=== PATIENT | female | born 1950 | race Caucasian/White ===

== ENCOUNTER 2020-09-10 10:27 | Outpatient (REF) | payer MEDICARE, MEDICAID, SELFPAY ==
[2020-09-10 12:17] LABS: Estimated Average Glucose 197 mg/dL; Hemoglobin A1c % 8.5 %
[2020-09-10 12:39] LABS: Alanine Aminotransferase 17 U/L (0-31); Albumin Level 3.9 g/dL (3.5-5.0); Alkaline Phosphatase 108 U/L (39-117); Anion Gap 15 (12-20); Aspartate Amino Transferase 14 U/L (5-31); Bilirubin Total 0.7 mg/dL (0.0-1.0); Blood Urea Nitrogen 19 mg/dL (9-16); Calcium 9.4 mg/dL (8.4-10.2); Carbon Dioxide 26 mmol/L (22-29); Chloride 98 mmol/L (96-108); Cholesterol 111 mg/dL; Estimated Glomerular Filt Rate 52; Glucose Random 232 mg/dL (60-115); HDL Cholesterol 30 mg/dL; LDL Cholesterol Calculated 50 mg/dl; Potassium 4.7 mmol/l (3.3-5.1); Sodium 134 mmol/L (135-145); Total Protein 7.7 g/dL (6.5-8.0); Triglycerides 156 mg/dL
[2020-09-10 13:03] LABS: Vitamin B12 453 pg/mL (200-900)
[2020-09-10 13:40] LABS: Creatinine Urine 54.84 mg/dL; Microalbum/Creatinine Ratio Ur 100.2 ug/mg cr
== END 2020-09-10 10:28 | disposition home or self-care (01) ==
LOC: HO.LAB 10:27
PROVIDERS: PCP Internal Medicine; Visit Provider Internal Medicine
DX: D64.9 Anemia, unspecified (principal); E11.65 Type 2 diabetes mellitus with hyperglycemia; E78.2 Mixed hyperlipidemia; E87.1 Hypo-osmolality and hyponatremia; Z91.14 Patient's other noncompliance with medication regimen
CPT/HCPCS: 80053; 80061; 82043; 82607; 83036

== ENCOUNTER 2020-12-09 10:52 | Outpatient (REF) | payer MEDICARE, MEDICAID, SELFPAY ==
[2020-12-09 12:11] LABS: MANUAL DIFF FLAG NO
[2020-12-09 12:26] LABS: Basophils Absolute Auto 0.1 X10*3/uL (0.0-0.2); Basophils Percent Auto 0.8 % (0-2); Eosinophils Absolute Auto 0.3 X10*3/uL (0.0-0.4); Eosinophils Percent Auto 4.3 % (0-4); Hematocrit 36.8 % (37-47); Hemoglobin 11.4 g/dl (12.0-16.0); Imm Gran Abs Auto 0.02 X10*3/uL (0.00-0.03); Imm Gran Pct Auto 0.3 % (0.0-0.4); Lymphocytes Absolute Auto 2.8 X10*3/uL (1.2-4.9); Lymphocytes Percent Auto 39.4 % (20-40); Mean Corpuscular Hemoglobin 26.4 pg (27.0-33.0); Mean Corpuscular Volume 85.2 fL (80-98); Mean Platelet Volume 10.4 fL (9.4-12.3); Monocytes Absolute Auto 0.6 X10*3/uL (0.1-1.2); Monocytes Percent Auto 7.9 % (2-11); Neutrophils Absolute Auto 3.4 X10*3/uL (2.0-8.3); Neutrophils Percent Auto 47.3 % (45-73); Platelet Count 330 X10*3/uL (160-400); Red Blood Count 4.32 X10*6/uL (4.20-5.50); Red Cell Distribution Width 18.2 % (11.0-16.0); White Blood Count 7.2 X10*3/uL (4.8-10.8)
[2020-12-09 12:43] LABS: Estimated Average Glucose 126 mg/dL; Hemoglobin A1C 124.5375 umol/L
[2020-12-09 13:32] LABS: Ferritin 154 ng/mL (10-250)
[2020-12-09 13:35] LABS: Alanine Aminotransferase 18 U/L (0-31); Albumin Level 3.9 g/dL (3.5-5.0); Alkaline Phosphatase 65 U/L (39-117); Anion Gap 16 (12-20); Aspartate Amino Transferase 28 U/L (5-31); Bilirubin Total 0.3 mg/dL (0.0-1.0); Blood Urea Nitrogen 20 mg/dL (9-16); Calcium 9.4 mg/dL (8.4-10.2); Carbon Dioxide 22 mmol/L (22-29); Chloride 107 mmol/L (96-108); Estimated Glomerular Filt Rate 52; Glucose Random 144 mg/dL (60-115); Potassium 4.9 mmol/l (3.3-5.1); Sodium 140 mmol/L (135-145); Total Protein 7.9 g/dL (6.5-8.0)
== END 2020-12-09 10:53 | disposition home or self-care (01) ==
LOC: HO.LAB 10:52
PROVIDERS: PCP Internal Medicine; Visit Provider Internal Medicine
DX: E11.65 Type 2 diabetes mellitus with hyperglycemia (principal); D64.9 Anemia, unspecified; E78.2 Mixed hyperlipidemia; R80.9 Proteinuria, unspecified
CPT/HCPCS: 36415; 80053; 82728; 83036; 85025

== ENCOUNTER 2021-03-15 09:29 | Outpatient (REF) | payer MEDICARE, MEDICAID, SELFPAY ==
[2021-03-15 10:41] LABS: Estimated Average Glucose 148 mg/dL; Hemoglobin A1c % 6.8 %
[2021-03-15 10:46] LABS: Alanine Aminotransferase 31 U/L (0-31); Albumin Level 4.2 g/dL (3.5-5.0); Alkaline Phosphatase 63 U/L (39-117); Anion Gap 14 (12-20); Aspartate Amino Transferase 22 U/L (5-31); Bilirubin Total 0.7 mg/dL (0.0-1.0); Blood Urea Nitrogen 27 mg/dL (9-16); Calcium 9.8 mg/dL (8.4-10.2); Carbon Dioxide 27 mmol/L (22-29); Chloride 104 mmol/L (96-108); Estimated Glomerular Filt Rate 57; Glucose Random 177 mg/dL (60-115); Potassium 4.6 mmol/L (3.3-5.1); Sodium 140 mmol/L (135-145); Total Protein 7.2 g/dL (6.5-8.0)
== END 2021-03-15 09:30 | disposition home or self-care (01) ==
LOC: HO.LAB 09:29
PROVIDERS: PCP Internal Medicine; Visit Provider Internal Medicine
DX: D64.9 Anemia, unspecified (principal); E11.9 Type 2 diabetes mellitus without complications; R80.0 Isolated proteinuria
CPT/HCPCS: 36415; 80053; 83036

== ENCOUNTER 2021-06-25 10:03 | Outpatient (REF) | payer MEDICARE, MEDICAID, SELFPAY ==
[2021-06-25 10:41] LABS: MANUAL DIFF FLAG NO
[2021-06-25 10:49] LABS: Basophils Absolute Auto 0.1 X10*3/uL (0.0-0.2); Basophils Percent Auto 0.7 % (0-2); Eosinophils Absolute Auto 0.5 X10*3/uL (0.0-0.4); Eosinophils Percent Auto 5.1 % (0-4); Hematocrit 34.5 % (37-47); Hemoglobin 10.7 g/dl (12.0-16.0); Imm Gran Abs Auto 0.04 X10*3/uL (0.00-0.03); Imm Gran Pct Auto 0.4 % (0.0-0.4); Lymphocytes Absolute Auto 2.9 X10*3/uL (1.2-4.9); Lymphocytes Percent Auto 30.7 % (20-40); Mean Corpuscular Hemoglobin 28.6 pg (27.0-33.0); Mean Corpuscular Volume 92.2 fL (80-98); Mean Platelet Volume 9.5 fL (9.4-12.3); Monocytes Absolute Auto 0.8 X10*3/uL (0.1-1.2); Neutrophils Absolute Auto 5.2 X10*3/uL (2.0-8.3); Neutrophils Percent Auto 55.1 % (45-73); Platelet Count 340 X10*3/uL (160-400); Red Blood Count 3.74 X10*6/uL (4.20-5.50); Red Cell Distribution Width 13.2 % (11.0-16.0); White Blood Count 9.5 X10*3/uL (4.8-10.8)
[2021-06-25 10:53] LABS: Estimated Average Glucose 134 mg/dL; Hemoglobin A1c % 6.3 %
[2021-06-25 11:15] LABS: Alanine Aminotransferase 25 U/L (0-31); Albumin Level 3.9 g/dL (3.5-5.0); Alkaline Phosphatase 60 U/L (39-117); Anion Gap 13 (12-20); Aspartate Amino Transferase 23 U/L (5-31); Bilirubin Total 0.4 mg/dL (0.0-1.0); Blood Urea Nitrogen 24 mg/dL (9-16); Calcium 9.7 mg/dL (8.4-10.2); Carbon Dioxide 23 mmol/L (22-29); Chloride 109 mmol/L (96-108); Estimated Glomerular Filt Rate 56; Glucose Random 127 mg/dL (60-115); Potassium 5.4 mmol/L (3.3-5.1); Sodium 140 mmol/L (135-145); Total Protein 6.7 g/dL (6.5-8.0)
[2021-06-25 11:38] LABS: Ferritin 107 ng/mL (10-250)
[2021-06-25 11:53] LABS: Vitamin B12 275 pg/mL (200-900)
== END 2021-06-25 10:04 | disposition home or self-care (01) ==
LOC: HO.LAB 10:03
PROVIDERS: PCP Internal Medicine; Visit Provider Internal Medicine
DX: D64.9 Anemia, unspecified (principal); E11.9 Type 2 diabetes mellitus without complications; F33.42 Major depressive disorder, recurrent, in full remission; J30.89 Other allergic rhinitis; R80.0 Isolated proteinuria
CPT/HCPCS: 36415; 80053; 82607; 82728; 83036; 85025

== ENCOUNTER 2021-09-22 13:12 | Outpatient (REF) | payer MEDICARE, SELFPAY ==
[2021-09-22 14:26] LABS: Estimated Average Glucose 154 mg/dL
[2021-09-22 14:56] LABS: Alanine Aminotransferase 32 U/L (0-31); Albumin Level 4.2 g/dL (3.5-5.0); Alkaline Phosphatase 66 U/L (39-117); Anion Gap 13 (12-20); Aspartate Amino Transferase 33 U/L (5-31); Bilirubin Total 0.4 mg/dL (0.0-1.0); Blood Urea Nitrogen 21 mg/dL (9-16); Calcium 9.8 mg/dL (8.4-10.2); Carbon Dioxide 25 mmol/L (22-29); Chloride 104 mmol/L (96-108); Estimated Glomerular Filt Rate 59; Glucose Random 141 mg/dL (60-115); Potassium 4.3 mmol/L (3.3-5.1); Sodium 138 mmol/L (135-145); Total Protein 7.4 g/dL (6.5-8.0)
[2021-09-22 15:18] LABS: Ferritin 57 ng/mL (10-250); Vitamin B12 249 pg/mL (200-900)
== END 2021-09-22 13:13 | disposition home or self-care (01) ==
LOC: HO.LAB 13:12
PROVIDERS: PCP Internal Medicine; Visit Provider Internal Medicine
DX: D64.9 Anemia, unspecified (principal); E11.9 Type 2 diabetes mellitus without complications; F17.201 Nicotine dependence, unspecified, in remission; F33.42 Major depressive disorder, recurrent, in full remission; R80.0 Isolated proteinuria
CPT/HCPCS: 36415; 80053; 82607; 82728; 83036

== ENCOUNTER 2022-01-03 10:45 | Outpatient (REF) | payer MEDICARE, SELFPAY ==
[2022-01-03 12:07] LABS: Estimated Average Glucose 154 mg/dL
[2022-01-03 12:26] LABS: Creatinine Urine 47.98 mg/dL; Microalbum/Creatinine Ratio Ur 127.1 ug/mg cr
[2022-01-03 12:26] LABS: Alanine Aminotransferase 27 U/L (0-31); Albumin Level 3.6 g/dL (3.5-5.0); Alkaline Phosphatase 96 U/L (39-117); Anion Gap 14 (12-20); Aspartate Amino Transferase 27 U/L (5-31); Bilirubin Total 0.4 mg/dL (0.0-1.0); Blood Urea Nitrogen 31 mg/dL (9-16); Calcium 9.6 mg/dL (8.4-10.2); Carbon Dioxide 20 mmol/L (22-29); Chloride 109 mmol/L (96-108); Cholesterol 107 mg/dL; Estimated Glomerular Filt Rate 32; Glucose Random 125 mg/dL (60-115); HDL Cholesterol 27 mg/dL; LDL Cholesterol Calculated 47 mg/dl; Potassium 5.1 mmol/L (3.3-5.1); Sodium 138 mmol/L (135-145); Total Protein 7.5 g/dL (6.5-8.0); Triglycerides 169 mg/dL
== END 2022-01-03 10:46 | disposition home or self-care (01) ==
LOC: HO.LAB 10:45
PROVIDERS: PCP Internal Medicine; Visit Provider Internal Medicine
DX: Z00.00 Encounter for general adult medical examination without abnormal findings (principal); D51.9 Vitamin B12 deficiency anemia, unspecified; E11.9 Type 2 diabetes mellitus without complications; F33.42 Major depressive disorder, recurrent, in full remission; R80.0 Isolated proteinuria
CPT/HCPCS: 36415; 80053; 80061; 82043; 83036

== ENCOUNTER 2022-04-04 10:56 | Outpatient (REF) | payer OTHER, SELFPAY ==
[2022-04-04 12:12] LABS: Estimated Average Glucose 143 mg/dL; Hemoglobin A1c % 6.6 %
[2022-04-04 12:14] LABS: Alanine Aminotransferase 16 U/L (0-31); Alkaline Phosphatase 85 U/L (39-117); Anion Gap 15 (12-20); Aspartate Amino Transferase 20 U/L (5-31); Bilirubin Total 0.4 mg/dL (0.0-1.0); Blood Urea Nitrogen 32 mg/dL (9-16); Calcium 9.6 mg/dL (8.4-10.2); Carbon Dioxide 19 mmol/L (22-29); Chloride 111 mmol/L (96-108); Estimated Glomerular Filt Rate 38; Glucose Random 137 mg/dL (60-115); Potassium 4.5 mmol/L (3.3-5.1); Sodium 140 mmol/L (135-145); Total Protein 7.6 g/dL (6.5-8.0)
== END 2022-04-04 10:57 | disposition home or self-care (01) ==
LOC: HO.LAB 10:56
PROVIDERS: PCP Internal Medicine; Visit Provider Internal Medicine
DX: E11.9 Type 2 diabetes mellitus without complications (principal); E78.00 Pure hypercholesterolemia, unspecified; N18.9 Chronic kidney disease, unspecified; R80.0 Isolated proteinuria
CPT/HCPCS: 36415; 80053; 83036

== ENCOUNTER 2022-07-04 09:40 | Outpatient (REF) | payer OTHER, SELFPAY ==
[2022-07-04 11:36] LABS: Estimated Average Glucose 134 mg/dL; Hemoglobin A1c % 6.3 %
[2022-07-04 11:53] LABS: Alanine Aminotransferase 36 U/L (0-31); Albumin Level 3.8 g/dL (3.5-5.0); Alkaline Phosphatase 97 U/L (39-117); Anion Gap 17 (12-20); Aspartate Amino Transferase 37 U/L (5-31); Bilirubin Total 0.4 mg/dL (0.0-1.0); Blood Urea Nitrogen 44 mg/dL (9-16); Calcium 9.3 mg/dL (8.4-10.2); Carbon Dioxide 15 mmol/L (22-29); Chloride 111 mmol/L (96-108); Estimated Glomerular Filt Rate 26; Glucose Random 106 mg/dL (60-115); Potassium 5.6 mmol/L (3.3-5.1); Sodium 137 mmol/L (135-145); Total Protein 7.7 g/dL (6.5-8.0)
[2022-07-04 12:17] LABS: TSH reflex Free T4 4.56 uIU/mL (0.32-4.0)
[2022-07-04 12:53] LABS: Free T4 (Free Thyroxine) 0.84 ng/dL (0.71-1.85)
== END 2022-07-04 09:41 | disposition home or self-care (01) ==
LOC: HO.LAB 09:40
PROVIDERS: PCP Internal Medicine; Visit Provider Internal Medicine
DX: E11.9 Type 2 diabetes mellitus without complications (principal); N18.9 Chronic kidney disease, unspecified; R63.4 Abnormal weight loss; F32.5 Major depressive disorder, single episode, in full remission; F17.201 Nicotine dependence, unspecified, in remission; Z93.6 Other artificial openings of urinary tract status
CPT/HCPCS: 36415; 80053; 83036; 84439; 84443

== ENCOUNTER 2022-09-29 08:44 | Outpatient (REF) | payer OTHER, SELFPAY ==
[2022-09-29 09:51] LABS: Estimated Average Glucose 160 mg/dL; Hemoglobin A1c % 7.2 %
[2022-09-29 10:20] LABS: Alanine Aminotransferase 20 U/L (0-31); Albumin Level 4.1 g/dL (3.5-5.0); Alkaline Phosphatase 89 U/L (39-117); Anion Gap 17 (12-20); Aspartate Amino Transferase 18 U/L (5-31); Bilirubin Direct < 0.2 mg/dL (0.0-0.5); Bilirubin Total 0.4 mg/dL (0.0-1.0); Blood Urea Nitrogen 27 mg/dL (9-16); Calcium 9.6 mg/dL (8.4-10.2); Carbon Dioxide 22 mmol/L (22-29); Chloride 105 mmol/L (96-108); Cholesterol 164 mg/dL; Estimated Glomerular Filt Rate 36; Glucose Random 176 mg/dL (60-115); HDL Cholesterol 39 mg/dL; LDL Cholesterol Calculated 82 mg/dl; Potassium 4.4 mmol/L (3.3-5.1); Sodium 140 mmol/L (135-145); Total Protein 7.4 g/dL (6.5-8.0); Triglycerides 215 mg/dL
== END 2022-09-29 08:45 | disposition home or self-care (01) ==
LOC: HO.LAB 08:44
PROVIDERS: Absent Provider Nurse Practitioner Gerontology; PCP Internal Medicine; Visit Provider Internal Medicine
DX: E03.8 Other specified hypothyroidism (principal); E11.9 Type 2 diabetes mellitus without complications; N18.9 Chronic kidney disease, unspecified; R63.4 Abnormal weight loss
CPT/HCPCS: 36415; 80053; 80061; 82248; 83036

== ENCOUNTER 2023-01-20 11:54 | Outpatient (REF) | payer OTHER, SELFPAY ==
[2023-01-20 12:40] LABS: Estimated Average Glucose 183 mg/dL
[2023-01-20 13:17] LABS: Alanine Aminotransferase 22 U/L (0-31); Albumin Level 3.9 g/dL (3.5-5.0); Alkaline Phosphatase 80 U/L (39-117); Anion Gap 12 (12-20); Aspartate Amino Transferase 23 U/L (5-31); Bilirubin Total 0.5 mg/dL (0.0-1.0); Blood Urea Nitrogen 29 mg/dL (9-16); Calcium 9.2 mg/dL (8.4-10.2); Carbon Dioxide 21 mmol/L (22-29); Chloride 107 mmol/L (96-108); Estimated Glomerular Filt Rate 35; Glucose Random 297 mg/dL (60-115); Potassium 4.3 mmol/L (3.3-5.1); Sodium 136 mmol/L (135-145)
[2023-01-20 13:20] LABS: Creatinine Urine 51.43 mg/dL; Microalbum/Creatinine Ratio Ur 124.4 ug/mg cr
[2023-01-20 13:42] LABS: Vitamin B12 272 pg/mL (200-900)
== END 2023-01-20 11:55 | disposition home or self-care (01) ==
LOC: HO.LAB 11:54
PROVIDERS: PCP Internal Medicine; Visit Provider Internal Medicine
DX: Z00.00 Encounter for general adult medical examination without abnormal findings (principal); E11.9 Type 2 diabetes mellitus without complications; E78.2 Mixed hyperlipidemia; N18.9 Chronic kidney disease, unspecified
CPT/HCPCS: 36415; 80053; 82043; 82607; 83036

== ENCOUNTER 2023-04-28 09:55 | Outpatient (REF) | payer OTHER, SELFPAY ==
[2023-04-28 11:18] LABS: Estimated Average Glucose 186 mg/dL; Hemoglobin A1c % 8.1 %
[2023-04-28 12:01] LABS: Alanine Aminotransferase 33 U/L (0-31); Albumin Level 4.2 g/dL (3.5-5.0); Alkaline Phosphatase 78 U/L (39-117); Anion Gap 14 (12-20); Aspartate Amino Transferase 40 U/L (5-31); Bilirubin Total 0.6 mg/dL (0.0-1.0); Blood Urea Nitrogen 31 mg/dL (9-16); Calcium 9.5 mg/dL (8.4-10.2); Carbon Dioxide 21 mmol/L (22-29); Chloride 105 mmol/L (96-108); Estimated Glomerular Filt Rate 29; Glucose Random 217 mg/dL (60-115); Potassium 4.7 mmol/L (3.3-5.1); Sodium 135 mmol/L (135-145); Total Protein 7.7 g/dL (6.5-8.0)
== END 2023-04-28 09:56 | disposition home or self-care (01) ==
LOC: HO.LAB 09:55
PROVIDERS: PCP Internal Medicine; Visit Provider Internal Medicine
DX: E11.65 Type 2 diabetes mellitus with hyperglycemia (principal); N18.30 Chronic kidney disease, stage 3 unspecified
CPT/HCPCS: 36415; 80053; 83036

== ENCOUNTER 2023-08-04 10:21 | Outpatient (REF) | payer OTHER, SELFPAY ==
[2023-08-04 10:59] LABS: Estimated Average Glucose 203 mg/dL; Hemoglobin A1c % 8.7 % (<6.0)
[2023-08-04 11:24] LABS: Alanine Aminotransferase 26 U/L (0-31); Albumin Level 4.1 g/dL (3.5-5.0); Alkaline Phosphatase 75 U/L (39-117); Anion Gap 12 (12-20); Aspartate Amino Transferase 30 U/L (5-31); Bilirubin Total 0.4 mg/dL (0.0-1.0); Blood Urea Nitrogen 24 mg/dL (9-16); Carbon Dioxide 22 mmol/L (22-29); Chloride 110 mmol/L (96-108); Estimated Glomerular Filt Rate 30; Glucose Random 221 mg/dL (60-115); Potassium 5.6 mmol/L (3.3-5.1); Sodium 138 mmol/L (135-145); Total Protein 7.7 g/dL (6.5-8.0)
== END 2023-08-04 10:22 | disposition home or self-care (01) ==
LOC: HO.LAB 10:21
PROVIDERS: PCP Internal Medicine; Visit Provider Internal Medicine
DX: E11.65 Type 2 diabetes mellitus with hyperglycemia (principal); N18.9 Chronic kidney disease, unspecified; Z85.51 Personal history of malignant neoplasm of bladder
CPT/HCPCS: 36415; 80053; 83036

== ENCOUNTER 2023-11-10 09:42 | Outpatient (REF) | payer OTHER, SELFPAY ==
[2023-11-10 10:32] LABS: Estimated Average Glucose 209 mg/dL; Hemoglobin A1c % 8.9 % (<6.0)
[2023-11-10 10:41] LABS: Alanine Aminotransferase 32 U/L (0-31); Albumin Level 4.1 g/dL (3.5-5.0); Alkaline Phosphatase 72 U/L (39-117); Anion Gap 14 (12-20); Aspartate Amino Transferase 35 U/L (5-31); Bilirubin Total 0.4 mg/dL (0.0-1.0); Blood Urea Nitrogen 23 mg/dL (9-16); Calcium 9.7 mg/dL (8.4-10.2); Carbon Dioxide 23 mmol/L (22-29); Chloride 105 mmol/L (96-108); Cholesterol 158 mg/dL (<200); Estimated Glomerular Filt Rate 34; Glucose Random 282 mg/dL (60-115); HDL Cholesterol 37 mg/dL (>40); LDL Cholesterol Calculated 83 mg/dL (<100); Potassium 5.4 mmol/L (3.3-5.1); Sodium 137 mmol/L (135-145); Total Protein 7.9 g/dL (6.5-8.0); Triglycerides 193 mg/dL (<150)
[2023-11-10 10:57] LABS: Thyroid Stimulating Hormone 5.54 uIU/mL (0.32-4.0)
[2023-11-10 11:10] LABS: Creatinine Urine 62.42 mg/dL; Microalbum/Creatinine Ratio Ur 201.8 ug/mg cr (<30)
== END 2023-11-10 09:43 | disposition home or self-care (01) ==
LOC: HO.LAB 09:42
PROVIDERS: PCP Internal Medicine; Visit Provider Internal Medicine
DX: E11.65 Type 2 diabetes mellitus with hyperglycemia (principal); E11.22 Type 2 diabetes mellitus with diabetic chronic kidney disease; F17.201 Nicotine dependence, unspecified, in remission; N18.9 Chronic kidney disease, unspecified
CPT/HCPCS: 36415; 80053; 80061; 82043; 82570; 83036; 84443

== ENCOUNTER 2024-02-09 09:43 | Outpatient (REF) | payer OTHER, SELFPAY ==
[2024-02-09 10:58] LABS: Estimated Average Glucose 171 mg/dL; Hemoglobin A1c % 7.6 % (<6.0)
[2024-02-09 11:34] LABS: Alanine Aminotransferase 24 U/L (0-31); Alkaline Phosphatase 60 U/L (39-117); Anion Gap 13 (12-20); Aspartate Amino Transferase 27 U/L (5-31); Bilirubin Total 0.4 mg/dL (0.0-1.0); Blood Urea Nitrogen 27 mg/dL (9-16); Calcium 9.7 mg/dL (8.4-10.2); Carbon Dioxide 25 mmol/L (22-29); Chloride 104 mmol/L (96-108); Cholesterol 156 mg/dL (<200); Estimated Glomerular Filt Rate 38; Glucose Random 219 mg/dL (60-115); HDL Cholesterol 34 mg/dL (>40); LDL Cholesterol Calculated 72 mg/dL (<100); Potassium 4.8 mmol/L (3.3-5.1); Sodium 137 mmol/L (135-145); Total Protein 7.4 g/dL (6.5-8.0); Triglycerides 253 mg/dL (<150)
== END 2024-02-09 09:44 | disposition home or self-care (01) ==
LOC: HO.LAB 09:43
PROVIDERS: PCP Internal Medicine; Visit Provider Internal Medicine
DX: E11.65 Type 2 diabetes mellitus with hyperglycemia (principal); E11.22 Type 2 diabetes mellitus with diabetic chronic kidney disease; E78.00 Pure hypercholesterolemia, unspecified; F17.201 Nicotine dependence, unspecified, in remission; R19.5 Other fecal abnormalities; R80.8 Other proteinuria; N18.9 Chronic kidney disease, unspecified
CPT/HCPCS: 36415; 80053; 80061; 83036

== ENCOUNTER 2024-05-10 10:06 | Outpatient (REF) | payer OTHER, SELFPAY ==
[2024-05-10 10:59] LABS: Estimated Average Glucose 209 mg/dL; Hemoglobin A1c % 8.9 % (<6.0)
[2024-05-10 11:24] LABS: Alanine Aminotransferase 16 U/L (0-31); Albumin Level 3.8 g/dL (3.5-5.0); Alkaline Phosphatase 60 U/L (39-117); Anion Gap 11 (12-20); Aspartate Amino Transferase 19 U/L (5-31); Bilirubin Total 0.7 mg/dL (0.0-1.0); Blood Urea Nitrogen 19 mg/dL (9-16); Calcium 9.8 mg/dL (8.4-10.2); Carbon Dioxide 24 mmol/L (22-29); Chloride 104 mmol/L (96-108); Estimated Glomerular Filt Rate 40; Glucose Random 234 mg/dL (60-115); Potassium 4.2 mmol/L (3.3-5.1); Sodium 135 mmol/L (135-145); Total Protein 7.4 g/dL (6.5-8.0)
== END 2024-05-10 10:07 | disposition home or self-care (01) ==
LOC: HO.LAB 10:06
PROVIDERS: PCP Internal Medicine; Visit Provider Internal Medicine
DX: E11.65 Type 2 diabetes mellitus with hyperglycemia (principal); E11.22 Type 2 diabetes mellitus with diabetic chronic kidney disease; I12.9 Hypertensive chronic kidney disease with stage 1 through stage 4 chronic kidney disease, or unspecified chronic kidney disease; E78.2 Mixed hyperlipidemia; N18.9 Chronic kidney disease, unspecified; R80.8 Other proteinuria
CPT/HCPCS: 36415; 80053; 83036

== ENCOUNTER 2024-05-22 07:19 | Day surgery (SDC) | payer OTHER, SELFPAY ==
[2024-05-20 14:19] VITALS: BMI 25.9
--- NOTE | 2024-05-21 10:09 | P.CONAN_ITS ---
Documented by User: Elissa Chang NP 05/21/24 10:19 HPI - Anesthesia Eval Consult details Narrative: 74yo F for Colonoscopy CAD with [place] and stent 2017. Follows with [facility] Cardiology. Last office visit 2021. [facility] Past Medical History Medical History Bladder cancer GERD (gastroesophageal reflux disease) Myocardial infarction Diabetes Surgical History Surgical History Hx of heart artery stent History of surgery Hx of total cystectomy H/O colonoscopy Social History Social History Patient Tobacco Use Status: Former Tobacco user Tobacco use type: Cigarette Use of substances other than those prescribed or required for medical reasons: No Are you DNR?: No Advance Directives: No Advance Directives Information Provided: Yes Meds Allergies Allergy/AdvReac Type Severity Reaction Status Date / Time No Known Allergies Allergy Verified 05/22/24 08:11 [No Known Allergies*] Home Medications ?Medication ?Instructions ?Recorded ?Confirmed ?Last Taken ?Type aspirin 81 mg tablet,delayed 81 mg PO DAILY 05/20/24 05/22/24 05/20/24 History release escitalopram oxalate 5 mg tablet 5 mg PO DAILY 05/20/24 05/20/24 Unknown History glipizide 10 mg tablet, extended 10 mg PO DAILY 05/20/24 05/20/24 Unknown History release 24 hr metformin 750 mg tablet,extended 750 mg PO BID 05/20/24 05/20/24 Unknown History release 24 hr metoprolol tartrate 25 mg tablet 25 mg PO BID 05/20/24 05/20/24 Unknown History omeprazole 40 mg capsule,delayed 40 mg PO DAILY 05/20/24 05/20/24 Unknown History release rosuvastatin 10 mg tablet 10 mg PO BEDTIME 05/20/24 05/20/24 Unknown History Exam Height,Weight and Vital Signs: Height 5 ft 1 in Weight 62.142 kg Pertinent Lab Results Pertinent Lab Results: Laboratory Tests 06/25/21 05/10/24 10:20 10:18 WBC 9.5 Hgb 10.7 L Hct 34.5 L Plt Count 340 Sodium 135 Potassium 4.2 Chloride 104 Carbon Dioxide 24 BUN 19 H Creatinine 1.29 Assessment and Plan Assessment Anesthesia Assessment: Chart Reviewed Documented by User: Shazia Langford MD 05/22/24 08:49 PMFSH Past Medical History Medical History Bladder cancer GERD (gastroesophageal reflux disease) Myocardial infarction Diabetes Family History Family history of problems with anesthesia: No Surgical History Surgical History Hx of heart artery stent History of surgery Hx of total cystectomy H/O colonoscopy History of Problems with Anesthesia: No Social History Social History Patient Tobacco Use Status: Former Tobacco user Tobacco use type: Cigarette Use of substances other than those prescribed or required for medical reasons: No Are you DNR?: No Advance Directives: No Advance Directives Information Provided: Yes Meds Allergies Allergy/AdvReac Type Severity Reaction Status Date / Time No Known Allergies Allergy Verified 05/22/24 08:11 [No Known Allergies*] Home Medications ?Medication ?Instructions ?Recorded ?Confirmed ?Last Taken ?Type aspirin 81 mg tablet,delayed 81 mg PO DAILY 05/20/24 05/22/24 05/20/24 History release escitalopram oxalate 5 mg tablet 5 mg PO DAILY 05/20/24 05/20/24 Unknown History glipizide 10 mg tablet, extended 10 mg PO DAILY 05/20/24 05/20/24 Unknown History release 24 hr metformin 750 mg tablet,extended 750 mg PO BID 05/20/24 05/20/24 Unknown History release 24 hr metoprolol tartrate 25 mg tablet 25 mg PO BID 05/20/24 05/20/24 Unknown History omeprazole 40 mg capsule,delayed 40 mg PO DAILY 05/20/24 05/20/24 Unknown History release rosuvastatin 10 mg tablet 10 mg PO BEDTIME 05/20/24 05/20/24 Unknown History Exam Airway Mallampati Class: II TM Dist: >3cm Neck ROM: Full Denture: Upper and Lower Assessment and Plan Assessment Anesthesia Assessment: Anesthesia Plan Discussed Final Anesthetic Review Family History of Problems with Anesthesia: No History of Problems with Anesthesia: No NPO: Yes ASA Class: III Final Preanesthetic Review: No Changes in Pt Med Stat, Meds/Allgs Chart Reviewed, Consent Obtained/Reviewed and Anes Risks/Benef Reviewed Patient Risk: Intermediate Procedure Risk: Low Anesthetic Plan Anesthetic Plan: TIVA Disposition: Standard PACU
[2024-05-22 08:04] LABS: Glucose, Whole Blood 237 mg/dL (60-115)
[2024-05-22 08:15] VITALS: BMI 24.9
[2024-05-22 08:19] VITALS: BP 151/74; PULSE 81; RESP 16; TEMP 36.9; O2SAT 95
[2024-05-22] MEDS: Lactated Ringers 1,000 ML 100 ML IVCONT (08:30)
--- NOTE | 2024-05-22 09:35 | PC.NURSE ---
24hr update documented on paper.
[2024-05-22 09:51] VITALS: BP 133/73; PULSE 90; RESP 17; TEMP 36.1; O2SAT 97
--- NOTE | 2024-05-22 09:52 | P.BOP_ITS ---
Brief Operative Note Date of Service: 05/22/24 Pre-op diagnosis: + Cologuard Post-op diagnosis: other (? Colon polyp) Procedure: Colonoscopy to the cecum with biopsies Surgeon: Nando Goode MD Anesthesia: MAC Was an Train Station Agent used for this Procedure?: No Estimated blood loss (mL): 2.0 Pathology: other (A. ? Polyp in area of Hepatic flexure) Condition: stable Disposition: PACU
[2024-05-22 10:06] VITALS: BP 141/75; PULSE 75; RESP 15; TEMP 36.4; O2SAT 97
--- NOTE | 2024-05-22 10:26 | OP_ITS ---
DATE OF SERVICE: 05/22/2024 SURGEON: Nando Goode MD INDICATIONS: The patient presents for evaluation of a positive Cologuard test. Full consent has been obtained from her for this, including risks of bleeding and perforation. PREOPERATIVE DIAGNOSIS: POSTOPERATIVE DIAGNOSIS: Positive Cologuard test. PROCEDURE PERFORMED: Colonoscopy to cecum with biopsies. ESTIMATED BLOOD LOSS: COMPLICATIONS: ANESTHESIA: Monitored anesthesia care. ASSISTANTS: SPECIMENS: PREOPERATIVE DIAGNOSES: Positive Cologuard test, question of colon polyp, diverticulosis, and internal hemorrhoids. DESCRIPTION OF PROCEDURE: The patient was placed in the left lateral decubitus position. The digital rectal exam revealed no abnormalities. The Olympus video pediatric colonoscope was entered into the rectum and advanced to the cecum. Advancement to the cecum was somewhat difficult due to probable adhesions. Once in the cecum, I did identify cecal pouch with appendiceal orifice and a normal-appearing ileocecal valve. There was transillumination of light deep in the right lower quadrant. The scope was then slowly withdrawn assessing all mucosal surfaces carefully. Preparation was excellent. The mucosa in the region of the cecum, ascending colon, and transverse colon was somewhat friable and edematous. With irrigation, there was no sign of any underlying colitis. In the area of what appeared to be the distal ascending colon or the hepatic flexure, was a fold with some overlying edema and inflammation that may have represented just some inflammatory tissue, but biopsies were obtained to rule out any type of polyp. I did not visualize any polyps, colitis, nor angiodysplasias. There was a moderate amount of diverticulosis in the descending and sigmoid colon. In the rectum, scope was retroflexed, visualizing some internal hemorrhoids, but no other pathology. The rectal mucosa appeared normal. The scope was straightened and withdrawn from the patient. She tolerated the procedure well and was returned to the recovery area in stable condition. IMPRESSION: 1. Rule out colon polyp. 2. Diverticulosis. 3. Internal hemorrhoids. PLAN: The results of the biopsy will be checked. If this is an adenomatous type tissue, she would need a followup colonoscopy for further removal of that area. If it is all hyperplastic and/or inflammatory, then I do not think she will need any further colonoscopies in the future. She was advised to resume her aspirin tomorrow. MD DIVYA Escoto/AUGUSTINE / [id number]
== END 2024-05-22 10:44 | disposition home or self-care (01) ==
PROVIDERS: PCP Internal Medicine; Visit Provider Internal Medicine
PROC: 0DJD8ZZ Inspection of Lower Intestinal Tract, Via Natural or Artificial Opening Endoscopic (ICD-10-PCS; CPT 45378; principal; 2024-05-22 08:30)
DX: R19.5 Other fecal abnormalities (principal); D12.3 Benign neoplasm of transverse colon; K57.30 Diverticulosis of large intestine without perforation or abscess without bleeding; K64.8 Other hemorrhoids; K21.9 Gastro-esophageal reflux disease without esophagitis; E11.9 Type 2 diabetes mellitus without complications; C67.9 Malignant neoplasm of bladder, unspecified; Z90.6 Acquired absence of other parts of urinary tract; Z93.6 Other artificial openings of urinary tract status; I25.2 Old myocardial infarction; Z95.5 Presence of coronary angioplasty implant and graft; Z79.82 Long term (current) use of aspirin; Z79.84 Long term (current) use of oral hypoglycemic drugs; Z79.899 Other long term (current) drug therapy; Z98.890 Other specified postprocedural states; Z87.891 Personal history of nicotine dependence
CPT/HCPCS: 45380; 82947; 88305; J2704

== ENCOUNTER 2024-08-08 10:55 | Outpatient (REF) | payer OTHER, SELFPAY ==
[2024-08-08 12:13] LABS: Estimated Average Glucose 220 mg/dL; Hemoglobin A1c % 9.3 % (<6.0)
[2024-08-08 12:39] LABS: Alanine Aminotransferase 19 U/L (0-31); Albumin Level 3.9 g/dL (3.5-5.0); Alkaline Phosphatase 65 U/L (39-117); Anion Gap 10 (12-20); Aspartate Amino Transferase 24 U/L (5-31); Bilirubin Total 0.4 mg/dL (0.0-1.0); Blood Urea Nitrogen 26 mg/dL (9-16); Calcium 9.8 mg/dL (8.4-10.2); Carbon Dioxide 22 mmol/L (22-29); Chloride 109 mmol/L (96-108); Estimated Glomerular Filt Rate 39; Glucose Random 204 mg/dL (60-115); Potassium 4.4 mmol/L (3.3-5.1); Sodium 137 mmol/L (135-145); Total Protein 7.3 g/dL (6.5-8.0)
== END 2024-08-08 10:56 | disposition home or self-care (01) ==
LOC: HO.LAB 10:55
PROVIDERS: PCP Internal Medicine; Visit Provider Internal Medicine
DX: E11.65 Type 2 diabetes mellitus with hyperglycemia (principal); I25.10 Atherosclerotic heart disease of native coronary artery without angina pectoris; N18.9 Chronic kidney disease, unspecified; R80.8 Other proteinuria
CPT/HCPCS: 36415; 80053; 83036

== ENCOUNTER 2024-10-07 10:26 | Day surgery (SDC) | payer OTHER, SELFPAY ==
[2024-10-03 14:28] VITALS: BMI 25.9
--- NOTE | 2024-10-04 09:53 | HO.ANESPROP2 ---
Documented by User: Elissa Chang NP 10/04/24 09:59 HPI - Anesthesia Eval Consult details Narrative: 74yo F for Colonoscopy Follows [facility] CAD s/p [place] and stent 2017. Not seen since 2021?? Attempted phone assess, but unavailable. Anesthesia Pre-Procedure Meds Is the patient on any of the following meds?: GLP1/DPP4 PMFSH Past Medical History Medical History (Updated 10/03/24 @ 14:28 by Nenita Regalado RN) Bladder cancer GERD (gastroesophageal reflux disease) Myocardial infarction Diabetes Family History Family history of problems with anesthesia: No Surgical History Surgical History (Updated 10/07/24 @ 10:55 by Niesha Armijo RN) H/O tubal ligation H/O adenoidectomy Hx of tonsillectomy History of kidney surgery Hx of heart artery stent History of surgery Hx of total cystectomy H/O colonoscopy History of Problems with Anesthesia: No Social History Social History Patient Tobacco Use Status: Former Tobacco user Tobacco use type: Cigarette Use of substances other than those prescribed or required for medical reasons: No Are you DNR?: No Advance Directives: No Advance Directives Information Provided: Yes Advance Directives on File: No Recently lost weight without trying: No Nutrition Risks: No Nutritional Risk Patient : No Meds Allergies Allergy/AdvReac Type Severity Reaction Status Date / Time No Known Allergies Allergy Verified 05/22/24 08:11 [No Known Allergies*] Home Medications ?Medication ?Instructions ?Recorded ?Confirmed ?Last Taken ?Type aspirin 81 mg tablet,delayed 81 mg PO DAILY 05/20/24 10/03/24 05/20/24 History release escitalopram oxalate 5 mg tablet 5 mg PO DAILY 05/20/24 10/03/24 Unknown History glipizide 10 mg tablet, extended 10 mg PO DAILY 05/20/24 10/03/24 Unknown History release 24 hr metformin 750 mg tablet,extended 750 mg PO BID 05/20/24 10/03/24 Unknown History release 24 hr metoprolol tartrate 25 mg tablet 25 mg PO BID 05/20/24 10/03/24 Unknown History omeprazole 40 mg capsule,delayed 40 mg PO DAILY 05/20/24 10/03/24 Unknown History release rosuvastatin 10 mg tablet 10 mg PO BEDTIME 05/20/24 10/03/24 Unknown History insulin glargine 100 unit/mL (3 24 unit subcut BEDTIME 10/03/24 10/03/24 Unknown History mL) subcutaneous pen (Lantus Solostar U-100 Insulin) sitagliptin phosphate 100 mg 100 mg PO DAILY 10/03/24 10/03/24 10/04/24 History tablet (Januvia) Exam Height,Weight and Vital Signs: Height 5 ft 1 in Weight 62.142 kg Pertinent Lab Results Pertinent Lab Results: Laboratory Tests 08/08/24 11:30 Sodium 137 Potassium 4.4 Chloride 109 H Carbon Dioxide 22 BUN 26 H Creatinine 1.34 Narrative Narrative: ECHO 2022 LV size nml LV wall thickness nml LV sys function low nml with EF 50-55% Accurate pulmo pressures cannot be determined d/t absence of TR jet Lipomatous hypertrophy of interatrial septum Slightly improved EF c/w 2021 Assessment and Plan Assessment Anesthesia Assessment: Chart Reviewed Final Anesthetic Review Family History of Problems with Anesthesia: No History of Problems with Anesthesia: No Documented by User: Shazia Langford MD 10/07/24 12:00 [facility] Past Medical History Medical History (Updated 10/03/24 @ 14:28 by Nenita Regalado RN) Bladder cancer GERD (gastroesophageal reflux disease) Myocardial infarction Diabetes Surgical History Surgical History (Updated 10/07/24 @ 10:55 by Niesha Armijo RN) H/O tubal ligation H/O adenoidectomy Hx of tonsillectomy History of kidney surgery Hx of heart artery stent History of surgery Hx of total cystectomy H/O colonoscopy Social History Social History Patient Tobacco Use Status: Former Tobacco user Tobacco use type: Cigarette Use of substances other than those prescribed or required for medical reasons: No Are you DNR?: No Advance Directives: No Advance Directives Information Provided: Yes Advance Directives on File: No Recently lost weight without trying: No Nutrition Risks: No Nutritional Risk Patient : No Meds Allergies Allergy/AdvReac Type Severity Reaction Status Date / Time No Known Allergies Allergy Verified 05/22/24 08:11 [No Known Allergies*] Home Medications ?Medication ?Instructions ?Recorded ?Confirmed ?Last Taken ?Type aspirin 81 mg tablet,delayed 81 mg PO DAILY 05/20/24 10/03/24 05/20/24 History release escitalopram oxalate 5 mg tablet 5 mg PO DAILY 05/20/24 10/03/24 Unknown History glipizide 10 mg tablet, extended 10 mg PO DAILY 05/20/24 10/03/24 Unknown History release 24 hr metformin 750 mg tablet,extended 750 mg PO BID 05/20/24 10/03/24 Unknown History release 24 hr metoprolol tartrate 25 mg tablet 25 mg PO BID 05/20/24 10/03/24 Unknown History omeprazole 40 mg capsule,delayed 40 mg PO DAILY 05/20/24 10/03/24 Unknown History release rosuvastatin 10 mg tablet 10 mg PO BEDTIME 05/20/24 10/03/24 Unknown History insulin glargine 100 unit/mL (3 24 unit subcut BEDTIME 10/03/24 10/03/24 Unknown History mL) subcutaneous pen (Lantus Solostar U-100 Insulin) sitagliptin phosphate 100 mg 100 mg PO DAILY 10/03/24 10/03/24 10/04/24 History tablet (Januvia) Exam Airway Mallampati Class: II TM Dist: >3cm Neck ROM: Full Denture: Upper and Lower Assessment and Plan Assessment Anesthesia Assessment: Anesthesia Plan Discussed Final Anesthetic Review NPO: Yes ASA Class: III Final Preanesthetic Review: No Changes in Pt Med Stat, Meds/Allgs Chart Reviewed, Consent Obtained/Reviewed and Anes Risks/Benef Reviewed Patient Risk: Intermediate Procedure Risk: Low Anesthetic Plan Anesthetic Plan: TIVA Disposition: Standard PACU
[2024-10-07 10:56] VITALS: BMI 26.1
[2024-10-07 11:07] VITALS: BP 127/72; PULSE 82; RESP 16; TEMP 36.1; O2SAT 94
[2024-10-07 11:17] LABS: Glucose, Whole Blood 163 mg/dL (60-115)
[2024-10-07] MEDS: Lactated Ringers 1,000 ML 100 ML IVCONT (11:22)
[2024-10-07 13:25] VITALS: BP 85/49; PULSE 73; RESP 16; TEMP 36.1; O2SAT 97
--- NOTE | 2024-10-07 13:33 | P.BOP_ITS ---
Brief Operative Note Date of Service: 10/07/24 Pre-op diagnosis: Screening, history of serrated polyp with dysplasia Post-op diagnosis: other (Colon polyps) Procedure: Colonoscopy to the cecum with hot sanre polypectomy x 1, biopsies, placement of 1 Resolution Ultra clip, and marking with ink Surgeon: Nando Goode MD Anesthesia: MAC Was an Military Aircraft Designer used for this Procedure?: No Estimated blood loss (mL): 2.0 Pathology: other (A. Polyp in area of Hepatic flexure B. 2nd polyp in area of hepatic flexure) Condition: stable Disposition: PACU
[2024-10-07 13:40] VITALS: BP 125/68; PULSE 85; RESP 16; TEMP 36.4; O2SAT 95
--- NOTE | 2024-10-08 00:20 | OP_ITS ---
DATE OF SERVICE: 10/07/2024 SURGEON: Nando Goode MD INDICATIONS: The patient presents for followup of known history of serrated colon polyp. Full consent obtained from her for this, including risks of bleeding and perforation. PREOPERATIVE DIAGNOSIS: POSTOPERATIVE DIAGNOSIS: PROCEDURE PERFORMED: Colonoscopy to the cecum with hot snare polypectomy, biopsies, placement of one resolution clip, and marking with submucosal ink. ESTIMATED BLOOD LOSS: COMPLICATIONS: ANESTHESIA: Monitored anesthesia care. ASSISTANTS: SPECIMENS: PREOPERATIVE DIAGNOSES: History of serrated colon polyp with dysplasia. POSTOPERATIVE DIAGNOSES: History of serrated colon polyp with dysplasia, colon polyps, diverticulosis, and internal hemorrhoids. DESCRIPTION OF PROCEDURE: The patient was placed in left lateral decubitus position. The digital rectal exam revealed no abnormalities. The Olympus video pediatric colonoscope was entered into the rectum and advanced to the cecum. Advancement past the sigmoid colon was difficult due to adhesions from her previous surgeries. Once in the cecum, I did identify cecal pouch and a normal-appearing ileocecal valve. The scope was then slowly withdrawn assessing all mucosal surfaces carefully. Preparation was excellent. In the area of the hepatic flexure, was an area on a fold that seemed to represent polypoid tissue measuring approximately 12 mm in diameter. This was removed by hot snare polypectomy and recovered by suction. The polypectomy site appeared clean, without any sign of residual polyp nor bleeding. A single resolution clip was applied to this with good deployment and good hemostasis. Just distal to this area was the site of the previous biopsies from earlier in the year that revealed a serrated polyp with associated dysplasia. This was approximately 12 to 15 mm in diameter with raised edges and some central ulceration. It was quite firm. Initial attempts at trying to removal by snare were unsuccessful and no cautery was applied. I then used some Eleview to try to elevate the lesion, but the surrounding tissue would raise when the Eleview was injected, but the lesion itself would not. Seemed to be quite firm. At that point, I obtained multiple biopsies from the edges as well as the central area of the lesion, which appeared to be somewhat ulcerated and friable. Multiple biopsies were obtained. I then placed an ink ish submucosally next to it. The scope was then continued to be withdrawn slowly. Preparation remained excellent. Again, there was a great deal of spasm in the sigmoid colon. I did not visualize any other polyps, colitis, nor angiodysplasia. There was a mild amount of sigmoid diverticulosis. In the rectum, scope was retroflexed visualizing some internal hemorrhoids, but no other pathology. The rectal mucosa appeared normal. The scope was straightened and withdrawn from the patient. She tolerated the procedure well and was returned to recovery area in stable condition. IMPRESSION: 1. Colon polyps. 2. Diverticulosis. 3. Internal hemorrhoids. PLAN: The results of the pathology will be checked. If the suspicious lesion does not have any malignancy, we would then have to decide about further attempts at removing it either here or at a tertiary center. Obviously, if there is malignancy, then she would need a resection. She was advised to not use any NSAIDs for at least 2 weeks. She was advised to resume her aspirin in 72 hours. This has been discussed with her family. MD DIVYA Escoto/AUGUSTINE / [id number] MTDD
== END 2024-10-07 14:14 | disposition home or self-care (01) ==
PROVIDERS: PCP Internal Medicine; Visit Provider Internal Medicine
PROC: 0DJD8ZZ Inspection of Lower Intestinal Tract, Via Natural or Artificial Opening Endoscopic (ICD-10-PCS; CPT 45378; principal; 2024-10-07 12:20)
DX: Z12.11 Encounter for screening for malignant neoplasm of colon (principal); C7A.8 Other malignant neuroendocrine tumors; Z86.0101 Personal history of adenomatous and serrated colon polyps; K66.0 Peritoneal adhesions (postprocedural) (postinfection); E11.9 Type 2 diabetes mellitus without complications; K57.30 Diverticulosis of large intestine without perforation or abscess without bleeding; K64.8 Other hemorrhoids; K58.9 Irritable bowel syndrome, unspecified
CPT/HCPCS: 45385; 45380; 45381; 82947; 88305; 88341; 88342; 88360; J2003; J2371; J2704

== ENCOUNTER 2024-10-15 16:14 | Outpatient (REF) | payer OTHER, SELFPAY ==
[2024-10-15 16:30] LABS: MANUAL DIFF FLAG NO
[2024-10-15 16:43] LABS: Basophils Absolute Auto 0.1 X10*3/uL (0.0-0.2); Basophils Percent Auto 0.9 % (0-2); Eosinophils Absolute Auto 0.2 X10*3/uL (0.0-0.4); Eosinophils Percent Auto 2.2 % (0-4); Hematocrit 37.6 % (37.0-47.0); Hemoglobin 11.9 g/dl (12.0-16.0); Imm Gran Abs Auto 0.03 X10*3/uL (0.00-0.03); Imm Gran Pct Auto 0.4 % (0.0-0.4); Lymphocytes Percent Auto 36.7 % (20-40); Mean Corpuscular HGB Conc 31.6 g/dl (31.0-35.0); Mean Corpuscular Hemoglobin 26.7 pg (27.0-33.0); Mean Corpuscular Volume 84.5 fL (80.0-98.0); Mean Platelet Volume 10.2 fL (9.4-12.3); Monocytes Absolute Auto 0.6 X10*3/uL (0.1-1.2); Monocytes Percent Auto 7.5 % (2-11); Neutrophils Absolute Auto 4.3 x10*3/uL (2.0-8.3); Neutrophils Percent Auto 52.3 % (45-73); Platelet Count 169 X10*3/uL (160-400); Red Blood Count 4.45 X10*6/uL (4.20-5.50); Red Cell Distribution Width 13.9 % (11.0-16.0); White Blood Count 8.2 X10*3/uL (4.8-10.8)
[2024-10-15 18:18] LABS: Alanine Aminotransferase 20 U/L (0-31); Albumin Level 3.8 g/dL (3.5-5.0); Alkaline Phosphatase 56 U/L (39-117); Anion Gap 11 (12-20); Aspartate Amino Transferase 33 U/L (5-31); Bilirubin Direct 0.1 mg/dL (0.0-0.5); Bilirubin Total 0.4 mg/dL (0.0-1.0); Blood Urea Nitrogen 27 mg/dL (9-16); Calcium 9.1 mg/dL (8.4-10.2); Carbon Dioxide 25 mmol/L (22-29); Chloride 108 mmol/L (96-108); Estimated Glomerular Filt Rate 28; Glucose Random 178 mg/dL (60-115); Potassium 4.9 mmol/L (3.3-5.1); Sodium 139 mmol/L (135-145); Total Protein 7.8 g/dL (6.5-8.0)
== END 2024-10-15 16:15 | disposition home or self-care (01) ==
LOC: HO.LAB 16:14
PROVIDERS: PCP Internal Medicine; Visit Provider Internal Medicine
DX: C18.9 Malignant neoplasm of colon, unspecified (principal); C7A.1 Malignant poorly differentiated neuroendocrine tumors
CPT/HCPCS: 36415; 80048; 80076; 82378; 85025

== ENCOUNTER 2024-10-30 09:37 | Outpatient (AMB) | payer OTHER, SELFPAY ==
--- NOTE | 2024-10-30 09:39 | MHC.OFFVIS ---
Vital Signs 10/30/24 09:43 Height 5 ft 1 in Weight 138 lb 2 oz BMI 26.1 Intake Visit Reasons: Adenocarcinoma of colon Intake Note: This patient was referred by Dr. Goode for adenocarcinoma of colon. Pt c/o; reports no complaints at this time. Donations Attendant Required: No Accompanied by: Other Relationship Allergies No Known Allergies [No Known Allergies*] Allergy (Verified 10/30/24 09:45) HPI HPI Adenocarcinoma of colon: Details: 74-year-old female referred for a malignant polyp. She had underwent colonoscopy with Dr. Goode last 10/07/2024. She was noted to have a flat polyp at the hepatic flexure on the transverse colon side. This was not deemed to be resectable endoscopically. Biopsies of this done showed a malignant epithelial neoplasm with neuroendocrine differentiation. This appears to have combined features of an adenocarcinoma and under looks endocrine tumor suggesting a mixed adeno neuroendocrine carcinoma. She was [place] [facility] [place] She has a history of bladder cancer and has an ileal conduit. [facility] Medical History (Updated 10/30/24 @ 10:04 by Brando Estevez MD) Ex-smoker Colon cancer Bladder cancer GERD (gastroesophageal reflux disease) Myocardial infarction Diabetes Surgical History H/O tubal ligation H/O adenoidectomy Hx of tonsillectomy History of kidney surgery Hx of heart artery stent History of surgery Hx of total cystectomy H/O colonoscopy Social History Patient Tobacco Use Status: Former Tobacco user Tobacco use type: Cigarette Review of Systems Const Denies chills and Denies fever(s) Card Denies chest pain, Denies dyspnea and Denies dyspnea on exertion Resp Denies cough, Denies dyspnea and Denies dyspnea on exertion GI Denies hematochezia and Denies change in bowel habits Denies hematuria Musc Denies back pain and Denies limited range of motion Neuro Denies focal weakness and Denies convulsions Psych Denies depression and Denies mood swings Physical Exam Vital Signs: BMI result Body Mass Index 26.1 Const General: comfortable and no acute distress Orientation/consciousness: patient oriented x3 Neck Neck: Yes no lymphadenopathy Resp Auscultation: clear to auscultation bilaterally Cardio Rhythm: regular rhythm GI Other: Has an ileal conduit on the right side; long surgical scar in the lower midline Palpation (GI): Soft to palpation, nontender and no guarding Neuro General: patient oriented x3 Assessment & Plan Assessment & Plan (1) Colon cancer: Code(s): C18.9 - Malignant neoplasm of colon, unspecified Category: Medical Plan: She has what appears to be 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 She will therefore benefit from right colon resection. I explained to her the technique of hand assisted laparoscopic colon resection with possible conversion to open. I explained to her the risks including but not limited to bleeding, infections, injury to other organs including bowel, the her ileal conduit, staple line leak, blood clots, pneumonia, [place], as well as the benefits and alternatives. She does have an ileal conduit and I am going to review her records for this to make sure we are familiar with her anatomy She is going to have a CT scan done in [facility] she says. I am going to review the images and we will have them forward the studies to us She will need to be seen by her primary care physician in view of her history of coronary artery disease. I discussed with the patient as well as her healthcare proxy who was with her above plan and the seemed to understand this and are comfortable with the plan. I will call her again next week after I have reviewed her studies as well as her old records. Coding Level of Care Code New Pt Level 4 (83210) Diagnoses Colon cancer C18.9
[2024-10-30 09:43] VITALS: BMI 26.1
--- OUTSIDE RECORDS SUMMARY | 2024-11-05 17:15 | XMS_ITS ---
Author Organization [facility] Address [address] [place] [phone] Care Team Providers Care Brake Repair Supervisor Name Role Phone Breanne Andrew Primary Care Provider Unavailab Nando Leon Unavailable [phone] REASON FOR VISIT Need to see her today at the end of the day Encounters Encounter Location Date Provider Diagnosis [facility] [address] [facility] [address] [place] [phone] 10/15/2024 Nando Godoe PLAN OF TREATMENT Next Appt Details Provider Name:Nando Goode , 03/11/2025 11:00:00 AM, [address] [facility] [facility], [address], [place], [address],
--- OUTSIDE RECORDS SUMMARY | 2024-11-05 17:15 | XMS_ITS ---
Author Organization [facility] Address [address] [place] [address] Care Team Providers Care Meat And Poultry Inspector Name Role Phone Breanne Andrew Primary Care Provider Unavailab Nando Leon Unavailable [phone] REASON FOR VISIT No IV contrast for her CT scans Encounters Encounter Location Date Provider Diagnosis [facility] [address] [place] [address] 10/15/2024 Nando Goode PLAN OF TREATMENT Next Appt Details Provider Name:Nando Goode , 03/11/2025 11:00:00 AM, [address], [address], [place], [address],
--- OUTSIDE RECORDS SUMMARY | 2024-11-05 17:15 | XMS_ITS ---
Author Organization [facility] Address [address] [place] [address] Care Team Providers Care Planning Rn Name Role Phone Beverlyreggie Breanne Primary Care Provider Unavailab Nando Leon Unavailable [phone] ALLERGIES No Known Allergies REASON FOR VISIT patient presents today for colonoscopy follow up MEDICATIONS Medication SIG (Take, Route, Frequency, Duration) Notes Start Date End Date Status Omeprazole 40 MG TAKE 1 CAPSULE BY MOUTH EVERY DAY Oral for 90 Active metFORMIN HCl ER 750 MG TAKE 1 TABLET BY MOUTH TWICE DAILY Oral for 90 Starting on 02/26/24 02/26/2024 Not-Taking Aspirin Low Dose 81 MG Oral for 90 Active Metoprolol Tartrate 25 MG Oral for 90 Active Escitalopram Oxalate 5 MG TAKE 1 TABLET BY MOUTH EVERY DAY Oral for 90 Active Rosuvastatin Calcium 20 MG Oral for 90 Active glipiZIDE ER 10 MG Oral for 90 Active Januvia 100 MG 1 tablet Orally Once a day for 30 day(s) Active Lantus 100 UNIT/ML as directed Subcutaneous Active SOCIAL HISTORY Tobacco Use: Social History Observation Description Date Details (start date - stop date) Former Smoker NA - NA Sex Assigned At : Social History Observation Description Sex Assigned At Unknown Tobacco Use/Smoking Question Answer Notes Patient is a former smoker How long has it been since you last smoked? 5-10 years Alcohol Screen Question Answer Notes Did you have a drink containing alcohol in the p ast year? 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 VITAL SIGNS BMI 26.45 kg/m2 10/15/2024 Blood pressure systolic 00 mm Hg 10/15/20 24 Blood pressure diastolic 00 mm Hg 024 Height 5 ft 1 in in 10/15/2024 Weight 140 lbs 10/15/2024 Encounters Encounter Location Date Provider Diagnosis [facility] [address] [place] [address] 10/15/2024 Nando Goode Adenocarcinoma of co alli C18.9 and Malignant poorly differentiated neuroendocrine tumors C7A.1 ASSESSMENTS Encounter Date Diagnosis Assessment Notes Treatment Notes Treatment Clinical Notes 10/15/2024 Adenocarcinoma of colon (ICD-10 - C18.9) Appointment with Dr. Estevez for evaluation of a colon cancer with adenocarcinoma and neuroendocrine cells in a patient with a history of bladder cancer with previous surgry for a bladder resection, ileal conduit, and a urostomy . 10/15/2024 Malignant poorly differentiated neuroendocrine tumors (ICD-10 - C7A.1) PLAN OF TREATMENT Treatment Notes Assessment Notes Adenocarcinoma of colon Appointment with Dr. Estevez for evaluation of a colon cancer with adenocarcinoma and neuroendocrine cells in a patient with a history of bladder cancer with previous surgry for a bladder resection, ileal conduit, and a urostomy . Pending Test Test Name Order Date CHEM 7 PROFILE 10/15/2024 LIVER PROFILE 10/15/2024 CEA 10/15/2024 CBC w DIFF 10/15/2024 CT ABD & PELVIS WITH PO CONT ONLY 2023 CT CHEST NO CONTRAST 10/15/2024 Next Appt Details Follow Up: Spring 2024, Reas on: Provider Name:Nando Goode , 03/11/2025 11:00:00 AM, [address], [address], [place], [address], Progress Notes * Examination Category Sub-Category Detail Notes General Examination GENERAL APPEARANCE: pleasant , well nourished, well developed, in no acute distress HEAD: EYES: sclera non-icteric EARS: NOSE: THROAT: NECK/THYROID: no cervical lymphade nopathy, neck supple HEART: S1, S2 normal CHEST: LUNGS: clear to auscultatio n bilaterally ABDOMEN: normal bowel sounds, no guarding or rigidity, no guarding or rigidity, no masses palpable, soft, nontender, nondistended NEUROLOGIC: alert and oriented SKIN: nonjaundiced, no spi arina angiomata EXTREMITIES: no edema PERIPHERAL PULSES: BACK: BREASTS: MUSCULOSKELETAL: MALE GENITOURINARY: LYMPH NODES: RECTAL EXAM: FEMALE GENITOURINARY: ORAL CAVITY: mucosa moist
--- OUTSIDE RECORDS SUMMARY | 2024-11-05 17:15 | XMS_ITS | Data Portability ---
Author Organization [facility] [employer] Address [address] [place] [phone] Care Team Providers Care Microarray Operations Vice President Name Role Phone [facility] Referring Provider Assessment No assessment recorded. Plan of Treatment Reminders Order Date Submit Date Provider Last Modified By Organization Details Last Modified Time Details Appointments None record ed. Lab None record ed. Referral None record ed. Procedures None record ed. Surgeries None record ed. Imaging None record ed. Medication Orders None record ed. Patient TargetsNo targets recorded. Patient InstructionsNo instructions recorded. Reason for Referral None Reported. Medical Equipment None Reported. Medications Name Sig Start Date Stop Date Status Note LastModified by Organization Details LastModified Time metformin 500 mg tablet TAKE 1 TABLET BY MOUTH TWICE DAILY active Not Available Not Available No t Available clindamycin HCl 300 mg capsule TAKE 1 CAPSULE BY MOUTH FOUR TIMES DAILY FOR 5 DAYS active Not Available Not Available N ot Available polyethylene glycol 3350 17 gram oral powder packet TAKE 17 GRAMS BY MOUTH EVERY DAY. TAKE DAILY TO PREVENT CONSTIPATIO N. MAY STOP TAKING IF YOU DEVELOP DIARRHEA active Not Available Not Available No t Available sulfamethoxa zole 400 mg-trimethop rim 80 mg tablet TAKE 1 TABLET BY MOUTH TWICE DAILY WITH GLASS OF WATER active Not Available Not Available No t Available senna 8.6 mg tablet active Not Available Not Available Not Available ciprofloxaci n 250 mg tablet TAKE 1 TABLET BY MOUTH EVERY DAY AFTER COMPLETING CIPRO 500MG. TAKE UNTIL THE TIME OF SURGERY. INFORM SURGICAL TEAM OF PRESCRIPTIO N active Not Available Not Available No t Available ciprofloxaci n 500 mg tablet TAKE 1 TABLET BY MOUTH TWICE DAILY active Not Available Not Available No t Available omeprazole 40 mg capsule,purvi yed release TAKE 1 CAPSULE BY MOUTH EVERY DAY active Not Available Not Available No t Available glipizide ER 2.5 mg tablet, extended release 24 hr TAKE 1 TABLET BY MOUTH EVERY DAY active Not Available Not Available No t Available lisinopril 2.5 mg tablet TAKE 1 TABLET BY MOUTH EVERY DAY active Not Available Not Available No t Available oxycodone 5 mg tablet active Not Available Not Available No t Available rosuvastatin 10 mg tablet TAKE 1 TABLET BY MOUTH AT BEDTIME active Not Available Not Available No t Available rosuvastatin 20 mg tablet TAKE 1 TABLET BY MOUTH AT BEDTIME active Not Available Not Available No t Available escitalopram 5 mg tablet TAKE 1 TABLET BY MOUTH EVERY DAY active Not Available Not Available No t Available metoprolol tartrate 25 mg tablet TAKE 1 TABLET BY MOUTH TWICE DAILY active Not Available Not Available No t Available Lubricant Eye Drops 0.5 % INSTILL 1 DROP IN BOTH EYES TWICE DAILY active Not Available Not Available Not Available FreeStyle Lite Strips USE TO TEST BLOOD SUGAR TWICE DAILY active Not Available Not Available Not Available [employer]NOW COVID-19 Ag Self Test kit FOLLOW PACKAGE DIRECTIONS active Not Available Not Available N ot Available Vitals Date Recorded Respiratory rate Body weight Heart rate Oxygen saturation Oxygen saturation in Arterial blood by Pulse oximetry Body temperature Systolic blood pressure Diastolic blood pressure Provider Name and Address Organization Details Last Updated DateTime 2 12 /min 27158.9 6 g 95 /min 96 % 96 % 101.9 [degF] 118 mm[Hg] 73 mm[Hg] Not Available [facility] - production 2 13:45:35 Social History None recorded. Functional Status None recorded. Mental Status None recorded. Family History Nothing Reported. Medical History No medical history recorded. Gynecological HistoryNo gynecological history recorded. Obstetrics History GPAL:G 0 P 0 0 0 0 Past Encounters Encounter ID Performer Location Encounter Start Date Encounter Closed Date Diagnosis/Indication Diagnosis SNOMED-CT Code Diagnosis ICD10 Code [id number] Flower Connell MD [facility] [address] [place] [phone] 11/16/2022 13:45:29 11/18/2022 10:47:15 Fever [id number] R50.9 Health Concerns Section Related Observation LastModified by Organization Detai ls LastModified Time None Recorded Concern Status LastModified by Organization Details LastModified Time None Recorded Advance Directives Directive None Recorded Payers Encounter Date Sequence Insurance Name Policy Number Policy Francis Covered Member ID Francis Member ID Guarantor Name 11/16/2022 1 [facility] [place] - DOS PRIOR TO 2023 - DUAL ELIGIBLE (MEDICARE REPLACEMENT/ADV ANTAGE - HMO) Crista Boyd [id number] Crista Boyd Notes Date Note Type Note Provider Name and Address Organization Details Recorded Time 11/16/2022 text/html [facility] Nursing Assessment: Reason For Request: Wears urolstomy bag Vomiting off and on, dry heave going on a couple of days. Aches and pain, sore body. Patient Reports: Nausea with or without vomiting; Inability to tolerate foods, fluids or daily medications Denies: Vague abdominal pain greater than 24 hours Constipation Diarrhea ? no blood in stool Painful urination Frequent and increased urination with flank pain Painful urination with or without fever Inability to fully empty bladder Chief Complaints: Nausea/Vomiting, Pain PMH: Other Allergies: No Known Comments: Member has been having N/v for 2-3 days . Member has a urostomy , normal urine. Member has had normal BM/ . Member denies any pain. Member has been able to eat and drink , Member does have a LARA and muscle soreness. Member thinks she has a UTI > but denies any changes in urine Normally this is the symptoms she has with a UTI .................. .................. .................. .................. .................. .................. .................. ............... [employer] Note: Dispatched a home of 72-year-old female patient with bodyaches chills and a headache for three days. Vitals are as noted. Patient is febrile at 101.9. Both Covid and flu tests are performed and are negative. tiredness. Urine dip performed. Patient took 1000 mg of Tylenol just prior to my arrival. [facility] physician states this appears to be upper respiratory illness Tylenol every 6 hours. .................. .................. .................. .................. .................. .................. .................. ............... Disposition: Fulfilled Floewr Connell MD [address] [place] [address],[address], [place], [phone], [facility] 11/16/2022 23:59:34 OBGyn Episode No OBEpisode recorded.
--- OUTSIDE RECORDS SUMMARY | 2024-11-05 17:15 | XMS_ITS | Patient Health Record ---
Author Organization [facility] Address [address] [place] [address] Care Team Providers Care I O Psychologist Name Role Phone Beverlyreggie Breanne Primary Care Provider UnavailNando Pina [phone] ALLERGIES No Known Allergies RESULTS Component Value Reference Range Notes Glucose, Whole Blood Reviewed date:05/22/2024 05:20:35 PM Interpretation: Performing Lab:[facility], [address] [place] [phone] Notes/Report: Glucose, Whole Blood 237 60-115 mg/dL METER # : [id number] Pathology Reviewed date:10/06/2024 05:13:53 PM Interpretation: Performing Lab:[facility], [address] [place] [phone] Notes/Report: Glucose, Whole Blood Reviewed date:10/07/2024 11:23:09 PM Interpretation: Performing Lab:[facility], [address] [place] [phone] Notes/Report: Glucose, Whole Blood 163 60-115 mg/dL METER # : [id number] Pathology Reviewed date:10/15/2024 07:52:02 PM Interpretation: Performing Lab:[facility], [address] [place] [phone] Notes/Report: Complete Blood Count Auto Di ff Reviewed date:10/15/2024 06:47:16 PM Interpretation: Performing Lab:[facility], [address] [place] [phone] Notes/Report: White Blood Count 8.2 4.8-10.8 X10*3/uL Red Blood Count 4.45 4.20-5.50 X10*6/uL Hemoglobin 11.9 12.0-16.0 g/dl Hematocrit 37.6 37.0-47.0 % Mean Corpuscular Volume 84.5 80.0-98.0 fL Mean Corpuscular Hemoglobin 26.7 27.0-33.0 pg Mean Corpuscular HGB Conc 31.6 31.0-35.0 g/dl Red Cell Distribution Width 13.9 11.0-16.0 % Platelet Count 169 160-400 X10*3/uL Mean Platelet Volume 10.2 9.4-12.3 fL Neutrophils Percent Auto 52.3 45-73 % Imm Gran Pct Auto 0.4 0.0-0.4 % Lymphocytes Percent Auto 36.7 20-40 % Monocytes Percent Auto 7.5 2-11 % Eosinophils Percent Auto 2.2 0-4 % Basophils Percent Auto 0.9 0-2 % NRBC Pct Auto 0.0 0.0-0.2 /100WBC Neutrophils Absolute Auto 4.3 2.0-8.3 x10*3/u L Imm Gran Abs Auto 0.03 0.00-0.03 X10*3/uL Lymphocytes Absolute Auto 3.0 1.2-4.9 X10*3/u L Monocytes Absolute Auto 0.6 0.1-1.2 X10*3/uL Eosinophils Absolute Auto 0.2 0.0-0.4 X10*3/u L Basophils Absolute Auto 0.1 0.0-0.2 X10*3/uL NRBC Abs Auto 0.000 0.0-0.012 X10*3/uL Liver Panel Reviewed date:10/15/2024 06:47:33 PM Interpretation: Performing Lab:[facility], [address] [place] [phone] Notes/Report: Bilirubin Total 0.4 0.0-1.0 mg/dL Bilirubin Direct 0.1 0.0-0.5 mg/dL Aspartate Amino Transferase 33 5-31 U/L Slight Hemolysis.Interpret result with caution. Alanine Aminotransferase 20 0-31 U/L Total Protein 7.8 6.5-8.0 g/dL Albumin Level 3.8 3.5-5.0 g/dL Alkaline Phosphatase 56 39-117 U/L Basic Metabolic Panel Reviewed date:10/17/2024 06:27:47 PM Interpretation: Performing Lab:[facility], [address] [place] [phone] Notes/Report: Sodium 139 135-145 mmol/L Potassium 4.9 3.3-5.1 mmol/L Slight Hemoly sis.Interpret result with caution. Chloride 108 96-108 mmol/L Carbon Dioxide 25 22-29 mmol/L Anion Gap 11 12-20 Blood Urea Nitrogen 27 9-16 mg/dL Creatinine 1.77 0.5-1.4 mg/dL Estimated Glomerular Filt Rate 28 Chronic Kidney Disease: Estimated GFR < 60 mL/min/1.73m2 Severe Kidney Disease: Estimated GFR < 15 mL/min/1.73m2 Glucose Random 178 60-115 mg/dL Calcium 9.1 8.4-10.2 mg/dL Carcinoembryonic Antigen Reviewed date:10/15/2024 06:48:29 PM Interpretation: Performing Lab:[facility], [address] [place] [phone] Notes/Report: Carcinoembryonic Antigen 4.20 CEA Reference Range: 93.4% Non-Smokers = 0.0-3.0 ng/mL 95.6% Smokers = 0.0-5.0 ng/mL CEA Methodology: Schmidt Alinity i Chemiluminescent Microparticle Immunoassay (CMIA) CEA testing can have significant value in monitoring of patients with diagnosed malignancies in whom changing concentrations of CEA are observed. Values obtained with different assay methods cannot be used interchangeably. 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 2 Adenocarcinoma of co alli (C18.9) Referral Organization [facility] Referring Provider First Name Nando Referring Provider Last Name Rupa Referring Provider Speciality Gastroente nishant Referred Provider Brando Estevez Referred Provider Specialty Surgery Referral Priority Routine Referral Appointment Date 10/30/2024 MEDICATIONS Medication SIG (Take, Route, Frequency, Duration) Notes Start Date End Date Status Omeprazole 40 MG TAKE 1 CAPSULE BY MOUTH EVERY DAY Oral for 90 Active metFORMIN HCl ER 750 MG TAKE 1 TABLET BY MOUTH TWICE DAILY Oral for 90 Starting on 02/26/24 02/26/2024 Not-Taking Rosuvastatin Calcium 20 MG Oral for 90 Active glipiZIDE ER 10 MG Oral for 90 Active Aspirin Low Dose 81 MG Oral for 90 Active Metoprolol Tartrate 25 MG Oral for 90 Active Escitalopram Oxalate 5 MG TAKE 1 TABLET BY MOUTH EVERY DAY Oral for 90 Active Januvia 100 MG [...] W/U Status Risk SNOMED Code Notes Problem Positive colorectal cancer screening using Cologuard test (R19.5) Active confirmed Abnormal feces (042036969) Problem Diverticulosis of large intestine without perforation or abscess without bleeding (K57.30) Active confirmed Diverticul ar disease of colon (708300418) Problem 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 confirmed Sessile serrated polyp of colon (5087666597) Problem 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 confirmed Malignant neoplasm of colon (320838337) Problem 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 VITAL SIGNS Blood pressure diastolic 00 mm Hg 10/15/2024 Height 5 ft 1 in in 10/15/2024 Blood pressure systolic 00 mm Hg 10/15/2024 Weight 140 lbs 10/15/2024 BMI 26.45 kg/m2 10/15/2024 Encounters Encounter Location Date Provider Diagnosis [facility] [address] [place] [phone] 05/22/2024 Nando Goode Colon polyps K63.5 ; Heme + stool R19.5 ; Diverticulosis of large intestine without perforation or abscess without bleeding K57.30 and Other hemorrhoids K64.8 [facility] [address] [place] [phone] 10/07/2024 Nando Goode Colon cancer screeni ng Z12.11 ; Colon polyps K63.5 ; Diverticulosis of large intestine without perforation or abscess without bleeding K57.30 and Other hemorrhoids K64.8 [facility] [address] [place] [address] 10/15/2024 Nando Goode Adenocarcinoma of co alli C18.9 and Malignant poorly differentiated neuroendocrine tumors C7A.1 [facility] [address] [place] [address] 02/20/2024 Nando Goode Positive colorectal cancer screening using Cologuard test R19.5 [facility] [address] [address] 04/03/2024 Nando Goode [facility] [address] [place] [address] 05/27/2024 Nando Goode Sessile serrated lynn yp of colon D12.6 [facility] [address] [address] 10/15/2024 Nando Goode [facility] [address] [address] 10/15/2024 Nando Goode ASSESSMENTS Encounter Date Diagnosis Assessment Notes Treatment Notes Treatment Clinical Notes 05/22/2024 Colon polyps (ICD-10 - K63.5) 05/22/2024 Heme + stool (ICD-10 - R19.5) 10/07/2024 Colon cancer screening (ICD-10 - Z12.11) 10/07/2024 Colon polyps (ICD-10 - K63.5) 10/15/2024 Malignant poorly differentiated neuroendocrine tumors (ICD-10 - C7A.1) 10/15/2024 Adenocarcinoma of colon (ICD-10 - C18.9) Appointment with Dr. Estevez for evaluation of a colon cancer with adenocarcinoma and neuroendocrine cells in a patient with a history of bladder cancer with previous surgry for a bladder resection, ileal conduit, and a urostomy . 02/20/2024 Positive colorectal cancer screening using Cologuard test (ICD-10 - R19.5) Do not take the aspirin on the day of the colonoscopy Do not take the Metformin or Glipizide the night before nor on the morning of the colonoscopy. You need to let me know if your diabetes medications change before the colonoscopy. If you happen to still be on the Januvia you need to stop that for 2 days before the colonoscopy. 05/27/2024 Sessile serrated polyp of colon (ICD-10 - D12.6) 05/22/2024 Diverticulosis of large intestine without perforation or abscess without bleeding (ICD-10 - K57.30) 10/07/2024 Diverticulosis of large intestine without perforation or abscess without bleeding (ICD-10 - K57.30) 05/22/2024 Other hemorrhoids (ICD-10 - K64.8) 10/07/2024 Other hemorrhoids (ICD-10 - K64.8) PLAN OF TREATMENT Pending Test Test Name Order Date CHEM 7 PROFILE 10/15/2024 LIVER PROFILE 10/15/2024 CEA 10/15/2024 CBC w DIFF 10/15/2024 CT ABD & PELVIS WITH PO CONT ONLY 2023 CT CHEST NO CONTRAST 10/15/2024 Future Test Test Name Order Date COLONOSCOPY 02/20/2024 COLONOSCOPY 06/17/2024 Next Appt Details Provider Name:Nando Goode , 03/11/2025 11:00:00 AM, [address] [place] [address], [address], [place], [address], Insurance Providers Payer Name Payer Address Payer Phone Subscriber Number Group Number Insured Name Patient Relationship to Insured Coverage Start Date Coverage End Date [facility] [address] Attn Claims SALEEM [place] [id number] MONTSERRAT SOTO Self - patient is the insured MEDICAID OF [facility] [address] [place] [address] [id number] MONTSERRAT SOTO Self - patient is the insured MEDICARE OF [place] [address] [place] [address] [id number] MONTSERRAT SOTO Self - patient is the insured MEDICAL (GENERAL) HISTORY Medical History History ICD Code IDDM -2017 two stents placed Denies CVA,Lung disease,renal disease Colonoscopy before 2013 at [facility] with removal of a polyp GERD Bladder cancer with surgery as below--she is followed by her local urologist, Dr. Jarrett Florence, in [place]. She did have some chemotherapy through a [place] oncologist after her surgery for the bladder cancer. Colonoscopy in April of 2024 revealed a suspicious area with biopsy showing a serrated polyp. A followup colonoscopy in September 2024 revealed the lesion to be more suspicious for a malignancy and biopsies showed an adenocarcinoma with some neuroendocrine cells. The lesion appeared to be in the area of the hepatic flexure and was marked with submucosal ink. Surgical History Surgery Date(Month/Year) AT [facility]_ __ _ BLADDER REMOVED FOR CANCER WITH AN ILEAL CONDUIT AND PERMANENT UROSTOMY IN 2018 REMOVED LEFT SUBMANDIBULAR SALIVARY GLAN D DUE TO INFECTION BTL
== END 2024-10-30 10:16 | disposition home or self-care (01) ==
PROVIDERS: PCP Internal Medicine; Referring Provider Internal Medicine; Visit Provider Surgery
DX: C18.9 Malignant neoplasm of colon, unspecified (principal)
CPT/HCPCS: 99204

== ENCOUNTER → 2024-10-30 09:37 | Outpatient (BNVA) | payer OTHER, SELFPAY | PROVIDERS: PCP Internal Medicine; Referring Provider Internal Medicine; Visit Provider Surgery | DX: C18.9 Malignant neoplasm of colon, unspecified (principal); Z85.51 Personal history of malignant neoplasm of bladder | CPT/HCPCS: 99202 ==

== ENCOUNTER 2024-11-06 11:26 | Outpatient (REF) | payer OTHER, SELFPAY ==
[2024-11-06 12:15] LABS: Estimated Average Glucose 183 mg/dL; Hemoglobin A1C 207.9642 umol/L; Total Hemoglobin (HGBA1C) 3259.4634 umol/L
[2024-11-06 12:31] LABS: Alanine Aminotransferase 19 U/L (0-31); Albumin Level 3.9 g/dL (3.5-5.0); Alkaline Phosphatase 67 U/L (39-117); Anion Gap 12 (12-20); Aspartate Amino Transferase 26 U/L (5-31); Bilirubin Total 0.4 mg/dL (0.0-1.0); Blood Urea Nitrogen 26 mg/dL (9-16); Carbon Dioxide 22 mmol/L (22-29); Chloride 109 mmol/L (96-108); Cholesterol 132 mg/dL (<200); Estimated Glomerular Filt Rate 35; Glucose Random 189 mg/dL (60-115); HDL Cholesterol 32 mg/dL (>40); LDL Cholesterol Calculated 63 mg/dL (<100); Potassium 4.8 mmol/L (3.3-5.1); Sodium 138 mmol/L (135-145); Triglycerides 185 mg/dL (<150)
[2024-11-06 13:01] LABS: Folate 7.1 ng/mL (> or = 4.0); Vitamin B12 339 pg/mL (200-900)
--- OUTSIDE RECORDS SUMMARY | 2024-11-07 01:40 | XMS_ITS ---
Author Organization [facility] Address [address] [place] [address] Care Team Providers Care Regulatory Compliance Specialist Name Role Phone Breanne Andrew Primary Care Provider Unavailab Nando Leon Unavailable [phone] REASON FOR VISIT No IV contrast for her CT scans Encounters Encounter Location Date Provider Diagnosis [facility] [address] [place] [address] 10/15/2024 Nando Goode PLAN OF TREATMENT Next Appt Details Provider Name:Nando Goode , 03/11/2025 11:00:00 AM, [address], [address], [place], [address],
--- OUTSIDE RECORDS SUMMARY | 2024-11-07 01:40 | XMS_ITS ---
Author Organization [facility] Address [address] [place] [address] Care Team Providers Care Pin Attacher Name Role Phone Breanne Andrew Primary Care Provider Unavailab Nando Leon Unavailable [phone] REASON FOR VISIT Need to see her today at the end of the day Encounters Encounter Location Date Provider Diagnosis [facility] [address] [place] [address] 10/15/2024 Nando Goode PLAN OF TREATMENT Next Appt Details Provider Name:Nando Goode , 03/11/2025 11:00:00 AM, [address] [facility], [address], [place], [address],
--- OUTSIDE RECORDS SUMMARY | 2024-11-07 01:40 | XMS_ITS ---
Author Organization 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
--- OUTSIDE RECORDS SUMMARY | 2024-11-07 01:41 | XMS_ITS | Patient Health Record ---
Author Organization [facility] Address [address] [place] [address] Care Team Providers Care Hand Packager Name Role Phone Beverlyreggie Breanne Primary Care Provider UnavailNando Pina [phone] ALLERGIES No Known Allergies RESULTS Component Value Reference Range Notes Glucose, Whole Blood Reviewed date:05/22/2024 05:20:35 PM Interpretation: Performing Lab:[facility], [address] [place] [phone] Notes/Report: Glucose, Whole Blood 237 60-115 mg/dL METER # : [id number] Pathology Reviewed date:10/06/2024 05:13:53 PM Interpretation: Performing Lab:[facility], [address] [place] [phone] Notes/Report: Glucose, Whole Blood Reviewed date:10/07/2024 11:23:09 PM Interpretation: Performing Lab:[facility], [address] [place] [phone] Notes/Report: Glucose, Whole Blood 163 60-115 mg/dL METER # : [id number] Pathology Reviewed date:10/15/2024 07:52:02 PM Interpretation: Performing Lab:[facility], [address] [place] [phone] Notes/Report: Complete Blood Count Auto Di ff Reviewed date:10/15/2024 06:47:16 PM Interpretation: Performing Lab:[facility], [address] [place] [phone] Notes/Report: White Blood Count 8.2 4.8-10.8 X10*3/uL [...] Panel Reviewed date:10/15/2024 06:47:33 PM Interpretation: Performing Lab:[facility], [address] [place] [phone] Notes/Report: Bilirubin Total 0.4 0.0-1.0 mg/dL Bilirubin Direct 0.1 0.0-0.5 mg/dL Aspartate Amino Transferase 33 5-31 U/L Slight Hemolysis.Interpret result with caution. Alanine Aminotransferase 20 0-31 U/L Total Protein 7.8 6.5-8.0 g/dL Albumin Level 3.8 3.5-5.0 g/dL Alkaline Phosphatase 56 39-117 U/L Basic Metabolic Panel Reviewed date:10/17/2024 06:27:47 PM Interpretation: Performing Lab:[facility], [address] [place] [phone] Notes/Report: Sodium 139 135-145 mmol/L Potassium 4.9 [...] Antigen Reviewed date:10/15/2024 06:48:29 PM Interpretation: Performing Lab:[facility], [address] [place] [phone] Notes/Report: Carcinoembryonic Antigen 4.20 CEA Reference Range: [...] Adenocarcinoma of co alli (C18.9) Referral Organization [facility] Referring Provider First Name Nando Referring Provider [...] Cologuard test (R19.5) Active confirmed Abnormal feces (996413037) Problem Diverticulosis of large intestine without perforation or abscess without bleeding (K57.30) Active confirmed Diverticul ar disease of colon (398804335) Problem 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 confirmed Sessile serrated polyp of colon (3800456128) Problem 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 confirmed Malignant neoplasm of colon (462437410) Problem 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 VITAL SIGNS Blood pressure diastolic 00 mm Hg 10/15/2024 Height 5 ft 1 in in 10/15/2024 Blood pressure systolic 00 mm Hg 10/15/2024 Weight 140 lbs 10/15/2024 BMI 26.45 kg/m2 10/15/2024 Encounters Encounter Location Date Provider Diagnosis [facility] [address] [place] [phone] 05/22/2024 Nando Goode Colon polyps K63.5 ; Heme + stool R19.5 ; Diverticulosis of large intestine without perforation or abscess without bleeding K57.30 and Other hemorrhoids K64.8 [facility] [address] [place] [phone] 10/07/2024 Nando Goode Colon cancer screeni ng Z12.11 ; Colon polyps K63.5 ; Diverticulosis of large intestine without perforation or abscess without bleeding K57.30 and Other hemorrhoids K64.8 [facility] [address] [place] [address] 10/15/2024 Nando Goode Adenocarcinoma of co alli C18.9 and Malignant poorly differentiated neuroendocrine tumors C7A.1 [facility] [address] [place] [address] 02/20/2024 Nando Goode Positive colorectal cancer screening using Cologuard test R19.5 [facility] [address] [address] 04/03/2024 Nando Goode [facility] [address] [place] [address] 05/27/2024 Nando Goode Sessile serrated lynn yp of colon D12.6 [facility] [address] [address] 10/15/2024 Nando Goode [facility] [address] [address] 10/15/2024 Nando Goode ASSESSMENTS Encounter Date Diagnosis [...] Provider Name:Nando Goode , 03/11/2025 11:00:00 AM, [address] [place] [address], [address], [place], [address], Insurance Providers Payer Name Payer Address Payer Phone Subscriber Number Group Number Insured Name Patient Relationship to Insured Coverage Start Date Coverage End Date [facility] [address] Attn Claims SALEEM [place] [id number] MONTSERRAT SOTO Self - patient is the insured MEDICAID OF [facility] [address] [place] [address] [id number] MONTSERRAT SOTO Self - patient is the insured MEDICARE OF [place] [address] [place] [address] [id number] MONTSERRAT SOTO Self - patient is the insured MEDICAL (GENERAL) HISTORY Medical History History ICD Code IDDM -2017 two stents placed Denies CVA,Lung disease,renal disease Colonoscopy before 2013 at [facility] with removal of a polyp GERD Bladder cancer with surgery as below--she is followed by her local urologist, Dr. Jarrett Florence, in [place]. She did have some chemotherapy through a [place] oncologist after her surgery for the bladder [...] submucosal ink. Surgical History Surgery Date(Month/Year) AT [facility]_ __ _ BLADDER REMOVED FOR CANCER WITH AN ILEAL CONDUIT AND PERMANENT UROSTOMY IN 2018 REMOVED LEFT SUBMANDIBULAR SALIVARY GLAN D DUE TO INFECTION BTL
--- OUTSIDE RECORDS SUMMARY | 2024-11-07 01:41 | XMS_ITS | Data Portability ---
Author Organization [employer] Address [address] [place] [address] Care Team Providers Care Telesales Specialist Name Role Phone [facility] Referring Provider Assessment [...] Details Last Updated DateTime 2 12 /min 95756.9 6 g 95 /min 96 % 96 % 101.9 [degF] 118 mm[Hg] 73 mm[Hg] Not Available [employer] - production 2 13:45:35 Social History None [...] 6369 Flower Connell MD Main - [facility] [address] [place] [phone] 11/16/2022 13:45:29 11/18/2022 10:47:15 Fever [id number] R50.9 Health Concerns Section Related Observation LastModified by Organization Detai ls LastModified Time None Recorded Concern Status LastModified by Organization Details LastModified Time None Recorded Advance Directives Directive None Recorded Payers Encounter Date Sequence Insurance Name Policy Number Policy Francis Covered Member ID Francis Member ID Guarantor Name 11/16/2022 1 [facility] - DOS PRIOR TO 2023 - DUAL ELIGIBLE (MEDICARE REPLACEMENT/ADV ANTAGE - HMO) Crista Boyd [id number] Crista Boyd Notes Date Note Type Note [...] .................. .................. .................. .................. .................. .................. ............... Mate Relief Note: Dispatched a home of 72-year-old female patient with bodyaches chills and a headache for three days. Vitals are as noted. Patient is febrile at 101.9. Both Covid and flu tests are performed and are negative. tiredness. Urine dip performed. Patient took 1000 mg of Tylenol just prior to my arrival. [facility] physician states this appears to be upper respiratory illness Tylenol every 6 hours. .................. .................. .................. .................. .................. .................. .................. ............... Disposition: Fulfilled Flower Connell MD [address] [place] [address],[address], [place], [address], [employer] 11/16/2022 23:59:34 OBGyn Episode No OBEpisode recorded.
== END 2024-11-06 11:27 | disposition home or self-care (01) ==
LOC: HO.LAB 11:26
PROVIDERS: PCP Internal Medicine; Visit Provider Internal Medicine
DX: E11.65 Type 2 diabetes mellitus with hyperglycemia (principal); E78.00 Pure hypercholesterolemia, unspecified; I25.10 Atherosclerotic heart disease of native coronary artery without angina pectoris; R80.8 Other proteinuria; E11.22 Type 2 diabetes mellitus with diabetic chronic kidney disease; N18.9 Chronic kidney disease, unspecified
CPT/HCPCS: 36415; 80053; 80061; 82607; 82746; 83036

== ENCOUNTER 2024-11-18 10:25 | Outpatient (AMB) | payer OTHER, SELFPAY ==
--- OUTSIDE RECORDS SUMMARY | 2024-11-18 10:27 | XMS_ITS ---
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
--- OUTSIDE RECORDS SUMMARY | 2024-11-18 10:27 | XMS_ITS ---
Author Organization [facility] Address [address] [place] [address] Care Team Providers Care Processing Rep Name Role Phone Breanne Andrew Primary Care Provider Unavailab Nando Leon Unavailable [phone] REASON FOR VISIT No IV contrast for her CT scans Encounters Encounter Location Date Provider Diagnosis [facility] [address] [place] [address] 10/15/2024 Nando Goode PLAN OF TREATMENT Next Appt Details Provider Name:Nando Goode , 03/11/2025 11:00:00 AM, [address], [address], [place], [address],
--- OUTSIDE RECORDS SUMMARY | 2024-11-18 10:28 | XMS_ITS | Patient Health Record ---
Author Organization [facility] Address [address] [place] [address] Care Team Providers Care Diabetes Clinical Manager Name Role Phone Beverlyreggie Breanne Primary Care Provider UnavailNando Pina [phone] ALLERGIES No Known Allergies RESULTS Component Value Reference Range Notes Glucose, Whole Blood Reviewed date:05/22/2024 05:20:35 PM Interpretation: Performing Lab:[facility], [address] [place] [phone] Notes/Report: Glucose, Whole Blood 237 60-115 mg/dL METER # : [id number] Pathology Reviewed date:10/06/2024 05:13:53 PM Interpretation: Performing Lab:[facility], [address] [place] [phone] Notes/Report: Glucose, Whole Blood Reviewed date:10/07/2024 11:23:09 PM Interpretation: Performing Lab:[facility], [address] [place] [phone] Notes/Report: Glucose, Whole Blood 163 60-115 mg/dL METER # : [id number] Pathology Reviewed date:10/15/2024 07:52:02 PM Interpretation: Performing Lab:[facility], [address] [place] [phone] Notes/Report: Complete Blood Count Auto Di ff Reviewed date:10/15/2024 06:47:16 PM Interpretation: Performing Lab:[facility], [address] [place] [phone] Notes/Report: White Blood Count 8.2 4.8-10.8 X10*3/uL [...] Panel Reviewed date:10/15/2024 06:47:33 PM Interpretation: Performing Lab:[facility], [address] [place] [phone] Notes/Report: Bilirubin Total 0.4 0.0-1.0 mg/dL Bilirubin Direct 0.1 0.0-0.5 mg/dL Aspartate Amino Transferase 33 5-31 U/L Slight Hemolysis.Interpret result with caution. Alanine Aminotransferase 20 0-31 U/L Total Protein 7.8 6.5-8.0 g/dL Albumin Level 3.8 3.5-5.0 g/dL Alkaline Phosphatase 56 39-117 U/L Basic Metabolic Panel Reviewed date:10/17/2024 06:27:47 PM Interpretation: Performing Lab:[facility], [address] [place] [phone] Notes/Report: Sodium 139 135-145 mmol/L Potassium 4.9 [...] Antigen Reviewed date:10/15/2024 06:48:29 PM Interpretation: Performing Lab:[facility], [address] [place] [phone] Notes/Report: Carcinoembryonic Antigen 4.20 CEA Reference Range: [...] of co alli (C18.9) Referral Organization [facility] Referring Provider First Name Nando [...] Cologuard test (R19.5) Active confirmed Abnormal feces (230196305) Problem Diverticulosis of large intestine without perforation or abscess without bleeding (K57.30) Active confirmed Diverticul ar disease of colon (931161589) Problem 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 confirmed Sessile serrated polyp of colon (0435332292) Problem 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 confirmed Malignant neoplasm of colon (404802562) Problem 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 VITAL SIGNS Blood pressure diastolic 00 mm Hg 10/15/2024 Height 5 ft 1 in in 10/15/2024 Blood pressure systolic 00 mm Hg 10/15/2024 Weight 140 lbs 10/15/2024 BMI 26.45 kg/m2 10/15/2024 Encounters Encounter Location Date Provider Diagnosis [facility] Outpatient [address] [place] [id number] 05/22/2024 Nando Goode Colon polyps K63.5 ; Heme + stool R19.5 ; Diverticulosis of large intestine without perforation or abscess without bleeding K57.30 and Other hemorrhoids K64.8 [facility] Outpatient [address] [place] [id number] 10/07/2024 Nando Goode Colon cancer screeni ng Z12.11 ; Colon polyps K63.5 ; Diverticulosis of large intestine without perforation or abscess without bleeding K57.30 and Other hemorrhoids K64.8 [facility] [place] [phone] 10/15/2024 Nando Goode Adenocarcinoma of co alli C18.9 and Malignant poorly differentiated neuroendocrine tumors C7A.1 [facility] [address] [place] [phone] 02/20/2024 Nando Goode Positive colorectal cancer screening using Cologuard test R19.5 [facility] [address] [phone] 04/03/2024 Nando Goode [facility] [address] [place] [phone] 05/27/2024 Nando Goode Sessile serrated lynn yp of colon D12.6 [facility] [address] [address] 10/15/2024 Nando Goode [facility] [address] [phone] 10/15/2024 Nando Goode ASSESSMENTS Encounter Date Diagnosis [...] Provider Name:Nando Goode , 03/11/2025 11:00:00 AM, [address] [place] [address], [address], [place], [address], Insurance Providers Payer Name Payer Address Payer Phone Subscriber Number Group Number Insured Name Patient Relationship to Insured Coverage Start Date Coverage End Date [facility] [address] Attn Claims [place] [address] [phone] [id number] [place] SOTO Self - patient is the insured MEDICAID OF [facility] [address] [place] [address] [id number] [place] S[place] Self - patient is the insured MEDICARE OF [place] [address] [place] [address] [id number] [place] SOTO Self - patient is the insured MEDICAL (GENERAL) HISTORY Medical History History ICD Code IDDM -2017 two stents placed Denies CVA,Lung disease,renal disease Colonoscopy before 2013 at [facility] with removal of a polyp GERD Bladder cancer with surgery as below--she is followed by her local urologist, Dr. Jarrett [place], in [place]. She did have some chemotherapy through a [place] oncologist after her surgery for the bladder [...] submucosal ink. Surgical History Surgery Date(Month/Year) AT [facility]_ __ _ BLADDER REMOVED FOR CANCER WITH AN ILEAL CONDUIT AND PERMANENT UROSTOMY IN 2018 REMOVED LEFT SUBMANDIBULAR SALIVARY GLAN D DUE TO INFECTION BTL
--- OUTSIDE RECORDS SUMMARY | 2024-11-18 10:28 | XMS_ITS ---
Author Organization [facility] Address [address] [place] [address] Care Team Providers Care Needle Control Cheniller Name Role Phone Breanne Andrew Primary Care Provider Unavailab Nando Leon Unavailable [phone] REASON FOR VISIT Need to see her today at the end of the day Encounters Encounter Location Date Provider Diagnosis [facility] [address] [facility] [address] [place] [phone] 10/15/2024 Nando Goode PLAN OF TREATMENT Next Appt Details Provider Name:Nando Goode , 03/11/2025 11:00:00 AM, [address] [facility], [address], [place], [phone],
--- OUTSIDE RECORDS SUMMARY | 2024-11-18 10:28 | XMS_ITS | Data Portability ---
Author Organization [employer] [place] [facility] [address] [employer] [address] Address [address] [place] [address] Care Team Providers Care Order Desk Clerk Name Role Phone [facility] Referring Provider [phone] Assessment No assessment recorded. Plan of Treatment [...] Details Last Updated DateTime 2 12 /min 74333.9 6 g 95 /min 96 % 96 % 101.9 [degF] 118 mm[Hg] 73 mm[Hg] Not Available [employer] - production 2 13:45:35 Social History None [...] [id number] Flower Connell MD Main - [facility] [address] [place] [phone] 11/16/2022 13:45:29 11/18/2022 10:47:15 Fever [id number] R50.9 Health Concerns Section Related Observation LastModified by Organization Detai ls LastModified Time None Recorded Concern Status LastModified by Organization Details LastModified Time None Recorded Advance Directives Directive None Recorded Payers Encounter Date Sequence Insurance Name Policy Number Policy Francis Covered Member ID Francis Member ID Guarantor Name 11/16/2022 1 [facility] - DOS PRIOR TO 2023 - DUAL ELIGIBLE (MEDICARE REPLACEMENT/ADV ANTAGE - HMO) Crista Boyd [id number] Crista Boyd Notes Date Note Type Note [...] .................. .................. .................. .................. .................. .................. ............... Knurling Machine Tender Note: Dispatched a home of 72-year-old female patient with bodyaches chills and a headache for three days. Vitals are as noted. Patient is febrile at 101.9. Both Covid and flu tests are performed and are negative. tiredness. Urine dip performed. Patient took 1000 mg of Tylenol just prior to my arrival. [facility] [place] this appears to be upper respiratory illness Tylenol every 6 hours. .................. .................. .................. .................. .................. .................. .................. ............... Disposition: Fulfilled Flower Connell MD [address] [place] [address],[address], [place], [phone], [employer] 11/16/2022 23:59:34 OBGyn Episode No OBEpisode recorded.
--- NOTE | 2024-11-18 10:55 | A.OFFVIS_ITS ---
Vital Signs 11/18/24 10:56 Height 5 ft 1 in Weight 138 lb 1.984 oz BMI 26.1 Intake Visit Reasons: CT Results Intake Note: This patient presents for Ct-Scan follow-up. Pt c/o; reports no complaints. Senior Packaging Engineer Required: No Accompanied by: Other Relationship Allergies No Known Allergies [No Known Allergies*] Allergy (Verified 11/18/24 11:01) HPI HPI CT Results: Details: 74-year-old female referred for a malignant polyp. She had underwent colonoscopy with Dr. Goode last 10/07/2024. She was noted to have a flat polyp at the hepatic flexure on the transverse colon side. This was not deemed to be resectable endoscopically. Biopsies of this done showed a malignant epithelial neoplasm with neuroendocrine differentiation. This appears to have combined features of an adenocarcinoma and under looks endocrine tumor suggesting a mixed adeno neuroendocrine carcinoma. She was referred to me for resection. She says she really does not have any significant GI complaints. She has a history of bladder cancer and has an ileal conduit. This was done in [facility] in [place]. PENDING SALE TO [facility] Medical History Ex-smoker Colon cancer Bladder cancer GERD (gastroesophageal reflux disease) Myocardial infarction Diabetes Surgical History H/O tubal ligation H/O adenoidectomy Hx of tonsillectomy History of kidney surgery Hx of heart artery stent History of surgery Hx of total cystectomy H/O colonoscopy Social History Patient Tobacco Use Status: Former Tobacco user Tobacco use type: Cigarette Review of Systems Const Denies chills and Denies fever(s) Card Denies chest pain, Denies dyspnea and Denies dyspnea on exertion Resp Denies cough, Denies dyspnea and Denies dyspnea on exertion GI Denies hematochezia and Denies change in bowel habits Details: Has an ileal conduit, functioning well Denies hematuria Musc Denies back pain and Denies limited range of motion Neuro Denies focal weakness and Denies convulsions Psych Denies depression and Denies mood swings Physical Exam Vital Signs: BMI result Body Mass Index 26.1 Const General: comfortable and no acute distress Orientation/consciousness: patient oriented x3 Neck Neck: Yes no lymphadenopathy Resp Auscultation: clear to auscultation bilaterally Cardio Rhythm: regular rhythm GI Other: Has an ileal conduit in the right lower quadrant Palpation (GI): Soft to palpation, nontender and no guarding Neuro General: patient oriented x3 Assessment & Plan Assessment & Plan (1) Colon cancer: Code(s): C18.9 - Malignant neoplasm of colon, unspecified Category: Medical Plan: She is here to discuss surgery again because of her newly diagnosed colon cancer. 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 She will therefore benefit from right colon resection. I explained to her the technique of hand assisted laparoscopic colon resection with possible conversion to open. I explained to her the risks in cluding but not limited to bleeding, infections, injury to other organs including bowel, the her ileal conduit, staple line leak, blood clots, pneumonia, [place], as well as the benefits and alternatives. She does have an ileal conduit and I am going to review her records for this to make sure we are familiar with her anatomy. This ileal conduit was done in [facility] in [place]. I have reviewed her CAT scan done in [facility] 2 weeks ago. These does not suggest metastatic disease. She will need to be seen by her primary care physician in view of her history of coronary artery disease. I discussed with the patient as well as her healthcare proxy who was with her above plan and the seemed to understand this and are comfortable with the plan. They said they will talk to Dr. Goode again and they will call me once the agree to proceed. Coding Level of Care Code Est Pt Level 4 (31988) Diagnoses Colon cancer C18.9
[2024-11-18 10:56] VITALS: BMI 26.1
== END 2024-11-18 11:18 | disposition home or self-care (01) ==
PROVIDERS: PCP Internal Medicine; Visit Provider Surgery
DX: C18.9 Malignant neoplasm of colon, unspecified (principal)
CPT/HCPCS: 99214

== ENCOUNTER → 2024-11-18 10:25 | Outpatient (BNVA) | payer OTHER, SELFPAY | PROVIDERS: PCP Internal Medicine; Visit Provider Surgery | DX: C18.9 Malignant neoplasm of colon, unspecified (principal) | CPT/HCPCS: 99212 ==

== ENCOUNTER 2025-01-02 07:51 | Inpatient (IN) | payer OTHER, SELFPAY ==
[2024-12-24 13:13] VITALS: BP 102/57; PULSE 67; RESP 16; O2SAT 96; BMI 25.7
[2025-01-02] VITALS (16 sets, daily range): BP systolic 88–137; BP diastolic 32–64; PULSE 61–76; RESP 11–20; TEMP 36.1–36.3; O2SAT 94–96
--- OUTSIDE RECORDS SUMMARY | 2025-01-02 07:54 | XMS_ITS | Data Portability ---
Author Organization [employer] Address [address] [place] [address] Care Team Providers Care Digital Designer Name Role Phone [facility] Referring Provider [phone] Assessment No assessment recorded. Plan of Treatment [...] Details Last Updated DateTime 2 12 /min 79980.9 6 g 95 /min 96 % 96 % 101.9 [degF] 118 mm[Hg] 73 mm[Hg] Not Available [employer] - production 2 13:45:35 Social History None recorded. Functional Status None recorded. Mental Status None recorded. Family History Nothing Reported. Medical History No medical history recorded. Gynecological HistoryNo gynecological history recorded. Obstetrics History GPAL:G 0 P 0 0 0 0 Past Encounters Encounter ID Performer Location Encounter Start Date Encounter Closed Date Diagnosis/Indication Diagnosis SNOMED-CT Code Diagnosis ICD10 Code Diagnosis Note [id number] Flower Connell MD Main - [facility] [address] [place] [phone] 11/16/2022 13:45:29 11/18/2022 10:47:15 Fever [id number] R50.9 fever with associated nasal congestion and sinus pressure. Son has similar sx. Pt's chronic abdominal pain is unchanged, UA reassuring . Flu and covid are negative.- suspect viral URI, recommende d supportive care and prn tylenol with coaching re warning sx Health Concerns Section Related Observation LastModified by Organization Detai ls LastModified Time None Recorded Concern Status LastModified by Organization Details LastModified Time None Recorded Advance Directives Directive None Recorded Payers Encounter Date Sequence Insurance Name Policy Number Policy Francis Covered Member ID Francis Member ID Guarantor Name 11/16/2022 1 [facility] - DOS PRIOR TO 2023 - DUAL ELIGIBLE (MEDICARE REPLACEMENT/ADV ANTAGE - HMO) Crista Deemary beth [id number] Crista Martins Oliver Notes Date Note Type Note Provider Name [...] .................. .................. .................. .................. .................. .................. ............... Organic Extractions Technician Note: Dispatched a home of 72-year-old female patient with bodyaches chills and a headache for three days. Vitals are as noted. Patient is febrile at 101.9. Both Covid and flu tests are performed and are negative. tiredness. Urine dip performed. Patient took 1000 mg of Tylenol just prior to my arrival. [facility] physician states this appears to be upper respiratory illness Tylenol every 6 hours. .................. .................. .................. .................. .................. .................. .................. ............... Disposition: Fulfilled Flower Connell MD [address] [place] [address],[address], [place], [phone], [employer] 11/16/2022 23:59:34 OBGyn Episode No OBEpisode recorded.
[2025-01-02 09:45] LABS: Glucose, Whole Blood 124 mg/dL (60-115)
[2025-01-02] MEDS: Lactated Ringers 1,000 ML 100 ML IVCONT ×2 (10:18→17:18)
--- NOTE | 2025-01-02 11:11 | MHC.SHP ---
Pre-Procedural Eval Section A - 24 Hr Update-Section A only Date of Service: 01/02/25 Section B - Complete if H&P > 30 days Chief Complaint: Neuroendocrine tumor right colon Details of Present Illness: Has a malignant neuroendocrine tumor in the hepatic flexure on colonoscopy; she has an ileal reservoir after radical cystectomy Relevant Family History (Specify if Yes): No Relevant Social History: None Present Medications: see Short Stay Collaborative assessment Medical History: Significant History (History of bladder cancer, diabetes) Allergies: Allergies Allergy/AdvReac Type Severity Reaction Status Date / Time No Known Allergies Allergy Verified 12/24/24 13:07 [No Known Allergies*] Review of Systems Sugical H&P ROS: Negative: Constitution, Cardiovascular and Respiratory Exam Surgical H&P Exam: Normal: Heart, Normal: Lungs and Normal: Abdomen (Ileal conduit on the right side) Plan Diagnosis/Plan: Unchanged I have reviewed the history and physical and performed a pertinent physical examination on my patient. No changes have occurred unless specified. I have reviewed her imaging studies with the radiologist I have reviewed the case with Dr. Clayton of Urology Time Spent With Patient Time: Total time managing care of this patient today ____ minutes.
--- NOTE | 2025-01-02 11:24 | P.CONAN_ITS ---
Documented by User: Elissa Chang NP 12/25/24 14:33 HPI - Anesthesia Eval Consult details Narrative: 74yo F for Right Colon Resection Laparoscopic Assist,possible open, 01/02/25 Cardiac optimized. Follows [facility] CAD, Mitral Regurg No CP/SOB with walking to store [place] 2017 s/p stent DM2: FBS ~ 150 GERD: ppi controls Anesthesia Pre-Procedure Meds Is the patient on any of the following meds?: GLP1/DPP4 PMFSH Active Problems Active Problems: All Active Problems Ex-smoker (Acute) Colon cancer (Acute) Past Medical History Medical History (Updated 12/24/24 @ 13:46 by Ewa Carey, ONEYDA) [place] (hard of hearing) Hx of infection (~2019) History of chemotherapy Arthritis Wears dentures No natural teeth Ex-smoker Colon cancer Bladder cancer GERD (gastroesophageal reflux disease) Myocardial infarction Diabetes Family History Family history of problems with anesthesia: No Surgical History Surgical History (Updated 12/24/24 @ 13:06 by Ewa Carey RN) Hx of cataract extraction (~2009) H/O heart artery stent History of transurethral resection of bladder tumor (TURBT) Hx of hemorrhoidectomy H/O tubal ligation H/O adenoidectomy Hx of tonsillectomy History of kidney surgery Hx of heart artery stent History of surgery Hx of total cystectomy H/O colonoscopy (10/07/24) History of Problems with Anesthesia: No Social History Social History (Updated 12/24/24 @ 13:31 by Ewa Carey RN) Household Members Other:: GRANDDAUGHTER Are you a primary animal caretaker supervisor to a significant other at home: No Do you presently have visiting nurse or other home services: No Patient Tobacco Use Status: Former Tobacco user Tobacco use type: Cigarette Smoked in Last 30 Days: No Use of substances other than those prescribed or required for medical reasons: No Have you been hit, kicked, punched, or otherwise hurt by someone within the past year? If so, by whom?: No Are you DNR?: No Advance Directives: No Advance Directives Information Provided: Yes Advance Directives on File: No Recently lost weight without trying: No Nutrition Risks: Surgical patient >75years Meds Allergies Allergy/AdvReac Type Severity Reaction Status Date / Time No Known Allergies Allergy Verified 12/24/24 13:07 [No Known Allergies*] Home Medications ?Medication ?Instructions ?Recorded ?Confirmed ?Last Taken ?Type aspirin 81 mg tablet,delayed 81 mg PO DAILY 05/20/24 12/24/24 01/01/25 History release escitalopram oxalate 5 mg tablet 5 mg PO BEDTIME 05/20/24 12/24/24 01/01/25 History glipizide 10 mg tablet, extended 10 mg PO DAILY 05/20/24 12/24/24 01/01/25 History release 24 hr metoprolol tartrate 25 mg tablet 25 mg PO BID 05/20/24 12/24/24 01/02/25 History omeprazole 40 mg capsule,delayed 40 mg PO DAILY 05/20/24 12/24/24 01/02/25 History release rosuvastatin 10 mg tablet 10 mg PO BEDTIME 05/20/24 12/24/24 01/01/25 History insulin glargine 100 unit/mL (3 26 unit subcut BEDTIME 10/03/24 12/24/24 01/01/25 History mL) subcutaneous pen (Lantus Solostar U-100 Insulin) sitagliptin phosphate 100 mg 100 mg PO DAILY 10/03/24 12/24/24 12/31/24 History tablet (Januvia) acetaminophen 500 mg tablet 500 mg PO Q6H PRN Pain 12/24/24 12/24/24 01/02/25 History melatonin 5 mg tablet 5 mg PO BEDTIME PRN Insomnia 12/24/24 12/24/24 01/01/25 History Exam Height,Weight and Vital Signs: Height 5 ft 1 in Weight 61.689 kg Last Vital Signs Pulse 67 12/24/24 13:13 Resp 16 12/24/24 13:13 BP 102/57 L 12/24/24 13:13 Pulse Ox 96 12/24/24 13:13 O2 Del Method Room Air 12/24/24 13:13 Pertinent Lab Results Pertinent Lab Results: Laboratory Tests 10/15/24 11/06/24 16:28 11:56 WBC 8.2 Hgb 11.9 L Hct 37.6 Plt Count 169 Sodium 138 Potassium 4.8 Chloride 109 H Carbon Dioxide 22 BUN 26 H Creatinine 1.46 H Lab Results 12/24/24 Range/Units 14:30 Blood Type A Positive Antibody Screen NEGATIVE Narrative Narrative: EKG 11/2024 SR PACs and PVCs ECHO 2022 1. LV nml in size 2. LV wall thickness nml 3. Overall LV sys function is low-nml EF 50-55% 4. Accurate pulmo pressures cannot be determined d/t absence of TR jet 5. Lipomatous hypertrophy of interatrial septum 6. C/W 2021 LV sys function slightly better Airway Mallampati Class: III TM Dist: >3cm Neck ROM: Full Denture: Upper and Lower Heart: RRR Lungs: CTAB Assessment and Plan Assessment Anesthesia Assessment: Anesthesia Plan Discussed and PAT Visit Final Anesthetic Review Family History of Problems with Anesthesia: No History of Problems with Anesthesia: No Documented by User: Milena Solis DO 01/02/25 11:27 HPI - Anesthesia Eval Anesthesia Pre-Procedure Meds Is the patient on any of the following meds?: GLP1/DPP4 PMFSH Past Medical History Medical History (Updated 12/24/24 @ 13:46 by Ewa Carey, ONEYDA) [place] (hard of [place]) Hx of infection (~2019) History of chemotherapy Arthritis Wears dentures No natural teeth Ex-smoker Colon cancer Bladder cancer GERD (gastroesophageal reflux disease) Myocardial infarction Diabetes Family History Family history of problems with anesthesia: No Surgical History Surgical History (Updated 12/24/24 @ 13:06 by Ewa Carey, ONEYDA) Hx of cataract extraction (~2009) H/O heart artery stent History of transurethral resection of bladder tumor (TURBT) Hx of hemorrhoidectomy H/O tubal ligation H/O adenoidectomy Hx of tonsillectomy History of kidney surgery Hx of heart artery stent History of surgery Hx of total cystectomy H/O colonoscopy (10/07/24) History of Problems with Anesthesia: No Social History Social History (Updated 12/24/24 @ 13:31 by Ewa Carey, ONEYDA) Household Members Other:: GRANDDAUGHTER Are you a primary animal caretaker supervisor to a significant other at home: No Do you presently have visiting nurse or other home services: No Patient Tobacco Use Status: Former Tobacco user Tobacco use type: Cigarette Smoked in Last 30 Days: No Use of substances other than those prescribed or required for medical reasons: No Have you been hit, kicked, punched, or otherwise hurt by someone within the past year? If so, by whom?: No Are you DNR?: No Advance Directives: No Advance Directives Information Provided: Yes Advance Directives on File: No Recently lost weight without trying: No Nutrition Risks: Surgical patient >75years Meds Allergies Allergy/AdvReac Type Severity Reaction Status Date / Time No Known Allergies Allergy Verified 12/24/24 13:07 [No Known Allergies*] Home Medications ?Medication ?Instructions ?Recorded ?Confirmed ?Last Taken ?Type aspirin 81 mg tablet,delayed 81 mg PO DAILY 05/20/24 12/24/24 01/01/25 History release escitalopram oxalate 5 mg tablet 5 mg PO BEDTIME 05/20/24 12/24/24 01/01/25 History glipizide 10 mg tablet, extended 10 mg PO DAILY 05/20/24 12/24/24 01/01/25 History release 24 hr metoprolol tartrate 25 mg tablet 25 mg PO BID 05/20/24 12/24/24 01/02/25 History omeprazole 40 mg capsule,delayed 40 mg PO DAILY 05/20/24 12/24/24 01/02/25 History release rosuvastatin 10 mg tablet 10 mg PO BEDTIME 05/20/24 12/24/24 01/01/25 History insulin glargine 100 unit/mL (3 26 unit subcut BEDTIME 10/03/24 12/24/24 01/01/25 History mL) subcutaneous pen (Lantus Solostar U-100 Insulin) sitagliptin phosphate 100 mg 100 mg PO DAILY 10/03/24 12/24/24 12/31/24 History tablet (Januvia) acetaminophen 500 mg tablet 500 mg PO Q6H PRN Pain 12/24/24 12/24/24 01/02/25 History melatonin 5 mg tablet 5 mg PO BEDTIME PRN Insomnia 12/24/24 12/24/24 01/01/25 History Exam Exam Date and Time: 01/02/25 1124 Height,Weight and Vital Signs: Height 5 ft 1 in Weight 61.689 kg Last Vital Signs Pulse 67 12/24/24 13:13 Resp 16 12/24/24 13:13 BP 102/57 L 12/24/24 13:13 Pulse Ox 96 12/24/24 13:13 O2 Del Method Room Air 12/24/24 13:13 Vital Signs Pulse Rate 67 12/24/24 13:13 Respiratory Rate 16 12/24/24 13:13 Blood Pressure 102/57 L 12/24/24 13:13 Pulse Oximetry 96 12/24/24 13:13 Oxygen Delivery Method Room Air 12/24/24 13:13 Pulse Rate 67 12/24/24 13:13 Respiratory Rate 16 12/24/24 13:13 Blood Pressure 102/57 L 12/24/24 13:13 Pulse Oximetry 96 12/24/24 13:13 Oxygen Delivery Method Room Air 12/24/24 13:13 Airway Mallampati Class: II TM Dist: >3cm Neck ROM: Full Denture: Upper and Lower Heart: S1S2 Assessment and Plan Assessment Anesthesia Assessment: Anesthesia Plan Discussed and Chart Reviewed Final Anesthetic Review Family History of Problems with Anesthesia: No History of Problems with Anesthesia: No NPO: Yes ASA Class: III Final Preanesthetic Review: No Changes in Pt Med Stat, Meds/Allgs Chart Reviewed, Consent Obtained/Reviewed and Anes Risks/Benef Reviewed Patient Risk: Intermediate Procedure Risk: Intermediate Anesthetic Plan Anesthetic Plan: GA, Regional Block (bilateral transversus abdomins plane block and bilateral rectus sheath block) and Agree w/ Assess. and Plan Disposition: Standard PACU
--- NOTE | 2025-01-02 15:06 | W.PM.OPN ---
Operative Note Operative Note Date of Service: 01/02/25 Narrative: Preop diagnosis: Neuroendocrine tumor, hepatic flexure Postop diagnosis: The same, with extensive dense adhesions, frozen pelvis Procedure: Segmental resection of the hepatic flexure/transverse colon via a laparotomy incision, extensive lysis of adhesions Intraop consult done with Urology-Dr. 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 This was not endoscopically removable. She was therefore referred to me for resection. She understood the technique of the planned procedure as well as the risks, benefits, and alternatives The patient had a urostomy for ileal conduit after radical cystectomy bladder cancer previously. The patient was brought to the operating room. She was placed supine under general anesthesia via endotracheal tube. A TAP block and rectus sheath block was done by the anesthesiologist. I inserted a Stanley catheter past the fascial level of the ileal conduit. The balloon was inflated and I pulled back the Stanley until there was resistance him under the fascia The abdomen was prepped and draped in the usual sterile fashion. A surgical time-out had been done. The patient received Cefotan 2 g IV preoperatively I started with a small incision at the level of the umbilicus. This was along the previous laparotomy site. This was made with a blade 15. This carried down with electrocautery through the full-thickness of the skin and subcutaneous fat. I continued to define the fascial layer and made an incision of the fascia to enter the peritoneal cavity. Dense adhesions were immediately seen so we had to carefully open the rest of the fascial incision slow and deliberate manner As we continued to extend the fascial incision, we had to do extensive lysis of adhesions as there was note of densely adherent small bowel loops on both sides of the fascial layer especially towards the lower abdomen. We therefore had to spend and extended period time with lysis of adhesions to release all these densely adherent small bowel loops from around the incision. I had to extend the incision inferiorly to achieve adequate lysis of adhesions. We continued to do a lot of lysis of adhesions carefully with Metzenbaum scissors, making sure that we were not creating any enterotomy. At the lower abdomen towards the pelvic side however, the small bowel loops appeared to be much more densely adherent consistent with a frozen pelvis. This was a consequence of her previous radical cystectomy Examination of the right side of the abdomen showed the ileal conduit with markedly adherent small bowel loops surrounding this as well. I could feel the balloon of the Stanley catheter in the ileal conduit site We had to do a lot of careful dissection of the upper abdomen until we are able to clearly see the stomach. By following this, I was able to see the transverse colon wrapped by a lot of omentum. I had to do careful lysis of adhesions to separate the transverse colon from the omentum. I was able to define the mid transverse colon and carefully followed this proximally. I was able to separate the hepatic flexure from the liver by dividing the rest of the ligamentous attachments which were also fibrotic from adhesions Eventually, I was able to dissect around the hepatic flexure and I was able to visualize the duodenum. The planes were not that the well-defined so we had to do a lot more careful dissection with Metzenbaum scissors to separate the hepatic flexure. I continued to dissect at the ascending colon more proximally towards the lower quadrant. However, there was note of adhesions surrounding this area as well with a lot of small bowel loops which were also tethered to the ileal conduit At this point, I had the urologist Dr. Calyton come in for an intraop consult to make sure that we had the correct anatomy of the ileal conduit we. It was deemed that there was note of very dense adhesions surrounding the ileal conduit as well as in the lower abdomen consistent with the wound pelvis. He had felt that there was high risk of injury to the ileal conduit and the ureters as well as the densely adherent bowel loops if we persisted on trying to dissect in the lower abdomen to visualize the cecum and the distal ileum. Since we had the right colon and hepatic flexure at the transverse colon mobilized, I was able to see the tattoo marking on the hepatic flexure towards the side of the transverse colon at the hepatic flexure. I could feel a small mass on this area. I therefore decided that in view of the above risks if we continued to dissect in the lower abdomen to expose the cecum, proximal right colon and the distal ileum, it would be safer to just do a segmental resection of this colon where the tumor was. I therefore proceeded to define a mesenteric window at the distal right colon. I transected this with JENNIFER 60 mm stapler. I divided the hepatic flexure distally as well in the same fashion by creating a mesenteric window and using the JENNIFER 60 mm stapler. I completed dissection of the short segment using the LigaSure to divide the attached mesentery. This segment of the hepatic flexure was sent for an immediate gross exam. I proceeded to then prepared the proximal and distal staple lines for a [id number] denies mellitus. There was note of minimal length of right colon that we could mobilize in view of the problems described as above with adhesions. I opened the apex each staple line. I then positioned the transverse colon down into the right side to align this with the right colon. I had each arm of the JENNIFER 60 mm stapler positioned into the lumen. I aligned the bowel wall on both limbs towards the anti mesenteric side, making sure that there was no bowel loops caught between the staple lines. Stapler was fired to create our [id number] anastomosis. There was no tension on the anastomosis. This anastomosis was examined on both the luminal side well as on the serosal side and the staple lines appeared intact with a any signs of any ischemia. I therefore brought this back down into the gutter. I then positioned whatever remaining omentum we had to overlie this area. There was note of some spillage of stool during the anastomosis which was difficult in view of the angle and adhesions limiting mobilization of the right colon. I therefore position a 7. ZAYDA drain to overlie the anastomotic site. This was brought out through a small stab incision in the right upper quadrant and was secured with nylon 3-0 anchoring stitch . We irrigated copiously. We had changed gloves. We examined all the visible small bowel loops in the area. There was no evidence of any bowel injury. There was 1 small serosal tear on the right colon that we repaired with 2 layer sutures including as a seromuscular Lembert type stitch. Once hemostasis was confirmed and irrigation done, I proceeded to close the fascia with a running Maxon 1 stitch. Prior to closure of the fascia, an NG tube was inserted in view of the extensive lysis of adhesions and anticipated delayed return of GI function . I was able to palpate the NG tube in the stomach. Skin closure was achieved with skin adarsh I then removed the Stanley catheter from the ileal conduit. The urine output was clear. Dressings were applied and the procedure was completed. The patient tolerated procedure well. There were no immediate complications. Initial and final counts of sponges and instruments were correct. Estimated blood loss was about 100 cc. The patient was extubated without difficulty and transferred to the recovery room with stable vital signs. Towards the end of the case, the pathologist had called to confirm that the tumor was within the segment that was resected. Colon Resection Tumor location: Hepatic flexure Extent of lymphovascular resection Pedicle removed: right branch of the middle colic Hepatic flexure: segmental resection of heaptic flexure Procedure performed with curative intent?: No General Surg. - Synoptic Notes Colon Resection Tumor location: Hepatic flexure Extent of Lymphovascular Resection: Pedicle removed: right branch of the middle colic Hepatic flexure: segmental resection of heaptic flexure Procedure performed with curative intent?: No
[2025-01-02] MEDS: Haloperidol Lactate 5 MG/ML VIAL IVPUSH (15:28)
[2025-01-02] MEDS: HYDROmorphone HCl 0.5 MG/0.5 ML SYRINGE IVPUSH (15:48)
[2025-01-02 15:50] LABS: Glucose, Whole Blood 177 mg/dL (60-115)
--- NOTE | 2025-01-02 15:57 | PM.EVENT ---
Event Note Date of Service: 01/02/25 Event Note: seen postop underwent segmental resection for neuroendocrine tumor at the hepatic flexure via a laparotomy incision very dense and extensive adhesions noted c/o pain NGT in place in view of anticipated slow return of GI function ZAYDA drain- serosanguinous urostomy with good UO, clear pain mgt Hospitalist consulted HCP Danny updated by phone Time Spent With Patient Time: Total time managing care of this patient today ____ minutes.
[2025-01-02] MEDS: 0.9 % Sodium Chloride Flush 3 ML SYRINGE IVFLUSH (17:19)
[2025-01-02 17:24] LABS: Glucose, Whole Blood 169 mg/dL (60-115)
--- NOTE | 2025-01-02 17:45 | HO.PM.IMCN ---
History of Present Illness Data of Consult Service Date: 01/02/25 Primary Care Provider: Breanne Andrew MD [facility] Reason for consult: Medical management Pt is a 74-year-old female PMH significant for HTN, HLD, insulin-dependent type 2 diabetes, GERD, CKD3, and colon cancer who is admitted to the hospital under general surgery services for segmental resection for neuroendocrine tumor at the hepatic flexure via laparotomy incision. Hospitalist consult for medical management. Pt seen and examined in her room where she is somnolent but arousable. NGT in place due to anticipated slow return of bowel function. Pt complains dry mouth and sore throat, otherwise has no acute medical complaints. Denies nausea, vomiting. No SOB or difficulty breathing. Denies chest pain/pressure, palpitations. No fever chills. Review of Systems Review of Systems: Negative except for that which is stated in the HPI [facility] Medical History [place] (hard of hearing) Hx of infection (~2019) History of chemotherapy Arthritis Wears dentures No natural teeth Ex-smoker Colon cancer Bladder cancer GERD (gastroesophageal reflux disease) Myocardial infarction Diabetes Surgical History Hx of cataract extraction (~2009) H/O heart artery stent History of transurethral resection of bladder tumor (TURBT) Hx of hemorrhoidectomy H/O tubal ligation H/O adenoidectomy Hx of tonsillectomy History of kidney surgery Hx of heart artery stent History of surgery Hx of total cystectomy H/O colonoscopy (10/07/24) Social History Household Members: Unknown / Unable to assess Household Members Other:: GRANDDAUGHTER Are you a primary nurse care manager to a significant other at home: No Do you presently have visiting nurse or other home services: No Patient Tobacco Use Status: Former Tobacco user Tobacco use type: Cigarette Meds Allergies Allergy/AdvReac Type Severity Reaction Status Date / Time No Known Allergies Allergy Verified 12/24/24 13:07 [No Known Allergies*] Active Medications: Current Medications Calcium Carbonate (Calcium Carbonate 750 Mg Tab.Chew) 750 mg PO Q4H PRN PRN Reason: Heartburn Dextrose (Dextrose 50 % 25 Gm/50 Ml Syringe) 25 gm IVPUSH Q15M PRN; Protocol PRN Reason: per Hypoglycemia Standing Ord. Glucose (Glucose Gel 15 Gm Gel..Gram.) 15 gm PO Q15M PRN; Protocol PRN Reason: per Hypoglycemia Standing Ord. Lactated Ringer's (Lr) 1,000 mls @ 100 mls/hr IVCONT .Q10H [facility] Last Admin: 01/02/25 17:18 Dose: 100 mls/hr Acetaminophen (Ofirmev) 1,000 mg in 100 mls @ 400 mls/hr IV Q6H [facility] Insulin Human Lispro (Insulin Lispro 100 Unit/Ml 3 Ml Vial) 0 unit SUBCUT QIDACHS [facility]; Protocol Magnesium Hydroxide (Milk Of Magnesia 30 Ml Oral.Susp) 30 ml PO DAILY PRN PRN Reason: Constipation Melatonin (Melatonin 3 Mg Tablet) 6 mg PO BEDTIME PRN PRN Reason: Insomnia Morphine Sulfate (Morphine Sulfate 4 Mg/Ml Cartridge) 4 mg IVPUSH Q3H PRN; Protocol PRN Reason: Pain, Severe (Pain Scale 7-10) Ondansetron HCl (Ondansetron Hcl 4 Mg/2 Ml Vial) 4 mg IVPUSH Q6H PRN PRN Reason: Nausea and Vomiting Pantoprazole Sodium (Pantoprazole Sodium 40 Mg/10 Ml Vial) 40 mg IVPUSH DAILY@0630 [facility] Sodium Chloride (0.9 % Sodium Chloride Flush 3 Ml Syringe) 3 ml IVFLUSH QSHIFT [facility] Last Admin: 01/02/25 17:19 Dose: 3 ml Home Medications ?Medication ?Instructions ?Recorded ?Confirmed ?Last Taken ?Type aspirin 81 mg tablet,delayed 81 mg PO DAILY 05/20/24 12/24/24 01/01/25 History release escitalopram oxalate 5 mg tablet 5 mg PO BEDTIME 05/20/24 12/24/24 01/01/25 History glipizide 10 mg tablet, extended 10 mg PO DAILY 05/20/24 12/24/24 01/01/25 History release 24 hr metoprolol tartrate 25 mg tablet 25 mg PO BID 05/20/24 12/24/24 01/02/25 History omeprazole 40 mg capsule,delayed 40 mg PO DAILY 05/20/24 12/24/24 01/02/25 History release rosuvastatin 10 mg tablet 10 mg PO BEDTIME 05/20/24 12/24/24 01/01/25 History insulin glargine 100 unit/mL (3 26 unit subcut BEDTIME 10/03/24 12/24/24 01/01/25 History mL) subcutaneous pen (Lantus Solostar U-100 Insulin) sitagliptin phosphate 100 mg 100 mg PO DAILY 10/03/24 12/24/24 12/31/24 History tablet (Januvia) acetaminophen 500 mg tablet 500 mg PO Q6H PRN Pain 12/24/24 12/24/24 01/02/25 History melatonin 5 mg tablet 5 mg PO BEDTIME PRN Insomnia 12/24/24 12/24/24 01/01/25 History Physical Exam Vital Signs and Narrative: Vital Signs: Last Vital Signs Temp 97.3 F 01/02/25 16:45 Pulse 74 01/02/25 16:45 Resp 16 01/02/25 16:45 BP 137/64 01/02/25 16:45 Pulse Ox 94 01/02/25 16:45 O2 Del Method Nasal Cannula 01/02/25 16:45 O2 Flow Rate 2 01/02/25 16:45 BMI result Body Mass Index 25.7 General: AOx3, somnolent but arousable. In no acute distress. Resp: CTA bilaterally CVS: S1, S2, RRR GI: No distention, appropriate tenderness at surgical sites. NGT in place draining bilious material : Urostomy in place Skin: Warm, dry Neuro: Cranial nerves II-XII grossly intact bilaterally. Motor grossly intact bilaterally Extremities: No edema Psych: Appropriate affect Results Labs Labs: Laboratory Results - last 24 hr 01/02/25 01/02/25 01/02/25 09:41 15:45 17:21 POC Glucose 124 H 177 H 169 H Assessment and Plan (1) Neuroendocrine tumor: Status: Acute Plan Pt is a 74-year-old female PMH significant for HTN, HLD, insulin-dependent type 2 diabetes, GERD, CKD3, and colon cancer who is admitted to the hospital under general surgery services for segmental resection for neuroendocrine tumor at the hepatic flexure via laparotomy incision. POD0. Hospitalist consult for medical management. Neuroendocrine tumor S/p segmental resection ZAYDA drain and urostomy in place Pt with NGT due to anticipated slow return of bowel function Pt currently NPO Plan as per General surgery Insulin-dependent type [address] on sliding scale insulin Lantus at half dose for now due to NPO Hold glipizide and Januvia; resume once no longer NPO and tolerating solid diet HTN Hold metoprolol for now due to soft BP Resume as BP allows HLD Continue statin Hold aspirin for now, resume per General surgery GERD Continue omeprazole Thank you for allowing us to participate in the care of this pt. We will continue to follow along with you.
--- NOTE | 2025-01-02 17:55 | PHA.MEDREC ---
Pharmacy Consult ? Medication Reconciliation Pharmacy has reviewed the medication reconciliation done by nursing and also spoke to patient. She confirmed she takes escitalopram 5 mg at bedtime and lantus 26 units at bedtime.
--- NOTE | 2025-01-02 18:04 | PC.NURSE ---
NG tube placement confirmed in the OR per Dr Estevez. Attached to low intermittent suction per MD order. NG tube measured 62cm from Right nare to end of clear tube.
[2025-01-02 20:36] LABS: Glucose, Whole Blood 185 mg/dL (60-115)
[2025-01-02] MEDS: Acetaminophen 1,000 MG/100 ML PIGGYBACK 400 MG IV (20:49)
[2025-01-03] VITALS: BP 146/65; PULSE 83; RESP 18; TEMP 36.4; O2SAT 94
[2025-01-03] MEDS: Morphine Sulfate 4 MG/ML CARTRIDGE IVPUSH ×4 (00:54→20:40)
[2025-01-03] MEDS: Acetaminophen 1,000 MG/100 ML PIGGYBACK 400 MG IV ×4 (02:39→20:33)
[2025-01-03] MEDS: Lactated Ringers 1,000 ML 100 ML IVCONT ×2 (02:42→13:42)
[2025-01-03 05:52] LABS: MANUAL DIFF FLAG NO
[2025-01-03] MEDS: Pantoprazole Sodium 40 MG/10 ML VIAL IVPUSH (05:56)
[2025-01-03 05:59] LABS: Basophils Percent Auto 0.2 % (0-2); Hematocrit 31.3 % (37.0-47.0); Imm Gran Abs Auto 0.06 X10*3/uL (0.00-0.03); Imm Gran Pct Auto 0.6 % (0.0-0.4); Lymphocytes Percent Auto 9.5 % (20-40); Mean Corpuscular HGB Conc 31.9 g/dl (31.0-35.0); Mean Corpuscular Hemoglobin 25.8 pg (27.0-33.0); Mean Corpuscular Volume 80.9 fL (80.0-98.0); Mean Platelet Volume 9.9 fL (9.4-12.3); Monocytes Absolute Auto 0.6 X10*3/uL (0.1-1.2); Neutrophils Percent Auto 83.7 % (45-73); Platelet Count 183 X10*3/uL (160-400); Red Blood Count 3.87 X10*6/uL (4.20-5.50); Red Cell Distribution Width 14.4 % (11.0-16.0); White Blood Count 10.7 X10*3/uL (4.8-10.8)
[2025-01-03 06:11] LABS: Anion Gap 12 (12-20); Blood Urea Nitrogen 19 mg/dL (9-16); Calcium 8.6 mg/dL (8.4-10.2); Carbon Dioxide 22 mmol/L (22-29); Chloride 108 mmol/L (96-108); Creatinine Clr Calc Pharmacy 37.1; Estimated Glomerular Filt Rate 48; Glucose Fasting 245 mg/dL (60-99); Sodium 138 mmol/L (135-145)
--- NOTE | 2025-01-03 06:41 | P.PNGS_ITS ---
Subjective Subjective Date of Service: 01/03/25 <[facility] - Last Filed: 01/03/25 07:30> 01/03/25 <Kerri Canela PA-C - Last Filed: 01/03/25 08:20> 01/03/25 <Brando Estevez MD - Last Filed: 01/03/25 10:46> Interval history: Patient seen and examined this morning. States she is only having pain in her throat. Has not been OOB. No bowel movement or flatulence. Tolerating ice chips. Denies abdominal pain, chest pain, shortness of breath, nausea vomiting or chills. <[facility] - Last Filed: 01/03/25 07:30> Physical Exam 2 Vital Signs: Vital Signs: Last Vital Signs Temp 97.5 F 01/03/25 00:00 Pulse 83 01/03/25 00:00 Resp 18 01/03/25 00:00 BP 146/65 H 01/03/25 00:00 Pulse Ox 94 01/03/25 00:00 O2 Del Method Nasal Cannula 01/03/25 00:00 O2 Flow Rate 2 01/03/25 00:00 BMI result Body Mass Index 25.7 <[facility] - Last Filed: 01/03/25 07:30> Const: Other: Laying in bed, awake, calm, in no acute distress. Orientated x3 <[facility] Last Filed: 01/03/25 07:30> Orientation/consciousness: patient oriented x3 <Kerri Canela PA-C - Last Filed: 01/03/25 08:20> HEENT: Throat: Yes tonsils normal and Yes uvula midline < [facility] - Last Filed: 01/03/25 07:30> Resp: Other: Lungs clear to auscultation, no increased work of breathing <[facility] - Last Filed: 01/03/25 07:30> Cardio: Other: Regular rate and rhythm <[facility] - Last Filed: 01/03/25 07:30> GI: Other: Abdomen is soft and non distended. Tenderness to palpation right side of abdomen. Dressings intact. ZAYDA tube intact with sanguineous fluid. NG tube intact with dark brown drainage. <[facility] Last Filed: 01/03/25 07:30> Other: Abdomen is soft and non distended. mild tenderness to palpation right side of abdomen. Dressings intact. ZAYDA tube intact with sanguineous fluid. NG tube intact with dark brown drainage. ileal conduit with appliance in place <Kerri Canela PA-C - Last Filed: 01/03/25 08:20> Skin: General skin exam: no rashes or lesions noted <Kerri Canela PA-C Last Filed: 01/03/25 08:20> Neuro: General: patient oriented x3 <Kerri Canela PA-C - Last Filed: 01/03/25 08:20> Extrem: Other: Moving all extremities normally, no lower extremity edema noted. <[facility] - Last Filed: 01/03/25 07:30> Objective Data Active Medications Atorvastatin Calcium (Atorvastatin Calcium 40 Mg Tablet) 40 mg PO BEDTIME [facility] Last Admin: 01/02/25 20:50 Dose: Not Given Documented By: GIANCARLO Non-Admin Reason: NPO Calcium Carbonate (Calcium Carbonate 750 Mg Tab.Chew) 750 mg PO Q4H PRN PRN Reason: Heartburn Dextrose (Dextrose 50 % 25 Gm/50 Ml Syringe) 25 gm IVPUSH Q15M PRN; Protocol PRN Reason: per Hypoglycemia Standing Ord. Escitalopram Oxalate (Escitalopram Oxalate 5 Mg Tablet) 5 mg PO BEDTIME [facility] Glucose (Glucose Gel 15 Gm Gel..Gram.) 15 gm PO Q15M PRN; Protocol PRN Reason: per Hypoglycemia Standing Ord. Lactated Ringer's (Lr) 1,000 mls @ 100 mls/hr IVCONT .Q10H [facility] Last Admin: 01/03/25 02:42 Dose: 100 mls/hr Documented By: GIANCARLO Acetaminophen (Ofirmev) 1,000 mg in 100 mls @ 400 mls/hr IV Q6H [facility] Last Infusion: 01/03/25 02:57 Dose: Infused Documented By: GIANCARLO Insulin Glargine (Insulin Glargine,Hum.Rec.Anlog 100 Unit/Ml 10 Ml Vial) 13 unit SUBCUT BEDTIME [facility] Last Admin: 01/02/25 20:52 Dose: Not Given Documented By: GIANCARLO Non-Admin Reason: NPO Insulin Human Lispro (Insulin Lispro 100 Unit/Ml 3 Ml Vial) 0 unit SUBCUT QIDACHS [facility]; Protocol Last Admin: 01/02/25 20:52 Dose: Not Given Documented By: GIANCARLO Non-Admin Reason: NPO Magnesium Hydroxide (Milk Of Magnesia 30 Ml Oral.Susp) 30 ml PO DAILY PRN PRN Reason: Constipation Melatonin (Melatonin 3 Mg Tablet) 6 mg PO BEDTIME PRN PRN Reason: Insomnia Morphine Sulfate (Morphine Sulfate 4 Mg/Ml Cartridge) 4 mg IVPUSH Q3H PRN; Protocol PRN Reason: Pain, Severe (Pain Scale 7-10) Last Admin: 01/03/25 05:56 Dose: 4 mg Documented By: GIANCARLO Omeprazole (Omeprazole 40 Mg Capsule.Dr) 40 mg PO DAILY@629 [facility] Last Admin: 01/03/25 05:57 Dose: Not Given Documented By: GIANCARLO Non-Admin Reason: Protonix IV given Ondansetron HCl (Ondansetron Hcl 4 Mg/2 Ml Vial) 4 mg IVPUSH Q6H PRN PRN Reason: Nausea and Vomiting Pantoprazole Sodium (Pantoprazole Sodium 40 Mg/10 Ml Vial) 40 mg IVPUSH DAILY@30 [facility] Last Admin: 01/03/25 05:56 Dose: 40 mg Documented By: GIANCARLO Sodium Chloride (0.9 % Sodium Chloride Flush 3 Ml Syringe) 3 [facility] Last Admin: 01/03/25 00:34 Dose: Not Given Documented By: GIANCARLO Non-Admin Reason: IV Running <[facility] Last Filed: 01/03/25 07:30> Labs CBC & Chem 7: 01/03/25 05:21 01/03/25 05:21 <[facility] - Last Filed: 01/03/25 07:30> Labs: Laboratory Results - last 24 hr 01/02/25 01/02/25 01/02/25 09:41 15:45 17:21 MCV MCH MCHC RDW Plt Count MPV Immature Gran % (Auto) Neut % (Auto) Lymph % (Auto) Darke % (Auto) Eos % (Auto) Baso % (Auto) Lymph # (Auto) Darke # (Auto) Eos # (Auto) Baso # (Auto) Abs Immat Gran (auto) Absolute Neuts (auto) Absolute Nucleated RBC Nucleated RBC % (auto) Anion Gap Estim Creat Clear Calc Estimated GFR POC Glucose 124 H 177 H 169 H Fasting Glucose Calcium 01/02/25 01/03/25 20:32 05:21 MCV 80.9 MCH 25.8 L MCHC 31.9 RDW 14.4 Plt Count 183 MPV 9.9 Immature Gran % (Auto) 0.6 H Neut % (Auto) 83.7 H Lymph % (Auto) 9.5 L Darke % (Auto) 6.0 Eos % (Auto) 0.0 Baso % (Auto) 0.2 Lymph # (Auto) 1.0 L Darke # (Auto) 0.6 Eos # (Auto) 0.0 Baso # (Auto) 0.0 Abs Immat Gran (auto) 0.06 H Absolute Neuts (auto) 9.0 H Absolute Nucleated RBC 0.000 Nucleated RBC % (auto) 0.0 Anion Gap 12 Estim Creat Clear Calc 37.1 Estimated GFR 48 POC Glucose 185 H Fasting Glucose 245 H Calcium 8.6 D <[facility] [place] - Last Filed: 01/03/25 07:30> Procedures Date of Service Date of Service: 01/03/25 <[facility] [place] - Last Filed: 01/03/25 07:30> 01/03/25 <Kerri Canela PA-C - Last Filed: 01/03/25 08:20> 01/03/25 <Brando Estevez MD - Last Filed: 01/03/25 10:46> Progress Note: A&P Assessment and plan (1) Neuroendocrine tumor: Status: Acute <[facility] [place] - Last Filed: 01/03/25 07:30> Assessment and Plan: Has incisional pain Some nausea Denies flatus Abdomen is soft Dressings dry Good urine output via the urostomy ZAYDA drain serosanguineous Instructed on incentive spirometry Pain management NG tube in place - anticipate delayed return of GI function in view of extensive dissection Seen and examined independently Healthcare proxy updated <Brando Estevez MD - Last Filed: 01/03/25 10:46> (2) S/P colon resection: Status: Acute <Meño Mcknight - Last Filed: 01/03/25 07:30> Assessment and Plan: Patient is POD1 s/p Segmental resection of the hepatic flexure/transverse colon via a laparotomy incision with extensive lysis of adhesions. Abdominal exam beign, dressings intact. ZAYDA and NG tubes intact. No flatulence or bowel movement. Vitals wnl. Labs reviewed. Continue current pain regimen. Remove NG tube when drainage becomes minimal. Will advance diet to clear liquids once removal of NG tube. Wean O2 as tolerated. Increase OOB/Ambulation, Incentive spirometer. <Meño Mcknight - Last Filed: 01/03/25 07:30> Patient is POD1 s/p Segmental resection of the hepatic flexure/transverse colon via a laparotomy incision with extensive lysis of adhesions. Abdominal exam beign, dressings intact. ZAYDA and NG tubes intact. No flatulence or bowel movement. Vitals wnl. Labs reviewed. Continue current pain regimen. Remove NG tube when drainage becomes minimal. Will advance diet to clear liquids once removal of NG tube. Wean O2 as tolerated. Increase OOB/Ambulation, Incentive spirometer. Agree with above assessment and plan by ARIELLE Mcknight. Patient POD #1 s/p segmental resection of the hepatic flexure/transverse colon via a laparotomy incision, extensive lysis of adhesions. No evidence of GI function yet, NGT moderate amount of output. VSS. Abd exam benign with intact dressings, appropriate post op tenderness. ZAYDA output serosang. Will keep NGT in place until evidence of GI function. Encouraged OOB/ambulation today, incentive spirometer. Cont IVF. Keep ZAYDA for now, will remove prior to dc. Hospitalists following. <Kerri Canela PA-C - Last Filed: 01/03/25 08:20> Time Spent With Patient Time: Total time managing care of this patient today ____ minutes. <Meño Mcknight - Last Filed: 01/03/25 07:30> Quality Stroke Does the patient have a stroke diagnosis?: No <Kerri Canela PA-C - Last Filed: 01/03/25 08:20> VTE Prior VTE?: No <Kerri Canela PA-C - Last Filed: 01/03/25 08:20> VTE Risk Level:: Medical - moderate - high <[facility] [place] - Last Filed: 01/03/25 07:30> VTE Device Contraindication: N/A - Device Ordered <[facility] [place] - Last Filed: 01/03/25 07:30> VTE Drug Contraindication: N/A - Med Ordered <[facility] [place] - Last Filed: 01/03/25 07:30>
[2025-01-03 07:27] VITALS: BP 120/56; PULSE 85; RESP 20; TEMP 36.3; O2SAT 93
[2025-01-03 07:36] LABS: Glucose, Whole Blood 224 mg/dL (60-115)
--- NOTE | 2025-01-03 10:22 | MHC.CM.PN ---
[facility] DELIVERED PT LIVES WITH GRANDDAUGHTER AND IS FUNCTIONALLY INDEPENDENT. NO SERVICES OR DME. +HCP PCP DR. CASTILLO DP: HOME VS HOME WITH SERVICES, PT CHOOSES [facility] IF [facility] IS RECOMMENDED. REFERRAL SENT. CM WILL CONTINUE TO FOLLOW FOR ANY CHANGE TO DC PLAN/NEEDS.
[2025-01-03 11:17] LABS: Glucose, Whole Blood 203 mg/dL (60-115)
[2025-01-03] MEDS: Throat Lozenge, Medicated LOZENGE 1 LOZENGE MUCOUS MEM ×2 (13:41→20:35)
--- NOTE | 2025-01-03 14:12 | HO.POSTANES ---
Post Anesthesia Evaluation Post Anesthesia Evaluation Date of Service: 01/03/25 Vital Signs: Vital Signs Temp Pulse Resp BP Pulse Ox O2 Del Method O2 Flow Rate 01/03/25 07:27 97.4 F 85 20 120/56 L 93 Nasal Cannula 2 Anesthesia: Regional (bilateral TAP and bilateral rectus sheath blocks) and General Endotracheal-GETA Mental Status: Awake Pain Control: Satisfactory Nausea/Vomiting: None Hydration: Adequate Anesthesia-Related Issues: No Anes. Related Issues
--- NOTE | 2025-01-03 14:34 | P.PNIM_ITS ---
Subjective Subjective Date of Service: 01/03/25 Interval History: seen and examined this morning follow up for medical consultation feels ok pain under adequate control at this time; using IS no sob, cough Review of Systems Review of Systems: Yes all other systems are reviewed and are negative Physical Exam 2 Vital Signs: Vital Signs: Last Vital Signs Temp 97.4 F 01/03/25 07:27 Pulse 85 01/03/25 07:27 Resp 20 01/03/25 07:27 BP 120/56 L 01/03/25 07:27 Pulse Ox 93 01/03/25 07:27 O2 Del Method Nasal Cannula 01/03/25 07:27 O2 Flow Rate 2 01/03/25 07:27 BMI result Body Mass Index 25.7 Const: General: alert and awake Nutritional Appearance: average body habitus Orientation/consciousness: patient oriented x3 HEENT: Other: NGT in place Resp: Effort & Inspection: normal respiratory effort, able to speak in complete sentences, no respiratory distress and no use of accessory muscles GI: Other: abdomen dressings clean and dry; ZAYDA with serosanguenous output : Other: urostomy draining clear urine Neuro: General: patient oriented x3 Extrem: General: Yes no pedal edema Objective Data Active Medications Atorvastatin Calcium (Atorvastatin Calcium 40 Mg Tablet) 40 mg PO BEDTIME [facility] Last Admin: 01/02/25 20:50 Dose: Not Given Documented By: GIANCARLO Non-Admin Reason: NPO Benzocaine (Throat Lozenge, Medicated Lozenge) 1 lozenge MUCOUS MEM Q2H PRN PRN Reason: Sore Throat Last Admin: 01/03/25 13:41 Dose: 1 lozenge Documented By: BETHANY Calcium Carbonate (Calcium Carbonate 750 Mg Tab.Chew) 750 mg PO Q4H PRN PRN Reason: Heartburn Dextrose (Dextrose 50 % 25 Gm/50 Ml Syringe) 25 gm IVPUSH Q15M PRN; Protocol PRN Reason: per Hypoglycemia Standing Ord. Escitalopram Oxalate (Escitalopram Oxalate 5 Mg Tablet) 5 mg PO BEDTIME [facility] Glucose (Glucose Gel 15 Gm Gel..Gram.) 15 gm PO Q15M PRN; Protocol PRN Reason: per Hypoglycemia Standing Ord. Lactated Ringer's (Lr) 1,000 mls @ 100 mls/hr IVCONT .Q10H [facility] Last Admin: 01/03/25 13:42 Dose: 100 mls/hr Documented By: BETHANY Acetaminophen ([facility]) 1,000 mg in 100 mls @ 400 mls/hr IV Q6H [facility] Last Infusion: 01/03/25 10:09 Dose: Infused Documented By: BETHANY Insulin Glargine (Insulin Glargine,Hum.Rec.Anlog 100 Unit/Ml 10 Ml Vial) 13 unit SUBCUT BEDTIME [facility] Last Admin: 01/02/25 20:52 Dose: Not Given Documented By: GIANCARLO Non-Admin Reason: NPO Insulin Human Lispro (Insulin Lispro 100 Unit/Ml 3 Ml Vial) 0 unit SUBCUT QIDACHS [facility]; Protocol Last Admin: 01/03/25 11:19 Dose: Not Given Documented By: BETHANY Non-Admin Reason: No Insulin Coverage Magnesium Hydroxide (Milk Of Magnesia 30 Ml Oral.Susp) 30 ml PO DAILY PRN PRN Reason: Constipation Melatonin (Melatonin 3 Mg Tablet) 6 mg PO BEDTIME PRN PRN Reason: Insomnia Morphine Sulfate (Morphine Sulfate 4 Mg/Ml Cartridge) 4 mg IVPUSH Q3H PRN; Protocol PRN Reason: Pain, Severe (Pain Scale 7-10) Last Admin: 01/03/25 05:56 Dose: 4 mg Documented By: GIANCARLO Omeprazole (Omeprazole 40 Mg Capsule.Dr) 40 mg PO DAILY@629 [facility] Last Admin: 01/03/25 05:57 Dose: Not Given Documented By: GIANCARLO Non-Admin Reason: Protonix IV given Ondansetron HCl (Ondansetron Hcl 4 Mg/2 Ml Vial) 4 mg IVPUSH Q6H PRN PRN Reason: Nausea and Vomiting Pantoprazole Sodium (Pantoprazole Sodium 40 Mg/10 Ml Vial) 40 mg IVPUSH DAILY@0630 [facility] Last Admin: 01/03/25 05:56 Dose: 40 mg Documented By: GIANCARLO Sodium Chloride (0.9 % Sodium Chloride Flush 3 Ml Syringe) 3 ml [facility]FLUSH [facility] Last Admin: 01/03/25 08:07 Dose: Not Given Documented By: BETHANY Non-Admin Reason: IV Running Labs 01/03/25 05:21 01/03/25 05:21 Labs: Laboratory Results - last 24 hr 01/02/25 01/02/25 01/02/25 15:45 17:21 20:32 MCV MCH MCHC RDW Plt Count MPV Immature Gran % (Auto) Neut % (Auto) Lymph % (Auto) Lane % (Auto) Eos % (Auto) Baso % (Auto) Lymph # (Auto) Lane # (Auto) Eos # (Auto) Baso # (Auto) Abs Immat Gran (auto) Absolute Neuts (auto) Absolute Nucleated RBC Nucleated RBC % (auto) Anion Gap Estim Creat Clear Calc Estimated GFR POC Glucose 177 H 169 H 185 H Fasting Glucose Calcium 01/03/25 01/03/25 01/03/25 05:21 07:31 11:14 MCV 80.9 MCH 25.8 L MCHC 31.9 RDW 14.4 Plt Count 183 MPV 9.9 Immature Gran % (Auto) 0.6 H Neut % (Auto) 83.7 H Lymph % (Auto) 9.[address] % (Auto) 6.0 Eos % (Auto) 0.0 Baso % (Auto) 0.2 Lymph # (Auto) 1.[address] # (Auto) 0.6 Eos # (Auto) 0.0 Baso # (Auto) 0.0 Abs Immat Gran (auto) 0.06 H Absolute Neuts (auto) 9.0 H Absolute Nucleated RBC 0.000 Nucleated RBC % (auto) 0.0 Anion Gap 12 Estim Creat Clear Calc 37.1 Estimated GFR 48 POC Glucose 224 H 203 H Fasting Glucose 245 H Calcium 8.6 D Assessment and Plan (1) Neuroendocrine tumor: Status: Acute Plan Pt is a 74-year-old female PMH significant for HTN, HLD, insulin-dependent type 2 diabetes, GERD, CKD3, and colon cancer who is admitted to the hospital under general surgery services for segmental resection for neuroendocrine tumor at the hepatic flexure via laparotomy incision. POD0. Hospitalist consult for medical management. Neuroendocrine tumor POD 1 s/p Segmental resection of the hepatic flexure/transverse colon via a laparotomy incision, extensive lysis of adhesions ZAYDA drain and urostomy in place Pt with NGT due to anticipated slow return of bowel function Pt currently NPO Plan as per General surgery Insulin-dependent type 2 diabetes continue sliding scale insulin Lantus at half dose for now due to NPO, titrate as diet is advanced Hold glipizide and Januvia; resume upon discharge HTN Hold metoprolol for now due to soft BP Resume as BP allows HLD Continue statin Hold aspirin for now, resume per General surgery mood continue lexapro GERD Continue omeprazole Thank you for allowing us to participate in the care of this pt. We will continue to follow along with you. Quality Stroke Does the patient have a stroke diagnosis?: No VTE Prior VTE?: No VTE Risk Level:: Medical - moderate - high VTE Device Contraindication: N/A - Device Ordered VTE Drug Contraindication: N/A - Med Ordered
--- NOTE | 2025-01-03 14:57 | PM.EVENT ---
Event Note Date of Service: 01/03/25 Event Note: Seen on afternoon rounds Complains of sore throat Some incisional pain Stable vital signs Good urine output Abdomen is soft Would keep NG tube in place ZAYDA drain with serosanguineous output Appreciate hospitalist follow-up Pain management Incentive spirometry Time Spent With Patient Time: Total time managing care of this patient today ____ minutes.
[2025-01-03 15:14] VITALS: BP 147/67; PULSE 95; RESP 20; TEMP 36.7; O2SAT 95
[2025-01-03] MEDS: 0.9 % Sodium Chloride Flush 3 ML SYRINGE IVFLUSH ×2 (15:35→20:41)
[2025-01-03 16:36] LABS: Glucose, Whole Blood 150 mg/dL (60-115)
[2025-01-03 20:18] LABS: Glucose, Whole Blood 154 mg/dL (60-115)
[2025-01-03 20:30] VITALS: BP 162/72; PULSE 97; RESP 20; TEMP 36.8; O2SAT 93
[2025-01-04] VITALS (7 sets, daily range): BP systolic 134–179; BP diastolic 61–80; PULSE 92–100; RESP 18–22; TEMP 36–36.8; O2SAT 92–95
[2025-01-04] MEDS: Lactated Ringers 1,000 ML 80 ML IVCONT ×2 (00:59→14:01)
[2025-01-04] MEDS: Morphine Sulfate 4 MG/ML CARTRIDGE IVPUSH ×4 (01:03→20:19)
[2025-01-04] MEDS: Acetaminophen 1,000 MG/100 ML PIGGYBACK 400 MG IV ×4 (03:08→20:16)
--- NOTE | 2025-01-04 03:57 | PC.NURSE ---
Pt seen on bed, alert and oriented, c/o throat pain and minimal abd surgical tenderness, offered Lozenges, prn Morphine given with good effect, NGT to right nares connected to LWS with greenish liquid output, Urostomy draining clear yellow, ZAYDA drain with minimal serosang output, slept after, POC= 154, SS and lantus held, Dr. Gibbs made aware. Woke up later and noted soaked with urine, Urostomy leaked out and up to her midline incision, cleansed with NSS, midline incision noted well approximated no drainage, dressing changed with sterile gauze and abdl pad, Urostomy appliance was changed.
[2025-01-04] MEDS: Pantoprazole Sodium 40 MG/10 ML VIAL IVPUSH (05:35)
[2025-01-04 06:49] LABS: Anion Gap 10 (12-20); Blood Urea Nitrogen 17 mg/dL (9-16); Carbon Dioxide 26 mmol/L (22-29); Chloride 110 mmol/L (96-108); Creatinine Clr Calc Pharmacy 49.9; Estimated Glomerular Filt Rate > 60; Glucose Fasting 163 mg/dL (60-99); Potassium 3.9 mmol/L (3.3-5.1); Sodium 142 mmol/L (135-145)
[2025-01-04 07:23] LABS: Glucose, Whole Blood 162 mg/dL (60-115)
[2025-01-04] MEDS: ondansetron HCL 4 MG/2 ML VIAL IVPUSH (09:08)
[2025-01-04 11:13] LABS: Glucose, Whole Blood 164 mg/dL (60-115)
--- NOTE | 2025-01-04 13:48 | PC.NURSE ---
Pt continues to require NGT, orders for low intermittent suction in place, pt endorsing pain in throat, SALEEM hoover made aware,Chlorapeptic throat spray ordered, pharmacy called to send to floor PRN morphine given to pt with good effect. 100 ml of green bile noted in canister, marked and dated. 20ml of serosanguineous drainage emptied from ZAYDA drain. Dressing to abd CDI. Pt has urostomy in place draining clear yellow urine.
[2025-01-04] MEDS: Throat Spray, Medicated 177 ML BOTTLE 1 SPRAY MUCOUS MEM ×2 (14:05→16:58)
--- NOTE | 2025-01-04 15:21 | P.PNGS_ITS ---
Subjective Subjective Date of Service: 01/04/25 Interval history: Patient complaining of NG tube wants to get it out not passing gas not having bowel movements was feeling nauseated before. Not much coming out just about 100 cc dark green material since this morning ZAYDA drain with serosanguineous material Physical Exam 2 Vital Signs: Vital Signs: Last Vital Signs Temp 98.0 F 01/04/25 15:08 Pulse 95 01/04/25 15:08 Resp 18 01/04/25 15:08 BP 151/73 H 01/04/25 15:08 Pulse Ox 93 01/04/25 15:08 O2 Del Method Nasal Cannula 01/04/25 15:08 O2 Flow Rate 2 01/04/25 15:08 BMI result Body Mass Index 25.7 Const: General: cooperative and no acute distress Resp: Other: Little decreased air entry bilateral bases Effort & Inspection: normal respiratory effort Auscultation: clear to auscultation bilaterally Cardio: Rate: regular rate Rhythm: regular rhythm GI: Other: Abdomen soft little distended there are some bowel sounds present bandages incision sites intact. Objective Data Active Medications Atorvastatin Calcium (Atorvastatin Calcium 40 Mg Tablet) 40 mg PO BEDTIME [facility] Last Admin: 01/03/25 20:47 Dose: Not Given Documented By: ESTEBAN Non-Admin Reason: NPO Benzocaine (Throat Lozenge, Medicated Lozenge) 1 lozenge MUCOUS MEM Q2H PRN PRN Reason: Sore Throat Last Admin: 01/03/25 20:35 Dose: 1 lozenge Documented By: ESTEBAN Calcium Carbonate (Calcium Carbonate 750 Mg Tab.Chew) 750 mg PO Q4H PRN PRN Reason: Heartburn Dextrose (Dextrose 50 % 25 Gm/50 Ml Syringe) 25 gm IVPUSH Q15M PRN; Protocol PRN Reason: per Hypoglycemia Standing Ord. Escitalopram Oxalate (Escitalopram Oxalate 5 Mg Tablet) 5 mg PO BEDTIME [facility] Last Admin: 01/03/25 20:47 Dose: Not Given Documented By: ESTEBAN Non-Admin Reason: NPO Glucose (Glucose Gel 15 Gm Gel..Gram.) 15 gm PO Q15M PRN; Protocol PRN Reason: per Hypoglycemia Standing Ord. Lactated Ringer's (Lr) 1,000 mls @ 80 mls/hr IVCONT .[id number] [facility] Last Admin: 01/04/25 14:01 Dose: 80 mls/hr Documented By: HARLEY Acetaminophen (Ofirmev) 1,000 mg in 100 mls @ 400 mls/hr IV Q6H [facility] Last Infusion: 01/04/25 14:19 Dose: Infused Documented By: HARLEY Insulin Glargine (Insulin Glargine,Hum.Rec.Anlog 100 Unit/Ml 10 Ml Vial) 13 unit SUBCUT BEDTIME [facility] Last Admin: 01/03/25 21:49 Dose: Not Given Documented By: ESTEBAN Non-Admin Reason: NPOMD aware Insulin Human Lispro (Insulin Lispro 100 Unit/Ml 3 Ml Vial) 0 unit SUBCUT QIDACHS [facility]; Protocol Last Admin: 01/04/25 11:35 Dose: Not Given Documented By: HARLEY Non-Admin Reason: NPO Magnesium Hydroxide (Milk Of Magnesia 30 Ml Oral.Susp) 30 ml PO DAILY PRN PRN Reason: Constipation Melatonin (Melatonin 3 Mg Tablet) 6 mg PO BEDTIME PRN PRN Reason: Insomnia Metoprolol Tartrate (Metoprolol Tartrate 25 Mg Tablet) 25 mg PO BID [facility]; Protocol Last Admin: 01/04/25 08:44 Dose: Not Given Documented By: HARLEY Non-Admin Reason: Pt NPO SALEEM thompson aware Morphine Sulfate (Morphine Sulfate 4 Mg/Ml Cartridge) 4 mg IVPUSH Q3H PRN; Protocol PRN Reason: Pain, Severe (Pain Scale 7-10) Last Admin: 01/04/25 15:18 Dose: 4 mg Documented By: CHAPIS Mclean-Ingred Medicated Throat [place] (Throat [place], Medicated 177 Ml Bottle) 1 spray MUCOUS MEM Q2H PRN PRN Reason: Sore Throat Last Admin: 01/04/25 14:05 Dose: 1 spray Documented By: HARLEY Omeprazole (Omeprazole 40 Mg Capsule.) 40 mg PO DAILY@0630 [facility] Last Admin: 01/04/25 05:34 Dose: Not Given Documented By: ESTEBAN Non-Admin Reason: NPO Ondansetron HCl (Ondansetron Hcl 4 Mg/2 Ml Vial) 4 mg IVPUSH Q6H PRN PRN Reason: Nausea and Vomiting Last Admin: 01/04/25 09:08 Dose: 4 mg Documented By: HARLEY Pantoprazole Sodium (Pantoprazole Sodium 40 Mg/10 Ml Vial) 40 mg IVPUSH DAILY@0630 [facility] Last Admin: 01/04/25 05:35 Dose: 40 mg Documented By: NAILAida Sodium Chloride (0.9 % Sodium Chloride Flush 3 Ml Syringe) 3 ml IVFLUSH QSHIFT [facility] Last Admin: 01/04/25 09:00 Dose: Not Given Documented By: HARLEY Non-Admin Reason: IV Running Labs 01/03/25 05:21 01/04/25 05:29 Labs: Laboratory Results - last 24 hr 01/03/25 01/03/25 01/04/25 16:22 20:14 05:29 Hold Purple Top SEE NOTE Anion Gap 10 L Estim Creat Clear Calc 49.9 Estimated GFR > 60 POC Glucose 150 H 154 H Fasting Glucose 163 H Calcium 9.0 01/04/25 01/04/25 07:19 11:06 Hold Purple Top Anion Gap Estim Creat Clear Calc Estimated GFR POC Glucose 162 H 164 H Fasting Glucose Calcium Procedures Date of Service Date of Service: 01/04/25 Progress Note: A&P Assessment and plan (1) S/P colon resection: Status: Acute Assessment and Plan: Patient is status post limited transverse colectomy with reanastomosis for removal of colon lesion difficult to operation with frozen abdomen and therefore anticipating ileus postoperatively. Patient doing okay. Energy isn't putting out too much there are some bowel sounds we will try to get her out of bed into the chair and see how she does. We will encourage her to do whatever she needs due to try to keep the NG and a little longer but if she refuses and takes it out then we will not advance any diet until good bowel sounds passing gas etc.. She understands and agrees. In the meantime continue with pain control incentive spirometer. Time Spent With Patient Time: Total time managing care of this patient today ____ minutes. Quality Stroke Does the patient have a stroke diagnosis?: No VTE Prior VTE?: No VTE Risk Level:: Medical - moderate - high VTE Device Contraindication: N/A - Device Ordered VTE Drug Contraindication: N/A - Med Ordered
--- NOTE | 2025-01-04 15:46 | HO.PM.IMPN ---
Subjective Subjective Date of Service: 01/04/25 Interval History: seen and examined this morning follow up for medical consultation patient reporting some abdominal discomfort but biggest complaint is nose and throat discomfort due to NGT she denies chest pain, sob, cough Review of Systems Review of Systems: Yes all other systems are reviewed and are negative Constitutional Constitutional: Denies chills and Denies fever(s) Cardiovascular Cardiovascular: Denies chest pain, Denies palpitations and Denies dyspnea Respiratory Respiratory: Denies cough and Denies dyspnea Gastrointestinal Gastrointestinal: Reports abdominal pain, Reports nausea and Denies vomiting Endocrine Endocrine: Denies palpitations Physical Exam Vital Signs: Vital Signs: Last Vital Signs Temp 98.0 F 01/04/25 15:08 Pulse 95 01/04/25 15:08 Resp 18 01/04/25 15:08 BP 151/73 H 01/04/25 15:08 Pulse Ox 93 01/04/25 15:08 O2 Del Method Nasal Cannula 01/04/25 15:08 O2 Flow Rate 2 01/04/25 15:08 BMI result Body Mass Index 25.7 Const: General: alert and awake Nutritional Appearance: average body habitus Orientation/consciousness: patient oriented x3 HEENT: Other: NGT in place Resp: Effort & Inspection: normal respiratory effort, able to speak in complete sentences, no respiratory distress and no use of accessory muscles GI: Other: abdomen dressings clean and dry; ZAYDA with serosanguenous output : Other: urostomy draining clear urine Neuro: General: patient oriented x3 Extrem: General: Yes no pedal edema Objective Data Active Medications Atorvastatin Calcium (Atorvastatin Calcium 40 Mg Tablet) 40 mg PO BEDTIME [facility] Last Admin: 01/03/25 20:47 Dose: Not Given Documented By: ESTEBAN Non-Admin Reason: NPO Benzocaine (Throat Lozenge, Medicated Lozenge) 1 lozenge MUCOUS MEM Q2H PRN PRN Reason: Sore Throat Last Admin: 01/03/25 20:35 Dose: 1 lozenge Documented By: ESTEBAN Calcium Carbonate (Calcium Carbonate 750 Mg Tab.Chew) 750 mg PO Q4H PRN PRN Reason: Heartburn Dextrose (Dextrose 50 % 25 Gm/50 Ml Syringe) 25 gm IVPUSH Q15M PRN; Protocol PRN Reason: per Hypoglycemia Standing Ord. Escitalopram Oxalate (Escitalopram Oxalate 5 Mg Tablet) 5 mg PO BEDTIME [facility] Last Admin: 01/03/25 20:47 Dose: Not Given Documented By: ESTEBAN Non-Admin Reason: NPO Glucose (Glucose Gel 15 Gm Gel..Gram.) 15 gm PO Q15M PRN; Protocol PRN Reason: per Hypoglycemia Standing Ord. Lactated Ringer's (Lr) 1,000 mls @ 80 mls/hr IVCONT .[id number] [facility] Last Admin: 01/04/25 14:01 Dose: 80 mls/hr Documented By: HARLEY Acetaminophen ([facility]) 1,000 mg in 100 mls @ 400 mls/hr IV Q6H [facility] Last Infusion: 01/04/25 14:19 Dose: Infused Documented By: HARLEY Insulin Glargine (Insulin Glargine,Hum.Rec.Anlog 100 Unit/Ml 10 Ml Vial) 13 unit SUBCUT BEDTIME [facility] Last Admin: 01/03/25 21:49 Dose: Not Given Documented By: ESTEBAN Non-Admin Reason: MD ARSALAN aware Insulin Human Lispro (Insulin Lispro 100 Unit/Ml 3 Ml Vial) 0 unit SUBCUT QIDACHS [facility]; Protocol Last Admin: 01/04/25 11:35 Dose: Not Given Documented By: HARLEY Non-Admin Reason: NPO Magnesium Hydroxide (Milk Of Magnesia 30 Ml Oral.Susp) 30 ml PO DAILY PRN PRN Reason: Constipation Melatonin (Melatonin 3 Mg Tablet) 6 mg PO BEDTIME PRN PRN Reason: Insomnia Metoprolol Tartrate (Metoprolol Tartrate 25 Mg Tablet) 25 mg PO BID [facility]; Protocol Last Admin: 01/04/25 08:44 Dose: Not Given Documented By: HARLEY Non-Admin Reason: Pt NPO SALEEM thompson aware Morphine Sulfate (Morphine Sulfate 4 Mg/Ml Cartridge) 4 mg IVPUSH Q3H PRN; Protocol PRN Reason: Pain, Severe (Pain Scale 7-10) Last Admin: 01/04/25 15:18 Dose: 4 mg Documented By: CHAPIS Multi-Ingred Medicated Throat [place] (Throat [place], Medicated 177 Ml Bottle) 1 spray MUCOUS MEM Q2H PRN PRN Reason: Sore Throat Last Admin: 01/04/25 14:05 Dose: 1 spray Documented By: HARLEY Omeprazole (Omeprazole 40 Mg Capsule.Dr) 40 mg PO DAILY@0630 [facility] Last Admin: 01/04/25 05:34 Dose: Not Given Documented By: ESTEBAN Non-Admin Reason: NPO Ondansetron HCl (Ondansetron Hcl 4 Mg/2 Ml Vial) 4 mg IVPUSH Q6H PRN PRN Reason: Nausea and Vomiting Last Admin: 01/04/25 09:08 Dose: 4 mg Documented By: HARLEY Pantoprazole Sodium (Pantoprazole Sodium 40 Mg/10 Ml Vial) 40 mg IVPUSH DAILY@629 [facility] Last Admin: 01/04/25 05:35 Dose: 40 mg Documented By: ESTEBAN Sodium Chloride (0.9 % Sodium Chloride Flush 3 Ml Syringe) 3 ml IVFLUSH QSHIFT [facility] Last Admin: 01/04/25 09:00 Dose: Not Given Documented By: HARLEY Non-Admin Reason: IV Running Labs 01/03/25 05:21 01/04/25 05:29 Labs: Laboratory Results - last 24 hr 01/03/25 01/03/25 01/04/25 16:22 20:14 05:29 Hold Purple Top SEE NOTE Anion Gap 10 L Estim Creat Clear Calc 49.9 Estimated GFR > 60 POC Glucose 150 H 154 H Fasting Glucose 163 H Calcium 9.0 01/04/25 01/04/25 07:19 11:06 Hold Purple Top Anion Gap Estim Creat Clear Calc Estimated GFR POC Glucose 162 H 164 H Fasting Glucose Calcium Assessment and Plan (1) Neuroendocrine tumor: Status: Acute Plan This is a 74-year-old female PMH significant for HTN, HLD, insulin-dependent type 2 diabetes, GERD, CKD3, and colon cancer who is admitted to the hospital under general surgery services for segmental resection for neuroendocrine tumor Neuroendocrine tumor POD 2 s/p Segmental resection of the hepatic flexure/transverse colon via a laparotomy incision, extensive lysis of adhesions ZAYDA drain in place NGT due to anticipated slow return of bowel function Pt currently NPO Plan as per General surgery Insulin-dependent type 2 diabetes Hold glipizide and Januvia; resume upon discharge lantus on hold POCs stable; SSI if needed HTN resume metoprolol when able to take po if bp remains elevated can treat with IV lopressor or IV hydralazine HLD Continue statin when able to take po Hold aspirin for now, resume per General surgery mood continue lexapro GERD on IV PPI, resume oral PPI when tolerating po Thank you for allowing us to participate in the care of this pt. We will continue to follow along with you. Quality Stroke Does the patient have a stroke diagnosis?: No VTE Prior VTE?: No VTE Risk Level:: Medical - moderate - high VTE Device Contraindication: N/A - Device Ordered VTE Drug Contraindication: N/A - Med Ordered
[2025-01-04 16:35] LABS: Glucose, Whole Blood 118 mg/dL (60-115)
[2025-01-04 20:07] LABS: Glucose, Whole Blood 128 mg/dL (60-115)
[2025-01-05] VITALS (7 sets, daily range): BP systolic 134–176; BP diastolic 66–83; PULSE 91–106; RESP 16–18; TEMP 36.3–37.1; O2SAT 88–96
[2025-01-05] MEDS: Lactated Ringers 1,000 ML 80 ML IVCONT ×2 (02:31→17:19)
[2025-01-05] MEDS: Acetaminophen 1,000 MG/100 ML PIGGYBACK 400 MG IV ×3 (03:34→15:48)
[2025-01-05] MEDS: Pantoprazole Sodium 40 MG/10 ML VIAL IVPUSH (05:32)
[2025-01-05] MEDS: Morphine Sulfate 4 MG/ML CARTRIDGE IVPUSH ×4 (06:35→23:51)
[2025-01-05] MEDS: Throat Spray, Medicated 177 ML BOTTLE 1 SPRAY MUCOUS MEM ×3 (07:25→15:50)
[2025-01-05] MEDS: 0.9 % Sodium Chloride Flush 3 ML SYRINGE IVFLUSH ×2 (07:25→15:48)
[2025-01-05 07:44] LABS: Glucose, Whole Blood 139 mg/dL (60-115)
[2025-01-05 11:15] LABS: Glucose, Whole Blood 118 mg/dL (60-115)
--- NOTE | 2025-01-05 12:06 | PC.NURSE ---
Dr. Calderón at bedside and removed NGT, pt tolerated well.
--- NOTE | 2025-01-05 15:30 | PM.PNGS ---
Subjective Subjective Date of Service: 01/05/25 Interval history: Feeling better passing maybe a little bit of gas not quite sure but no nausea no vomiting no burping and is demanding today to have the NG out. Overnight has put out minimal drainage. Physical Exam Vital Signs: Vital Signs: Last Vital Signs Temp 97.6 F 01/05/25 12:00 Pulse 95 01/05/25 12:00 Resp 18 01/05/25 12:00 BP 139/69 01/05/25 12:00 Pulse Ox 94 01/05/25 12:00 O2 Del Method Nasal Cannula 01/05/25 12:00 O2 Flow Rate 2 01/05/25 12:00 BMI result Body Mass Index 25.7 Const: General: cooperative, healthy appearing, comfortable, no acute distress and well developed GI: Other: Abdomen is soft still little distended nontender definitely improved bowel sounds compared to yesterday. Incisions look okay Objective Data Active Medications Benzocaine (Throat Lozenge, Medicated Lozenge) 1 lozenge MUCOUS MEM Q2H PRN PRN Reason: Sore Throat Last Admin: 01/03/25 20:35 Dose: 1 lozenge Documented By: ESTEBAN Calcium Carbonate (Calcium Carbonate 750 Mg Tab.Chew) 750 mg PO Q4H PRN PRN Reason: Heartburn Dextrose (Dextrose 50 % 25 Gm/50 Ml Syringe) 25 gm IVPUSH Q15M PRN; Protocol PRN Reason: per Hypoglycemia Standing Ord. Escitalopram Oxalate (Escitalopram Oxalate 5 Mg Tablet) 5 mg PO BEDTIME [facility] Last Admin: 01/04/25 21:36 Dose: Not Given Documented By: ESTEBAN Non-Admin Reason: NPO Glucose (Glucose Gel 15 Gm Gel..Gram.) 15 gm PO Q15M PRN; Protocol PRN Reason: per Hypoglycemia Standing Ord. Lactated Ringer's (Lr) 1,000 mls @ 80 mls/hr IVCONT .[id number] ON [facility] Last Admin: 01/05/25 10:29 Dose: Not Given Documented By: HARLEY Non-Admin Reason: IV Running Acetaminophen (Ofirmev) 1,000 mg in 100 mls @ 400 mls/hr IV Q6H [facility] Last Infusion: 01/05/25 09:22 Dose: Infused Documented By: HARLEY Insulin Human Lispro (Insulin Lispro 100 Unit/Ml 3 Ml Vial) 0 unit SUBCUT QIDACHS [facility]; Protocol Last Admin: 01/05/25 11:42 Dose: Not Given Documented By: HARLEY Non-Admin Reason: No Insulin Coverage Magnesium Hydroxide (Milk Of Magnesia 30 Ml Oral.Susp) 30 ml PO DAILY PRN PRN Reason: Constipation Melatonin (Melatonin 3 Mg Tablet) 6 mg PO BEDTIME PRN PRN Reason: Insomnia Metoprolol Tartrate (Metoprolol Tartrate 25 Mg Tablet) 25 mg PO BID [facility]; Protocol Last Admin: 01/04/25 08:44 Dose: Not Given Documented By: HARLEY Non-Admin Reason: Pt NPO SALEEM Zavala made aware Morphine Sulfate (Morphine Sulfate 4 Mg/Ml Cartridge) 4 mg IVPUSH Q3H PRN; Protocol PRN Reason: Pain, Severe (Pain Scale 7-10) Last Admin: 01/05/25 13:39 Dose: 4 mg Documented By: HARLEY Multi-Ingred Medicated Throat [place] (Throat [place], Medicated 177 Ml Bottle) 1 spray MUCOUS MEM Q2H PRN PRN Reason: Sore Throat Last Admin: 01/05/25 12:05 Dose: 1 spray Documented By: HARLEY Ondansetron HCl (Ondansetron Hcl 4 Mg/2 Ml Vial) 4 mg IVPUSH Q6H PRN PRN Reason: Nausea and Vomiting Last Admin: 01/04/25 09:08 Dose: 4 mg Documented By: HARLEY Pantoprazole Sodium (Pantoprazole Sodium 40 Mg/10 Ml Vial) 40 mg IVPUSH DAILY@0630 [facility] Last Admin: 01/05/25 05:32 Dose: 40 mg Documented By: CASTILAida Sodium Chloride (0.9 % Sodium Chloride Flush 3 Ml Syringe) 3 ml IVFLUSH QSHIFT [facility] Last Admin: 01/05/25 07:25 Dose: 3 ml Documented By: HARLEY Labs 01/03/25 05:21 01/04/25 05:29 Labs: Laboratory Results - last 24 hr 01/04/25 01/04/25 01/05/25 16:28 20:03 07:34 POC Glucose 118 H 128 H 139 H 01/05/25 11:08 POC Glucose 118 H Procedures Date of Service Date of Service: 01/05/25 Progress Note: A&P Assessment and plan (1) S/P colon resection: Status: Acute Plan Patient doing better status post transverse colon resection doing improved since yesterday and as a result we will remove the NG tube and keep her NPO IV fluids ZAYDA drain with just serosanguineous fluid. Tomorrow we will get her up and walking and moving a little bit more today she has done well sitting up in the chair Time Spent With Patient Time: Total time managing care of this patient today ____ minutes. Quality Stroke Does the patient have a stroke diagnosis?: No VTE Prior VTE?: No VTE Risk Level:: Medical - moderate - high VTE Device Contraindication: N/A - Device Ordered VTE Drug Contraindication: N/A - Med Ordered
[2025-01-05 16:14] LABS: Glucose, Whole Blood 107 mg/dL (60-115)
--- NOTE | 2025-01-05 16:19 | P.PNIM_ITS ---
Subjective Subjective Date of Service: 01/05/25 Interval History: seen and examined this morning follow up for medical consult no overnight events wants NGT out, having nose/throat pain from tube denies sob Review of Systems Review of Systems: Yes all other systems are reviewed and are negative Constitutional Constitutional: Denies chills and Denies fever(s) Cardiovascular Cardiovascular: Denies chest pain, Denies palpitations and Denies dyspnea Respiratory Respiratory: Denies cough and Denies dyspnea Endocrine Endocrine: Denies palpitations Physical Exam 2 Vital Signs: Vital Signs: Last Vital Signs Temp 97.7 F 01/05/25 16:00 Pulse 106 H 01/05/25 16:00 Resp 16 01/05/25 16:00 BP 134/83 01/05/25 16:00 Pulse Ox 96 01/05/25 16:00 O2 Del Method Nasal Cannula 01/05/25 16:00 O2 Flow Rate 2 01/05/25 16:00 BMI result Body Mass Index 25.7 Const: Other: sitting up in chair General: alert and awake Nutritional Appearance: average body habitus Orientation/consciousness: patient oriented x3 HEENT: Other: NGT in place Resp: Effort & Inspection: normal respiratory effort, able to speak in complete sentences, no respiratory distress and no use of accessory muscles GI: Other: abdomen dressings clean and dry; ZAYDA with serosanguenous output : Other: urostomy draining clear urine Neuro: General: patient oriented x3 Extrem: General: Yes no pedal edema Objective Data Active Medications Benzocaine (Throat Lozenge, Medicated Lozenge) 1 lozenge MUCOUS MEM Q2H PRN PRN Reason: Sore Throat Last Admin: 01/03/25 20:35 Dose: 1 lozenge Documented By: ESTEBAN Calcium Carbonate (Calcium Carbonate 750 Mg Tab.Chew) 750 mg PO Q4H PRN PRN Reason: Heartburn Dextrose (Dextrose 50 % 25 Gm/50 Ml Syringe) 25 gm IVPUSH Q15M PRN; Protocol PRN Reason: per Hypoglycemia Standing Ord. Escitalopram Oxalate (Escitalopram Oxalate 5 Mg Tablet) 5 mg PO BEDTIME [facility] Last Admin: 01/04/25 21:36 Dose: Not Given Documented By: ESTEBAN Non-Admin Reason: NPO Glucose (Glucose Gel 15 Gm Gel..Gram.) 15 gm PO Q15M PRN; Protocol PRN Reason: per Hypoglycemia Standing Ord. Lactated Ringer's (Lr) 1,000 mls @ 80 mls/hr IVCONT .[id number] [facility] Last Infusion: 01/05/25 15:38 Dose: Infused Documented By: HARLEY Acetaminophen (Ofirmev) 1,000 mg in 100 mls @ 400 mls/hr IV Q6H [facility] Last Infusion: 01/05/25 16:09 Dose: Infused Documented By: HARLEY Insulin Human Lispro (Insulin Lispro 100 Unit/Ml 3 Ml Vial) 0 unit SUBCUT QIDACHS [facility]; Protocol Last Admin: 01/05/25 11:42 Dose: Not Given Documented By: HARLEY Non-Admin Reason: No Insulin Coverage Magnesium Hydroxide (Milk Of Magnesia 30 Ml Oral.Susp) 30 ml PO DAILY PRN PRN Reason: Constipation Melatonin (Melatonin 3 Mg Tablet) 6 mg PO BEDTIME PRN PRN Reason: Insomnia Metoprolol Tartrate (Metoprolol Tartrate 25 Mg Tablet) 25 mg PO BID [facility]; Protocol Last Admin: 01/04/25 08:44 Dose: Not Given Documented By: HARLEY Non-Admin Reason: Pt NPO SALEEM Zavala made aware Morphine Sulfate (Morphine Sulfate 4 Mg/Ml Cartridge) 4 mg IVPUSH Q3H PRN; Protocol PRN Reason: Pain, Severe (Pain Scale 7-10) Last Admin: 01/05/25 13:39 Dose: 4 mg Documented By: HARLEY Multi-Ingred Medicated Throat [place] (Throat [place], Medicated 177 Ml Bottle) 1 spray MUCOUS MEM Q2H PRN PRN Reason: Sore Throat Last Admin: 01/05/25 15:50 Dose: 1 spray Documented By: HARLEY Ondansetron HCl (Ondansetron Hcl 4 Mg/2 Ml Vial) 4 mg IVPUSH Q6H PRN PRN Reason: Nausea and Vomiting Last Admin: 01/04/25 09:08 Dose: 4 mg Documented By: HARLEY Pantoprazole Sodium (Pantoprazole Sodium 40 Mg/10 Ml Vial) 40 mg IVPUSH DAILY@0630 [facility] Last Admin: 01/05/25 05:32 Dose: 40 mg Documented By: CASTILM Sodium Chloride (0.9 % Sodium Chloride Flush 3 Ml Syringe) 3 ml IVFLUSH QSHIFT [facility] Last Admin: 01/05/25 15:48 Dose: 3 ml Documented By: HARLEY Labs 01/03/25 05:21 01/04/25 05:29 Labs: Laboratory Results - last 24 hr 01/04/25 01/04/25 01/05/25 16:28 20:03 07:34 POC Glucose 118 H 128 H 139 H 01/05/25 01/05/25 11:08 16:06 POC Glucose 118 H 107 Assessment and Plan (1) Neuroendocrine tumor: Status: Acute Plan This is a 74-year-old female PMH significant for HTN, HLD, insulin-dependent type 2 diabetes, GERD, CKD3, and colon cancer who is admitted to the hospital under general surgery services for segmental resection for neuroendocrine tumor Neuroendocrine tumor POD 3 s/p Segmental resection of the hepatic flexure/transverse colon via a laparotomy incision, extensive lysis of adhesions ZAYDA drain in place NGT due to anticipated slow return of bowel function-output decreasing Pt currently NPO Plan as per General surgery Insulin-dependent type 2 diabetes Hold glipizide and Januvia; resume upon discharge lantus on hold POCs stable; SSI if needed HTN resume metoprolol when able to take po if bp remains elevated can treat with IV lopressor or IV hydralazine HLD Continue statin when able to take po Hold aspirin for now, resume per General surgery mood continue lexapro GERD on IV PPI, resume oral PPI when tolerating po Thank you for allowing us to participate in the care of this pt. We will continue to follow along with you. Quality Stroke Does the patient have a stroke diagnosis?: No VTE Prior VTE?: No VTE Risk Level:: Medical - moderate - high VTE Device Contraindication: N/A - Device Ordered VTE Drug Contraindication: N/A - Med Ordered
[2025-01-05] MEDS: Escitalopram Oxalate 5 MG TABLET PO (19:15)
[2025-01-05] MEDS: Throat Lozenge, Medicated LOZENGE 1 LOZENGE MUCOUS MEM (19:15)
[2025-01-05 20:44] LABS: Glucose, Whole Blood 121 mg/dL (60-115)
[2025-01-06 04:00] VITALS: BP 158/74; PULSE 104; RESP 18; TEMP 36.2; O2SAT 95
[2025-01-06] MEDS: Lactated Ringers 1,000 ML 80 ML IVCONT ×2 (05:07→17:33)
[2025-01-06] MEDS: Pantoprazole Sodium 40 MG/10 ML VIAL IVPUSH (05:31)
[2025-01-06] MEDS: Morphine Sulfate 4 MG/ML CARTRIDGE IVPUSH ×2 (06:42→11:42)
--- NOTE | 2025-01-06 06:45 | PM.PNGS ---
Subjective Subjective Date of Service: 01/06/25 <[facility] - Last Filed: 01/06/25 07:00> 01/06/25 <Kerri Canela PA-C - Last Filed: 01/06/25 10:23> 01/06/25 <Brando Estevez MD - Last Filed: 01/06/25 12:35> Interval history: Patient seen and examined this morning. States pain is an 8/10. Denies shortness of breath, chest pain, nausea or vomiting. Has been OOB to chair. No flatus or bowel movement yet. Tolerating ice chips. <[facility] - Last Filed: 01/06/25 07:00> Physical Exam Vital Signs: Vital Signs: Last Vital Signs Temp 97.1 F 01/06/25 04:00 Pulse 104 H 01/06/25 04:00 Resp 18 01/06/25 04:00 BP 158/74 H 01/06/25 04:00 Pulse Ox 95 01/06/25 04:00 O2 Del Method Nasal Cannula 01/05/25 23:29 O2 Flow Rate 2 01/06/25 04:00 BMI result Body Mass Index 25.7 <[facility] - Last Filed: 01/06/25 07:00> Const: General: comfortable, no acute distress and awake <[facility] Last Filed: 01/06/25 07:00> Orientation/consciousness: patient oriented x3 <[facility] - Last Filed: 01/06/25 07:00> Resp: Effort & Inspection: normal respiratory effort and able to speak in complete sentences <[facility] - Last Filed: 01/06/25 07:00> Auscultation: clear to auscultation bilaterally <[facility] Last Filed: 01/06/25 07:00> Cardio: Other: Regular rate and rhythm <[facility] Last Filed: 01/06/25 07:00> GI: Other: Abdomen is soft, slightly distended, slight tenderness to RLQ. ZAYDA drain in place with serous fluid. Ileal conduit with appliance in place. <Unshyu-WR-Skviydr-Ah Esa - Last Filed: 01/06/25 07:00> Other: Abdomen is soft, distended, mild incisional tenderness. ZAYDA drain in place with seroussanguineous fluid. Ileal conduit with appliance in place. <Kerri Canela PA-C - Last Filed: 01/06/25 10:23> Neuro: General: patient oriented x3 <[facility] - Last Filed: 01/06/25 07:00> Extrem: Other: Moving all extremities normally. No lower extremity edema noted. <[facility] - Last Filed: 01/06/25 07:00> Objective Data Active Medications Benzocaine (Throat Lozenge, Medicated Lozenge) 1 lozenge MUCOUS MEM Q2H PRN PRN Reason: Sore Throat Last Admin: 01/05/25 19:15 Dose: 1 lozenge Documented By: VIJAYA Calcium Carbonate (Calcium Carbonate 750 Mg Tab.Chew) 750 mg PO Q4H PRN PRN Reason: Heartburn Dextrose (Dextrose 50 % 25 Gm/50 Ml Syringe) 25 gm IVPUSH Q15M PRN; Protocol PRN Reason: per Hypoglycemia Standing Ord. Escitalopram Oxalate (Escitalopram Oxalate 5 Mg Tablet) 5 mg PO BEDTIME [facility] Last Admin: 01/05/25 19:15 Dose: 5 mg Documented By: VIJAYA Glucose (Glucose Gel 15 Gm Gel..Gram.) 15 gm PO Q15M PRN; Protocol PRN Reason: per Hypoglycemia Standing Ord. Lactated Ringer's (Lr) 1,000 mls @ 80 mls/hr IVCONT .[id number] [facility] Last Admin: 01/06/25 05:07 Dose: 80 mls/hr Documented By: VIJAYA Insulin Human Lispro (Insulin Lispro 100 Unit/Ml 3 Ml Vial) 0 unit SUBCUT QIDACHS [facility]; Protocol Last Admin: 01/05/25 22:34 Dose: Not Given Documented By: VIJAYA Non-Admin Reason: assessed, no action needed Magnesium Hydroxide (Milk Of Magnesia 30 Ml Oral.Susp) 30 ml PO DAILY PRN PRN Reason: Constipation Melatonin (Melatonin 3 Mg Tablet) 6 mg PO BEDTIME PRN PRN Reason: Insomnia Metoprolol Tartrate (Metoprolol Tartrate 25 Mg Tablet) 25 mg PO BID [facility]; Protocol Last Admin: 01/04/25 08:44 Dose: Not Given Documented By: HARLEY Non-Admin Reason: Pt NPO SALEEM Zavala made aware Morphine Sulfate (Morphine Sulfate 4 Mg/Ml Cartridge) 4 mg IVPUSH Q3H PRN; Protocol PRN Reason: Pain, Severe (Pain Scale 7-10) Last Admin: 01/06/25 06:42 Dose: 4 mg Documented By: VIJAYA Multi-Ingred Medicated Throat [place] (Throat [place], Medicated 177 Ml Bottle) 1 spray MUCOUS MEM Q2H PRN PRN Reason: Sore Throat Last Admin: 01/05/25 15:50 Dose: 1 spray Documented By: HARLEY Ondansetron HCl (Ondansetron Hcl 4 Mg/2 Ml Vial) 4 mg IVPUSH Q6H PRN PRN Reason: Nausea and Vomiting Last Admin: 01/04/25 09:08 Dose: 4 mg Documented By: HARLEY Pantoprazole Sodium (Pantoprazole Sodium 40 Mg/10 Ml Vial) 40 mg IVPUSH DAILY@0630 [facility] Last Admin: 01/06/25 05:31 Dose: 40 mg Documented By: VIJAYA Sodium Chloride (0.9 % Sodium Chloride Flush 3 Ml Syringe) [facility] Last Admin: 01/06/25 01:12 Dose: Not Given Documented By: VIJAYA Non-Admin Reason: iv fluids infusing <[facility] Last Filed: 01/06/25 07:00> Labs CBC & Chem 7: 01/03/25 05:21 01/06/25 11:12 <Kqrlsf-GM-Njgwykp-Ah Esa - Last Filed: 01/06/25 07:00> Labs: Laboratory Results - last 24 hr 01/05/25 01/05/25 01/05/25 07:34 11:08 16:06 POC Glucose 139 H 118 H 107 01/05/25 20:39 POC Glucose 121 H <Ljckcg-UW-Wfxkece-Ah Esa - Last Filed: 01/06/25 07:00> Procedures Date of Service Date of Service: 01/06/25 <[facility] Last Filed: 01/06/25 07:00> 01/06/25 <Kerri Canela PA-C - Last Filed: 01/06/25 10:23> 01/06/25 <Brando Estevez MD - Last Filed: 01/06/25 12:35> Progress Note: A&P Assessment and plan (1) S/P colon resection: Status: Acute <Fhjwaj-LL-Rjfccll-Ah Esa - Last Filed: 01/06/25 07:00> Assessment and Plan: Looks well Complains of incisional pain No vomiting or nausea Denies flatus Abdomen is soft and benign Await return of GI function Encouraged to ambulate more down the hallway PPN Seen and examined independently <Brando Estevez MD - Last Filed: 01/06/25 12:35> (2) Neuroendocrine tumor: Status: Acute <Qlmpay-AJ-Mdoklyh-Ah Esa - Last Filed: 01/06/25 07:00> Assessment and Plan: Patient is POD 4 s/p Segmental resection of the hepatic flexure/transverse colon via a laparotomy incision with extensive lysis of adhesions. Abdomen exam benign expect for slight distention. ZAYDA drain in place with serous fluid. Dressings intact. NG tube removed yesterday. No bowel movement or flatulence. Continue current pain regimen. Continue IVF for now. Increase diet to clear liquids. Increase activity/OOB ambulation. Wean O2 as tolerated. IS encouraged. <Hjqeft-PJ-Imiraej-Ah Esa - Last Filed: 01/06/25 07:00> Patient is POD 4 s/p Segmental resection of the hepatic flexure/transverse colon via a laparotomy incision with extensive lysis of adhesions. Abdomen exam benign expect for slight distention. ZAYDA drain in place with serous fluid. Dressings intact. NG tube removed yesterday. No bowel movement or flatulence. Continue current pain regimen. Continue IVF for now. Increase diet to clear liquids. Increase activity/OOB ambulation. Wean O2 as tolerated. IS encouraged. Seen independently from ARIELLE Mcknight. Patient POD #4 s/p segmental resection of the hepatic flexure/transverse colon via a laparotomy incision, extensive lysis of adhesions. NGT removed yesterday. No significant evidence of GI function yet and abdomen is softly distended this am. Will keep NPO except for sips until GI function returns. Cont IVF for now. Encouraged OOB/ambulation. PT consulted. ZAYDA output serosang, will remove upon dc. Patient comfortable with plan. <Kerri Canela PA-C - Last Filed: 01/06/25 10:23> Time Spent With Patient Time: Total time managing care of this patient today ____ minutes. <[facility] Juan Luis - Last Filed: 01/06/25 07:00> Quality Stroke Does the patient have a stroke diagnosis?: No <Wvrvrl-VU-Myoyryo- Juan Luis - Last Filed: 01/06/25 07:00> VTE Prior VTE?: No <Luvnff-UA-Jfcfote- Juan Luis - Last Filed: 01/06/25 07:00> VTE Risk Level:: Medical - moderate - high <Hijbks-OY-Tzzehie-Ah Juan Luis - Last Filed: 01/06/25 07:00> VTE Device Contraindication: N/A - Device Ordered <[facility]- Juan Luis - Last Filed: 01/06/25 07:00> VTE Drug Contraindication: N/A - Med Ordered <Mtqztw-SN-Ndzxity- Juan Luis - Last Filed: 01/06/25 07:00>
[2025-01-06 07:30] VITALS: BP 145/69; PULSE 99; RESP 18; TEMP 36.7; O2SAT 96
[2025-01-06 07:40] LABS: Glucose, Whole Blood 123 mg/dL (60-115)
[2025-01-06 10:32] VITALS: BMI 25.7
--- NOTE | 2025-01-06 11:07 | MHC.CLN ---
NUTRITION NPO SINCE PROCEDURE 01/02. TODAY IS DAY 5 NPO. S/P COLON RESECTION. NGT OUT 01/05 AND CONTINUES NPO. COMMUNICATED WITH MD AND PHARMACY. START PPN TODAY. RECOMMEND START PPN AT 55 ML PER HOUR TO PROVIDE 56 G PROTEIN, 132 G DEXTROSE, 673 KCALS. CHECK LABS. REPLETE LYTES NEEDED. FOLLOW FOR DIET ADVANCEMENT AND PPN TOLERANCE. SEE CLINICAL NUTRITION ASSESSMENT 01/06/25.
[2025-01-06 11:17] VITALS: BP 136/76; PULSE 94; RESP 18; TEMP 36.6; O2SAT 95
[2025-01-06 11:33] LABS: Glucose, Whole Blood 106 mg/dL (60-115)
[2025-01-06 11:45] LABS: Albumin Level 3.1 g/dL (3.5-5.0); Anion Gap 14 (12-20); Blood Urea Nitrogen 17 mg/dL (9-16); Calcium 9.2 mg/dL (8.4-10.2); Carbon Dioxide 28 mmol/L (22-29); Chloride 108 mmol/L (96-108); Creatinine Clr Calc Pharmacy 49.3; Estimated Glomerular Filt Rate > 60; Glucose Random 114 mg/dL (60-115); Magnesium 1.9 mg/dL (1.6-2.6); Phosphorus 2.7 mg/dL (2.7-4.5); Potassium 3.9 mmol/L (3.3-5.1); Sodium 146 mmol/L (135-145); Triglycerides 173 mg/dL (<150)
[2025-01-06] MEDS: Throat Lozenge, Medicated LOZENGE 1 LOZENGE MUCOUS MEM (11:57)
[2025-01-06] MEDS: Acetaminophen 1,000 MG/100 ML PIGGYBACK 400 MG IV ×3 (12:31→23:43)
--- NOTE | 2025-01-06 13:49 | MHC.CM.PN ---
EMR REVIEWED . PT IS STILL HAVING ABDOMINAL DISCOMFORT AND AWAITING RETURN OF BOWEL FUNCTION. ZAYDA DRAIN REMAINS IN PLACE. P.T. TO SEE PT TO DETERMINE NEEDS. [facility] FOLLOWING.
[2025-01-06 15:26] VITALS: BP 116/69; PULSE 89; RESP 20; TEMP 36.1; O2SAT 96
[2025-01-06 16:14] LABS: Glucose, Whole Blood 103 mg/dL (60-115)
--- NOTE | 2025-01-06 17:05 | PM.EVENT ---
Event Note Date of Service: 01/06/25 Event Note: Seen on afternoon rounds She had ambulated down the hallways Had passed flatus Abdomen remained soft and benign Okay to try clear liquids tonight Encouraged more ambulation Family at bedside Time Spent With Patient Time: Total time managing care of this patient today ____ minutes.
[2025-01-06] MEDS: Heparin Sodium,Porcine 5,000 UNIT/ML VIAL 5000 UNIT SUBCUT (17:33)
[2025-01-06 19:09] VITALS: BP 141/71; PULSE 86; RESP 20; TEMP 36; O2SAT 92
[2025-01-06 19:40] LABS: Glucose, Whole Blood 210 mg/dL (60-115)
[2025-01-06] MEDS: Melatonin 3 MG TABLET 6 MG PO (20:37)
[2025-01-06] MEDS: oxyCODONE HCl Immed Release 5 MG TABLET PO (20:37)
[2025-01-06] MEDS: Insulin Lispro 100 UNIT/ML 3 ML VIAL SUBCUT (20:37)
[2025-01-06] MEDS: Escitalopram Oxalate 5 MG TABLET PO (20:37)
[2025-01-06] MEDS: Parenteral Nutrition 1,320 ML 55 ML IV (22:18)
[2025-01-06] MEDS: 0.9 % Sodium Chloride Flush 3 ML SYRINGE IVFLUSH (22:19)
[2025-01-07] VITALS: BP 132/71; PULSE 81; RESP 16; TEMP 36; O2SAT 93
[2025-01-07] MEDS: Heparin Sodium,Porcine 5,000 UNIT/ML VIAL 5000 UNIT SUBCUT ×3 (01:06→17:41)
[2025-01-07] MEDS: Throat Lozenge, Medicated LOZENGE 1 LOZENGE MUCOUS MEM ×2 (01:14→20:53)
[2025-01-07] MEDS: Morphine Sulfate 4 MG/ML CARTRIDGE IVPUSH ×4 (03:06→20:54)
[2025-01-07 03:18] VITALS: BP 160/71; PULSE 81; RESP 16; TEMP 36.1; O2SAT 93
[2025-01-07] MEDS: Acetaminophen 1,000 MG/100 ML PIGGYBACK 400 MG IV ×4 (05:22→23:45)
[2025-01-07] MEDS: Lactated Ringers 1,000 ML 80 ML IVCONT ×2 (05:24→17:42)
[2025-01-07] MEDS: Pantoprazole Sodium 40 MG/10 ML VIAL IVPUSH (05:33)
--- NOTE | 2025-01-07 06:45 | PM.PNGS ---
Subjective Subjective Date of Service: 01/07/25 <[facility] - Last Filed: 01/07/25 07:27> 01/07/25 <Kerri Canela PA-C - Last Filed: 01/07/25 09:54> 01/07/25 <Brando Estevez MD - Last Filed: 01/07/25 11:40> Interval history: Patient seen and examined this morning. States she has no pain, just sore around incision site. Began passing flatus last night. However, no bowel movement. Denies shortness of breath, chest pain, nausea or vomiting. Tolerating ice chips. <[facility] - Last Filed: 01/07/25 07:27> Physical Exam Vital Signs: Vital Signs: Last Vital Signs Temp 96.9 F 01/07/25 03:18 Pulse 81 01/07/25 03:18 Resp 16 01/07/25 03:18 BP 160/71 H 01/07/25 03:18 Pulse Ox 93 01/07/25 03:18 O2 Del Method Room Air 01/07/25 03:18 O2 Flow Rate 2 01/06/25 15:26 BMI result Body Mass Index 25.7 <[facility] - Last Filed: 01/07/25 07:27> Const: Other: Laying in bed, awake, calm, in no acute distress, orientatedx3. <[facility] - Last Filed: 01/07/25 07:27> Resp: Effort & Inspection: normal respiratory effort and able to speak in complete sentences <[facility] - Last Filed: 01/07/25 07:27> Cardio: Other: Regular rate and rhythm <[facility] Last Filed: 01/07/25 07:27> GI: Other: Abdomen is soft with mild distended, tenderness near incision site, incision intact, ZAYDA with serosanginous fluid intact, Ileal conduit with appliance in place. Bowel sounds appreciated <[facility] Last Filed: 01/07/25 07:27> Objective Data Active Medications Benzocaine (Throat Lozenge, Medicated Lozenge) 1 lozenge MUCOUS MEM Q2H PRN PRN Reason: Sore Throat Last Admin: 01/07/25 01:14 Dose: 1 lozenge Documented By: MANJEET Calcium Carbonate (Calcium Carbonate 750 Mg Tab.Chew) 750 mg PO Q4H PRN PRN Reason: Heartburn Dextrose (Dextrose 50 % 25 Gm/50 Ml Syringe) 25 gm IVPUSH Q15M PRN; Protocol PRN Reason: per Hypoglycemia Standing Ord. Escitalopram Oxalate (Escitalopram Oxalate 5 Mg Tablet) 5 mg PO BEDTIME [facility] Last Admin: 01/06/25 20:37 Dose: 5 mg Documented By: MANJEET Glucose (Glucose Gel 15 Gm Gel..Gram.) 15 gm PO Q15M PRN; Protocol PRN Reason: per Hypoglycemia Standing Ord. Heparin Sodium (Porcine) (Heparin Sodium,Porcine 5,000 Unit/Ml Vial) 5,000 unit SUBCUT Q8H [facility] Last Admin: 01/07/25 01:06 Dose: 5,000 unit Documented By: MANJEET Lactated Ringer's (Lr) 1,000 mls @ 80 mls/hr IVCONT .[id number] [facility] Last Admin: 01/07/25 05:24 Dose: 80 mls/hr Documented By: MANJEET Comments: late d/t last bag still running Acetaminophen (Ofirmev) 1,000 mg in 100 mls @ 400 mls/hr IV Q6H [facility] Last Infusion: 01/07/25 05:37 Dose: Infused Documented By: MANJEET Nutrition (Parenteral) (Parenteral Nutrition) 1,320 mls @ 55 mls/hr IV .Q24H [facility]; Protocol Stop: 01/07/25 20:59 Last Admin: 01/06/25 22:18 Dose: 55 mls/hr Documented By: MANJEET Insulin Human Lispro (Insulin Lispro 100 Unit/Ml 3 Ml Vial) 0 unit SUBCUT QIDACHS [facility]; Protocol Last Admin: 01/06/25 20:37 Dose: 4 unit Documented By: MANJEET Magnesium Hydroxide (Milk Of Magnesia 30 Ml Oral.Susp) 30 ml PO DAILY PRN PRN Reason: Constipation Melatonin (Melatonin 3 Mg Tablet) 6 mg PO BEDTIME PRN PRN Reason: Insomnia Last Admin: 01/06/25 20:37 Dose: 6 mg Documented By: MANJEET Metoprolol Tartrate (Metoprolol Tartrate 25 Mg Tablet) 25 mg PO BID [facility]; Protocol Last Admin: 01/04/25 08:44 Dose: Not Given Documented By: HARLEY Non-Admin Reason: Pt NPO SALEEM Zavala made aware Morphine Sulfate (Morphine Sulfate 4 Mg/Ml Cartridge) 4 mg IVPUSH Q3H PRN; Protocol PRN Reason: Pain, Severe (Pain Scale 7-10) Last Admin: 01/07/25 03:06 Dose: 4 mg Documented By: VIJAYA Multi-Ingred Medicated Throat [place] (Throat [place], Medicated 177 Ml Bottle) 1 spray MUCOUS MEM Q2H PRN PRN Reason: Sore Throat Last Admin: 01/05/25 15:50 Dose: 1 spray Documented By: HARLEY Ondansetron HCl (Ondansetron Hcl 4 Mg/2 Ml Vial) 4 mg IVPUSH Q6H PRN PRN Reason: Nausea and Vomiting Last Admin: 01/04/25 09:08 Dose: 4 mg Documented By: HARLEY Oxycodone HCl (Oxycodone Hcl Immed Release 5 Mg Tablet) 5 mg PO Q4H PRN PRN Reason: Pain, Moderate(Pain Scale 4-6) Last Admin: 01/06/25 20:37 Dose: 5 mg Documented By: MANJEET Pantoprazole Sodium (Pantoprazole Sodium 40 Mg/10 Ml Vial) 40 mg IVPUSH DAILY@0630 [facility] Last Admin: 01/07/25 05:33 Dose: 40 mg Documented By: MANJEET Pharmacy Consult (Consult Rx Parenteral Nutrition Ordering) 1 each MISCELLANE DAILY PRN PRN Reason: Consult order Sodium Chloride (0.9 % Sodium Chloride Flush 3 Ml Syringe) 3 ml IVFLUSH [facility] Last Admin: 01/06/25 22:19 Dose: 3 ml Documented By: MANJEET <[facility] - Last Filed: 01/07/25 07:27> Labs CBC & Chem 7: 01/03/25 05:21 01/06/25 11:12 <[facility] Luis - Last Filed: 01/07/25 07:27> Labs: Laboratory Results - last 24 hr 01/02/25 01/02/25 01/02/25 09:41 15:45 17:21 MCV MCH MCHC RDW Plt Count MPV Immature Gran % (Auto) Neut % (Auto) Lymph % (Auto) [place] % (Auto) Eos % (Auto) Baso % (Auto) Lymph # (Auto) [place] # (Auto) Eos # (Auto) Baso # (Auto) Abs Immat Gran (auto) Absolute Neuts (auto) Absolute Nucleated RBC Nucleated RBC % (auto) Anion Gap Estim Creat Clear Calc Estimated GFR POC Glucose 124 H 177 H 169 H Random Glucose Fasting Glucose Calcium Phosphorus Magnesium Albumin Triglycerides 01/02/25 01/03/25 01/03/25 20:32 05:21 07:31 MCV 80.9 MCH 25.8 L MCHC 31.9 RDW 14.4 Plt Count 183 MPV 9.9 Immature Gran % (Auto) 0.6 H Neut % (Auto) 83.7 H Lymph % (Auto) 9.5 L [place] % (Auto) 6.0 Eos % (Auto) 0.0 Baso % (Auto) 0.2 Lymph # (Auto) 1.0 L [place] # (Auto) 0.6 Eos # (Auto) 0.0 Baso # (Auto) 0.0 Abs Immat Gran (auto) 0.06 H Absolute Neuts (auto) 9.0 H Absolute Nucleated RBC 0.000 Nucleated RBC % (auto) 0.0 Anion Gap 12 Estim Creat Clear Calc 37.1 Estimated GFR 48 POC Glucose 185 H 224 H Random Glucose Fasting Glucose 245 H Calcium 8.6 D Phosphorus Magnesium Albumin Triglycerides 01/03/25 01/03/25 01/03/25 11:14 16:22 20:14 MCV MCH MCHC RDW Plt Count MPV Immature Gran % (Auto) Neut % (Auto) Lymph % (Auto) [place] % (Auto) Eos % (Auto) Baso % (Auto) Lymph # (Auto) [place] # (Auto) Eos # (Auto) Baso # (Auto) Abs Immat Gran (auto) Absolute Neuts (auto) Absolute Nucleated RBC Nucleated RBC % (auto) Anion Gap Estim Creat Clear Calc Estimated GFR POC Glucose 203 H 150 H 154 H Random Glucose Fasting Glucose Calcium Phosphorus Magnesium Albumin Triglycerides 01/06/25 01/06/25 01/06/25 07:36 11:12 11:20 MCV MCH MCHC RDW Plt Count MPV Immature Gran % (Auto) Neut % (Auto) Lymph % (Auto) [place] % (Auto) Eos % (Auto) Baso % (Auto) Lymph # (Auto) [place] # (Auto) Eos # (Auto) Baso # (Auto) Abs Immat Gran (auto) Absolute Neuts (auto) Absolute Nucleated RBC Nucleated RBC % (auto) Anion Gap 14 Estim Creat Clear Calc 49.3 Estimated GFR > 60 POC Glucose 123 H 106 Random Glucose 114 Fasting Glucose Calcium 9.2 Phosphorus 2.7 Magnesium 1.9 Albumin 3.1 L Triglycerides 173 H 01/06/25 01/06/25 16:05 19:11 MCV MCH MCHC RDW Plt Count MPV Immature Gran % (Auto) Neut % (Auto) Lymph % (Auto) [place] % (Auto) Eos % (Auto) Baso % (Auto) Lymph # (Auto) [place] # (Auto) Eos # (Auto) Baso # (Auto) Abs Immat Gran (auto) Absolute Neuts (auto) Absolute Nucleated RBC Nucleated RBC % (auto) Anion Gap Estim Creat Clear Calc Estimated GFR POC Glucose 103 210 H Random Glucose Fasting Glucose Calcium Phosphorus Magnesium Albumin Triglycerides <Rbfwiu-NV-Yhicwfa- [place] Luis - Last Filed: 01/07/25 07:27> Procedures Date of Service Date of Service: 01/07/25 <Niihlb-MA-Taykzvw-Ah Juan Luis - Last Filed: 01/07/25 07:27> 01/07/25 <Kerri Canela PA-C - Last Filed: 01/07/25 09:54> 01/07/25 <Brando Estevez MD - Last Filed: 01/07/25 11:40> Progress Note: A&P Assessment and plan (1) S/P colon resection: Status: Acute <Kpzeqe-MQ-Rczggkc- [place] Luis - Last Filed: 01/07/25 07:27> Assessment and Plan: Feels well Good pain control Tolerating liquids well Passing large amounts of flatus Abdomen is soft Incision clean and dry Okay to advance diet as tolerated Clinically looks well Seen and examined independently <Brando Estevez MD - Last Filed: 01/07/25 11:40> (2) Neuroendocrine tumor: Status: Acute <Jzimus-CO-Gyypfog- [place] Luis - Last Filed: 01/07/25 07:27> Assessment and Plan: Patient POD #5 s/p segmental resection of the hepatic flexure/transverse colon via a laparotomy incision, extensive lysis of adhesions. Abdomen is softly distended. Passing flatus without bowel movement. ZAYDA output serosanginous fluid will remove upon dc. Continue pain regimen. Continue IVF for now. Continue PPN. Trial clear liquids. Encouraged OOB/ambulation. <Owcgxo-XO-Knoajre- Juan Luis - Last Filed: 01/07/25 07:27> Patient POD #5 s/p segmental resection of the hepatic flexure/transverse colon via a laparotomy incision, extensive lysis of adhesions. Abdomen is softly distended. Passing flatus without bowel movement. ZAYDA output serosanginous fluid will remove upon dc. Continue pain regimen. Continue PPN. Trial clear liquids. Encouraged OOB/ambulation. Agree with above assessment. Doing well post op,tolerating clear liquids, passing continuous flatus, abd softly distended. Will advance to solids. Cont PPN until oral intake adequate. Bowel regimen. Cont increasing activity. <Kerri Canela PA-C - Last Filed: 01/07/25 09:54> Time Spent With Patient Time: Total time managing care of this patient today ____ minutes. <Ufpcug-IG-Tepijcp- Juan Luis - Last Filed: 01/07/25 07:27> Quality Stroke Does the patient have a stroke diagnosis?: No <Itqwqj-FS-Rthlost- Juan Luis - Last Filed: 01/07/25 07:27> VTE Prior VTE?: No <Fxxeyo-RG-Vihcqmx- Juan Luis - Last Filed: 01/07/25 07:27> VTE Risk Level:: Medical - moderate - high <Qsuqia-BS-Xzbliob- Juan Luis - Last Filed: 01/07/25 07:27> VTE Device Contraindication: N/A - Device Ordered <Ijoxlk-AH-Tdfdlhc- Juan Luis - Last Filed: 01/07/25 07:27> VTE Drug Contraindication: N/A - Med Ordered <Tfydxr-FS-Mpefkud- Juan Luis - Last Filed: 01/07/25 07:27>
[2025-01-07 07:31] VITALS: BP 164/79; PULSE 81; RESP 18; TEMP 36.5; O2SAT 93
[2025-01-07 07:42] LABS: Glucose, Whole Blood 201 mg/dL (60-115)
[2025-01-07] MEDS: Insulin Lispro 100 UNIT/ML 3 ML VIAL SUBCUT ×4 (08:00→20:53)
[2025-01-07] MEDS: Docusate Sodium 100 MG CAPSULE PO ×2 (10:33→20:53)
[2025-01-07 11:20] VITALS: BP 145/64; PULSE 89; RESP 18; TEMP 36.9; O2SAT 92
[2025-01-07 11:35] LABS: Glucose, Whole Blood 239 mg/dL (60-115)
[2025-01-07 11:52] LABS: Alanine Aminotransferase < 6 U/L (0-31); Albumin Level 2.9 g/dL (3.5-5.0); Alkaline Phosphatase 56 U/L (39-117); Anion Gap 9 (12-20); Aspartate Amino Transferase 19 U/L (5-31); Bilirubin Total 0.4 mg/dL (0.0-1.0); Blood Urea Nitrogen 16 mg/dL (9-16); Calcium 9.1 mg/dL (8.4-10.2); Carbon Dioxide 30 mmol/L (22-29); Chloride 103 mmol/L (96-108); Estimated Glomerular Filt Rate > 60; Glucose Random 283 mg/dL (60-115); Phosphorus 2.5 mg/dL (2.7-4.5); Potassium 4.4 mmol/L (3.3-5.1); Sodium 138 mmol/L (135-145); Total Protein 6.7 g/dL (6.5-8.0)
--- NOTE | 2025-01-07 11:52 | MHC.CLN ---
F/U DIET ADVANCED TO 1800DM THIS AM PPN TO CONTINUE REVIEWED LABS-01/07 LABS PENDING DISCUSSED WITH PHARMACY PPN TO INCREASE 75ML/HR TO PROVIDE 918KCCALS, 77G PROTEIN, 180G DEXTROSE HOLD LIPIDS REPLETE LYTES NEEDED GOAL TO REDUCE PPN PO INTAKE INCREASES MONITOR PO INTAKE CLOSELY
[2025-01-07] MEDS: oxyCODONE HCl Immed Release 5 MG TABLET PO (12:02)
--- NOTE | 2025-01-07 14:40 | PM.EVENT ---
Event Note Date of Service: 01/07/25 Event Note: Seen on afternoon rounds She says she is doing well Has ambulated Tolerating diet well Abdomen is soft Encouraged to ambulate some more Possible DC home tomorrow Time Spent With Patient Time: Total time managing care of this patient today ____ minutes.
[2025-01-07 15:38] VITALS: BP 141/68; PULSE 86; RESP 16; TEMP 36.9; O2SAT 94
[2025-01-07 16:25] LABS: Glucose, Whole Blood 256 mg/dL (60-115)
[2025-01-07 19:30] VITALS: BP 146/75; PULSE 85; RESP 17; TEMP 36; O2SAT 92
[2025-01-07 20:50] LABS: Glucose, Whole Blood 247 mg/dL (60-115)
[2025-01-07] MEDS: Escitalopram Oxalate 5 MG TABLET PO (20:53)
[2025-01-07] MEDS: Parenteral Nutrition 1,800 ML 75 ML IV (21:02)
[2025-01-07] MEDS: 0.9 % Sodium Chloride Flush 3 ML SYRINGE IVFLUSH (21:03)
[2025-01-08] VITALS (8 sets, daily range): BP systolic 131–178; BP diastolic 63–89; PULSE 80–108; RESP 12–20; TEMP 36.1–37.1; O2SAT 92–93
[2025-01-08] MEDS: Heparin Sodium,Porcine 5,000 UNIT/ML VIAL 5000 UNIT SUBCUT ×3 (02:30→17:01)
[2025-01-08] MEDS: Morphine Sulfate 4 MG/ML CARTRIDGE IVPUSH ×2 (04:18→18:15)
[2025-01-08] MEDS: Acetaminophen 1,000 MG/100 ML PIGGYBACK 400 MG IV ×2 (05:42→11:54)
[2025-01-08] MEDS: Omeprazole 40 MG CAPSULE.DR PO (05:46)
[2025-01-08] MEDS: Lactated Ringers 1,000 ML 80 ML IVCONT (05:47)
--- NOTE | 2025-01-08 06:33 | PM.PNGS ---
Subjective Subjective Date of Service: 01/08/25 <[facility] - Last Filed: 01/08/25 06:42> 01/09/25 <Kerri Canela PA-C - Last Filed: 01/09/25 11:19> Interval history: Patient seen and examined this morning. Pain is tolerable. Was able to tolerate full diet. Passing flatus, no bowel movement. Has been OOB. Denies chest pain, shortness of breath, nausea or vomiting. <[facility] - Last Filed: 01/08/25 06:42> Physical Exam Vital Signs: Vital Signs: Last Vital Signs Temp 97.4 F 01/08/25 04:00 Pulse 81 01/08/25 04:00 Resp 16 01/08/25 04:00 BP 140/68 H 01/08/25 04:00 Pulse Ox 93 01/08/25 04:00 O2 Del Method Room Air 01/08/25 04:00 O2 Flow Rate 2 01/06/25 15:26 BMI result Body Mass Index 25.7 <[facility] - Last Filed: 01/08/25 06:42> Const: Other: Laying in bed, awake, calm, in no acute distress, oritenatedx3. <[facility] - Last Filed: 01/08/25 06:42> Resp: Effort & Inspection: normal respiratory effort and able to speak in complete sentences <[facility] - Last Filed: 01/08/25 06:42> Cardio: Other: Regular rate and rhythm. <[facility] - Last Filed: 01/08/25 06:42> GI: Other: Abdomen is softly distended, tenderness near incision site, incision intact, ZAYDA with serosanginous fluid intact, Ileal conduit with appliance in place. Bowel sounds appreciated <[facility] Last Filed: 01/08/25 06:42> Extrem: Other: Moving all extremities normally. No lower extremity edema noted. <[facility] - Last Filed: 01/08/25 06:42> Objective Data Active Medications Benzocaine (Throat Lozenge, Medicated Lozenge) 1 lozenge MUCOUS MEM Q2H PRN PRN Reason: Sore Throat Last Admin: 01/07/25 20:53 Dose: 1 lozenge Documented By: MANJEET Calcium Carbonate (Calcium Carbonate 750 Mg Tab.Chew) 750 mg PO Q4H PRN PRN Reason: Heartburn Dextrose (Dextrose 50 % 25 Gm/50 Ml Syringe) 25 gm IVPUSH Q15M PRN; Protocol PRN Reason: per Hypoglycemia Standing Ord. Docusate Sodium (Docusate Sodium 100 Mg Capsule) 100 mg PO BID [facility] Last Admin: 01/07/25 20:53 Dose: 100 mg Documented By: MANJEET Escitalopram Oxalate (Escitalopram Oxalate 5 Mg Tablet) 5 mg PO BEDTIME [facility] Last Admin: 01/07/25 20:53 Dose: 5 mg Documented By: MANJEET Glucose (Glucose Gel 15 Gm Gel..Gram.) 15 gm PO Q15M PRN; Protocol PRN Reason: per Hypoglycemia Standing Ord. Heparin Sodium (Porcine) (Heparin Sodium,Porcine 5,000 Unit/Ml Vial) 5,000 unit SUBCUT Q8H [facility] Last Admin: 01/08/25 02:30 Dose: 5,000 unit Documented By: MANJEET Lactated Ringer's (Lr) 1,000 mls @ 80 mls/hr IVCONT .[id number] [facility] Last Admin: 01/08/25 05:47 Dose: 80 mls/hr Documented By: MANJEET Acetaminophen (Ofirmev) 1,000 mg in 100 mls @ 400 mls/hr IV Q6H [facility] Last Infusion: 01/08/25 05:57 Dose: Infused Documented By: MANJEET Nutrition (Parenteral) (Parenteral Nutrition) 1,800 mls @ 75 mls/hr IV .Q24H [facility]; Protocol Stop: 01/08/25 20:59 Last Admin: 01/07/25 21:02 Dose: 75 mls/hr Documented By: MANJEET Insulin Human Lispro (Insulin Lispro 100 Unit/Ml 3 Ml Vial) 0 unit SUBCUT QIDACHS [facility]; Protocol Last Admin: 01/07/25 20:53 Dose: 4 unit Documented By: MANJEET Magnesium Hydroxide (Milk Of Magnesia 30 Ml Oral.Susp) 30 ml PO DAILY PRN PRN Reason: Constipation Melatonin (Melatonin 3 Mg Tablet) 6 mg PO BEDTIME PRN PRN Reason: Insomnia Last Admin: 01/06/25 20:37 Dose: 6 mg Documented By: MANJEET Metoprolol Tartrate (Metoprolol Tartrate 25 Mg Tablet) 25 mg PO BID [facility]; Protocol Last Admin: 01/04/25 08:44 Dose: Not Given Documented By: HARLEY Non-Admin Reason: Pt NPO SALEEM Zavala made aware Morphine Sulfate (Morphine Sulfate 4 Mg/Ml Cartridge) 4 mg IVPUSH Q3H PRN; Protocol PRN Reason: Pain, Severe (Pain Scale 7-10) Last Admin: 01/08/25 04:18 Dose: 4 mg Documented By: MANJEET Multi-Ingred Medicated Throat [place] (Throat [place], Medicated 177 Ml Bottle) 1 spray MUCOUS MEM Q2H PRN PRN Reason: Sore Throat Last Admin: 01/05/25 15:50 Dose: 1 spray Documented By: HARLEY Omeprazole (Omeprazole 40 Mg Capsule.Dr) 40 mg PO DAILY@0630 [facility] Last Admin: 01/08/25 05:46 Dose: 40 mg Documented By: MANJEET Ondansetron HCl (Ondansetron Hcl 4 Mg/2 Ml Vial) 4 mg IVPUSH Q6H PRN PRN Reason: Nausea and Vomiting Last Admin: 01/04/25 09:08 Dose: 4 mg Documented By: HARLEY Oxycodone HCl (Oxycodone Hcl Immed Release 5 Mg Tablet) 5 mg PO Q4H PRN PRN Reason: Pain, Moderate(Pain Scale 4-6) Last Admin: 01/07/25 12:02 Dose: 5 mg Documented By: BETHANY Pharmacy Consult (Consult Rx Parenteral Nutrition Ordering) 1 each MISCELLANE DAILY PRN PRN Reason: Consult order Sodium Chloride (0.9 % Sodium Chloride Flush 3 Ml Syringe) 3 ml IVFLUSH QSHIFT [facility] Last Admin: 01/07/25 21:03 Dose: 3 ml Documented By: MANJEET <Ivzflm-MY-Cwjtcnf-Ah [facility] - Last Filed: 01/08/25 06:42> Labs CBC & Chem 7: 01/03/25 05:21 02/13/25 05:49 <[facility] - Last Filed: 01/08/25 06:42> Labs: Laboratory Results - last 24 hr 01/07/25 01/07/25 01/07/25 07:38 11:11 11:25 Anion Gap 9 L Estim Creat Clear Calc 47.0 Estimated GFR > 60 POC Glucose 201 H 239 H Random Glucose 283 H Calcium 9.1 Phosphorus 2.5 L Magnesium 2.0 Total Bilirubin 0.4 AST 19 ALT < 6 Alkaline Phosphatase 56 Total Protein 6.7 Albumin 2.9 L 01/07/25 01/07/25 16:21 20:40 Anion Gap Estim Creat Clear Calc Estimated GFR POC Glucose 256 H 247 H Random Glucose Calcium Phosphorus Magnesium Total Bilirubin AST ALT Alkaline Phosphatase Total Protein Albumin <[facility] - Last Filed: 01/08/25 06:42> Procedures Date of Service Date of Service: 01/08/25 <[facility] - Last Filed: 01/08/25 06:42> 01/09/25 <Kerri Canela PA-C - Last Filed: 01/09/25 11:19> Progress Note: A&P Assessment and plan (1) S/P colon resection: Status: Acute <[facility] - Last Filed: 01/08/25 06:42> (2) Neuroendocrine tumor: Status: Acute <[facility] - Last Filed: 01/08/25 06:42> Assessment and Plan: Patient POD #6 s/p segmental resection of the hepatic flexure/transverse colon via a laparotomy incision, extensive lysis of adhesions. Abdomen is softly distended. Passing flatus without bowel movement. ZAYDA output serosanginous fluid will remove upon dc. Patient evaluated by PT yesterday who recommneded walker upon discharge and home PT. Continue pain regimen. Continue IVF for now, d/c PPN. Encouraged OOB/ambulation. IS encouraged. <[facility] - Last Filed: 01/08/25 06:42> Time Spent With Patient Time: Total time managing care of this patient today ____ minutes. <Arxplp-VT-Xifunsv-Ah Juan Luis - Last Filed: 01/08/25 06:42> Quality Stroke Does the patient have a stroke diagnosis?: No <Lyeztt-MZ-Nmplplq-Ah Juan Luis - Last Filed: 01/08/25 06:42> VTE Prior VTE?: No <Hlcasu-ZI-Vxqjrfd-Ah Juan Luis - Last Filed: 01/08/25 06:42> VTE Risk Level:: Medical - moderate - high <Dkcuyr-VK-Cxygvvk-Ah Juan Luis - Last Filed: 01/08/25 06:42> VTE Device Contraindication: N/A - Device Ordered <Ldsjla-KR-Xggoarq-Ah Juan Luis - Last Filed: 01/08/25 06:42> VTE Drug Contraindication: N/A - Med Ordered <Hiztvq-RN-Ugjbfsj- Juan Luis - Last Filed: 01/08/25 06:42>
[2025-01-08 07:36] LABS: Glucose, Whole Blood 318 mg/dL (60-115)
[2025-01-08 07:41] LABS: Alanine Aminotransferase < 6 U/L (0-31); Albumin Level 2.9 g/dL (3.5-5.0); Alkaline Phosphatase 61 U/L (39-117); Anion Gap 12 (12-20); Aspartate Amino Transferase 16 U/L (5-31); Bilirubin Total 0.3 mg/dL (0.0-1.0); Blood Urea Nitrogen 15 mg/dL (9-16); Calcium 8.8 mg/dL (8.4-10.2); Carbon Dioxide 24 mmol/L (22-29); Chloride 102 mmol/L (96-108); Creatinine Clr Calc Pharmacy 41.7; Estimated Glomerular Filt Rate 55; Glucose Random 337 mg/dL (60-115); Phosphorus 3.4 mg/dL (2.7-4.5); Potassium 4.1 mmol/L (3.3-5.1); Sodium 134 mmol/L (135-145); Total Protein 6.7 g/dL (6.5-8.0)
[2025-01-08] MEDS: Insulin Lispro 100 UNIT/ML 3 ML VIAL SUBCUT ×4 (07:44→20:14)
[2025-01-08] MEDS: Docusate Sodium 100 MG CAPSULE PO ×2 (07:44→20:14)
--- NOTE | 2025-01-08 08:06 | PM.PNGS ---
Subjective Subjective Date of Service: 01/08/25 Interval history: States she feels ?great? Passing good flatus Tolerating regular diet Denies significant pain Has been ambulating Physical Exam Vital Signs: Vital Signs: Last Vital Signs Temp 96.9 F 01/08/25 08:04 Pulse 80 01/08/25 08:04 Resp 12 01/08/25 08:04 BP 149/72 H 01/08/25 08:04 Pulse Ox 92 01/08/25 08:04 O2 Del Method Room Air 01/08/25 08:04 O2 Flow Rate 2 01/06/25 15:26 BMI result Body Mass Index 25.7 Const: Other: Looks well General: comfortable and no acute distress Resp: Effort & Inspection: normal respiratory effort Cardio: Rate: regular rate GI: Other: Incision clean and dry Palpation (GI): Soft to palpation, not firm and no guarding Objective Data Active Medications Benzocaine (Throat Lozenge, Medicated Lozenge) 1 lozenge MUCOUS MEM Q2H PRN PRN Reason: Sore Throat Last Admin: 01/07/25 20:53 Dose: 1 lozenge Documented By: MANJEET Calcium Carbonate (Calcium Carbonate 750 Mg Tab.Chew) 750 mg PO Q4H PRN PRN Reason: Heartburn Dextrose (Dextrose 50 % 25 Gm/50 Ml Syringe) 25 gm IVPUSH Q15M PRN; Protocol PRN Reason: per Hypoglycemia Standing Ord. Docusate Sodium (Docusate Sodium 100 Mg Capsule) 100 mg PO BID [facility] Last Admin: 01/08/25 07:44 Dose: 100 mg Documented By: CAMILO Escitalopram Oxalate (Escitalopram Oxalate 5 Mg Tablet) 5 mg PO BEDTIME [facility] Last Admin: 01/07/25 20:53 Dose: 5 mg Documented By: MANJEET Glucose (Glucose Gel 15 Gm Gel..Gram.) 15 gm PO Q15M PRN; Protocol PRN Reason: per Hypoglycemia Standing Ord. Heparin Sodium (Porcine) (Heparin Sodium,Porcine 5,000 Unit/Ml Vial) 5,000 unit SUBCUT Q8H [facility] Last Admin: 01/08/25 02:30 Dose: 5,000 unit Documented By: MANJEET Lactated Ringer's (Lr) 1,000 mls @ 80 mls/hr IVCONT .[id number] [facility] Last Admin: 01/08/25 05:47 Dose: 80 mls/hr Documented By: MANJEET Acetaminophen (Ofirmev) 1,000 mg in 100 mls @ 400 mls/hr IV Q6H [facility] Last Infusion: 01/08/25 05:57 Dose: Infused Documented By: MANJEET Nutrition (Parenteral) (Parenteral Nutrition) 1,800 mls @ 75 mls/hr IV .Q24H [facility]; Protocol Stop: 01/08/25 20:59 Last Admin: 01/07/25 21:02 Dose: 75 mls/hr Documented By: MANJEET Insulin Human Lispro (Insulin Lispro 100 Unit/Ml 3 Ml Vial) 0 unit SUBCUT QIDACHS [facility]; Protocol Last Admin: 01/08/25 07:44 Dose: 8 unit Documented By: CAMILO Magnesium Hydroxide (Milk Of Magnesia 30 Ml Oral.Susp) 30 ml PO DAILY PRN PRN Reason: Constipation Melatonin (Melatonin 3 Mg Tablet) 6 mg PO BEDTIME PRN PRN Reason: Insomnia Last Admin: 01/06/25 20:37 Dose: 6 mg Documented By: MANJEET Metoprolol Tartrate (Metoprolol Tartrate 25 Mg Tablet) 25 mg PO BID [facility]; Protocol Last Admin: 01/04/25 08:44 Dose: Not Given Documented By: HARLEY Non-Admin Reason: Pt NPO SALEEM Zavala made aware Morphine Sulfate (Morphine Sulfate 4 Mg/Ml Cartridge) 4 mg IVPUSH Q3H PRN; Protocol PRN Reason: Pain, Severe (Pain Scale 7-10) Last Admin: 01/08/25 04:18 Dose: 4 mg Documented By: MANJEET Multi-Ingred Medicated Throat [place] (Throat [place], Medicated 177 Ml Bottle) 1 spray MUCOUS MEM Q2H PRN PRN Reason: Sore Throat Last Admin: 01/05/25 15:50 Dose: 1 spray Documented By: HARLEY Omeprazole (Omeprazole 40 Mg Capsule.Dr) 40 mg PO DAILY@0630 [facility] Last Admin: 01/08/25 05:46 Dose: 40 mg Documented By: MANJEET Ondansetron HCl (Ondansetron Hcl 4 Mg/2 Ml Vial) 4 mg IVPUSH Q6H PRN PRN Reason: Nausea and Vomiting Last Admin: 01/04/25 09:08 Dose: 4 mg Documented By: HARLEY Oxycodone HCl (Oxycodone Hcl Immed Release 5 Mg Tablet) 5 mg PO Q4H PRN PRN Reason: Pain, Moderate(Pain Scale 4-6) Last Admin: 01/07/25 12:02 Dose: 5 mg Documented By: BETHANY Pharmacy Consult (Consult Rx Parenteral Nutrition Ordering) 1 each MISCELLANE DAILY PRN PRN Reason: Consult order Sodium Chloride (0.9 % Sodium Chloride Flush 3 Ml Syringe) 3 ml IVFLUSH [facility] Last Admin: 01/07/25 21:03 Dose: 3 ml Documented By: DENISV Labs 01/03/25 05:21 01/08/25 05:54 Labs: Laboratory Results - last 24 hr 01/07/25 01/07/25 01/07/25 11:11 11:25 16:21 Anion Gap 9 L Estim Creat Clear Calc 47.0 Estimated GFR > 60 POC Glucose 239 H 256 H Random Glucose 283 H Calcium 9.1 Phosphorus 2.5 L Magnesium 2.0 Total Bilirubin 0.4 AST 19 ALT < 6 Alkaline Phosphatase 56 Total Protein 6.7 Albumin 2.9 L 01/07/25 01/08/25 01/08/25 20:40 05:54 07:30 Anion Gap 12 Estim Creat Clear Calc 41.7 Estimated GFR 55 POC Glucose 247 H 318 H Random Glucose 337 H Calcium 8.8 Phosphorus 3.4 Magnesium 2.0 Total Bilirubin 0.3 AST 16 ALT < 6 Alkaline Phosphatase 61 Total Protein 6.7 Albumin 2.9 L Procedures Date of Service Date of Service: 01/08/25 Progress Note: A&P Assessment and plan (1) Neuroendocrine tumor: Status: Acute Assessment and Plan: Status post limited resection Doing very well Good GI functions Abdomen is soft and benign She says she can not go home today yet as she does not have help at home States she can go home tomorrow Path pending Ambulate Time Spent With Patient Time: Total time managing care of this patient today ____ minutes. Quality Stroke Does the patient have a stroke diagnosis?: No VTE Prior VTE?: No VTE Risk Level:: Medical - moderate - high VTE Device Contraindication: N/A - Device Ordered VTE Drug Contraindication: N/A - Med Ordered
--- NOTE | 2025-01-08 10:47 | MHC.CLN ---
F/U DIET=DIABETIC 1800 KCALS. TOLERATING CURRENT DIET. PER MD, DISCONTINUE PPN. FOLLOW FOR PO INTAKE/DIET TOLERANCE.
--- NOTE | 2025-01-08 11:07 | MHC.CM.PN ---
EMR REVIEWED. PT IS NOT YET MEDICALLY CLEARED FOR DC HOME. PPN DC'S AND PT IS AWAITING BOWEL MOVEMENT. CM WILL CONTINUE TO FOLLOW FOR ANY CHANGE TO DC PLAN/NEEDS.
[2025-01-08 11:28] LABS: Glucose, Whole Blood 362 mg/dL (60-115)
--- NOTE | 2025-01-08 15:36 | PM.EVENT ---
Event Note Date of Service: 01/08/25 Event Note: Seen on afternoon Continues to feel well Tolerating diet well Seen ambulating Abdomen is soft Passing flatus She says she is unable to today as there is nobody else at home with her Case management informed Home tomorrow? Time Spent With Patient Time: Total time managing care of this patient today ____ minutes.
[2025-01-08 16:51] LABS: Glucose, Whole Blood 319 mg/dL (60-115)
[2025-01-08] MEDS: oxyCODONE HCl Immed Release 5 MG TABLET PO (17:05)
[2025-01-08] MEDS: Throat Lozenge, Medicated LOZENGE 1 LOZENGE MUCOUS MEM (17:07)
[2025-01-08 19:56] LABS: Glucose, Whole Blood 327 mg/dL (60-115)
[2025-01-08] MEDS: Escitalopram Oxalate 5 MG TABLET PO (20:14)
[2025-01-09 03:24] VITALS: BP 140/74; PULSE 93; RESP 18; TEMP 36.6; O2SAT 93
[2025-01-09] MEDS: Heparin Sodium,Porcine 5,000 UNIT/ML VIAL 5000 UNIT SUBCUT ×2 (03:25→09:48)
[2025-01-09] MEDS: Morphine Sulfate 4 MG/ML CARTRIDGE IVPUSH (03:28)
[2025-01-09] MEDS: Omeprazole 40 MG CAPSULE.DR PO (06:32)
[2025-01-09 06:45] LABS: Alanine Aminotransferase < 6 U/L (0-31); Albumin Level 2.9 g/dL (3.5-5.0); Alkaline Phosphatase 72 U/L (39-117); Anion Gap 15 (12-20); Aspartate Amino Transferase 23 U/L (5-31); Bilirubin Total 0.3 mg/dL (0.0-1.0); Blood Urea Nitrogen 14 mg/dL (9-16); Calcium 9.2 mg/dL (8.4-10.2); Carbon Dioxide 24 mmol/L (22-29); Chloride 102 mmol/L (96-108); Creatinine Clr Calc Pharmacy 42.6; Estimated Glomerular Filt Rate 57; Glucose Random 246 mg/dL (60-115); Phosphorus 3.2 mg/dL (2.7-4.5); Potassium 4.7 mmol/L (3.3-5.1); Sodium 136 mmol/L (135-145); Total Protein 7.1 g/dL (6.5-8.0)
[2025-01-09 07:21] VITALS: BP 145/73; PULSE 98; RESP 18; TEMP 36; O2SAT 93
[2025-01-09 07:42] LABS: Glucose, Whole Blood 226 mg/dL (60-115)
[2025-01-09] MEDS: Insulin Lispro 100 UNIT/ML 3 ML VIAL SUBCUT ×2 (07:49→11:57)
[2025-01-09] MEDS: 0.9 % Sodium Chloride Flush 3 ML SYRINGE IVFLUSH (07:50)
[2025-01-09] MEDS: Docusate Sodium 100 MG CAPSULE PO (07:50)
--- NOTE | 2025-01-09 08:09 | P.PNGS_ITS ---
Subjective Subjective Date of Service: 01/09/25 Interval history: Says she continues to feel well Passing good amounts of flatus Tolerating diet well Has been ambulating Denies significant pain Physical Exam 2 Vital Signs: Vital Signs: Last Vital Signs Temp 96.8 F 01/09/25 07:21 Pulse 98 01/09/25 07:21 Resp 18 01/09/25 07:21 BP 145/73 H 01/09/25 07:21 Pulse Ox 93 01/09/25 07:21 O2 Del Method Room Air 01/09/25 07:21 O2 Flow Rate 2 01/06/25 15:26 BMI result Body Mass Index 25.7 Const: Other: Looks well General: comfortable and no acute distress Resp: Effort & Inspection: normal respiratory effort Cardio: Rate: regular rate GI: Other: Incision clean and dry Inspection: No distended Palpation (GI): Soft to palpation, not firm and no guarding Objective Data Active Medications Benzocaine (Throat Lozenge, Medicated Lozenge) 1 lozenge MUCOUS MEM Q2H PRN PRN Reason: Sore Throat Last Admin: 01/08/25 17:07 Dose: 1 lozenge Documented By: CAMILO Calcium Carbonate (Calcium Carbonate 750 Mg Tab.Chew) 750 mg PO Q4H PRN PRN Reason: Heartburn Dextrose (Dextrose 50 % 25 Gm/50 Ml Syringe) 25 gm IVPUSH Q15M PRN; Protocol PRN Reason: per Hypoglycemia Standing Ord. Docusate Sodium (Docusate Sodium 100 Mg Capsule) [address] [facility] Last Admin: 01/09/25 07:50 Dose: 100 mg Documented By: LUKAS Escitalopram Oxalate (Escitalopram Oxalate 5 Mg Tablet) [address] [facility] Last Admin: 01/08/25 20:14 Dose: 5 mg Documented By: MERLY Glucose (Glucose Gel 15 Gm Gel..Gram.) 15 gm PO Q15M PRN; Protocol PRN Reason: per Hypoglycemia Standing Ord. Heparin Sodium (Porcine) (Heparin Sodium,Porcine 5,000 Unit/Ml Vial) 5,[address] [facility] Last Admin: 01/09/25 03:25 Dose: 5,000 unit Documented By: MERLY Insulin Human Lispro (Insulin Lispro 100 Unit/Ml 3 Ml Vial) [address] [facility]; Protocol Last Admin: 01/09/25 07:49 Dose: 4 unit Documented By: LUKAS Magnesium Hydroxide (Milk Of Magnesia 30 Ml Oral.Susp) 30 ml PO DAILY PRN PRN Reason: Constipation Melatonin (Melatonin 3 Mg Tablet) 6 mg PO BEDTIME PRN PRN Reason: Insomnia Last Admin: 01/06/25 20:37 Dose: 6 mg Documented By: MANJEET Metoprolol Tartrate (Metoprolol Tartrate 25 Mg Tablet) [address] [facility]; Protocol Last Admin: 01/04/25 08:44 Dose: Not Given Documented By: HARLEY Non-Admin Reason: Pt NPO SALEEM Zavala made aware Morphine Sulfate (Morphine Sulfate 4 Mg/Ml Cartridge) 4 mg IVPUSH Q3H PRN; Protocol PRN Reason: Pain, Severe (Pain Scale 7-10) Last Admin: 01/09/25 03:28 Dose: 4 mg Documented By: MERLY Multi-Ingred Medicated Throat [place] (Throat [place], Medicated 177 Ml Bottle) 1 spray MUCOUS MEM Q2H PRN PRN Reason: Sore Throat Last Admin: 01/05/25 15:50 Dose: 1 spray Documented By: HARLEY Omeprazole (Omeprazole 40 Mg Capsule.Dr) 40 mg PO DAILY@0630 [facility] Last Admin: 01/09/25 06:32 Dose: 40 mg Documented By: MERLY Ondansetron HCl (Ondansetron Hcl 4 Mg/2 Ml Vial) 4 mg IVPUSH Q6H PRN PRN Reason: Nausea and Vomiting Last Admin: 01/04/25 09:08 Dose: 4 mg Documented By: HARLEY Oxycodone HCl (Oxycodone Hcl Immed Release 5 Mg Tablet) 5 mg PO Q4H PRN PRN Reason: Pain, Moderate(Pain Scale 4-6) Last Admin: 01/08/25 17:05 Dose: 5 mg Documented By: CAMILO Pharmacy Consult (Consult Rx Parenteral Nutrition Ordering) 1 each MISCELLANE DAILY PRN PRN Reason: Consult order Sodium Chloride (0.9 % Sodium Chloride Flush 3 Ml Syringe) 3 ml IVFLUSH [facility] Last Admin: 01/09/25 07:50 Dose: 3 ml Documented By: LUKAS Labs 01/03/25 05:21 01/09/25 05:49 Labs: Laboratory Results - last 24 hr 01/08/25 01/08/25 01/08/25 11:24 16:47 19:24 Anion Gap Estim Creat Clear Calc Estimated GFR POC Glucose 362 H* 319 H 327 H Random Glucose Calcium Phosphorus Magnesium Total Bilirubin AST ALT Alkaline Phosphatase Total Protein Albumin 01/09/25 01/09/25 05:49 07:27 Anion Gap 15 Estim Creat Clear Calc 42.6 Estimated GFR 57 POC Glucose 226 H Random Glucose 246 H Calcium 9.2 Phosphorus 3.2 Magnesium 2.0 Total Bilirubin 0.3 AST 23 ALT < 6 Alkaline Phosphatase 72 Total Protein 7.1 Albumin 2.9 L Procedures Date of Service Date of Service: 01/09/25 Progress Note: A&P Assessment and plan (1) Neuroendocrine tumor: Status: Acute Assessment and Plan: Status post segmental resection of the hepatic flexure She continues to do well No BMs but passing large amounts of flatus Has been tolerating diet She states she is is ready to be discharged today We will prescribe stool softener Instructions reinforced with patient Discussed with corrections caseworker Time Spent With Patient Time: Total time managing care of this patient today ____ minutes. Quality Stroke Does the patient have a stroke diagnosis?: No VTE Prior VTE?: No VTE Risk Level:: Medical - moderate - high VTE Device Contraindication: N/A - Device Ordered VTE Drug Contraindication: N/A - Med Ordered
--- NOTE | 2025-01-09 08:34 | P.F2F_ITS ---
Service Date Service Date: 01/09/25 Encounter Date of encounter: 01/09/25 Reasons for Services Signs and symptoms assessed: Status post segmental resection of the hepatic flexure/transverse Abdomen is soft and benign Incisions clean and dry Tolerating diet Reason for retirement: postoperative assessment and/or care Reason for physical therapy: home safety and mobility Homebound: Leaving the home is medically contraindicated at this time without the asist of a device and/or another person due th the listed conditions above and below. Reason homebound: pain with transfers and other (Patient is postop colon resection) Certification: Based on the above findings, I certify that this patient is confined to the home and needs intermittent retirement care, physical therapy and/or speech therapy, or continues to need occupational therapy. The patient is under my care, and I have initiated the establishment of the plan of care. The patient will be followed by a physician who will periodically review the plan of care. Time Spent With Patient Time: Total time managing care of this patient today ____ minutes.
--- NOTE | 2025-01-09 08:43 | MHC.CM.PN ---
DP: PT HAS BEEN MEDICALLY CLEARED FOR DC HOME WITH NEW [facility] FOR SN/P.T. [facility] NOTIFIED OF TODAY'S DC. PT'S [facility] WILL TRANSPORT HOME AT 2 PM. RN MADE AWARE.
[2025-01-09] MEDS: oxyCODONE HCl Immed Release 5 MG TABLET PO (09:47)
[2025-01-09 11:12] VITALS: BP 123/77; PULSE 100; RESP 18; TEMP 36.9; O2SAT 92
[2025-01-09 11:26] LABS: Glucose, Whole Blood 278 mg/dL (60-115)
--- NOTE | 2025-01-09 11:55 | PM.DS ---
DS: Providers Provider Date of Service: 01/09/25 Date of admission: 01/02/25 07:51 Date of discharge: 01/09/25 Primary care physician: Breanne Andrew MD Attending physician on admission: Brando Estevez Consults: 01/02/25 16:54 Consult to Hospitalist Routine Comment: Consulting Provider: [facility] Hospitalists Reason For Exam: colon CA, s/p transverse colon resection, DM, HTN Attending physician on discharge: Brando Estevez DS: Diagnosis Discharge Diagnosis (1) S/P colon resection: Status: Acute (2) Neuroendocrine tumor: Status: Acute DS: Summary Hospital Course Hospital Course: HPI AT ADMISSION: The patient is a 54 year old female with a 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 This was not endoscopically removable. She was therefore referred to al for resection. The patient had a urostomy for ileal conduit after radical cystectomy bladder cancer previously. HOSPITAL COURSE: On 01/02/25, Segmental resection of the hepatic flexure/transverse colon via a laparotomy incision, extensive lysis of adhesions was performed by Dr. Estevez without immediate complications. ZAYDA drain was left at the anastomotic site intraoperatively. The patient tolerated the procedure well and had an uneventful recovery course. She had an NGT placed intraoperatively which was kept until POD #3. Her activity was increased. PT was consulted who recommended home with services and FWW. She began to pass flatus and her diet was advanced to clear liquids and then solids. On the day of discharge, she was tolerating as olid diet without nausea or vomiting, her pain was controlled well on oral analgesics. She was passing continuous flatus. She was ambulating well. Her abdomen was benign with clean incision. She had scant serosanguineous ZAYDA drain output and this was removed. She was hemodynamically stable. She was discharged to home on 01/09/25 in stable condition with services. She is to follow up in the office and has an appt on 01/15/25. Status at Discharge Functional status at discharge: uses cane/walker Overall status at discharge: patient is progressing back to baseline Time Attestation Discharge Coordination Time (in mins): 45 Quality: Safe Use of Opioids Does Pt have an Active Cancer Diagnosis on the Problem List?: Yes Opioid Measure Date for CMS Report: 12/10/24 Opioid Measure Time for CMS Report: 12:04 Quality: Stroke Does the patient have a stroke diagnosis?: No Physical Exam Vital Signs: Vital Signs: Last Vital Signs Temp 98.4 F 01/09/25 11:12 Pulse 100 01/09/25 11:12 Resp 18 01/09/25 11:12 BP 123/77 01/09/25 11:12 Pulse Ox 92 01/09/25 11:12 O2 Del Method Room Air 01/09/25 11:12 O2 Flow Rate 2 01/06/25 15:26 BMI result Body Mass Index 25.7 Const: General: comfortable, no acute distress and alert Orientation/consciousness: patient oriented x3 Resp: Effort & Inspection: normal respiratory effort GI: Other: ileal conduit with good urine output ZAYDA drain RUQ removed Inspection: No distended and Yes incision (clean) Palpation (GI): Soft to palpation, Tenderness to palpation present (GI) (mild incisional) and no guarding Skin: General skin exam: no rashes or lesions noted Neuro: General: patient oriented x3 and moves all extremities DS: Data Data Completed and Pending Pending studies at discharge: Pending at discharge 01/02/25 13:55 Surgical [PTH] Routine Labs on day of discharge: Laboratory Results - last 24 hr 01/08/25 01/08/25 01/09/25 16:47 19:24 05:49 Sodium 136 Potassium 4.7 Chloride 102 Carbon Dioxide 24 Anion Gap 15 BUN 14 Creatinine 0.96 Estim Creat Clear Calc 42.6 Estimated GFR 57 POC Glucose 319 H 327 H Random Glucose 246 H Calcium 9.2 Phosphorus 3.2 Magnesium 2.0 Total Bilirubin 0.3 AST 23 ALT < 6 Alkaline Phosphatase 72 Total Protein 7.1 Albumin 2.9 L 01/09/25 01/09/25 07:27 11:15 Sodium Potassium Chloride Carbon Dioxide Anion Gap BUN Creatinine Estim Creat Clear Calc Estimated GFR POC Glucose 226 H 278 H Random Glucose Calcium Phosphorus Magnesium Total Bilirubin AST ALT Alkaline Phosphatase Total Protein Albumin Discharge Plan Discharge Anticipated Discharge Date/Time: 01/09/25 09:41 Patient Disposition: Home Health Service Discharge Diagnosis: s/p transverse colon resection Referrals: [facility] [Outside] - 3-5 Days (HOME SERVICES FOR INTERMEDIATE AND PHYSICAL THERAPY- A NURSE WILL CALL TO SET UP FIRST APPOINTMENT) Breanne Andrew MD [Primary Care Provider] - 1 Week Brando Estevez MD [Physician] - 2 Weeks Discharge Medications: New oxycodone 5 mg tablet 5 mg PO Q4H PRN (Reason: pain (scale score 7-10)) Qty: 26 0RF Rx Instructions: Partial Fill upon patient request. (DME) gior[facility] See Rx Instructions .ROUTE .MEDSUPPLY Qty: 1 0RF Rx Instructions: As directed docusate sodium [Colace] 100 mg capsule 100 mg PO BID Qty: 60 2RF Continued glipizide 10 mg tablet extended release 24hr 10 mg PO DAILY omeprazole 40 mg capsule,delayed release(DR/EC) 40 mg PO DAILY aspirin 81 mg tablet,delayed release (DR/EC) 81 mg PO DAILY rosuvastatin 10 mg tablet 10 mg PO BEDTIME escitalopram oxalate 5 mg tablet 5 mg PO BEDTIME metoprolol tartrate 25 mg tablet 25 mg PO BID acetaminophen 500 mg Tablet 500 mg PO Q6H PRN (Reason: Pain) melatonin 5 mg Tablet 5 mg PO BEDTIME PRN (Reason: Insomnia) Januvia 100 mg tablet 100 mg PO DAILY insulin glargine [Lantus Solostar U-100 Insulin] 100 unit/mL (3 mL) insulin pen 26 unit subcut BEDTIME Discharge Orders: Discharge Order (Routine); Ordered 01/09/25 Ordered By: Brando Estevez Diet: Diabetic diet Activity on Discharge: No heavy lifting Stand Alone Forms: Patient Portal Discharge page Print Language: Mongolian Activity Restrictions/Additional Instructions: If the incision area is tender, you may apply an ice pack for short intervals (No more than 20 minutes on, followed by at least 20 minutes off). Do not apply heat. Do not use creams, lotions, or topical antibiotics. These can cause infection or allergic reaction. Ok to shower. You have adarsh closing your incision and these will be removed approximately 10-14 days after surgery. NO HEAVY LIFTING (>10lbs) or strenuous activity. Follow up in office in 2 weeks. ([phone]) Follow up with your PCP. Call Your Doctor If: -Your temperature exceeds 101.5? F -You experience excessive pain or swelling -You have an unexpected reaction to medication -You have excessive bleeding -You experience continued vomiting/nausea -Your incision begins to separate -Your incision shows signs of infection such as increased redness, swelling, excessive pain, drainage (light blood or clear fluid is normal) or heat Care Plan Goals: Return to baseline health and resume normal activities following recovery period. Health Concerns: neuroendocrine tumor ileal conduit diabetes mellitus, HTN Plan of Treatment: f/u with Dr. Estevez in office in 2 weeks Home with services F/u with PCP Assessment: Doing well post op.
== END 2025-01-09 14:14 | disposition home health service (06) | DRG 828 ==
LOC: HO.SSSA 11:12 → HO.S3 16:06
PROVIDERS: Physician Assistant Surgical; Admitting Provider Surgery; PCP Internal Medicine; Visit Provider Surgery
PROC: 0DTE0ZZ Resection of Large Intestine, Open Approach (ICD-10-PCS; principal; 2025-01-02 12:00)
DX: C7A.1 Malignant poorly differentiated neuroendocrine tumors (principal); G89.18 Other acute postprocedural pain; K66.0 Peritoneal adhesions (postprocedural) (postinfection); E78.5 Hyperlipidemia, unspecified; K21.9 Gastro-esophageal reflux disease without esophagitis; F39 Unspecified mood [affective] disorder; I12.9 Hypertensive chronic kidney disease with stage 1 through stage 4 chronic kidney disease, or unspecified chronic kidney disease; Z93.2 Ileostomy status; N18.30 Chronic kidney disease, stage 3 unspecified; E11.22 Type 2 diabetes mellitus with diabetic chronic kidney disease; Z79.4 Long term (current) use of insulin; Z79.82 Long term (current) use of aspirin; Z79.84 Long term (current) use of oral hypoglycemic drugs; Z79.899 Other long term (current) drug therapy
CPT/HCPCS: 36415; 80048; 80053; 82040; 82947; 83735; 84100; 84478; 85025; 86850; 86900; 86901; 88309; 88329; 88341; 88342; 88360; 97162; J0131; J1100; J1171; J1630; J1644; J2003; J2250; J2270; J2371; J2405; J2470; J2704; J2795; J3010; J7120

== ENCOUNTER → 2025-01-02 07:51 | Outpatient (BNV) | payer OTHER, SELFPAY | PROVIDERS: Admitting Provider Surgery; PCP Internal Medicine; Visit Provider Surgery | DX: D3A.8 Other benign neuroendocrine tumors (principal) | CPT/HCPCS: 44140; 99024; 99499; G0180 ==

== ENCOUNTER → 2025-01-02 07:51 | Outpatient (BNV) | payer OTHER, SELFPAY | PROVIDERS: Admitting Provider Surgery; PCP Internal Medicine; Visit Provider Student in an Organized Health Care Education/Training Program | DX: D3A.8 Other benign neuroendocrine tumors (principal) | CPT/HCPCS: 99222; 99232 ==

== ENCOUNTER 2025-01-15 11:42 | Outpatient (AMB) | payer OTHER, SELFPAY ==
--- NOTE | 2025-01-15 11:50 | A.OFFVIS_ITS ---
Vital Signs 01/15/25 11:51 Height 5 ft 2 in Weight 128 lb 6 oz BMI 23.5 BP 125/67 Blood Pressure Location Lt brachial Position Sitting Pulse 83 Intake Visit Reasons: S/P Rt colon resection Intake Note: This patient presents for post-op assessment status post Segmental resection of the hepatic flexure/transverse colon via a laparotomy incision, extensive lysis of adhesions (01/02/2025). Pt c/o; reports some drainage from surgical site, no other complaints. Sueding And Buffing Machine Operator Required: No Accompanied by: Sister Allergies No Known Allergies [No Known Allergies*] Allergy (Verified 01/15/25 11:53) HPI HPI S/P Rt colon resection: Details: She underwent segmental resection of hepatic flexure last January 02, 2025 in view of the presence a lesion on colonoscopy showing a neuroendocrine tumor. She was discharged on postop day 7. She is doing well at home. She has good oral intake. She was good bowel movements She has an ileal conduit from her previous radical cystectomy for her bladder cancer and this has been functioning well. [facility] Medical History (Updated 01/15/25 @ 12:01 by Brando Estevez MD) Adenocarcinoma, colon [place] (hard of hearing) Hx of infection (~2019) History of chemotherapy Arthritis Wears dentures No natural teeth Ex-smoker Colon cancer Bladder cancer GERD (gastroesophageal reflux disease) Myocardial infarction Diabetes Surgical History Hx of surgical procedure (~01/02/25) Hx of cataract extraction (~2009) H/O heart artery stent History of transurethral resection of bladder tumor (TURBT) Hx of hemorrhoidectomy H/O tubal ligation H/O adenoidectomy Hx of tonsillectomy History of kidney surgery Hx of heart artery stent History of surgery Hx of total cystectomy H/O colonoscopy (10/07/24) Social History Household Members: Unknown / Unable to assess Household Members Other:: GRANDDAUGHTER Are you a primary nurse care manager to a significant other at home: No Do you presently have visiting nurse or other home services: No Patient Tobacco Use Status: Former Tobacco user Tobacco use type: Cigarette service: No Review of Systems Const Denies chills and Denies fever(s) Card Denies chest pain Resp Denies cough GI Denies abdominal pain Details: Has ileal conduit Physical Exam Vital Signs: Last Vital Signs Pulse 83 01/15/25 11:51 BP 125/67 01/15/25 11:51 BMI result Body Mass Index 23.5 Const General: comfortable and no acute distress Resp Effort & Inspection: normal respiratory effort Cardio Rate: regular rate GI Other: Soft, midline incision healing well, no infection, ileal conduit with good urine output Assessment & Plan Assessment & Plan (1) Adenocarcinoma, colon: Code(s): C18.9 - Malignant neoplasm of colon, unspecified Category: Medical Plan: Status post limited resection of the hepatic flexure. Her final path report shows a moderately differentiated adenocarcinoma, T1 N0. I explained this to her. I am going to send her to the oncologist for dilatation. The resection was limited in view of her frozen abdomen from her previous radical cystectomy . Her ileal conduit we continues to function well I removed all her skin adarsh. I advised her good wound care. I will see her again in the office in about a month for another wound check . Coding Level of Care Code Global (36054) Diagnoses Adenocarcinoma, colon C18.9
[2025-01-15 11:51] VITALS: BP 125/67; PULSE 83; BMI 23.5
--- OUTSIDE RECORDS SUMMARY | 2025-01-15 12:18 | XMS_ITS | Data Portability ---
Author Organization [employer] [employer] Address [address] [place] [id number] Care Team Providers Care Photo Editor Name Role Phone [facility] Referring Provider [phone] Assessment No assessment recorded. Plan of Treatment [...] Details Last Updated DateTime 2 12 /min 18020.9 6 g 95 /min 96 % 96 [...] 6369 Flower Connell MD Main - [facility] [address] [place] [phone] 11/16/2022 13:45:29 11/18/2022 10:47:15 Fever [id number] R50.9 fever with associated nasal congestion and [...] Francis Member ID Guarantor Name 11/16/2022 1 [facility] - DOS PRIOR TO 2023 - DUAL ELIGIBLE (MEDICARE REPLACEMENT/ADV ANTAGE - HMO) Crista Deemary beth [id number] Crista Martins Oliver Notes Date Note Type [...] .................. .................. .................. .................. .................. .................. ............... Laboratory Technical Specialist Note: Dispatched a home of 72-year-old female patient with bodyaches chills and a headache for three days. Vitals are as noted. Patient is febrile at 101.9. Both Covid and flu tests are performed and are negative. tiredness. Urine dip performed. Patient took 1000 mg of Tylenol just prior to my arrival. [facility] physician states this appears to be upper respiratory illness Tylenol every 6 hours. .................. .................. .................. .................. .................. .................. .................. ............... Disposition: Fulfilled Flower Connell MD [address] [place] [address],[address], [place], [address], [facility] 11/16/2022 23:59:34 OBGyn Episode No OBEpisode recorded.
--- OUTSIDE RECORDS SUMMARY | 2025-01-15 12:18 | XMS_ITS ---
Author Organization [facility] Address [address] [place] [phone] Care Team Providers Care Engineering Scientist Name Role Phone Beverlyreggie Breanne Primary Care Provider Unavailab Nando Leon Unavailable [phone] ALLERGIES No Known Allergies REASON FOR VISIT [...] (C18.9) Active confirmed Malignant neoplasm of colon (868498441) Problem 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 VITAL SIGNS BMI 26.45 kg/m2 10/15/2024 Blood pressure systolic 00 mm Hg 10/15/20 24 Blood pressure diastolic 00 mm Hg 024 Height 5 ft 1 in in 10/15/2024 Weight 140 lbs 10/15/2024 Encounters Encounter Location Date Provider Diagnosis [facility] [address] [place] [address] 10/15/2024 Nando oGode Adenocarcinoma of co alli C18.9 and Malignant [...] Reas on: Provider Name:Nando Goode , 03/11/2025 10:50:00 AM, [address], [address], [place], [address], Progress Notes * Examination Category Sub-Category Detail [...]
--- OUTSIDE RECORDS SUMMARY | 2025-01-15 12:19 | XMS_ITS ---
Author Organization [facility] Address [address] [place] [address] Care Team Providers Care Sodium Methylate Operator Name Role Phone Breanne Andrew Primary Care Provider Unavailab Nando Leon Unavailable [phone] REASON FOR VISIT No IV contrast for her CT scans Encounters Encounter Location Date Provider Diagnosis [facility] [address] [place] [address] 10/15/2024 Nando Goode PLAN OF TREATMENT Next Appt Details Provider Name:Nando Goode , 03/11/2025 10:50:00 AM, [address], [address], [place], [address],
--- OUTSIDE RECORDS SUMMARY | 2025-01-15 12:19 | XMS_ITS | Patient Health Record ---
Author Organization [facility] Address [address] [place] [address] Care Team Providers Care Personnel Clerk Name Role Phone Beverlyreggie Breanne Primary Care Provider Unavailab Nando Leon [phone] ALLERGIES No Known Allergies RESULTS Component Value Reference Range Notes Glucose, Whole Blood Reviewed date:05/22/2024 05:20:35 PM Interpretation: Performing Lab:[facility], [address] [place] [phone] Notes/Report: Glucose, Whole Blood 237 60-115 mg/dL METER # : [id number] Pathology Reviewed date:10/06/2024 05:13:53 PM Interpretation: Performing Lab:[facility], [address] [place] [phone] Notes/Report: Glucose, Whole Blood Reviewed date:10/07/2024 11:23:09 PM Interpretation: Performing Lab:[facility], [address] [place] [phone] Notes/Report: Glucose, Whole Blood 163 60-115 mg/dL METER # : [id number] Pathology Reviewed date:10/15/2024 07:52:02 PM Interpretation: Performing Lab:[facility], [address] [place] [phone] Notes/Report: Complete Blood Count Auto Di ff Reviewed date:10/15/2024 06:47:16 PM Interpretation: Performing Lab:[facility], [address] [place] [phone] Notes/Report: White Blood Count 8.2 4.8-10.8 X10*3/uL [...] Panel Reviewed date:10/15/2024 06:47:33 PM Interpretation: Performing Lab:[facility], [address] [place] [phone] Notes/Report: Bilirubin Total 0.4 0.0-1.0 mg/dL Bilirubin Direct 0.1 0.0-0.5 mg/dL Aspartate Amino Transferase 33 5-31 U/L Slight Hemolysis.Interpret result with caution. Alanine Aminotransferase 20 0-31 U/L Total Protein 7.8 6.5-8.0 g/dL Albumin Level 3.8 3.5-5.0 g/dL Alkaline Phosphatase 56 39-117 U/L Basic Metabolic Panel Reviewed date:10/17/2024 06:27:47 PM Interpretation: Performing Lab:[facility], [address] [place] [phone] Notes/Report: Sodium 139 135-145 mmol/L Potassium 4.9 [...] Antigen Reviewed date:10/15/2024 06:48:29 PM Interpretation: Performing Lab:[facility], [address] [place] [phone] Notes/Report: Carcinoembryonic Antigen 4.20 CEA Reference Range: [...] Adenocarcinoma of co alli (C18.9) Referral Organization [facility] Referring Provider First Name Nando Referring [...] Cologuard test (R19.5) Active confirmed Abnormal feces (990905892) Problem Diverticulosis of large intestine without perforation or abscess without bleeding (K57.30) Active confirmed Diverticul ar disease of colon (261992412) Problem 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 confirmed Sessile serrated polyp of colon (3990086302) Problem 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 confirmed Malignant neoplasm of colon (308645091) Problem 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 VITAL SIGNS Blood pressure diastolic 00 mm Hg 10/15/2024 Height 5 ft 1 in in 10/15/2024 Blood pressure systolic 00 mm Hg 10/15/2024 Weight 140 lbs 10/15/2024 BMI 26.45 kg/m2 10/15/2024 Encounters Encounter Location Date Provider Diagnosis [facility] [address] [place] [phone] 05/22/2024 Nando Goode Colon polyps K63.5 ; Heme + stool R19.5 ; Diverticulosis of large intestine without perforation or abscess without bleeding K57.30 and Other hemorrhoids K64.8 [facility] [address] [place] [id number] 10/07/2024 Nando Goode Colon cancer screeni ng Z12.11 ; Colon polyps K63.5 ; Diverticulosis of large intestine without perforation or abscess without bleeding K57.30 and Other hemorrhoids K64.8 [facility] [place] [phone] 10/15/2024 Nando Goode Adenocarcinoma of co alli C18.9 and Malignant poorly differentiated neuroendocrine tumors C7A.1 [facility] [address] [place] [phone] 02/20/2024 Nando Goode Positive colorectal cancer screening using Cologuard test R19.5 [facility] [address] [address] 04/03/2024 Nando Goode [facility] [address] [place] [phone] 05/27/2024 Nando Goode Sessile serrated lynn yp of colon D12.[facility] [address] [address] 10/15/2024 Nando Goode [facility] [address] [address] 10/15/2024 Nando Goode ASSESSMENTS Encounter Date Diagnosis [...] Provider Name:Nando Goode , 03/11/2025 10:50:00 AM, [address] [place] [address], [address], [place], [address], Insurance Providers Payer Name Payer Address Payer Phone Subscriber Number Group Number Insured Name Patient Relationship to Insured Coverage Start Date Coverage End Date [facility] [address] Attn Claims [place] [id number] [place] Self - patient is the insured MEDICAID OF [facility] [address] [place] [address] [id number] [place] [employer] Self - patient is the insured MEDICARE OF [place] [address] [place] [address] [id number] [place] [employer] Self - patient is the insured MEDICAL (GENERAL) HISTORY Medical History History ICD Code IDDM -2017 two stents placed Denies CVA,Lung disease,renal disease Colonoscopy before 2013 at [facility] with removal of a polyp GERD Bladder cancer with surgery as below--she is followed by her local urologist, Dr. Jarrett Florence, in [place]. She did have some chemotherapy through a [place] oncologist after her surgery for the bladder [...] submucosal ink. Surgical History Surgery Date(Month/Year) AT [facility]_ __ _ BLADDER REMOVED FOR CANCER WITH AN ILEAL CONDUIT AND PERMANENT UROSTOMY IN 2018 REMOVED LEFT SUBMANDIBULAR SALIVARY GLAN D DUE TO INFECTION BTL
--- OUTSIDE RECORDS SUMMARY | 2025-01-15 12:19 | XMS_ITS ---
Author Organization [facility] Address [address] [place] [address] Care Team Providers Care Jet Mechanic Name Role Phone Breanne Andrew Primary Care Provider Unavailab Nando Leon Unavailable [phone] REASON FOR VISIT Need to see her today at the end of the day Encounters Encounter Location Date Provider Diagnosis [facility] [address] [place] [address] 10/15/2024 Nando Goode PLAN OF TREATMENT Next Appt Details Provider Name:Nando Goode , 03/11/2025 10:50:00 AM, [address], [address], [place], [address],
== END 2025-01-15 12:03 | disposition home or self-care (01) ==
PROVIDERS: PCP Internal Medicine; Visit Provider Surgery
DX: C18.9 Malignant neoplasm of colon, unspecified (principal)
CPT/HCPCS: 99024

== ENCOUNTER → 2025-01-15 11:42 | Outpatient (BNVA) | payer OTHER, SELFPAY | PROVIDERS: PCP Internal Medicine; Visit Provider Surgery | DX: C18.9 Malignant neoplasm of colon, unspecified (principal); Z98.890 Other specified postprocedural states | CPT/HCPCS: 99212 ==

== ENCOUNTER → 2025-01-29 13:59 | Outpatient (BNV) | payer OTHER, SELFPAY | PROVIDERS: PCP Internal Medicine; Referring Provider Surgery; Visit Provider Internal Medicine | DX: C18.9 Malignant neoplasm of colon, unspecified (principal); C7A.1 Malignant poorly differentiated neuroendocrine tumors | CPT/HCPCS: 99204; G2211 ==

== ENCOUNTER 2025-01-29 14:45 | Outpatient (AMB) | payer OTHER, SELFPAY ==
--- NOTE | 2025-01-29 15:04 | A.OFFVIS_ITS ---
Vital Signs 01/29/25 15:06 Height 5 ft 1 in Weight 132 lb 8 oz BMI 25.0 Intake Visit Reasons: 2 holes where stitches were from surgery Intake Note: This patient presents for open wound surgical site. Pt c/o; draining, open wound. Clinical Laboratory Aides Teacher Required: No Accompanied by: Family/Other Allergies No Known Allergies [No Known Allergies*] Allergy (Verified 01/29/25 15:05) HPI HPI 2 holes where stitches were from surgery: Details: She had undergone limited resection of the hepatic flexure for a T1 N0 adenocarcinoma She had been doing well but the visiting nurse had noted the incision to have opened up on the skin. She otherwise has good oral intake. She has good bowel movements. She denies significant abdominal pain. [facility] Medical History Adenocarcinoma, colon [place] (hard of hearing) Hx of infection (~2019) History of chemotherapy Arthritis Wears dentures No natural teeth Ex-smoker Colon cancer Bladder cancer GERD (gastroesophageal reflux disease) Myocardial infarction Diabetes Surgical History Hx of surgical procedure (~01/02/25) Hx of cataract extraction (~2009) H/O heart artery stent History of transurethral resection of bladder tumor (TURBT) Hx of hemorrhoidectomy H/O tubal ligation H/O adenoidectomy Hx of tonsillectomy History of kidney surgery Hx of heart artery stent History of surgery Hx of total cystectomy H/O colonoscopy (10/07/24) Family History Brother Throat cancer Prostate CA Social History Household Members: Family and Unknown / Unable to assess Household Members Other:: GRANDDAUGHTER Are you a primary career guidance counselor to a significant other at home: No Do you presently have visiting nurse or other home services: No Patient Tobacco Use Status: Former Tobacco user Tobacco use type: Cigarette service: No Current occupational status: retired Physical Exam Vital Signs: BMI result Body Mass Index 25.0 Const General: comfortable and no acute distress Resp Effort & Inspection: normal respiratory effort GI Other: Skin separation on multiple areas of the midline incision, otherwise not infected Palpation (GI): Soft to palpation, not firm, nontender and no guarding Assessment & Plan Assessment & Plan (1) Adenocarcinoma, colon: Code(s): C18.9 - Malignant neoplasm of colon, unspecified Category: Medical Plan: Status post resection of the hepatic flexure. She is here because of some skin separation of the midline incision. This is otherwise clean. There is good granulation in between. I instructed her to do good wound care with dressing changes 1 to 2 times a day. She should keep the incisions clean and dry. She has a follow up with me in about 3 weeks She does not need antibiotics at this time. I expect this excision to reepithelialize down the line Coding Level of Care Code Global (61419) Diagnoses Adenocarcinoma, colon C18.9
[2025-01-29 15:06] VITALS: BMI 25.0
--- OUTSIDE RECORDS SUMMARY | 2025-01-29 17:50 | XMS_ITS | Patient Health Record ---
Author Organization [facility] Address [address] [place] [address] Care Team Providers Care Body Design Checker Name Role Phone Breanne Andrew Primary Care Provider Unavailab Nando Leon Unavailable [phone] Allergies No Known Allergies Results Component Value Reference Range Notes Glucose, Whole Blood Reviewed date:05/22/2024 05:20:35 PM Interpretation: Performing Lab:[facility], [address] [place] [phone] Notes/Report: Glucose, Whole Blood 237 60-115 mg/dL METER # : [id number] Pathology Reviewed date:10/06/2024 05:13:53 PM Interpretation: Performing Lab:[facility], [address] [place] [address] Notes/Report: ------- Name: Sinai Gan y Age/Sex: 74/F : 1950 Unit#: [id number] Attend Dr: Nando Goode MD Re05/22/24 Status : [facility] Location: [facility] Disch: ------- SPEC : [id number] RECD : 05/22/245 STATUS: HARESH GREEN NUM: [id number] JAMES: 05/22/24 [facility] DR: Nando Goode MD ENTERED: 05/22/24-10 35 SP TYPE: Surgical OTHR DR: Breanne Andrew MD ORDERED: HE Stain/3, Gross Micro L4 Diagnosis Colon, area of hepat ic flexure, question polyp: Sessile serrated lesion/polyp with dysplasia. Clinical History Pre-Op Dx: Positive Colguard Post-Op Dx: Polyp, diverticulosis, hemorrhoids Microscopic Description Microscopic sections reviewed. Material Received Area of hepatic flex ure, question polyp Gross Description Received in formalin labeled ?area are hepatic flexure question polyp? are 5 pieces of meraz tissue measuring fro m 0.1-0.2 cm, all submitted in cassette labeled A. Copies To: Breanne Andrew MD [facility] [address] [place], [place] [id number] Nando Goode MD [facility] [address] [place] [address] ------- Signed (si gnature on file) Ewa Mcqueen 05/23/24 1044 ------- END OF REPORT Glucose, Whole Blood Reviewed date:10/07/2024 11:23:09 PM Interpretation: Performing Lab:[facility], [address] [place] [address] Notes/Report: Glucose, Whole Blood 163 60-115 mg/dL METER # : [id number] Pathology Reviewed date:10/15/2024 07:52:02 PM Interpretation: Performing Lab:[facility], [address] [place] [address] Notes/Report: ------- Name: Sinai Gan y Age/Sex: 74/F : 1950 Unit#: [id number] Attend Dr: Nando Goode MD Re10/07/24 Status : [facility] Location: [facility] Disch: ------- SPEC : [id number] RECD : 10/07/24321 STATUS: HARESH GREEN NUM: [id number] JAMES: 10/07/24-[address]: Nando Goode MD ENTERED: 10/07/24-14 18 SP TYPE: Surgical OTHR DR: Breanne Andrew MD ORDERED: HE Stain/6, Gross Micro L4/2, Cytokeratin, Synaptophysin, Chromogranin, IHC, Add. immunos/9, IHC ER/AR/Her2N/2, CDX-2, CK7, CK20, Aniyah-3, Ki-67, p63, PAX-8, TTF-1, [id number] Addendum Addendum 1 Entered: 10/15/24-1217 The morphologic and immunophenotypic features of the tumor in part B are not that of a typical urothelial carcinoma (the patient's history of bladder cancer, status post cystectomy is noted). Addendum Signed (signature on file) Yony Jackson MD 10/15/24 1218 ------- Diagnosis A. Colon, hepatic fl exure, polypectomy: Colonic mucosa with mild surface hyperplastic changes. B. 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 See description and comment. Comment (B): The manjit or has combined features of adenocarcinoma and a more typical neuroendocrine tumor , which raises the possibility of a mixed adenoneuroendocrine carcinoma (so-called MANEC). The neuroendocrine component is high-grade given the high proliferation index (though lacking the cytologic and architectural features of small cell carcinoma). Clinical History Pre-Op Dx: Screening Post-Op Dx: Colon po lyp, diverticulosis, hemorrhoids Microscopic Description A, B. Microscopic se ctions reviewed. By immunohistochemistry on the tumor in part B, the tumor cells are reac tive with synaptophysin (strong), pancytokeratin (patchy), CK7 (patchy) and non immunoreacti ve with PAX8, TTF-1, chromogranin, GATA3, CK20, CDX2 and p63; HER2 immunostain is nonre active (0; appropriate positive control); the proliferation index is 70% with Ki-67 immunostain. CONTINUED ON NEXT PAGE ------- Name: Sinai Gan y Age/Sex: 74/F : 1950 Unit#: [id number] Attend Dr: Nando Goode MD Re10/07/24 Status : [facility] Location: [facility] Disch: ------- SPEC : [id number] RECD : 10/07/24-1410 STATUS: HARESH GREEN NUM: [id number] JAMES: 10/07/24-[address]: Nando Goode MD ENTERED: 10/07/24-14 18 SP TYPE: Surgical OTHR DR: Breanne Andrew MD ORDERED: HE Stain/6, Gross Micro L4/2, Cytokeratin, Synaptophysin, Chromogranin, IHC, Add. immunos/9, IHC ER/AR/Her2N/2, CDX-2, CK7, CK20, Aniyah-3, Ki-67, p63, PAX-8, TTF-1, FDD6RDL Material Received A. Polyp at area of hepatic flexure B. Bx's of second po lyp area at hepatic flexure Gross Description Received in two parts. Part A: Received in formalin labeled ?polyp at area of hepatic flexure? are 4 meraz-pink irregular, rectangul ar and papular tissue fragments ranging from 0.15-0.45 cm, submitted in toto in a cassette l abeled A. Part B: Received in formalin labeled ?bx's of 2nd polyp area at hepatic flexure are several minute to 0. 2 cm meraz-pink irregular tissue fragments, submitted in toto in a cassette labeled B. CEDS This case was review ed intradepartmentally; preliminary results were discussed with Dr. Goode on 10/10/2024. Special studies orde red and performed: Immunostains for synaptophysin, chromogranin, TTF-1, Ki-67, PAX8, CK7, CK 20, CDX2, GATA3, p63 and HER2 on B Copies To: Breanne Andrew MD [facility] [address] [place], [place] [phone] Nando Goode MD [facility] [address] [place] [address] ------- Signed (si gnature on file) Yony Jackson MD 10/14/24 0746 ------- END OF REPORT Complete Blood Count Auto Di ff Reviewed date:10/15/2024 06:47:16 PM Interpretation: Performing Lab:[facility], [address] [facility], [place] [address] Notes/Report: White Blood Count 8.2 4.8-10.8 X10*3/uL [...] 0.0-0.2 /100WBC Neutrophils Absolute Auto 4.3 2.0-8.3 x10*3/uL Imm Gran Abs Auto 0.03 0.00-0.03 X10*3/uL Lymphocytes Absolute Auto 3.0 1.2-4.9 X10*3/uL Monocytes Absolute Auto 0.6 0.1-1.2 X10*3/uL Eosinophils Absolute Auto 0.2 0.0-0.4 X10*3/uL Basophils Absolute Auto 0.1 0.0-0.2 X10*3/uL NRBC Abs Auto 0.000 0.0-0.012 X10*3/uL Liver Panel Reviewed date:10/15/2024 06:47:33 PM Interpretation: Performing Lab:[address] [address] Notes/Report: Bilirubin Total 0.4 0.0-1.0 mg/dL Bilirubin Direct 0.1 0.0-0.5 mg/dL Aspartate Amino Transferase 33 5-31 U/L Slight Hemolysis.Interpret result with caution. Alanine Aminotransferase 20 0-31 U/L Total Protein 7.8 6.5-8.0 g/dL Albumin Level 3.8 3.5-5.0 g/dL Alkaline Phosphatase 56 39-117 U/L Basic Metabolic Panel Reviewed date:10/17/2024 06:27:47 PM Interpretation: Performing Lab:[address] [address] Notes/Report: Sodium 139 135-145 mmol/L Potassium 4.9 3.3-5.1 mmol/L Slight Hemolysis.Interpret result with caution. Chloride 108 96-108 mmol/L [...] Antigen Reviewed date:10/15/2024 06:48:29 PM Interpretation: Performing Lab:[facility], [address] [place] [phone] Notes/Report: Carcinoembryonic Antigen 4.20 CEA Reference Range: 93.4% Non-Smokers = 0.0-3.0 ng/mL 95.6% Smokers = 0.0-5.0 ng/mL CEA Methodology: [employer] i Chemiluminescent Microparticle Immunoassay (CMIA) CEA testing can have significant value in monitoring of patients with diagnosed malignancies in whom changing concentrations of CEA are observed. Values obtained with different assay methods cannot be used interchangeably. 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 2 Adenocarcinoma of co alli (C18.9) Referral Organization [facility] Referring Provider First Name Nando Referring Provider Last Name Rupa Referring Provider Speciality Gastrosaba dillard Referred Provider Brando Estevez Referred Provider Specialty Surgery Referral Priority Routine Referral Appointment Date 10/30/2024 Medications Medication SIG (Take, Route, Frequency, Duration) Notes [...] Lantus 100 UNIT/ML as directed Subcutaneous Active Social History Tobacco Use: Social History Observation Description Date Details (start date - stop date) Former Smoker NA - NA Tobacco Use/Smoking Question Answer Notes Patient is a former smoker How long has it been since you last smoked? 5-10 years Alcohol Screen Question Answer Notes Did you have a drink containing alcohol in the p ast year? 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 Problem Diverticular disease of colon (121318301) Diverticulosis of large intestine without perforation or abscess without bleeding (K57.30) Active confirmed Problem Malignant neoplasm of colon (480237503) 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 confirmed Problem Abnormal feces (800531635) Positive colorectal cancer screening using Cologuard test (R19.5) Active confirmed Problem Sessile serrated polyp of colon (8906050693) 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 confirmed Vital Signs Blood pressure diastolic 00 mm Hg 10/15/2024 Height 5 ft 1 in in 10/15/2024 Blood pressure systolic 00 mm Hg 10/15/2024 Weight 140 lbs 10/15/2024 BMI 26.45 kg/m2 10/15/2024 Encounters Encounter Location Date Provider Diagnosis [facility] Outpatient [address] [place] [phone] 05/22/2024 Nando Goode Colon polyps K63.5 ; Heme + stool R19.5 ; Diverticulosis of large intestine without perforation or abscess without bleeding K57.30 and Other hemorrhoids K64.8 [facility] Outpatient [address] [place] [id number] 10/07/2024 Nando Goode Colon cancer screeni ng Z12.11 ; Colon polyps K63.5 ; Diverticulosis of large intestine without perforation or abscess without bleeding K57.30 and Other hemorrhoids K64.8 [facility] [address] [place] [phone] 02/20/2024 Nando Goode Positive colorectal cancer screening using Cologuard test R19.5 [facility] [address] [place] [phone] 10/15/2024 Nando Goode Adenocarcinoma of co alli C18.9 and Malignant poorly differentiated neuroendocrine tumors C7A.1 [facility] [address] [place] [address] [address] 04/03/2024 Nando Goode [facility] [address] [place] [phone] 05/27/2024 Nando Rupa Sessile serrated lynn yp of colon D12.6 [facility] [address] [place] [phone] 10/15/2024 Nando Goode [facility] [address] [place] [phone] 10/15/2024 Nando Goode Assessments Encounter Date Diagnosis (ICD Code) Assessment Notes Treatment Notes Treatment Clinical Notes Section Notes 05/22/2024 Colon polyps (ICD-10 - K63.5) 05/22/2024 Heme + stool (ICD-10 - R19.5) 10/07/2024 Colon cancer screening (ICD-10 - Z12.11) 10/07/2024 Colon polyps (ICD-10 - K63.5) 02/20/2024 Positive colorectal cancer screening using Cologuard [...] that for 2 days before the colonoscopy. Overall, Crista appears well. She is not having any new or worrisome GI complaints. Given her positive Cologuard test and her last colonoscopy being well over 10 years ago, I did recommend a followup colonoscopy for further screening purposes. We did review the rationale for that regard to colorectal cancer prevention and/or early detection. Full consent is obtained for this, including risks of bleeding and perforation. The procedure will be done monitored anesthesia care. She was given the below instructions regarding adjustment of her medications for the procedure. Crista was comfortable with this plan. Thank you again for allowing me to participate in Crista's care. I shall continue to keep you advised of her progress. 10/15/2024 Malignant poorly differentiated neuroendocrine tumors (ICD-10 - C7A.1) I had a detailed discussion today with Crista and her suhyem-[id number]-flw regarding the recent findings on the colonoscopy from last week. Given the finding of a malignancy, I advised Crista of the need for a surgical evaluation so as to eventually undergo a resection of that portion of the colon. Based on the pathology results this does not appear to be related to her previous bladder cancer. I am going to schedule her for a CT scan of her chest, abdomen, and pelvis for further staging. I shall refer her to see Dr. Estevez for assessment regarding potential surgical resection. Given her previous bladder cancer surgery with the ileal conduit and urostomy this will make the surgery more challenging than usual. She will also need an oncology referral. She prefers to see the oncologist who took care of her in regard to the chemotherapy for her bladder cancer. We shall look into that referral as well. I shall check some laboratories as outlined below. I have given her a followup appointment to see me in the spring, but advised her that I will be available to answer any questions and address any problems that I can be of assistance with in the interim. Crista and her wjbjvd-vv-cad were comfortable with this plan. Thank you again for allowing me to participate in Crista's care. I shall continue to keep you advised of her progress. 10/15/2024 Adenocarcinoma of colon (ICD-10 - C18.9) Appointment with Dr. Estevez for evaluation of a colon cancer with adenocarcinoma and neuroendocrine cells in a patient with a history of bladder cancer with previous surgry for a bladder resection, ileal conduit, and a urostomy . I had a detailed discussion today with Crista and her xvfhet-tp-mkg regarding the recent findings on the colonoscopy from last week. Given the finding of a malignancy, I advised Crista of the need for a surgical evaluation so as to eventually undergo a resection of that portion of the colon. Based on the pathology results this does not appear to be related to her previous bladder cancer. I am going to schedule her for a CT scan of her chest, abdomen, and pelvis for further staging. I shall refer her to see Dr. Estevez for assessment regarding potential surgical resection. Given her previous bladder cancer surgery with the ileal conduit and urostomy this will make the surgery more challenging than usual. She will also need an oncology referral. She prefers to see the oncologist who took care of her in regard to the chemotherapy for her bladder cancer. We shall look into that referral as well. I shall check some laboratories as outlined below. I have given her a followup appointment to see me in the spring, but advised her that I will be available to answer any questions and address any problems that I can be of assistance with in the interim. Crista and her djkmrp-ii-zmp were comfortable with this plan. Thank you again for allowing me to participate in Crista's care. I shall continue to keep you advised of her progress. 05/27/2024 Sessile serrated polyp of colon (ICD-10 - D12.6) 05/22/2024 Diverticulosis of large intestine without perforation or abscess without bleeding (ICD-10 - K57.30) 10/07/2024 Diverticulosis of large intestine without perforation or abscess without bleeding (ICD-10 - K57.30) 05/22/2024 Other hemorrhoids (ICD-10 - K64.8) 10/07/2024 Other hemorrhoids (ICD-10 - K64.8) Plan Of Treatment Pending Test Test Name Order Date CHEM 7 PROFILE 10/15/2024 LIVER PROFILE 10/15/2024 CEA 10/15/2024 CBC w DIFF 10/15/2024 CT ABD & PELVIS WITH PO CONT ONLY 2023 CT CHEST NO CONTRAST 10/15/2024 Future Test Test Name Order Date COLONOSCOPY 02/20/2024 COLONOSCOPY 06/17/2024 Next Appt Details Provider Name:Nando Goode , 03/11/2025 10:50:00 AM, [address] [place] [address], [address], [place], [address], Insurance Providers Payer Name Payer Address Payer Phone Subscriber Number Group Number Insured Name Patient Relationship to Insured Coverage Start Date Coverage End Date [facility] [place] [address] Attn Claims [place] [address] [id number] CRISTA SOTO Self - patient is the insured MEDICAID OF [facility] [address] [place] [address] [id number] CRISTA SOTO Self - patient is the insured MEDICARE OF [place] [address] [place] [address] [id number] CRISTA SOTO Self - patient is the insured Medical (General) History Medical History History ICD Code IDDM two stents placed Denies CVA,Lung disease,renal disease Colonoscopy before 2013 at [facility] with removal of a polyp GERD Bladder cancer with surgery as below--she is followed by her local urologist, Dr. Jarrett Florence, in [place]. She did have some chemotherapy through a [place] oncologist after her surgery for the bladder [...] submucosal ink. Surgical History Surgery Date(Month/Year) AT [facility]_ __ _ BLADDER REMOVED FOR CANCER WITH AN ILEAL CONDUIT AND PERMANENT UROSTOMY IN 2018 REMOVED LEFT SUBMANDIBULAR SALIVARY GLAN D DUE TO INFECTION BTL
--- OUTSIDE RECORDS SUMMARY | 2025-01-29 17:50 | XMS_ITS | Data Portability ---
Author Organization [facility] Address [address] [place] [address] Care Team Providers Care Studio Coordinator Name Role Phone [facility] Referring Provider [phone] Assessment No assessment recorded. Plan of Treatment [...] Details Last Updated DateTime 2 12 /min 93720.9 6 g 95 /min 96 % 96 [...] 6369 Flower Connell MD Main - [facility]ED [address] [place] [phone] 11/16/2022 13:45:29 11/18/2022 10:47:15 Fever [id number] R50.9 fever with associated nasal congestion and [...] Francis Member ID Guarantor Name 11/16/2022 1 [facility] - DOS PRIOR TO 2023 - DUAL ELIGIBLE (MEDICARE REPLACEMENT/ADV ANTAGE - HMO) Crista Deemary beth [id number] Crista Martins Oliver Notes Date Note Type [...] .................. .................. .................. .................. .................. .................. ............... Manager Staffing Note: Dispatched a home of 72-year-old female patient with bodyaches chills and a headache for three days. Vitals are as noted. Patient is febrile at 101.9. Both Covid and flu tests are performed and are negative. tiredness. Urine dip performed. Patient took 1000 mg of Tylenol just prior to my arrival. [facility] physician states this appears to be upper respiratory illness Tylenol every 6 hours. .................. .................. .................. .................. .................. .................. .................. ............... Disposition: Fulfilled Flower Connell MD [address] [place] [address],[address], [place], [address], [facility] 11/16/2022 23:59:34 OBGyn Episode No OBEpisode recorded.
--- OUTSIDE RECORDS SUMMARY | 2025-01-29 17:50 | XMS_ITS ---
Author Organization [facility] Address [address] [place] [address] Care Team Providers Care Department Head Name Role Phone Breanne Andrew Primary Care Provider Unavailab Nando Leon [phone] REASON FOR VISIT No IV contrast for her CT scans Encounters Encounter Location Date Provider Diagnosis [facility] [address] [place] [address] 10/15/2024 Nando Goode Plan Of Treatment Next Appt Details Provider Name:Nando Goode , 03/11/2025 10:50:00 AM, [address], [address], [place], [address], Progress Notes * MONTSERRAT GANDOB:[birth year] (74 yo F)Acc No.[id number]:10/15/2024 Patient:?MONTSERRAT GAN :1950???Age:74 Y???Sex:Female Address:[address] [place] [address], [address] * true * Date:? Generated for Krishnai ravindra/Simin/eTransmitting on:?01/29/2025 05:50 PM EST
--- OUTSIDE RECORDS SUMMARY | 2025-01-29 17:50 | XMS_ITS ---
Author Organization [facility] Address [address] [place] [address] Care Team Providers Care Plastic Sheets Finishing Supervisor Name Role Phone Beverlyreggie Breanne Primary Care Provider Unavailab Nando Leon Unavailable [phone] Allergies No Known Allergies REASON FOR VISIT patient presents today for colonoscopy follow up Medications Medication SIG (Take, Route, Frequency, Duration) [...] Interpretation Negative Section Notes: Nonsmoker; no alcohol Problems Problem Type SNOMED Code ICD Code Onset Dates Problem Status W/U Status Risk Notes Problem Malignant neoplasm of colon (257190266) 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 confirmed Problem 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 Vital Signs Blood pressure systolic 00 mm Hg 10/15/20 24 Blood pressure diastolic 00 mm Hg 024 Height 5 ft 1 in in 10/15/2024 Weight 140 lbs 10/15/2024 BMI 26.45 kg/m2 10/15/2024 Encounters Encounter Location Date Provider Diagnosis [facility] [address] [place] [address] 10/15/2024 Nando Goode Adenocarcinoma of co alli C18.9 and Malignant poorly differentiated neuroendocrine tumors C7A.1 Assessments Encounter Date Diagnosis (ICD Code) Assessment Notes Treatment Notes Treatment Clinical Notes Section Notes 10/15/2024 Adenocarcinoma of colon (ICD-10 - C18.9) Appointment with Dr. Estevez for evaluation of a colon cancer with adenocarcinoma and neuroendocrine cells in a patient with a history of bladder cancer with previous surgry for a bladder resection, ileal conduit, and a urostomy . I had a detailed discussion today with Crista and her glaahf-jg-bju regarding the recent findings on the colonoscopy [...] with in the interim. Crista and her rouvos-vl-pvp were comfortable with this plan. Thank you again for allowing me to participate in Crista's care. I shall continue to keep you advised of her progress. 10/15/2024 Malignant poorly differentiated neuroendocrine tumors (ICD-10 - C7A.1) I had a detailed discussion today with Crista and her nnombh-tf-ruq regarding the recent findings on the colonoscopy [...] with in the interim. Crista and her nauprl-od-nyl were comfortable with this plan. Thank you again for allowing me to participate in Crista's care. I shall continue to keep you advised of her progress. Plan Of Treatment Treatment Notes Assessment Notes Adenocarcinoma of colon [...] Name:Nando Goode , 03/11/2025 10:50:00 AM, [address] [facility] [address], [address], [place], [address], Progress Notes * CRISTA GANDOB:[birth year] (74 yo F)Acc No.[id number]:10/15/2024 Progress Notes Patient:?CRISTA GAN Provider:?Nando Goode MD :1950???Age:74 Y???Sex:Female D ate:10/15/2024 Address:[address] [place] [address], [facility] Pcp:Breanne Andrew Subjective: * Chief Complaints: * ???Patient presents today fo r colonoscopy follow up * HPI: ???incontinence:? I saw Crista in followup today in regard to her recent colonoscopy and the finding of a colon malignancy. She was accompanied by her vqxbls-hy-vxx, Lindsay. ?As you know, Crista underwent an initial colonoscopy in April for evaluation of a positive Cologard test. This revealed a questionable area in the colon that was biopsied and shown to be a serrated polyp with some dysplasia. Therefore, she underwent a followup colonoscopy last week with the plan being to remove that polyp tissue. However, when I reinspected the area last week it appeared more suspicious and I was concerned that this represented a malignancy, as opposed to just a polyp, and therefore I opted to obtain multiple biopsies from it rather than attempt removal. ?Indeed the pathology does show this to be a malignancy with a component of adenocarcinoma as well as some apparent component of neuroendocrine tumor cells. ?Since the procedure Crista has been feeling well. Her bowel movements have remained regular and without any signs of bleeding. She denies any abdominal pains, signs of jaundice, nor any recent weight loss. She enjoys a good appetite and denies any significant heartburn on her omeprazole nor any dysphagia. * ROS:?General/Constitutional:?Change in appetite?denies.?Chills?denies.?Fatigue?denies.?Ophthalmologic:?Comments?all negative.?ENT:?Comments?all negative.?Respiratory:?hemoptysis?denies.?Cough?denies.?Cardiovascular:?Chest pain?denies.?Orthopnea?denies.?Gastrointestinal:?Comments?See HPI for details.?Genitourinary:?Hematuria?denies.?Dysuria?denies.?Musculoskeletal:?Painful joints?denies.?Weakness?denies.?Skin:?Itching?denies.?Rash?denies.?Neurologic:?Headache?denies.?Seizures?denies.?Psychiatric:?Comments?all negative.? * Medical History:? * Surgical History:?AT [facility]_ __ _BLADDER REMOVED FOR CANCER WITH AN ILEAL CONDUIT AND PERMANENT UROSTOMY IN 2019 REMOVED LEFT SUBMANDIBULAR SALIVARY GLAND DUE TO INFECTION BTL * Hospitalization/Major Diagno stic Procedure:?No Hospitalization History. * Family History:?Father: dece ased.?Mother: .? No known hx of colon cancer. * Social History:?Tobacco Use:?Tobacco Use/Smoking?Patient is a?former smoker,?How long has it been since you last smoked??5-10 years.?Drugs/Alcohol:?Alcohol Screen?Did you have a drink containing alcohol in the past year??No,?Points?0,?Interpretation?Negative.?Miscellaneous:?Marital status: . Occupation: retired. ???Nonsmoker; no alcohol. * Medications:?TakingLantus 10 0 UNIT/ML Solution as directed Subcutaneous Januvia 100 MG Tablet 1 tablet Orally Once a dayglipiZIDE ER 10 MG Tablet Extended Release 24 Hour Oral Rosuvastatin Calcium 20 MG Tablet Oral Omeprazole 40 MG Capsule Delayed Release TAKE 1 CAPSULE BY MOUTH EVERY DAY Oral Escitalopram Oxalate 5 MG Tablet TAKE 1 TABLET BY MOUTH EVERY DAY Oral Metoprolol Tartrate 25 MG Tablet Oral Aspirin Low Dose 81 MG Tablet Delayed Release Oral Taking Lantus 100 UNIT/ML Solution as directed Subcutaneous Taking Januvia 100 MG Tablet 1 tablet Orally Once a dayTaking glipiZIDE ER 10 MG Tablet Extended Release 24 Hour Oral Taking Rosuvastatin Calcium 20 MG Tablet Oral Taking Omeprazole 40 MG Capsule Delayed Release TAKE 1 CAPSULE BY MOUTH EVERY DAY Oral Taking Escitalopram Oxalate 5 MG Tablet TAKE 1 TABLET BY MOUTH EVERY DAY Oral Taking Metoprolol Tartrate 25 MG Tablet Oral Taking Aspirin Low Dose 81 MG Tablet Delayed Release Oral Not-Taking/PRNmetFORMIN HCl ER 750 MG Tablet Extended Release 24 Hour TAKE 1 TABLET BY MOUTH TWICE DAILY Oral , Notes: Starting on 02/26/24Medication List reviewed and reconciled with the patientNot-Taking/PRN metFORMIN HCl ER 750 MG Tablet Extended Release 24 Hour TAKE 1 TABLET BY MOUTH TWICE DAILY Oral , Notes: Starting on 02/26/24Medication List reviewed and reconciled with the patient * Allergies:?N.K.D.A.yes[Aller gies Verified] Objective: * Vitals:?Wt: 140 lbs, Ht: 5 f t 1 in, BMI:26.45 Index, BP: 00/00 mm Hg. * Examination: ???General Examination: ?GENERAL APPEARANCE:?pleasant, well nourished, well developed, in no acute distress.?EYES:?sclera non-icteric.?ORAL CAVITY:?mucosa moist.?NECK/THYROID:?no cervical lymphadenopathy, neck supple.?SKIN:?nonjaundiced, no spider angiomata.?HEART:?S1, S2 normal.?LUNGS:?clear to auscultation bilaterally.?ABDOMEN:?normal bowel sounds, no guarding or rigidity, no guarding or rigidity, no masses palpable, soft, nontender, nondistended.?EXTREMITIES:?no edema.?NEUROLOGIC:?alert and oriented.? Assessment: * Assessment: 1.?Adenocarcinoma of colon - C18.9 (Primary)?2.?Malignant poorly differentiated neuroendocrine tumors - C7A.1? I had a detailed discussion today with Crista and her sfuzit-se-ygc regarding the recent findings on the colonoscopy [...] with in the interim. Crista and her xcwxps-fa-xem were comfortable with this plan. Thank you again for allowing me to participate in Crista's care. I shall continue to keep you advised of her progress. Plan: * Treatment: * ?Imaging: CT CHEST NO CONTRAST* No IV contrast, stat reading * Notes: Appointment with Dr. Estevez for evaluation of a colon cancer with adenocarcinoma and neuroendocrine cells in a patient with a history of bladder cancer with previous surgry for a bladder resection, ileal conduit, and a urostomy .??2.?Malignant poorly differentiated neuroendocrine tumors?LAB: CHEM 7 PROFILE ?LAB: LIVER PROFILE ?LAB: CEA ?LAB: CBC w DIFF ?Imaging: CT ABD & PELVIS WITH PO CONT ONLY* PO contrast only, stat readi ng * ?Imaging: CT CHEST NO CONTRAST* No IV contrast, stat reading * * Procedure Codes:?3017F COLOR ECTAL CA SCREEN DOC [id number] TOBACCO [id number]-[id number] BP SCR NOT PRFRM REC REASON NOS * Preventive Medicine:? ??Counseling:?Care goal follow-up plan:?Above Normal BMI Follow-up?Giving encouragement to exercise,?BMI management provided?Yes.? ??Urinary Incontinence:?Urinary Incontinence?Assessment:?Present bladder bag,?Plan of care documented:?Yes,?Type of plan of care:?Lifestyle interventions.? * Follow Up:?Spring 2024 * * Sign off status: Completed true * Provider:?Nando Goode MD Date:? 024 Generated for Rich waite/Simin/Kareemsmitting on:?01/29/2025 05:49 PM EST History and Physical Notes * HPI (History of Present Illness) Category Sub-Category Detail Notes Category Not es incontinence I saw Crista in followup today in regard to her recent colonoscopy and the finding of a colon malignancy. She was accompanied by her hejssx-kt-bis, Lindsay. As you know, Crista underwent an initial colonoscopy in April for evaluation of a positive Cologard test. This revealed a questionable area in the colon that was biopsied and shown to be a serrated polyp with some dysplasia. Therefore, she underwent a followup colonoscopy last week with the plan being to remove that polyp tissue. However, when I reinspected the area last week it appeared more suspicious and I was concerned that this represented a malignancy, as opposed to just a polyp, and therefore I opted to obtain multiple biopsies from it rather than attempt removal. Indeed the pathology does show this to be a malignancy with a component of adenocarcinoma as well as some apparent component of neuroendocrine tumor cells. Since the procedure Crista has been feeling well. Her bowel movements have remained regular and without any signs of bleeding. She denies any abdominal pains, signs of jaundice, nor any recent weight loss. She enjoys a good appetite and denies any significant heartburn on her omeprazole nor any dysphagia. Examination Category Sub-Category Detail Notes Category Not es General Examination GENERAL APPEARANCE: pleasant , well [...]
--- OUTSIDE RECORDS SUMMARY | 2025-01-29 17:51 | XMS_ITS ---
Author Organization [facility] Address [address] [place] [address] Care Team Providers Care Coating Inspector Name Role Phone Breanne Andrew Primary Care Provider Unavailab josias Goode Nando Bandar [phone] REASON FOR VISIT Need to see her today at the end of the day Encounters Encounter Location Date Provider Diagnosis [facility] [address] [place] [address] 10/15/2024 Nando Goode Plan Of Treatment Next Appt Details Provider Name:Nando Goode , 03/11/2025 10:50:00 AM, [address], [address], [place], [address], Progress Notes * MONTSERRAT GANDOB:[birth year] (74 yo F)Acc No.[id number]:10/15/2024 Patient:?MONTSERRAT GAN :1950???Age:74 Y???Sex:Female Address:[address] [place] [address], [address] * true * Date:? Generated for Rich waite/Simin/eTransmitting on:?01/29/2025 05:50 PM EST
== END 2025-01-29 15:23 | disposition home or self-care (01) ==
PROVIDERS: PCP Internal Medicine; Visit Provider Surgery
DX: C18.9 Malignant neoplasm of colon, unspecified (principal)
CPT/HCPCS: 99024

== ENCOUNTER → 2025-01-29 14:45 | Outpatient (BNVA) | payer OTHER, SELFPAY | PROVIDERS: PCP Internal Medicine; Visit Provider Surgery | DX: C18.9 Malignant neoplasm of colon, unspecified (principal); L98.8 Other specified disorders of the skin and subcutaneous tissue; Z48.3 Aftercare following surgery for neoplasm; Z98.890 Other specified postprocedural states | CPT/HCPCS: 99202; 99212 ==

== ENCOUNTER 2025-02-03 16:13 | Outpatient (REF) | payer OTHER, SELFPAY ==
[2025-02-03 17:19] LABS: Estimated Average Glucose 171 mg/dL; Hemoglobin A1C 165.0666 umol/L; Hemoglobin A1c % 7.6 % (<6.0)
[2025-02-03 17:30] LABS: Alanine Aminotransferase 30 U/L (0-31); Albumin Level 3.5 g/dL (3.5-5.0); Alkaline Phosphatase 84 U/L (39-117); Anion Gap 11 (12-20); Aspartate Amino Transferase 25 U/L (5-31); Bilirubin Total 0.3 mg/dL (0.0-1.0); Blood Urea Nitrogen 22 mg/dL (9-16); Calcium 9.2 mg/dL (8.4-10.2); Carbon Dioxide 23 mmol/L (22-29); Chloride 110 mmol/L (96-108); Estimated Glomerular Filt Rate 39; Glucose Random 128 mg/dL (60-115); Potassium 4.9 mmol/L (3.3-5.1); Sodium 139 mmol/L (135-145); Total Protein 8.1 g/dL (6.5-8.0)
--- OUTSIDE RECORDS SUMMARY | 2025-02-03 18:02 | XMS_ITS ---
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 Crista and her csspyb-tn-ttl were comfortable with this plan. Thank you again for allowing me to participate in Crista's care. I shall continue to keep you advised of her progress. 10/15/2024 Malignant poorly differentiated neuroendocrine tumors (ICD-10 - C7A.1) I had a detailed discussion today with Crista and her vamsab-hc-qal regarding the recent findings on the colonoscopy [...] with in the interim. Crista and her qyclqd-cv-hlo were comfortable with this plan. Thank you [...] Name:Nando Goode , 03/11/2025 10:50:00 AM, [address] [facility], [address], [place], [address], Progress Notes * CRISTA GANDOB:[birth year] (74 yo F)Acc No.[id number]:10/15/2024 Progress Notes Patient:?CRISTA GAN Provider:?Nando Goode MD :1950???Age:74 Y???Sex:Female D ate:10/15/2024 Address:[address] [place] [address], [facility] Pcp:Breanne Andrew Subjective: * Chief Complaints: * ???Patient presents today fo r colonoscopy follow up * HPI: ???incontinence:? I saw Crista in followup today in regard to her recent colonoscopy and the finding of a colon malignancy. She was accompanied by her iuhacc-ix-svx, Lindsay. ?As you know, Crista underwent an [...] negative.? * Medical History:? * Surgical History:?AT [facility]_ __ _BLADDER REMOVED FOR [...] detailed discussion today with Crista and her fjbchm-he-lmd regarding the recent findings on the colonoscopy [...] with in the interim. Crista and her gruefs-bq-jpn were comfortable with this plan. Thank you [...] Procedure Codes:?3017F COLOR ECTAL CA SCREEN DOC [id number] TOBACCO [id number]-QORGB2753 BP SCR NOT PRFRM REC REASON NOS * Preventive Medicine:? ??Counseling:?Care goal follow-up plan:?Above Normal BMI Follow-up?Giving encouragement to exercise,?BMI management provided?Yes.? ??Urinary Incontinence:?Urinary Incontinence?Assessment:?Present bladder bag,?Plan of care documented:?Yes,?Type of plan of care:?Lifestyle interventions.? * Follow Up:?Spring 2024 * * Sign off status: Completed true * Provider:?Nando Goode MD Date:? 024 Generated for Rich waite/Simin/Kareemsmitting on:?02/03/2025 06:02 PM EDT History and Physical Notes * HPI (History of Present Illness) Category Sub-Category Detail Notes Category Not es incontinence I saw Crista in followup today in regard to her recent colonoscopy and the finding of a colon malignancy. She was accompanied by her urenvz-ld-zcm, Lindsay. As you know, Crista underwent an [...]
--- OUTSIDE RECORDS SUMMARY | 2025-02-03 18:02 | XMS_ITS | Data Portability ---
Author Organization [email or web address] Address [address] [place] [address] Care Team Providers Care Certified Prosthetist/Orthotist Name Role Phone [facility] Referring Provider Assessment No assessment [...] Details Last Updated DateTime 2 12 /min 29286.9 6 g 95 /min 96 % 96 [...] 6369 Flower Connell MD Main - [facility] [address] [place] [phone] 11/16/2022 13:45:29 11/18/2022 10:47:15 Fever [id number] R50.9 fever with associated nasal congestion and [...] Francis Member ID Guarantor Name 11/16/2022 1 [facility] - DOS PRIOR TO 2023 - DUAL ELIGIBLE (MEDICARE REPLACEMENT/ADV ANTAGE - HMO) Crista Deemary beth [id number] Crista Martins Oliver Notes Date Note Type [...] .................. .................. .................. .................. .................. .................. ............... Makeup Instructor Note: Dispatched a home of 72-year-old female patient with bodyaches chills and a headache for three days. Vitals are as noted. Patient is febrile at 101.9. Both Covid and flu tests are performed and are negative. tiredness. Urine dip performed. Patient took 1000 mg of Tylenol just prior to my arrival. [facility] physician states this appears to be upper respiratory illness Tylenol every 6 hours. .................. .................. .................. .................. .................. .................. .................. ............... Disposition: Fulfilled Flower Connell MD [address] [place] [address],[address], [place], [address], [email or web address] 11/16/2022 23:59:34 OBGyn Episode No OBEpisode recorded.
--- OUTSIDE RECORDS SUMMARY | 2025-02-03 18:03 | XMS_ITS | Patient Health Record ---
Author Organization [facility] Address [address] [place] [address] Care Team Providers Care Contaminated Land Consultant Name Role Phone Breanne Andrew Primary Care Provider Unavailab Nando Leon Unavailable [phone] Allergies No Known Allergies Results Component Value Reference Range Notes Glucose, Whole Blood Reviewed date:05/22/2024 05:20:35 PM Interpretation: Performing Lab:[facility], [address] [place] [address] Notes/Report: Glucose, Whole Blood 237 60-115 mg/dL METER # : [id number] Pathology Reviewed date:10/06/2024 05:13:53 PM Interpretation: Performing Lab:[facility], [address] [place] [phone] Notes/Report: ------- Name: Sinai Gan y Age/Sex: 74/F : 1950 Unit#: [id number] Attend Dr: Nando Goode MD Re05/22/24 Status : [facility] Location: [facility] Disch: ------- SPEC : [id number] RECD : 05/22/245 STATUS: HARESH GREEN NUM: [id number] JAMES: 05/22/24 [facility] DR: Nando Goode MD ENTERED: [...] Primary Care Physicians [address] [place], [place] [id number] Nando Goode MD [facility] [address] [place] [address] ------- Signed (si gnature on file) Ewa Mcqueen 05/23/24 1044 ------- END OF REPORT Glucose, Whole Blood Reviewed date:10/07/2024 11:23:09 PM Interpretation: Performing Lab:[facility], [address] [place] [address] Notes/Report: Glucose, Whole Blood 163 60-115 mg/dL METER # : [id number] Pathology Reviewed date:10/15/2024 07:52:02 PM Interpretation: Performing Lab:[facility], [address] [place] [address] Notes/Report: ------- Name: Sinai Gan y Age/Sex: 74/F : 1950 Unit#: [id number] Attend Dr: Nando Goode MD Re10/07/24 Status : [facility] Location: [facility] Disch: ------- SPEC : [id number] RECD : 10/07/24795 STATUS: HARESH GREEN NUM: [id number] JAMES: 10/07/24-[address]: Nando Goode MD ENTERED: 10/07/24-14 18 SP TYPE: Surgical OTHR DR: Breanne Andrew MD ORDERED: HE Stain/6, Gross Micro L4/2, Cytokeratin, Synaptophysin, Chromogranin, IHC, Add. immunos/9, IHC ER/ME/Her2N/2, CDX-2, CK7, CK20, Aniyah-3, Ki-67, p63, PAX-8, TTF-1, JVA1XFW Addendum Addendum 1 Entered: 10/15/24-1217 The morphologic [...] Gan y Age/Sex: 74/F : 1950 Unit#: [id number] Attend Dr: Nando Goode MD Re10/07/24 Status : [facility] Location: [facility] Disch: ------- SPEC : [id number] RECD : 10/07/24-1410 STATUS: HARESH GREEN NUM: [id number] JAMES: 10/07/24-[address]: Nando Goode MD ENTERED: 10/07/24-14 18 SP TYPE: Surgical OTHR DR: Breanne Andrew MD ORDERED: HE Stain/6, Gross Micro L4/2, Cytokeratin, Synaptophysin, Chromogranin, IHC, Add. immunos/9, IHC ER/ME/Her2N/2, CDX-2, CK7, CK20, Aniyah-3, Ki-67, p63, PAX-8, TTF-1, ERR0NNV Material Received A. Polyp at area of [...] Care Physicians [address] [place], [place] [id number] Nando Goode MD [facility] [address] [place] [address] ------- Signed (si gnature on file) Yony Jackson MD 10/14/24 0746 ------- END OF REPORT Complete Blood Count Auto Di ff Reviewed date:10/15/2024 06:47:16 PM Interpretation: Performing Lab:[facility], [address] [facility], [place] [address] Notes/Report: White Blood Count 8.2 4.8-10.8 X10*3/uL [...] Panel Reviewed date:10/15/2024 06:47:33 PM Interpretation: Performing Lab:[address] [address] Notes/Report: Bilirubin Total 0.4 0.0-1.0 mg/dL Bilirubin Direct 0.1 0.0-0.5 mg/dL Aspartate Amino Transferase 33 5-31 U/L Slight Hemolysis.Interpret result with caution. Alanine Aminotransferase 20 0-31 U/L Total Protein 7.8 6.5-8.0 g/dL Albumin Level 3.8 3.5-5.0 g/dL Alkaline Phosphatase 56 39-117 U/L Basic Metabolic Panel Reviewed date:10/17/2024 06:27:47 PM Interpretation: Performing Lab:[address] [address] Notes/Report: Sodium 139 135-145 mmol/L Potassium 4.9 [...] Antigen Reviewed date:10/15/2024 06:48:29 PM Interpretation: Performing Lab:[facility], [address] [place] [phone] Notes/Report: Carcinoembryonic Antigen 4.20 CEA Reference Range: 93.4% Non-Smokers = 0.0-3.0 ng/mL 95.6% Smokers = 0.0-5.0 ng/mL CEA Methodology: [employer] i Chemiluminescent Microparticle Immunoassay (CMIA) CEA testing can have significant value in monitoring of patients with diagnosed malignancies in whom changing concentrations of CEA are observed. Values obtained with different assay methods cannot be used interchangeably. 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 2 Adenocarcinoma of co alli (C18.9) Referral Organization [facility] Referring Provider First Name Nando Referring [...] Active confirmed Problem Diverticular disease of colon (610853296) Diverticulosis of large intestine without perforation or abscess without bleeding (K57.30) Active confirmed Problem Malignant neoplasm of colon (651712753) 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 confirmed Problem Abnormal feces (351479780) Positive colorectal cancer screening using Cologuard test (R19.5) Active confirmed Problem Sessile serrated polyp of colon (7132854204) 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 confirmed Vital Signs Blood pressure diastolic 00 mm Hg 10/15/2024 Height 5 ft 1 in in 10/15/2024 Blood pressure systolic 00 mm Hg 10/15/2024 Weight 140 lbs 10/15/2024 BMI 26.45 kg/m2 10/15/2024 Encounters Encounter Location Date Provider Diagnosis [facility] [address] [place] [phone] 05/22/2024 Nando Goode Colon polyps K63.5 ; Heme + stool R19.5 ; Diverticulosis of large intestine without perforation or abscess without bleeding K57.30 and Other hemorrhoids K64.8 [facility] [address] [place] [phone] 10/07/2024 Nando Goode Colon cancer screeni ng Z12.11 ; Colon polyps K63.5 ; Diverticulosis of large intestine without perforation or abscess without bleeding K57.30 and Other hemorrhoids K64.8 [facility] [address] [place] [address] 02/20/2024 Nando Goode Positive colorectal cancer screening using Cologuard test R19.5 [facility] [address] [place] [phone] 10/15/2024 Nando Goode Adenocarcinoma of co alli C18.9 and Malignant poorly differentiated neuroendocrine tumors C7A.1 [facility] [address] [place], [place] [address] [address] 04/03/2024 Nando Goode [facility] [address] [place] [phone] 05/27/2024 Nando Rupa Sessile serrated lynn yp of colon D12.6 [facility] [address] [place] [address] 10/15/2024 Nando Goode [facility] [address] [place] [address] 10/15/2024 Nando Goode Assessments Encounter Date Diagnosis [...] detailed discussion today with Crista and her cvyucc-pl-vlx regarding the recent findings on the colonoscopy [...] with in the interim. Crista and her tkixcu-ig-xbo were comfortable with this plan. Thank you [...] detailed discussion today with Crista and her aiwktw-az-jmd regarding the recent findings on the colonoscopy [...] with in the interim. Crista and her bhnole-uu-aty were comfortable with this plan. Thank you [...] Provider Name:Nando Goode , 03/11/2025 10:50:00 AM, [address] [place] [address], [address], [place], [address], Insurance Providers Payer Name Payer Address Payer Phone Subscriber Number Group Number Insured Name Patient Relationship to Insured Coverage Start Date Coverage End Date [facility] [address] Attn Claims [place] [id number] CRISTA SOTO Self - patient is the insured MEDICAID OF [facility] [address] [place] [phone] [id number] CRISTA SOTO Self - patient is the insured MEDICARE OF [place] [address] [place] [address] [id number] CRISTA SOTO Self - patient is the insured Medical (General) History Medical History History ICD Code IDDM two stents placed Denies CVA,Lung disease,renal disease Colonoscopy before 2013 at [facility] with removal of a polyp GERD Bladder cancer with surgery as below--she is followed by her local urologist, Dr. Jarrett Florence, in [place]. She did have some chemotherapy through a [place] oncologist after her surgery for the bladder [...] submucosal ink. Surgical History Surgery Date(Month/Year) AT [facility]_ __ _ BLADDER REMOVED FOR CANCER WITH AN ILEAL CONDUIT AND PERMANENT UROSTOMY IN 2018 REMOVED LEFT SUBMANDIBULAR SALIVARY GLAN D DUE TO INFECTION BTL
--- OUTSIDE RECORDS SUMMARY | 2025-02-03 18:03 | XMS_ITS ---
Author Organization [facility] Address [address] [place] [address] Care Team Providers Care Ground Support Equipment Assembler Name Role Phone Breanne Andrew Primary Care Provider Unavailab Nando Leon [phone] REASON FOR VISIT No IV contrast for her CT scans Encounters Encounter Location Date Provider Diagnosis [facility] [address] [place] [address] 10/15/2024 Nando Goode Plan Of Treatment Next Appt Details Provider Name:Nando Goode , 03/11/2025 10:50:00 AM, [address], [address], [place], [address], Progress Notes * MONTSERRAT GANDOB:[birth year] (74 yo F)Acc No.[id number]:10/15/2024 Patient:?MONTSERRAT GAN :1950???Age:74 Y???Sex:Female Address:[address] [place] [address], [address] * true * Date:? Generated for Printi ravindra/Simin/eTransmitting on:?02/03/2025 06:03 PM EDT
--- OUTSIDE RECORDS SUMMARY | 2025-02-03 18:03 | XMS_ITS ---
Author Organization [facility] Address [address] [place] [address] Care Team Providers Care Corrections Caseworker Name Role Phone Breanne Andrew Primary Care Provider Unavailab josias Goode Nando Bandar [phone] REASON FOR VISIT Need to see her today at the end of the day Encounters Encounter Location Date Provider Diagnosis [facility] [address] [facility] [address] [place] [address] 10/15/2024 Nando Goode Plan Of Treatment Next Appt Details Provider Name:Nando Goode , 03/11/2025 10:50:00 AM, [address] [facility] [address], [address], [place], [address], Progress Notes * MONTSERRAT GANDOB:[birth year] (74 yo F)Acc No.[id number]:10/15/2024 Patient:?MONTSERRAT GAN :1950???Age:74 Y???Sex:Female Address:[address] [place] [address], [address] * true * Date:? Generated for Printi ravindra/Simin/eTransmitting on:?02/03/2025 06:03 PM EDT
[2025-02-03 18:20] LABS: Creatinine Urine 43.05 mg/dL; Microalbum/Creatinine Ratio Ur 134.7 ug/mg cr (<30)
== END 2025-02-03 16:14 | disposition home or self-care (01) ==
LOC: HO.LAB 16:13
PROVIDERS: PCP Internal Medicine; Visit Provider Internal Medicine
DX: C7A.8 Other malignant neuroendocrine tumors (principal); E11.65 Type 2 diabetes mellitus with hyperglycemia; E78.00 Pure hypercholesterolemia, unspecified; N18.9 Chronic kidney disease, unspecified; R80.8 Other proteinuria
CPT/HCPCS: 36415; 80053; 82043; 82570; 83036

== ENCOUNTER 2025-02-12 10:54 | Outpatient (AMB) | payer OTHER, SELFPAY ==
--- NOTE | 2025-02-12 10:58 | MHC.OFFVIS ---
Vital Signs 02/12/25 11:06 Height 5 ft 1 in Weight 132 lb 4 oz BMI 25.0 Intake Visit Reasons: S/P Rt colon resection Intake Note: This patient presents for one month follow-up status post segmental resection of the hepatic flexure/transverse colon via laparotomy incision, extensive lysis of adhesions. Pt c/o; reports no complaints. Human Resource Consultant Required: No Accompanied by: Family/Other Allergies No Known Allergies [No Known Allergies*] Allergy (Verified 02/12/25 11:08) HPI HPI S/P Rt colon resection: Details: She had undergone limited resection of the hepatic flexure for a T1 N0 adenocarcinoma last 01/02/2025. She continues to do well. She has good oral intake. She has good bowel movements. She denies significant abdominal pain. PFSH Medical History Adenocarcinoma, colon [place] (hard of hearing) Hx of infection (~2019) History of chemotherapy Arthritis Wears dentures No natural teeth Ex-smoker Colon cancer Bladder cancer GERD (gastroesophageal reflux disease) Myocardial infarction Diabetes Surgical History Hx of surgical procedure (~01/02/25) Hx of cataract extraction (~2009) H/O heart artery stent History of transurethral resection of bladder tumor (TURBT) Hx of hemorrhoidectomy H/O tubal ligation H/O adenoidectomy Hx of tonsillectomy History of kidney surgery Hx of heart artery stent History of surgery Hx of total cystectomy H/O colonoscopy (10/07/24) Family History Brother Throat cancer Prostate CA Social History Household Members: Family and Unknown / Unable to assess Household Members Other:: GRANDDAUGHTER Are you a primary care coordination manager to a significant other at home: No Do you presently have visiting nurse or other home services: No Patient Tobacco Use Status: Former Tobacco user Tobacco use type: Cigarette service: No Current occupational status: retired Review of Systems Const Denies chills and Denies fever(s) Card Denies chest pain Resp Denies cough GI Denies vomiting Details: Has urostomy, functioning well Physical Exam Const General: comfortable and no acute distress Resp Effort & Inspection: normal respiratory effort Cardio Rate: regular rate GI Other: Midline incision well healing with maybe 3 areas with hypergranulation and scanty drainage Palpation (GI): Soft to palpation, not firm and no guarding Other: Urostomy from ileal conduit functioning well on the right side Assessment & Plan Assessment & Plan (1) S/P colon resection: Code(s): Z90.49 - Acquired absence of other specified parts of digestive tract Category: Surgical Plan: She continues to do very well. She does have residual open areas on her midline incision with hypergranulation. I told her to continue doing good wound care with daily dressing changes. She seemed to be doing very well overall. I will see her in the office again in about a month for another wound check. Coding Level of Care Code Global (94447) Diagnoses S/P colon resection Z90.49
[2025-02-12 11:06] VITALS: BMI 25.0
--- OUTSIDE RECORDS SUMMARY | 2025-02-12 13:07 | XMS_ITS ---
Author Organization [facility] Address [address] [place] [address] Care Team Providers Care Unit Assembler Name Role Phone Beverlyreggie Breanne Primary Care Provider Unavailab Nando Leon Unavailable [phone] Allergies No Known Allergies REASON FOR VISIT [...] Risk Notes Problem Malignant neoplasm of colon (136759309) 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 confirmed Problem 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 Vital Signs Blood pressure systolic 00 mm Hg 10/15/20 24 Blood pressure diastolic 00 mm Hg 024 Height 5 ft 1 in in 10/15/2024 Weight 140 lbs 10/15/2024 BMI 26.45 kg/m2 10/15/2024 Encounters Encounter Location Date Provider Diagnosis [facility] [address] [place] [address] 10/15/2024 Nando Goode Adenocarcinoma of co alli [...] detailed discussion today with Crista and her stgqpr-ik-xmg regarding the recent findings on the colonoscopy [...] with in the interim. Crista and her pmdsfa-io-qya were comfortable with this plan. Thank you again for allowing me to participate in Crista's care. I shall continue to keep you advised of her progress. 10/15/2024 Malignant poorly differentiated neuroendocrine tumors (ICD-10 - C7A.1) I had a detailed discussion today with Crista and her hckwap-tn-qwd regarding the recent findings on the colonoscopy [...] with in the interim. Crista and her gebeux-io-smv were comfortable with this plan. Thank you [...] Name:Nando Goode , 03/11/2025 10:50:00 AM, [address] [facility], [address], [place], [address], Progress Notes * CRISTA GANDOB:[birth year] (74 yo F)Acc No.[id number]:10/15/2024 Progress Notes Patient:?CRISTA GAN Provider:?Nando Goode MD :1950???Age:74 Y???Sex:Female D ate:10/15/2024 Address:[address] [place] [address], [id number] Pcp:Breanne Andrew Subjective: * Chief Complaints: * ???Patient presents today fo r colonoscopy follow up * HPI: ???incontinence:? I saw Crista in followup today in regard to her recent colonoscopy and the finding of a colon malignancy. She was accompanied by her zlltot-kp-qhx, Lindsay. ?As you know, Crista underwent an [...] negative.? * Medical History:? * Surgical History:?AT [facility]_ __ _BLADDER REMOVED FOR [...] detailed discussion today with Crista and her mswbtn-xc-qgr regarding the recent findings on the colonoscopy [...] with in the interim. Crista and her qjynxk-lw-kbx were comfortable with this plan. Thank you [...] Procedure Codes:?3017F COLOR ECTAL CA SCREEN DOC [id number] TOBACCO NON-[id number] BP SCR NOT PRFRM REC REASON NOS * Preventive Medicine:? ??Counseling:?Care goal follow-up plan:?Above Normal BMI Follow-up?Giving encouragement to exercise,?BMI management provided?Yes.? ??Urinary Incontinence:?Urinary Incontinence?Assessment:?Present bladder bag,?Plan of care documented:?Yes,?Type of plan of care:?Lifestyle interventions.? * Follow Up:?Spring 2024 * * Sign off status: Completed true * Provider:?Nando Goode MD Date:? 024 Generated for Rich waite/Simin/Paulinaransmitting on:?02/12/2025 01:07 PM EDT History and Physical Notes * HPI (History of Present Illness) Category Sub-Category Detail Notes Category Not es incontinence I saw Crista in followup today in regard to her recent colonoscopy and the finding of a colon malignancy. She was accompanied by her iizclu-zx-ltv, Lindsay. As you know, Crista underwent an [...]
--- OUTSIDE RECORDS SUMMARY | 2025-02-12 13:08 | XMS_ITS | Patient Health Record ---
Author Organization [facility] Address [address] [place] [address] Care Team Providers Care Log Roller Name Role Phone Breanne Andrew Primary Care Provider Unavailab Nando Leon Unavailable [phone] Allergies No Known Allergies Results Component Value Reference Range Notes Glucose, Whole Blood Reviewed date:05/22/2024 05:20:35 PM Interpretation: Performing Lab:[facility], [address] [place] [phone] Notes/Report: Glucose, Whole Blood 237 60-115 mg/dL METER # : [id number] Pathology Reviewed date:10/06/2024 05:13:53 PM Interpretation: Performing Lab:[facility], [address] [place] [phone] Notes/Report: ------- Name: Sinai Gan y Age/Sex: 74/F : 1950 Unit#: [id number] Attend Dr: Nando Goode MD Re05/22/24 Status : [facility] Location: [facility] Disch: ------- SPEC : [id number] RECD : 05/22/245 STATUS: HARESH GREEN NUM: [id number] JAMES: 05/22/24 [facility] DR: Nando Goode MD ENTERED: 05/22/24-10 35 [...] Primary Care Physicians [address] [place], [place] [id number] Nando Goode MD [facility] [address] [place] [address] ------- Signed (si gnature on file) Ewa Mcqueen 05/23/24 1044 ------- END OF REPORT Glucose, Whole Blood Reviewed date:10/07/2024 11:23:09 PM Interpretation: Performing Lab:[facility], [address] [place] [address] Notes/Report: Glucose, Whole Blood 163 60-115 mg/dL METER # : [id number] Pathology Reviewed date:10/15/2024 07:52:02 PM Interpretation: Performing Lab:[facility], [address] [place] [address] Notes/Report: ------- Name: Sinai Gan y Age/Sex: 74/F : 1950 Unit#: [id number] Attend Dr: Nando Goode MD Re10/07/24 Status : [facility] Location: [facility] Disch: ------- SPEC : [id number] RECD : 10/07/24083 STATUS: HARESH GREEN NUM: [id number] JAMES: 10/07/24-[address]: Nando Goode MD ENTERED: 10/07/24-14 18 SP TYPE: Surgical OTHR DR: Breanne Andrew MD ORDERED: HE Stain/6, Gross Micro L4/2, Cytokeratin, Synaptophysin, Chromogranin, IHC, Add. immunos/9, IHC ER/VA/Her2N/2, CDX-2, CK7, CK20, Aniyah-3, Ki-67, p63, PAX-8, TTF-1, NCL3DFJ Addendum Addendum 1 Entered: 10/15/24-1217 The morphologic [...] Gan y Age/Sex: 74/F : 1950 Unit#: [id number] Attend Dr: Nando Goode MD Re10/07/24 Status : [facility] Location: [facility] Disch: ------- SPEC : [id number] RECD : 10/07/24-1410 STATUS: HARESH GREEN NUM: [id number] JAMES: 10/07/24-[address]: Nando Goode MD ENTERED: 10/07/24-14 18 SP TYPE: Surgical OTHR DR: Breanne Andrew MD ORDERED: HE Stain/6, Gross Micro L4/2, Cytokeratin, Synaptophysin, Chromogranin, IHC, Add. immunos/9, IHC ER/VA/Her2N/2, CDX-2, CK7, CK20, Aniyah-3, Ki-67, p63, PAX-8, TTF-1, XEN3ZSD Material Received A. Polyp at area of [...] Care Physicians [address] [place], [place] [phone] Nando Goode MD [facility] [address] [place] [address] ------- Signed (si gnature on file) Yony Jackson MD 10/14/24 0746 ------- END OF REPORT Complete Blood Count Auto Di ff Reviewed date:10/15/2024 06:47:16 PM Interpretation: Performing Lab:[facility], [address] [facility], [place] [address] Notes/Report: White Blood Count 8.2 4.8-10.8 X10*3/uL [...] Panel Reviewed date:10/15/2024 06:47:33 PM Interpretation: Performing Lab:[address] [address] Notes/Report: Bilirubin Total 0.4 0.0-1.0 mg/dL Bilirubin Direct 0.1 0.0-0.5 mg/dL Aspartate Amino Transferase 33 5-31 U/L Slight Hemolysis.Interpret result with caution. Alanine Aminotransferase 20 0-31 U/L Total Protein 7.8 6.5-8.0 g/dL Albumin Level 3.8 3.5-5.0 g/dL Alkaline Phosphatase 56 39-117 U/L Basic Metabolic Panel Reviewed date:10/17/2024 06:27:47 PM Interpretation: Performing Lab:[address] [address] Notes/Report: Sodium 139 135-145 mmol/L Potassium 4.9 [...] Antigen Reviewed date:10/15/2024 06:48:29 PM Interpretation: Performing Lab:[facility], [address] [place] [phone] Notes/Report: Carcinoembryonic Antigen 4.20 CEA Reference Range: 93.4% Non-Smokers = 0.0-3.0 ng/mL 95.6% Smokers = 0.0-5.0 ng/mL CEA Methodology: [employer] Alinity i Chemiluminescent Microparticle Immunoassay (CMIA) CEA testing can have significant value in monitoring of patients with diagnosed malignancies in whom changing concentrations of CEA are observed. Values obtained with different assay methods cannot be used interchangeably. 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 2 Adenocarcinoma of co alli (C18.9) Referral Organization [facility] Referring Provider First Name Nando [...] Active confirmed Problem Diverticular disease of colon (619823375) Diverticulosis of large intestine without perforation or abscess without bleeding (K57.30) Active confirmed Problem Malignant neoplasm of colon (656960781) 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 confirmed Problem Abnormal feces (942938539) Positive colorectal cancer screening using Cologuard test (R19.5) Active confirmed Problem Sessile serrated polyp of colon (5621820363) 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 confirmed Vital Signs Blood pressure diastolic 00 mm Hg 10/15/2024 Height 5 ft 1 in in 10/15/2024 Blood pressure systolic 00 mm Hg 10/15/2024 Weight 140 lbs 10/15/2024 BMI 26.45 kg/m2 10/15/2024 Encounters Encounter Location Date Provider Diagnosis [facility] Outpatient [address] [place] [id number] 05/22/2024 Nando Goode Colon polyps K63.5 ; Heme + stool R19.5 ; Diverticulosis of large intestine without perforation or abscess without bleeding K57.30 and Other hemorrhoids K64.8 [facility] Outpatient [address] [place] [id number] 10/07/2024 Nando Goode Colon cancer screeni ng Z12.11 ; Colon polyps K63.5 ; Diverticulosis of large intestine without perforation or abscess without bleeding K57.30 and Other hemorrhoids K64.8 [facility] [address] [place] [phone] 02/20/2024 Nando Goode Positive colorectal cancer screening using Cologuard test R19.5 [facility] [address] [place] [phone] 10/15/2024 Nando Goode Adenocarcinoma of co alli C18.9 and Malignant poorly differentiated neuroendocrine tumors C7A.1 [facility] [address] [place], [place] [address] [address] 04/03/2024 Nando Goode [facility] [address] [place] [phone] 05/27/2024 Nando Rupa Sessile serrated lynn yp of colon D12.6 [facility] [address] [place] [phone] 10/15/2024 Nando Goode [facility] [address] [place] [phone] 10/15/2024 Nando Goode Assessments Encounter Date Diagnosis [...] detailed discussion today with Crista and her kcgpgp-ft-ecn regarding the recent findings on the colonoscopy [...] with in the interim. Crista and her orvctr-de-jly were comfortable with this plan. Thank you [...] detailed discussion today with Crista and her hpibqv-fw-ebu regarding the recent findings on the colonoscopy [...] with in the interim. Crista and her rdiswp-da-pyk were comfortable with this plan. Thank you [...] Provider Name:Nando Goode , 03/11/2025 10:50:00 AM, [address] [place] [address], [address], [place], [address], Insurance Providers Payer Name Payer Address Payer Phone Subscriber Number Group Number Insured Name Patient Relationship to Insured Coverage Start Date Coverage End Date [facility] [address] Attn Claims [place] [id number] CRISTA SOTO Self - patient is the insured [facility]ICA[facility] [address] [place] [address] [id number] CRISTA SOTO Self - patient is the insured MEDICARE OF [place] [address] [place] [address] [id number] CRISTA SOTO Self - patient is the insured Medical (General) History Medical History History ICD Code IDDM two stents placed Denies CVA,Lung disease,renal disease Colonoscopy before 2013 at [facility] with removal of a polyp GERD [...] submucosal ink. Surgical History Surgery Date(Month/Year) AT [facility]_ __ _ BLADDER REMOVED FOR CANCER WITH AN ILEAL CONDUIT AND PERMANENT UROSTOMY IN 2018 REMOVED LEFT SUBMANDIBULAR SALIVARY GLAN D DUE TO INFECTION BTL
--- OUTSIDE RECORDS SUMMARY | 2025-02-12 13:08 | XMS_ITS ---
Author Organization [facility] Address [address] [place] [address] Care Team Providers Care Rubber Boots And Shoes Repairer Name Role Phone Breanne Andrew Primary Care Provider Unavailab josias Goode Nando Bandar [phone] REASON FOR VISIT Need to see her today at the end of the day Encounters Encounter Location Date Provider Diagnosis [facility] [address] [place] [address] 10/15/2024 Nando Goode Plan Of Treatment Next Appt Details Provider Name:Nando Goode , 03/11/2025 10:50:00 AM, [address], [address], [place], [address], Progress Notes * MONTSERRAT GANDOB:[birth year] (74 yo F)Acc No.[id number]:10/15/2024 Patient:?MONTSERRAT GAN :1950???Age:74 Y???Sex:Female Address:[address] [place] [address], [address] * true * Date:? Generated for Krishnai ravindra/Simin/eTransmitting on:?02/12/2025 01:08 PM EDT
--- OUTSIDE RECORDS SUMMARY | 2025-02-12 13:08 | XMS_ITS ---
Author Organization [facility] Address [address] [place] [address] Care Team Providers Care Chip Mixer Name Role Phone Breanne Andrew Primary Care Provider Unavailab Nando Leon [phone] REASON FOR VISIT No IV contrast for her CT scans Encounters Encounter Location Date Provider Diagnosis [facility] [address] [place] [address] 10/15/2024 Nando Goode Plan Of Treatment Next Appt Details Provider Name:Nando Goode , 03/11/2025 10:50:00 AM, [address], [address], [place], [address], Progress Notes * MONTSERRAT GANDOB:[birth year] (74 yo F)Acc No.[id number]:10/15/2024 Patient:?MONTSERRAT GAN :1950???Age:74 Y???Sex:Female Address:[address] [place] [address], [address] * true * Date:? Generated for Printi ravindra/Simin/eTransmitting on:?02/12/2025 01:07 PM EDT
--- OUTSIDE RECORDS SUMMARY | 2025-02-12 13:08 | XMS_ITS | Data Portability ---
Author Organization [employer] Address [address] [place] [address] Care Team Providers Care Strategy Lead Name Role Phone [facility] Referring Provider [phone] Assessment No assessment recorded. Plan of Treatment [...] Details Last Updated DateTime 2 12 /min 82486.9 6 g 95 /min 96 % 96 [...] 6369 Flower Connell MD Main - [facility] [address] [place] [phone] 11/16/2022 13:45:29 11/18/2022 10:47:15 Fever [id number] R50.9 fever with associated nasal congestion and [...] Francis Member ID Guarantor Name 11/16/2022 1 [facility] - DOS PRIOR TO 2023 - DUAL ELIGIBLE (MEDICARE REPLACEMENT/ADV ANTAGE - HMO) Crista Deemary beth [id number] Crista Martins Oliver Notes Date Note Type [...] .................. .................. .................. .................. .................. .................. ............... [employer] E Business Developer Note: Dispatched a home of 72-year-old female patient with bodyaches chills and a headache for three days. Vitals are as noted. Patient is febrile at 101.9. Both Covid and flu tests are performed and are negative. tiredness. Urine dip performed. Patient took 1000 mg of Tylenol just prior to my arrival. [facility] physician states this appears to be upper respiratory illness Tylenol every 6 hours. .................. .................. .................. .................. .................. .................. .................. ............... Disposition: Fulfilled Flower Connell MD [address] [place] [address],[address], [place], [address], [employer] 11/16/2022 23:59:34 OBGyn Episode No OBEpisode recorded.
== END 2025-02-12 11:15 | disposition home or self-care (01) ==
LOC: HO.HGS 10:55
PROVIDERS: PCP Internal Medicine; Visit Provider Surgery
DX: Z90.49 Acquired absence of other specified parts of digestive tract (principal)
CPT/HCPCS: 99024

== ENCOUNTER → 2025-02-12 10:54 | Outpatient (BNVA) | payer OTHER, SELFPAY | PROVIDERS: PCP Internal Medicine; Visit Provider Surgery | DX: Z90.49 Acquired absence of other specified parts of digestive tract (principal) | CPT/HCPCS: 99212 ==

== ENCOUNTER 2025-03-19 10:27 | Outpatient (AMB) | payer OTHER, SELFPAY ==
--- NOTE | 2025-03-19 10:28 | MHC.OFFVIS ---
Vital Signs 03/19/25 10:36 Height 5 ft 1 in Weight 133 lb 4 oz BMI 25.2 BP 109/57 L Blood Pressure Location Lt brachial Position Sitting Pulse 72 Intake Visit Reasons: 1 month S/P Rt colon resection Intake Note: Patient is seen in office for one month follow up visit, post right colon resection. Pt c/o: denies any concerns Allergies No Known Allergies [No Known Allergies*] Allergy (Verified 02/12/25 11:08) HPI HPI 1 month S/P Rt colon resection: Details: She is here for another postop visit after excision of the hepatic flexure for an adenocarcinoma December, She continues to do well. She denies GI complaints. She denies problems with her ileal conduit. PFSH Medical History Adenocarcinoma, colon [place] (hard of hearing) Hx of infection (~2019) History of chemotherapy Arthritis Wears dentures No natural teeth Ex-smoker Colon cancer Bladder cancer GERD (gastroesophageal reflux disease) Myocardial infarction Diabetes Surgical History Hx of surgical procedure (~01/02/25) Hx of cataract extraction (~2009) H/O heart artery stent History of transurethral resection of bladder tumor (TURBT) Hx of hemorrhoidectomy H/O tubal ligation H/O adenoidectomy Hx of tonsillectomy History of kidney surgery Hx of heart artery stent History of surgery Hx of total cystectomy H/O colonoscopy (10/07/24) Family History Brother Throat cancer Prostate CA Social History Household Members: Family and Unknown / Unable to assess Household Members Other:: GRANDDAUGHTER Are you a primary interior plant caretaker to a significant other at home: No Do you presently have visiting nurse or other home services: No Patient Tobacco Use Status: Former Tobacco user Tobacco use type: Cigarette service: No Current occupational status: retired Review of Systems Const Denies chills and Denies fever(s) Card Denies chest pain Resp Denies cough GI Denies abdominal pain Details: Ileal conduit working well Physical Exam Const General: comfortable and no acute distress Resp Effort & Inspection: normal respiratory effort Cardio Rate: regular rate GI Other: Ileal conduit on the right side, midline incision completely healed Palpation (GI): Soft to palpation, not firm and nontender Assessment & Plan Assessment & Plan (1) S/P colon resection: Code(s): Z90.49 - Acquired absence of other specified parts of digestive tract Category: Surgical Plan: Status post limited resection of the hepatic flexure for an adenocarcinoma. She is doing very well. Her incision is now completely healed She has seen the oncologist and will not be on adjuvant chemotherapy. She can follow up on a p.r.n. basis. Coding Level of Care Code Global (99307) Diagnoses S/P colon resection Z90.49
[2025-03-19 10:36] VITALS: BP 109/57; PULSE 72; BMI 25.2
--- OUTSIDE RECORDS SUMMARY | 2025-03-19 12:18 | XMS_ITS ---
Author Organization [facility] Address [address] [place] [address] Care Team Providers Care Golf Cart Repairer Name Role Phone Breanne Andrew Primary Care Provider Unavailab Nando Leon [phone] REASON FOR VISIT No IV contrast for her CT scans Encounters Encounter Location Date Provider Diagnosis [facility] [address] [place] [address] 10/15/2024 Nando Goode Plan Of Treatment No Information Progress Notes * MONTSERRAT GANDOB:[birth year] (74 yo F)Acc No.[id number]:10/15/2024 Patient:?MONTSERRAT GAN :1950???Age:74 Y???Sex:Female Address:[address] [place] [address], [address] * true * Date:? Generated for Rich waite/Simin/eTransmitting on:?03/19/2025 12:18 PM EDT
--- OUTSIDE RECORDS SUMMARY | 2025-03-19 12:18 | XMS_ITS | Data Portability ---
Author Organization [employer] Address [address] [place] [address] Care Team Providers Care Rice Dryer Mechanic Name Role Phone [facility] Referring Provider Assessment No [...] Details Last Updated DateTime 2 12 /min 80522.9 6 g 95 /min 96 % 96 [...] 6369 Flower Connell MD Main - [facility] [address] [place] [phone] 11/16/2022 13:45:29 11/18/2022 10:47:15 Fever [id number] R50.9 fever with associated nasal congestion and [...] Francis Member ID Guarantor Name 11/16/2022 1 [facility] - DOS PRIOR TO 2023 - DUAL ELIGIBLE (MEDICARE REPLACEMENT/ADV ANTAGE - HMO) Crista Deemary beth [id number] Crista Martins Oliver Notes Date Note Type [...] .................. .................. .................. .................. .................. .................. ............... Insurance Billing Clerk Note: Dispatched a home of 72-year-old female patient with bodyaches chills and a headache for three days. Vitals are as noted. Patient is febrile at 101.9. Both Covid and flu tests are performed and are negative. tiredness. Urine dip performed. Patient took 1000 mg of Tylenol just prior to my arrival. [facility] physician states this appears to be upper respiratory illness Tylenol every 6 hours. .................. .................. .................. .................. .................. .................. .................. ............... Disposition: Fulfilled Flower Connell MD [address] [place] [address],[address], [place], [address], [employer] 11/16/2022 23:59:34 OBGyn Episode No OBEpisode recorded.
--- OUTSIDE RECORDS SUMMARY | 2025-03-19 12:18 | XMS_ITS ---
Author Organization [facility] Address [address] [place] [address] Care Team Providers Care Bi Lead Name Role Phone Beverlyreggie Breanne Primary Care Provider Unavailab Nando Leon Unavailable [phone] Allergies No Known Allergies REASON FOR VISIT Patient presents today for adenocarcinoma,colon Medications Medication SIG (Take, Route, Frequency, Duration) Notes Start Date End Date Status Aspirin Low Dose 81 MG Oral for 90 Active metFORMIN HCl ER 750 MG TAKE 1 TABLET BY MOUTH TWICE DAILY Oral for 90 Starting on 02/26/24 02/26/2024 Not-Taking Metoprolol Tartrate 25 MG Oral for 90 Active Lantus 100 UNIT/ML as directed Subcutaneous Active Januvia 100 MG 1 tablet Orally Once a day for 30 day(s) Active Rosuvastatin Calcium 20 MG Oral for 90 Active Omeprazole 40 MG TAKE 1 CAPSULE BY MOUTH EVERY DAY Oral for 90 Active Escitalopram Oxalate 5 MG TAKE 1 TABLET BY MOUTH EVERY DAY Oral for 90 Active glipiZIDE ER 10 MG Oral for 90 Active Social History Tobacco Use: Social History [...] ast year? No Points 0 Interpretation Negative AUDIT-C (Standard) Question Answer Notes Did you have a drink containing alcohol in the p ast year? No Points 0 Interpretation Negative Section Notes: Nonsmoker; no alcohol Vital Signs Blood pressure systolic 111 mm Hg 03/11/20 25 Blood pressure diastolic 11 mm Hg 025 Height 5 ft 1 in in 03/11/2025 Weight 131 lbs 03/11/2025 BMI 24.75 kg/m2 03/11/2025 Encounters Encounter Location Date Provider Diagnosis [facility] [address] [place] [address] 03/11/2025 Nando Goode Adenocarcinoma of co alli C18.9 Assessments Encounter Date Diagnosis (ICD Code) Assessment Notes Treatment Notes Treatment Clinical Notes Section Notes 03/11/2025 Adenocarcinoma of colon (ICD-10 - C18.9) Repeat colonoscopy in 09/2026. .Overall, Crista appears quite well considering the significant surgery she had just about 2 months ago. We did review the favorable findings from the surgery in regard to the lack of any invasion of the cancer and no need for any follow-up treatments such as chemotherapy. At this point she has recovered nicely and is not having any particular GI complaints. We did review that I would recommend a follow-up colonoscopy for the latter part of 2025 for follow-up given that she had 2 colonoscopies in 2023. I do not think she is a colonoscopy this year. If things otherwise remain stable she will see me in the interim on a PRN basis. I did advise her to certainly call if she has any problems or questions I can be of assistance with. Crista was very comfortable with this plan. Thank you again for allowing me to participate in Crista's care. I shall continue to keep you advised of her progress. Plan Of Treatment Treatment Notes Assessment Notes Adenocarcinoma of colon Repeat colonosco py in 09/2026. Next Appt Details Follow Up: prn, Reason: Progress Notes * CRISTA GANDOB:[birth year] (74 yo F)Acc No.[id number]:03/11/2025 Progress Notes Patient:?CRISTA GAN Provider:?Nando Goode MD :1950???Age:74 Y???Sex:Female D ate:03/11/2025 Address:[address] [place], [place] [address] Pcp:Breanne Andrew Subjective: * Chief Complaints: * ???1. Patient presents today for adenocarcinoma,colon. * HPI: ???incontinence:?FallI saw Crista in follow-up today in regard to her history of adenocarcinoma of the colon and her surgery earlier this year for that. As you know she was diagnosed with colon cancer in the Fall and underwent surgery with Dr. Estevez in December. This was a difficult surgery due to a lot of intra-abdominal adhesions but she did well with it. The pathology was very favorable with just a small lesion and no sign of any significant spread to lymph nodes nor surrounding tissue. This was a T1N0 lesion and was not felt to require any subsequent treatment when she was seen by Dr. Bruno from oncology last month. Crista reports that she is feeling well. She is eating comfortably and denies any significant heartburn or dysphagia. Her bowel movements have been regular and without any signs of bleeding since the surgery. She denies any significant abdominal pains, weight loss, nor jaundice.. * Medical History:?IDDM, WI-20 18 two stents placed, Denies CVA,Lung disease,renal disease, Colonoscopy before 2013 at [facility] with removal of a polyp, GERD, Bladder cancer with surgery as below--she is followed by her local urologist, Dr. Jarrett Florence, in [place]. She did have some chemotherapy through a [place] oncologist after her surgery for the bladder cancer., Colonoscopy in April of 2024 revealed a suspicious area with biopsy showing a serrated polyp. A followup colonoscopy in September 2024 revealed the lesion to be more suspicious for a malignancy and biopsies showed an adenocarcinoma with some neuroendocrine cells. The lesion appeared to be in the area of the hepatic flexure and was marked with submucosal ink. She had surgery with Dr. Estevez as below... * Surgical History:?AT [facility]_ __ _BLADDER REMOVED FOR CANCER WITH AN ILEAL CONDUIT AND PERMANENT UROSTOMY IN 2019 , REMOVED LEFT SUBMANDIBULAR SALIVARY GLAND DUE TO INFECTION , BTL , Resection of the adenocarcinoma of the colon- resection of the hepatic flexure and transverse colon by Dr. Estevez. This was a very small and early cancer, T1N0. Seen by Dr. Bruno and she did not think Crista required any other treatments at this time 01/02/2025. * Family History:?Father: dece ased.?Mother: .? No known hx of colon cancer. * Social History:?Tobacco Use:?Tobacco Use/Smoking?Patient is a?former smoker,?How long has it been since you last smoked??5-10 years.?Drugs/Alcohol:?Alcohol Screen?Did you have a drink containing alcohol in the past year??No,?Points?0,?Interpretation?Negative.?Miscellaneous:?Marital status: . Occupation: retired. ???Drug/Alcohol:?AUDIT-C (Standard)?Did you have a drink containing alcohol in the past year??No,?Points?0,?Interpretation?Negative.?Nonsmoker; no alcohol. * Medications:?Taking Lantus 1 00 UNIT/ML Solution as directed Subcutaneous , Taking Januvia 100 MG Tablet 1 tablet Orally Once a day , Taking glipiZIDE ER 10 MG Tablet Extended Release 24 Hour Oral , Taking Rosuvastatin Calcium 20 MG Tablet Oral , Taking Omeprazole 40 MG Capsule Delayed Release TAKE 1 CAPSULE BY MOUTH EVERY DAY Oral , Taking Escitalopram Oxalate 5 MG Tablet TAKE 1 TABLET BY MOUTH EVERY DAY Oral , Taking Metoprolol Tartrate 25 MG Tablet Oral , Taking Aspirin Low Dose 81 MG Tablet Delayed Release Oral , Not-Taking/PRN metFORMIN HCl ER 750 MG Tablet Extended Release 24 Hour TAKE 1 TABLET BY MOUTH TWICE DAILY Oral , Notes to Pharmacist: Starting on 02/26/24, Medication List reviewed and reconciled with the patient * Allergies:?N.K.D.A. Objective: * Vitals:?Wt:131lbs, Ht: 5 ft 1 in, BMI: 24.75 Index, BP:111/11mm Hg, Wt-k.42. Assessment: * Assessment: 1.?Adenocarcinoma of colon - C18.9 (Primary)??? .Overall, Crista appears quit e well considering the significant surgery she had just about 2 months ago. We did review the favorable findings from the surgery in regard to the lack of any invasion of the cancer and no need for any follow-up treatments such as chemotherapy. At this point she has recovered nicely and is not having any particular GI complaints. We did review that I would recommend a follow-up colonoscopy for the latter part of 2025 for follow-up given that she had 2 colonoscopies in 2023. I do not think she is a colonoscopy this year. If things otherwise remain stable she will see me in the interim on a PRN basis. I did advise her to certainly call if she has any problems or questions I can be of assistance with. Crista was very comfortable with this plan. Thank you again for allowing me to participate in Crista's care. I shall continue to keep you advised of her progress. Plan: * Treatment: * Preventive Medicine:? ??Urinary Incontinence:?Urinary Incontinence?Assessment:?Absent,?Plan of care documented:?No, reason not specified.? ??Screenings:?Fall Risk Screening?Fall Risk Assessment:?No falls in the past year,?Screening:?No falls in the past year,?Assessment:?Not performed, no reason specified,?Plan of Care:?Not documented, no reason specified.? * Follow Up:?prn * * The named appointment provid er may or may not be the originator of this progress note, and it is not deemed complete until electronically signed by the appointment provider. Sign off status: Pending * Provider:?Nando Goode MD Date:? 025 Generated for Rich waite/Simin/Kaitlyn on:?03/19/2025 12:17 PM EDT
--- OUTSIDE RECORDS SUMMARY | 2025-03-19 12:18 | XMS_ITS | Patient Health Record ---
Author Organization [facility] Address [address] [place] [address] Care Team Providers Care Label Maker Name Role Phone Breanne Andrew Primary Care Provider Unavailab aNndo Leon Unavailable [phone] Allergies No Known Allergies Results Component Value Reference Range Notes Glucose, Whole Blood Reviewed date:05/22/2024 05:20:35 PM Interpretation: Performing Lab:[facility], [address] [place] [phone] Notes/Report: Glucose, Whole Blood 237 60-115 mg/dL METER # : [id number] Pathology Reviewed date:10/06/2024 05:13:53 PM Interpretation: Performing Lab:[facility], [address] [place] [phone] Notes/Report: ------- Name: Sinai Gan y Age/Sex: 74/F : 1950 Unit#: [id number] Attend Dr: Nando Goode MD Re05/22/24 Status : [facility] Location: [facility] Disch: ------- SPEC : [id number] RECD : 05/22/245 STATUS: HARESH GREEN NUM: [id number] JAMES: 05/22/[address] [facility] [address]: Nando Goode MD ENTERED: 05/22/24-10 [...] [facility] [address] [place], [place] [phone] Nando Goode MD [facility] [address] [place] [address] ------- Signed (si gnature on file) Ewa Mcqueen 05/23/24 1044 ------- END OF REPORT Glucose, Whole Blood Reviewed date:10/07/2024 11:23:09 PM Interpretation: Performing Lab:[facility], [address] [place] [address] Notes/Report: Glucose, Whole Blood 163 60-115 mg/dL METER # : [id number] Pathology Reviewed date:10/15/2024 07:52:02 PM Interpretation: Performing Lab:[facility], [address] [place] [address] Notes/Report: ------- Name: Sinai Gan y Age/Sex: 74/F : 1950 Unit#: [id number] Attend Dr: Nando Goode MD Re10/07/24 Status : [facility] Location: [facility] Disch: ------- SPEC : [id number] RECD : 10/07/24164 STATUS: HARESH GREEN NUM: [id number] JAMES: 10/07/24-[address]: Nando Goode MD ENTERED: 10/07/24-14 18 SP TYPE: Surgical OTHR DR: Breanne Andrew MD ORDERED: HE Stain/6, Gross Micro L4/2, Cytokeratin, Synaptophysin, Chromogranin, IHC, Add. immunos/9, IHC ER/MT/Her2N/2, CDX-2, CK7, CK20, Aniyah-3, Ki-67, p63, PAX-8, TTF-1, [id number] Addendum Addendum 1 Entered: 10/15/24-1217 The morphologic [...] Gan y Age/Sex: 74/F : 1950 Unit#: [id number] Attend Dr: Nando Goode MD Re10/07/24 Status : [facility] Location: [facility] Disch: ------- SPEC : [id number] RECD : 10/07/24-1410 STATUS: HARESH GREEN NUM: [id number] JAMES: 10/07/24-[address]: Nando Goode MD ENTERED: 10/07/24-14 18 SP TYPE: Surgical OTHR DR: Breanne Andrew MD ORDERED: HE Stain/6, Gross Micro L4/2, Cytokeratin, Synaptophysin, Chromogranin, IHC, Add. immunos/9, IHC ER/MT/Her2N/2, CDX-2, CK7, CK20, Aniyah-3, Ki-67, p63, PAX-8, TTF-1, [id number] Material Received A. Polyp at area of [...] Care Physicians [address] [place], [place] [phone] Nando Goode MD [facility] [address] [place] [address] ------- Signed (si gnature on file) Yony Jackson MD 10/14/24 0746 ------- END OF REPORT Complete Blood Count Auto Di ff Reviewed date:10/15/2024 06:47:16 PM Interpretation: Performing Lab:[facility], [address] [facility], [place] [address] Notes/Report: White Blood Count 8.2 4.8-10.8 X10*3/uL [...] Panel Reviewed date:10/15/2024 06:47:33 PM Interpretation: Performing Lab:[address] [address] Notes/Report: Bilirubin Total 0.4 0.0-1.0 mg/dL Bilirubin Direct 0.1 0.0-0.5 mg/dL Aspartate Amino Transferase 33 5-31 U/L Slight Hemolysis.Interpret result with caution. Alanine Aminotransferase 20 0-31 U/L Total Protein 7.8 6.5-8.0 g/dL Albumin Level 3.8 3.5-5.0 g/dL Alkaline Phosphatase 56 39-117 U/L Basic Metabolic Panel Reviewed date:10/17/2024 06:27:47 PM Interpretation: Performing Lab:[address] [address] Notes/Report: Sodium 139 135-145 mmol/L Potassium 4.9 [...] Antigen Reviewed date:10/15/2024 06:48:29 PM Interpretation: Performing Lab:[facility], [address] [place] [phone] Notes/Report: Carcinoembryonic Antigen 4.20 CEA Reference Range: 93.4% Non-Smokers = 0.0-3.0 ng/mL 95.6% Smokers = 0.0-5.0 ng/mL CEA Methodology: [employer] - [employer] Alinity i Chemiluminescent Microparticle Immunoassay (CMIA) CEA testing can have significant value in monitoring of patients with diagnosed malignancies in whom changing concentrations of CEA are observed. Values obtained with different assay methods cannot be used interchangeably. 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 2 Adenocarcinoma of co alli (C18.9) Referral Organization [facility] Referring Provider First Name Nando [...] MOUTH EVERY DAY Oral for 90 Active Metoprolol Tartrate 25 MG Oral for 90 Active Lantus 100 UNIT/ML as directed Subcutaneous Active Januvia 100 MG 1 tablet Orally Once a day for 30 day(s) Active glipiZIDE ER 10 MG Oral for 90 Active Social History Tobacco Use: Social History Observation Description Date Details (start date - stop date) Former Smoker NA - NA Tobacco Use/Smoking Question Answer Notes Patient is a former smoker How long has it been since you last smoked? 5-10 years AUDIT-C (Standard) Question Answer Notes Did you have a drink containing alcohol in the p ast year? 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 Problem Diverticular disease of colon (062665683) Diverticulosis of large intestine without perforation or abscess without bleeding (K57.30) Active confirmed Problem Malignant neoplasm of colon (129332858) 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 confirmed Problem Abnormal feces (886106570) Positive colorectal cancer screening using Cologuard test (R19.5) Active confirmed Problem Sessile serrated polyp of colon (1236178250) 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 confirmed Vital Signs Blood pressure diastolic 11 mm Hg 03/11/2025 Height 5 ft 1 in in 03/11/2025 Blood pressure systolic 111 mm Hg 03/11/2025 Weight 131 lbs 03/11/2025 BMI 24.75 kg/m2 03/11/2025 Encounters Encounter Location Date Provider Diagnosis [facility] Outpatient [address] [place], [place] [phone] 05/22/2024 Nando Goode Colon polyps K63.5 ; Heme + stool R19.5 ; Diverticulosis of large intestine without perforation or abscess without bleeding K57.30 and Other hemorrhoids K64.8 [facility] Outpatient [address] [place], [place] [phone] 10/07/2024 Nando Goode Colon cancer screeni ng Z12.11 ; Colon polyps K63.5 ; Diverticulosis of large intestine without perforation or abscess without bleeding K57.30 and Other hemorrhoids K64.8 [facility] [address] [place] [address] 03/11/2025 Nando Goode Adenocarcinoma of co alli C18.9 [facility] [address] [place] [address] 10/15/2024 Nando Goode Adenocarcinoma of co alli C18.9 and Malignant poorly differentiated neuroendocrine tumors C7A.1 [facility] [address] [place] [address] 04/03/[address] [facility] [address] [place] [address] 05/27/2024 Nando Rupa Sessile serrated lynn yp of colon D12.6 [facility] [address] [place] [address] 10/15/[address] [facility] [address] [place] [address] 10/15/[address] [facility] [address] [place] [address] 03/11/2025 Nando Goode Assessments Encounter Date Diagnosis (ICD Code) Assessment Notes Treatment Notes Treatment Clinical Notes Section Notes 05/22/2024 Colon polyps (ICD-10 - K63.5) 05/22/2024 Heme + stool (ICD-10 - R19.5) 10/07/2024 Colon cancer screening (ICD-10 - Z12.11) 10/07/2024 Colon polyps (ICD-10 - K63.5) 03/11/2025 Adenocarcinoma of colon (ICD-10 - C18.9) [...] detailed discussion today with Crista and her [id number]-[id number] regarding the recent findings on the colonoscopy [...] with in the interim. Crista and her rnwrll-qg-tac were comfortable with this plan. Thank you [...] detailed discussion today with Crista and her hfahav-tr-its regarding the recent findings on the colonoscopy [...] with in the interim. Crista and her ufelkw-if-fjq were comfortable with this plan. Thank you [...] Name Order Date COLONOSCOPY 02/20/2024 COLONOSCOPY 06/17/2024 Insurance Providers Payer Name Payer Address Payer Phone Subscriber Number Group Number Insured Name Patient Relationship to Insured Coverage Start Date Coverage End Date [facility] [address] Attn Claims [place] [phone] [id number] CRISTA SOTO Self - patient is the insured MEDICAID OF [facility] [address] [place] [address] [phone] [id number] CRISTA SOTO Self - patient is the insured MED[place]ARE OF [place] [address] [place] [address] [id number] CRISTA SOTO Self - patient is the insured Medical (General) History Medical History History ICD Code IDDM -2017 two stents placed Denies CVA,Lung disease,renal disease Colonoscopy before 2013 at [facility] with removal of a polyp GERD Bladder cancer with surgery as below--she is followed by her local urologist, Dr. Jarrett Florence, in [place]. She did have some chemotherapy through a [place] oncologist after her surgery for the bladder [...] She had surgery with Dr. Estevez as below.. Surgical History Surgery Date(Month/Year) Resection of the adenocarcin marbella of the colon-resection of the hepatic flexure and transverse colon by Dr. Estevez. This was a very small and early cancer, T1N0. Seen by Dr. Bruno and she did not think Crista required any other treatments at this time 01/02/2025 BTL REMOVED LEFT SUBMANDIBULAR SALIVARY GLAN D DUE TO INFECTION AT [facility]_ __ _ BLADDER REMOVED FOR CANCER WITH AN ILEAL CONDUIT AND PERMANENT UROSTOMY IN 2019
--- OUTSIDE RECORDS SUMMARY | 2025-03-19 12:18 | XMS_ITS ---
Author Organization [facility] Address [address] [place] [address] Care Team Providers Care Towboat Pilot Name Role Phone Breanne Andrew Primary Care Provider Unavailab Nando Leon [phone] REASON FOR VISIT recall Encounters Encounter Location Date Provider Diagnosis [facility] [address] [place] [address] 03/11/2025 Nando Goode Plan Of Treatment No Information Progress Notes * MONTSERRAT GANDOB:[birth year] (74 yo F)Acc No.[id number]:03/11/2025 Patient:?DONNANANO MONTSERRAT :1950???Age:74 Y???Sex:Female Address:[address] [place] [address], [address] * true * Date:? Generated for Rich waite/Simin/eTransmitting on:?03/19/2025 12:17 PM EDT
== END 2025-03-19 10:41 | disposition home or self-care (01) ==
LOC: HO.HGS 10:27
PROVIDERS: PCP Internal Medicine; Visit Provider Surgery
DX: Z90.49 Acquired absence of other specified parts of digestive tract (principal)
CPT/HCPCS: 99024

== ENCOUNTER → 2025-03-19 10:27 | Outpatient (BNVA) | payer OTHER, SELFPAY | PROVIDERS: PCP Internal Medicine; Visit Provider Surgery | DX: Z08 Encounter for follow-up examination after completed treatment for malignant neoplasm (principal); Z90.49 Acquired absence of other specified parts of digestive tract; Z93.6 Other artificial openings of urinary tract status | CPT/HCPCS: 99212 ==

== ENCOUNTER 2025-05-13 09:20 | Outpatient (REF) | payer OTHER, SELFPAY ==
[2025-05-13 09:48] LABS: MANUAL DIFF FLAG NO
--- OUTSIDE RECORDS SUMMARY | 2025-05-13 10:05 | XMS_ITS ---
Author Organization [facility] Address [address] [place] [address] Care Team Providers Care Oleo Hasher And Renderer Name Role Phone Breanne Andrew Primary Care Provider Unavailab Nando Leon [phone] REASON FOR VISIT recall Encounters Encounter Location Date Provider Diagnosis [facility] [address] [place] [address] 03/11/2025 Nando Goode Plan Of Treatment No Information Progress Notes * MONTSERRAT GANDOB:[birth year] (74 yo F)Acc No.[id number]:03/11/2025 Patient:?MONTSERRAT GAN :1950???Age:74 Y???Sex:Female Address:[address] [place] [address], [address] * true * Date:? Generated for Rich waite/Simin/eTransmitting on:?05/13/2025 10:04 AM EDT
[2025-05-13 10:06] LABS: Basophils Absolute Auto 0.1 X10*3/uL (0.0-0.2); Basophils Percent Auto 0.8 % (0-2); Eosinophils Absolute Auto 0.2 X10*3/uL (0.0-0.4); Eosinophils Percent Auto 2.8 % (0-4); Hematocrit 37.9 % (37.0-47.0); Hemoglobin 11.9 g/dl (12.0-16.0); Imm Gran Abs Auto 0.03 X10*3/uL (0.00-0.03); Imm Gran Pct Auto 0.5 % (0.0-0.4); Lymphocytes Absolute Auto 2.2 X10*3/uL (1.2-4.9); Lymphocytes Percent Auto 36.4 % (20-40); Mean Corpuscular HGB Conc 31.4 g/dl (31.0-35.0); Mean Corpuscular Hemoglobin 24.2 pg (27.0-33.0); Mean Corpuscular Volume 77.2 fL (80.0-98.0); Mean Platelet Volume 9.9 fL (9.4-12.3); Monocytes Absolute Auto 0.5 X10*3/uL (0.1-1.2); Neutrophils Absolute Auto 3.1 x10*3/uL (2.0-8.3); Neutrophils Percent Auto 51.5 % (45-73); Platelet Count 195 X10*3/uL (160-400); Red Blood Count 4.91 X10*6/uL (4.20-5.50); Red Cell Distribution Width 15.7 % (11.0-16.0)
[2025-05-13 10:26] LABS: Estimated Average Glucose 160 mg/dL; Hemoglobin A1C 171.7926 umol/L; Hemoglobin A1c % 7.2 % (<6.0)
[2025-05-13 10:31] LABS: Alanine Aminotransferase 14 U/L (0-31); Alkaline Phosphatase 70 U/L (39-117); Anion Gap 12 (12-20); Aspartate Amino Transferase 25 U/L (5-31); Bilirubin Total 0.4 mg/dL (0.0-1.0); Blood Urea Nitrogen 26 mg/dL (9-16); Calcium 9.4 mg/dL (8.4-10.2); Carbon Dioxide 24 mmol/L (22-29); Chloride 108 mmol/L (96-108); Estimated Glomerular Filt Rate 39; Glucose Random 161 mg/dL (60-115); Sodium 140 mmol/L (135-145); Total Protein 7.9 g/dL (6.5-8.0)
== END 2025-05-13 09:21 | disposition home or self-care (01) ==
LOC: HO.LAB 09:20
PROVIDERS: PCP Internal Medicine; Visit Provider Internal Medicine
DX: Z93.51 Cutaneous-vesicostomy status (principal); E11.65 Type 2 diabetes mellitus with hyperglycemia; F17.210 Nicotine dependence, cigarettes, uncomplicated; I25.10 Atherosclerotic heart disease of native coronary artery without angina pectoris; Z91.81 History of falling
CPT/HCPCS: 36415; 80053; 83036; 85025

== ENCOUNTER 2025-08-11 09:47 | Outpatient (REF) | payer OTHER, SELFPAY ==
--- OUTSIDE RECORDS SUMMARY | 2024-05-22 04:30 | XMS_ITS ---
Author Organization [facility] Address [address] [place] [address] Care Team Providers Care Procurement Inspector Name Role Phone Breanne Andrew Primary Care Provider Unavailab Nando Leon Unavailable [phone] REASON FOR VISIT positive screening colon ca using cologuard Problems Problem Type SNOMED Code ICD Code Onset Dates Problem Status W/U Status Risk Notes Problem Diverticular disease of colon (609220825) Diverticulosis of large intestine without perforation or abscess without bleeding (K57.30) Active confirmed Encounters Encounter Location Date Provider Diagnosis [facility] [place] Out[facility] [address] [place], [place] [id number] 05/22/2024 Nando Goode Colon polyps K63.5 ; [...] * MONTSERRAT GANDOB:[birth year] (75 yo F)Acc No.[id number]:05/22/2024 COLON WITH MAC Patient: Fozia MONTSERRAT CHRIS Provider: Carmita Goode MD :1950 A ge:74 Y S ex:Female Date:05/22/2024 Address:[address] [place] [address] Pcp:Breanne Andrew Subjective: * Chief Complaints: * 1 . Positive screening colon ca using cologuard. * Medical History: Objective: * Vitals: Assessment: * Assessment: 1. C olon polyps - K63.5 (Primary) 2 . H lily + stool - R19.5 ?3. D iverticulosis of large intestine without perforation or abscess without bleeding - K57.30 4 . O ther hemorrhoids - K64.8 Plan: * Treatment: * Procedure Codes: 4 5380 COLONOSCOPY AND BIOPSY * * The named appointment provid er may or may not be the originator of this progress note, and it is not deemed complete until electronically signed by the appointment provider. Sign off status: Pending * Provider: Carmita Goode MD Date: 0 05/22/2024 Generated for Rich waite/Simin/Yvroseitting on: 0 08/11/2025 12:02 PM EDT
--- OUTSIDE RECORDS SUMMARY | 2024-10-07 08:30 | XMS_ITS ---
Author Organization [facility] Address [address] [place] [phone] Care Team Providers Care Pipe Coverer And Insulator Name Role Phone Breanne Andrew Primary Care Provider Unavailab Nando Leon [phone] REASON FOR VISIT sessile serrated polyp colon Encounters Encounter Location Date Provider Diagnosis [facility] [place] Outpatient [address] [place], [place] [phone] 10/07/2024 Nando Goode Colon cancer scree monica [...] * MONTSERRAT GANDOB:[birth year] (75 yo F)Acc No.[id number]:10/07/2024 COLON WITH MAC Patient: MONTSERRAT DAVALOS Provider: Carmita Goode MD :1950 A ge:74 Y S ex:Female Date:10/07/2024 Address:[address] [place] [address] Pcp:Breanne Andrew Subjective: * Chief Complaints: * 1 . Sessile serrated polyp colon. * Medical History: Objective: * Vitals: Assessment: * Assessment: 1. C olon cancer screening - Z12.11 (Primary) 2 . C olon polyps - K63.5? 3. D iverticulosis of large intestine without perforation or abscess without bleeding - K57.30 4 . O ther hemorrhoids - K64.8 Plan: * Treatment: * Procedure Codes: 4 5385 LESION REMOVAL COLONOSCOPY, Modifiers: 33 , 50608 COLONOSCOPE, SUBMUCOUS INJ, Modifiers: 33 , 89411 COLONOSCOPY AND BIOPSY, Modifiers: 59 , 33 * * The named appointment provid er may or may not be the originator of this progress note, and it is not deemed complete until electronically signed by the appointment provider. Sign off status: Pending * Provider: Carmita Goode MD Date: 12/07/2023 Generated for Rich waite/Simin/Yvroseitting on: 0 08/11/2025 12:02 PM EDT
[2025-08-11 10:55] LABS: Hemoglobin A1C 168.6543 umol/L; Total Hemoglobin (HGBA1C) 2955.2349 umol/L
[2025-08-11 11:09] LABS: Alanine Aminotransferase 12 U/L (0-31); Albumin Level 3.9 g/dL (3.5-5.0); Alkaline Phosphatase 74 U/L (39-117); Anion Gap 12 (12-20); Aspartate Amino Transferase 19 U/L (5-31); Blood Urea Nitrogen 30 mg/dL (9-16); Calcium 9.4 mg/dL (8.4-10.2); Carbon Dioxide 24 mmol/L (22-29); Chloride 111 mmol/L (96-108); Estimated Glomerular Filt Rate 32; Potassium 4.9 mmol/L (3.3-5.1); Sodium 142 mmol/L (135-145); Total Protein 7.4 g/dL (6.5-8.0)
--- OUTSIDE RECORDS SUMMARY | 2025-08-11 12:02 | XMS_ITS | Encounter Summary ---
Author Organization [facility] Address [address] [place] [address] Phone Care Team Providers Care Admissions Evaluator Name Role Phone Breanne Andrew MD Primary Care Provider Juana Snyder MD Unavailable [phone] Jarrett Florence MD Unavailable [phone] Reason for Referral * MRI/CAT Scan - Closed Specialty Diagnoses / Procedures Referred By Contac t Referred To Contact Procedures CT Abdomen/Pelvis Outside (No Interpretation) Benny Rubio MD Phone: tel: fax: mailto:[email or web address] Referral ID Status Reason Start Date Expiration Date Visits Re quested Visits Authorized [id number] Closed 08/16/2019 08/15/2020 1 1 Encounter Details Date Type Department Care Team (Late st Contact Info) Description 08/16/2019 Transcribe Orders [facility] [address] [address] Viktor Trejo [address] [place] [phone] [email or web address] Social History Tobacco Use Types Packs/Day Years Used Date Smoking Tobacco: Former Cigarettes 1 50 1 12/09/1967 - 10/09/2018 Smokeless Tobacco: Never Alcohol Use Standard Drinks/Week Comments Not Currently 0 (1 standard drink = 0.6 oz pur e alcohol) none since 2014 Comments No Sex and Gender Information Value Date Recorded Sex Assigned at Not on file Legal Sex Female 11:03 AM EDT Gender Identity Not on file Sexual Orientation Not on file documented as of this encounter Plan of Treatment Not on file documented as of this encounter Results * CT Abdomen/Pelvis Outside (No Interpretation) (08/16/2019 7:35 AM EDT) Narrative SYSTEMGENERATED, DOCUMENTATION - 08/16/2019 7:35 AM EDT This study is for PACS storage only and not for interpretation. Benny Rubio MD IMG OUTSIDE IMAGING W/OUT INT ERPRETATION Final Result documented in this encounter Visit Diagnoses Not on filedocumented in this encounter Care Teams Admissions Evaluator Relationship Specialty Start Date End Date Breanne Andrew MD [address] [place] [address] [facility] [address] [place] [address] PCP - General Internal Medicine 02/27/19 Juana Snyder MD [address] [place] [address] Therapeutic Sales Specialist Cardiology 03/02/22 Jarrett Florence MD [address] [facility] [address] [place] [address] Urology 03/02/22 documented as of this encounter Additional Source Comments The information contained in this document represents components of the legal health record. It is not the complete legal health record.[facility]
--- OUTSIDE RECORDS SUMMARY | 2025-08-11 12:02 | XMS_ITS ---
Author Organization [facility] Address [address] [address] Phone Care Team Providers Care Statistics Intern Name Role Phone Breanne Andrew MD Primary Care Provider Juana Snyder MD Unavailable [phone] Jarrett Florence MD Unavailable [phone] Active Problems Problem Noted Date Diagnosed Date Parastomal hernia of ileal conduit 03/07/2022 Former smoker 03/02/2022 Overview (03/02/2022): quit at time of [place] 09/2018 Carcinoma of bladder 03/06/2019 STEMI (ST elevation myocardial infarction) 09/27 Overview (06/19/2019): 09/2018 with stent x 2 to RCA, occured while inpatient post TURBT Anxiety Bladder cancer Overview (06/19/2019): planned for cystectomy had chemo, ended 05/28/2019 GERD (gastroesophageal reflux disease) Overview (06/19/2019): on meds History of heart artery stent Overview (06/19/2019): to RCA 09/2018 at time of STEMI [place] (hard of hearing) HTN (hypertension) Overview (06/19/2019): on meds Hyperlipidemia Overview (06/19/2019): on meds Port-A-Cath in place Overview (06/19/2019): right chest Current Treatment and Therapy Plans No current plan information found. Past Treatment and Therapy Plans Allergy Therapy Plan Plan Name Start Date Discontinue Date Treatment Medications Discontinue Reason Plan Provider HYDRATIONS 07/31/2019 05/21/2020 No medications scheduled. a. Therapy Complete Karo Skelton, YAAKOV
--- OUTSIDE RECORDS SUMMARY | 2025-08-11 12:02 | XMS_ITS | Clinical Summary ---
Author Organization [facility] Address [address] [place] [address] Phone Care Team Providers Care Scrap Metal Collector Name Role Phone Breanne Andrew MD Primary Care Provider Juana Snyder MD Unavailable [phone] Jarrett Florence MD Unavailable [phone] Allergies No known active allergies Medications rosuvastatin (CRESTOR) 20 MG tablet Take 20 mg by mouth daily. Active escitalopram oxalate (LEXAPRO) 5 MG tablet Take 5 mg by mouth daily. Active aspirin 81 MG EC tablet Take 81 mg by mouth daily. Active naproxen sodium (ALEVE) 220 MG tablet Take 220 mg by mouth every 12 (twelve) hours as needed for pain (specific location in comments). Active acetaminophen (TYLENOL) 500 MG tablet Take 2 tablets (1,000 mg total) by mouth every 6 (six) hours as needed for pain (specific location in comments). 0 9 Active docusate sodium (COLACE) 100 MG capsule Take 1 capsule (100 mg total) by mouth 2 (two) times a day. Take daily - goal of one soft BM daily. Discontinue if you develop diarrhea 30 capsule 9 Active omeprazole (PRILOSEC) 40 MG capsule Take by mouth daily. 2 Active glipiZIDE (GLUCOTROL) 2.5 MG 24 hr tablet Take 2.5 mg by mouth daily. 2 Active metFORMIN (GLUCOPHAGE) 500 MG tablet Take 500 mg by mouth 2 (two) times a day with meals. Active oxyCODONE 5 MG immediate release tablet Take 1 tablet (5 mg total) by mouth every 4 (four) hours as needed. Partial fill ok 20 tablet 2 Active polyethylene glycol (MIRALAX) 17 gram packet Take 17 g by mouth daily. Take daily to prevent constipation. May stop taking if you develop diarrhea 14 packet 2 Active senna (SENOKOT) 8.6 mg tablet Take 1 tablet by mouth 2 (two) times a day. Take daily to prevent constipation. May discontinue if you develop diarrhea 30 tablet 2 Active Active Problems Problem Noted Date Diagnosed Date Parastomal hernia of ileal conduit 03/07/2022 Former smoker 03/02/2022 Overview (03/02/2022): quit at time of [place] 09/2018 Carcinoma of bladder 03/06/2019 STEMI (ST elevation myocardial infarction) 09/27 Overview (06/19/2019): 09/2018 with stent x 2 to RCA, occured while inpatient post TURBT Anxiety Bladder cancer Overview (06/19/2019): planned for cystectomy had chemo, ended 05/28/2019 GERD (gastroesophageal reflux disease) Overview (06/19/2019): on meds History of heart artery stent Overview (06/19/2019): to RCA 09/2018 at time of STEMI [place]hard of [place]) HTN (hypertension) Overview (06/19/2019): on meds Hyperlipidemia Overview (06/19/2019): on meds Port-A-Cath in place Overview (06/19/2019): right chest Immunizations Immunization Administration Dates Next Due Pneumococcal conjugate PCV13 07/16/2019(Deferred : Patient Refused) Social History Tobacco Use Types Packs/Day Years Used Date Smoking Tobacco: Former Cigarettes 1 50 1 12/09/1967 - 10/09/2018 Smokeless Tobacco: Never Tobacco Cessation:Counseling Given: No Alcohol Use Standard Drinks/Week Comments Not Currently 0 (1 standard drink = 0.6 oz pur e alcohol) none since 2014 Education Answer Date Recorded Are you interested in more education? Not on pancho e 03/24/2023 Are you concerned about learning? Not on file 03/24/2023 No 03/24/2023 No 03/24/2023 Digital Access Answer Date Recorded No 04/22/2023 No 04/22/2023 No 04/22/2023 Reliable internet access at home? Not on file 04/22/2023 Device with a working camera? Not on file Comments No Sex and Gender Information Value Date Recorded Sex Assigned at Not on file Legal Sex Female 11:03 AM EDT Gender Identity Not on file Sexual Orientation Not on file Last Filed Vital Signs Vital Sign Reading Time Taken Comments Blood Pressure 120/62 03/13/2022 8:22 AM EDT Pulse 94 03/13/2022 8:22 AM EDT Temperature 36.4 C (97.6 F) 03/13/2022 8:22 AM EDT Respiratory Rate 18 03/13/2022 8:22 AM EDT Oxygen Saturation 92% 03/13/2022 8:22 AM EDT Inhaled Oxygen Concentration - - Weight 59 kg (130 lb) 03/07/2022 11:00 PM EDT Height 154.9 cm (5' 0.98 ) 03/07/2022 11:00 PM E DT Body Mass Index 24.58 03/07/2022 11:00 PM EDT Plan of Treatment Health Maintenance Due Date Last Done Comments Adult Td,Tdap Booster 1949 BLOOD PRESSURE 1949 LIPID PANEL 1949 DEPRESSION SCREENING 1961 SMOKING Hx and SMOKELESS TOBACCO SCREENING 1962 HEPATITIS C SCREENING 1967 PNEUMOCOCCAL VACCINES (50+ years) (1 of 2 - PCV) 1968 ZOSTER VACCINES (1 of 2) 1968 OSTEOPOROSIS SCREENING INITIAL (ONE-TIME) 2014 CREATININE LEVEL 03/10/2023 03/10/2022, , 03/08/2022, Additional history exists RSV VACCINE (1 - 1-dose 75+ series) 2024 INFLUENZA VACCINE (#1) 2025 10/09/2021, 2019 COVID-19 VACCINE ( season) 2025 03/16/2021, 01/28/2021, 01/07/2021 HEPATITIS A VACCINES Aged Out No long er eligible based on patient's age to complete this topic HIB VACCINES Aged Out No longer eligi ble based on patient's age to complete this topic MENINGOCOCCAL VACCINES (ACWY) Aged Out No longer eligible based on patient's age to complete this topic MENINGOCOCCAL VACCINES (B) Aged Out N o longer eligible based on patient's age to complete this topic Medical Devices Implanted Type Area Steel Division Supervisor Device Identifier Shelf Expiration Date Model / Serial / Lot Port Port Right: Chest Mesh Synthetic 6.0 Marie Abdominal Non Absorbable Square Polypropylene Bx/6ea - [id number] Implanted:Qty: 1 on 03/07/2022 by Benny Rubio MD at [facility] STANDARD JNJ ETHICON / DIVISION OF J [id number] 10/26/2026 [id number] / / [id number] Stent Diversion 7fr 90cm X2 Ureteral Single J Guidewire Ptfe .028 120cm Silicone - [id number] Implanted:Qty: 1 on 07/15/2019 by Benny Rubio MD at [facility] Ureteral Stent OLYMPUS CARROLL 11/28/2023 [id number] / / [id number] Procedures Procedure Name Priority Date/Time Associated Diagnosis Comments BASIC METABOLIC PANEL Routine 03/10/2022 6:39 AM EDT from Last 3 Months or Most Recently Relevant to Health Maintenance Results * (ABNORMAL) Basic metabolic panel (03/10/2022 6:39 AM EDT) SODIUM 138 136 - 145 mmol/L [facility] POTASSIUM 3.8 3.4 - 5.1 mmol/L [facility] CHLORIDE 104 98 - 107 mmol/L [facility] CO2 22 22 - 31 mmol/L [facility] BUN 15 6 - 23 mg/dL [facility] CREATININE 1.05 0.50 - 1.20 mg/dL [facility] GLUCOSE 126(H) 70 - 100 mg/dL [facility] CALCIUM 8.6(L) 8.8 - 10.7 mg/dL [facility] EGFR 56(L) >59 mL/min/1.7 3m2 [facility] Comment:Estimated glomerular filtration rate calculated using the CKD-EPI refit equation. ANION GAP 12 7 - 17 mmol/L [facility] Blood 03/10/2022 6:39 AM EDT 03/10/2022 8:49 AM EDT us Jocelin Drummond PA-C LAB BLOOD ORDERABLES Fin al Result Performing Organization Address City/State/[facility] [[email or web address]] Co de Phone Number [facility] [address] [place] [address] from Last 3 Months or Most Recently Relevant to Health Maintenance Insurance [place] [id number] [facility] MEDICARE REPLACEMENT [place] [id number] MEDICARE PART A & B MEDICARE [place]PLACEMENT [place] [address] MEDICARE PART A & B Member Subscriber Plan / Payer ( fective 2017-Present) Name:Mitawilliams Crista Member ID:[id number] Relation to Subscriber:Self Name:Crista Boyd Subscriber ID:[id number] Payer ID:[id number] Group ID:Not on file Type:Medicare Address: [employer] [address] MEDICARE REPLACEMENT MEDICARE PART A & B [employer] MEDICARE REPLACEMENT MEDICARE PART A & B [employer] MEDICARE REPLACEMENT MEDICARE PART A & B [facility] MEDICARE REPLACEMENT MEDICARE PART A & B Member Subscriber Plan / Payer (Ef fective 2017-Present) Name:Mitawilliams Crista Member ID:[id number] Relation to Subscriber:Self Name:MitailenCrista busch Subscriber ID:[id number] Payer ID:[id number] Group ID:Not on file Type:Medicare Address: [facility] [address] [place] [address] [place] [address] MEDICARE REPLACEMENT MEDICARE PART A & B MEDICARE REPLACEMENT [place] [id number] MEDICARE PART A & B [facility] REPLACEMENT [place] [facility] Advance Directives For more information, please contact: [phone] (9AM - 5PM [facility], Monday-Monday) * Full Code (Presumed) (Latest Code Status on File) Date Activated Date Inactivated Comments 07/15/2019 10:43 PM 07/24/2019 3:37 PM * Full Code (Presumed) Date Activated Date Inactivated Comments 07/15/2019 1:19 PM 07/15/2019 10:43 PM Healthcare Agents on File Name Relationship Healthcare Agent [facility] p Communication Jailene Trinh Relative .Primary Health Care Agent (Proxy form on file) Care Teams Scrap Metal Collector Relationship Specialty Start Date End Date Breanne Andrew MD [address] [place] [address] [place] [address] PCP - General Internal Medicine 02/27/19 Juana Snyder MD [address] [place] [address] [email or web address] Lollypop Machine Operator Cardiology 03/02/22 Jarrett Florence MD [address] [place] [address] Urology 03/02/22 Additional Source Comments The information contained in this document represents components of the legal health record. It is not the complete legal health record.[facility]
--- OUTSIDE RECORDS SUMMARY | 2025-08-11 12:02 | XMS_ITS | Encounter Summary ---
Author Organization [facility] Address [address] [place] [address] Phone Care Team Providers Care School Manager Name Role Phone Breanne Andrew MD Primary Care Provider Juana Snyder MD Unavailable [phone] Jarrett Florence MD Unavailable [phone] Encounter Details Date Type Department Care Team (Late st Contact Info) Description 07/15/2019 Procedure Pass [facility] Periop [address] [place] [address] Social History Tobacco Use Types Packs/Day Years [...] on file documented as of this encounter Visit Diagnoses Not on filedocumented in this encounter Care Teams School Manager Relationship Specialty Start Date End Date Breanne Andrew MD [address] [place] [address] [place] [address] PCP - General Internal Medicine 02/27/19 Juana Snyder MD [address] [place] [address] [email or web address] Poll Watcher Cardiology 03/02/22 Jarrett [place] MD [address] [facility] [address] [place] [address] Urology 03/02/22 documented as of this encounter Additional Source Comments The information contained in this document represents components of the legal health record. It is not the complete legal health record.[facility]
--- OUTSIDE RECORDS SUMMARY | 2025-08-11 12:02 | XMS_ITS | Encounter Summary ---
Author Organization [facility] Address [address] [place] [address] Phone Care Team Providers Care Flexboard Operator Name Role Phone Breanne Andrew MD Primary Care Provider Juana Snyder MD Unavailable [phone] Jarrett Florence MD Unavailable [phone] Encounter Details Date Type Department Care Team (Late st Contact Info) Description 02/28/2022 Procedure Pass [facility], Ct Scan - [address] [address] Social History Tobacco Use Types Packs/Day Years [...] on filedocumented in this encounter Care Teams Flexboard Operator Relationship Specialty Start Date End Date Breanne Andrew MD [address] [place] [address] [place] [address] PCP - General Internal Medicine 02/27/19 Juana Snyder MD [address] [place] [address] [email or web address] Grinder And Honer Operator Automatic Cardiology 03/02/22 Jarrett Florence MD [address] [facility] [address] [place] [address] Urology 03/02/22 documented as of this encounter Additional Source Comments The information contained in this document represents components of the legal health record. It is not the complete legal health record.[facility]
--- OUTSIDE RECORDS SUMMARY | 2025-08-11 12:02 | XMS_ITS | Encounter Summary ---
Author Organization [facility] Address [address] [place] [address] Phone Care Team Providers Care Corporate Communications Specialist Name Role Phone Breanne Andrew MD Primary Care Provider Juana Snyder MD Unavailable [phone] Jarrett Florence MD Unavailable Encounter Details Date Type Department Care Team (Late st Contact Info) Description 06/19/2019 Transcribe Orders [facility] EKG [address] [place] [address] Benny Rubio MD [address] [place] [address] [address] [place] [address] [email or web address] Pre-op exam Social History Tobacco Use Types Packs/Day Years Used Date Smoking Tobacco: Former Cigarettes 1 50 1 12/09/1967 - 10/09/2018 Smokeless Tobacco: Never Alcohol Use Standard Drinks/Week Comments Not Currently 0 (1 standard drink = 0.6 oz pur e alcohol) none since 2014 Comments Unknown Sex and Gender Information Value Date Recorded Sex Assigned at Not on file Legal Sex Female 11:03 AM EDT Gender Identity Not on file Sexual Orientation Not on file documented as of this encounter Functional Status documented as of this encounter Plan of Treatment Not on file documented as of this encounter Procedures Procedure Name Priority Date/Time Associated Diagnosis Comments ECG 12-LEAD Routine 06/19/2019 1:17 PM EDT Pre-op exam documented in this encounter Results * ECG 12-LEAD (06/19/2019 1:17 PM EDT) Ventricular Rate EKG/MIN 66 BPM [facility] Atrial Rate 66 BPM [facility] HI Interval 146 ms [facility] QRS Duration 80 ms [facility] QT Interval 426 ms [facility] QTC Interval 446 ms [facility] P [place] 53 degrees [facility] R Wave [place] 38 degrees [facility] T Wave [place] 46 degrees [facility] 06/19/2019 1:17 PM EDT Narrative [facility] - 10/09/2019 9:17 PM EST Normal sinus rhythm Septal infarct , age undetermined Abnormal ECG No previous ECGs available Benny Rubio MD ECG ORDERABLES Final Result [facility] documented in this encounter Visit Diagnoses Diagnosis Pre-op exam documented in this encounter Care Teams Corporate Communications Specialist Relationship Specialty Start Date End Date Breanne Andrew MD [address] [place] [address] Dr Andino [address] [place] [address] PCP - General Internal Medicine 02/27/19 Juana Snyder MD [address] [place] [address] Trapeze Artist Cardiology 03/02/22 Jarrett Florence MD 100 [facility] [address] [place] [address] Urology 03/02/22 documented as of this encounter Additional Source Comments The information contained in this document represents components of the legal health record. It is not the complete legal health record.[facility]
--- OUTSIDE RECORDS SUMMARY | 2025-08-11 12:02 | XMS_ITS | Patient Health Record ---
Author Organization [facility] Address [address] [place] [address] Care Team Providers Care Agriculture Extension Specialist Name Role Phone Tikidwayne Breanne Primary Care Provider Unavailab Nando Leon Unavailable [phone] Allergies No Known Allergies Results Component Value Reference Range Notes Glucose, Whole Blood Reviewed date:10/07/2024 11:23:09 PM Interpretation: Performing Lab:[facility], [address] [place] [phone] Notes/Report: Glucose, Whole Blood 163 60-115 mg/dL METER # : [id number] Pathology Reviewed date:10/15/2024 07:52:02 PM Interpretation: Performing Lab:[facility], [address] [place] [phone] Notes/Report: Complete Blood Count Auto Di ff Reviewed date:10/15/2024 06:47:16 PM Interpretation: Performing Lab:[facility], [address] [place] [phone] Notes/Report: White Blood Count 8.2 4.8-10.8 X10*3/uL [...] Panel Reviewed date:10/15/2024 06:47:33 PM Interpretation: Performing Lab:[address] [address] Notes/Report: Bilirubin Total 0.4 0.0-1.0 mg/dL Bilirubin Direct 0.1 0.0-0.5 mg/dL Aspartate Amino Transferase 33 5-31 U/L Slight Hemolysis.Interpret result with caution. Alanine Aminotransferase 20 0-31 U/L Total Protein 7.8 6.5-8.0 g/dL Albumin Level 3.8 3.5-5.0 g/dL Alkaline Phosphatase 56 39-117 U/L Basic Metabolic Panel Reviewed date:10/17/2024 06:27:47 PM Interpretation: Performing Lab:[address] [address] Notes/Report: Sodium 139 135-145 mmol/L Potassium 4.9 [...] Antigen Reviewed date:10/15/2024 06:48:29 PM Interpretation: Performing Lab:[facility], [address] [place] [phone] Notes/Report: Carcinoembryonic Antigen 4.20 CEA Reference Range: 93.4% Non-Smokers = 0.0-3.0 ng/mL 95.6% Smokers = 0.0-5.0 ng/mL CEA Methodology: [employer] i Chemiluminescent Microparticle Immunoassay (CMIA) CEA testing can have significant value in monitoring of patients with diagnosed malignancies in whom changing concentrations of CEA are observed. Values obtained with different assay methods cannot be used interchangeably. 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 Problem Diverticular disease of colon (295067039) Diverticulosis of large intestine without perforation or abscess without bleeding (K57.30) Active confirmed Problem Malignant neoplasm of colon (268855747) 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 confirmed Problem Abnormal feces (570276681) Positive colorectal cancer screening using Cologuard test (R19.5) Active confirmed Problem Sessile serrated polyp of colon (0637114622) 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 confirmed Vital Signs Blood pressure diastolic 11 mm Hg 03/11/2025 Height 5 ft 1 in in 03/11/2025 Blood pressure systolic 111 mm Hg 03/11/2025 Weight 131 lbs 03/11/2025 BMI 24.75 kg/m2 03/11/2025 Encounters Encounter Location Date Provider Diagnosis [facility] Outpatient [address] [place] [id number] 10/07/2024 Nando Goode Colon cancer screeni ng Z12.11 ; Colon polyps K63.5 ; Diverticulosis of large intestine without perforation or abscess without bleeding K57.30 and Other hemorrhoids K64.8 [facility] [address] [place] [phone] 10/15/2024 Nando Goode Adenocarcinoma of co alli C18.9 and Malignant poorly differentiated neuroendocrine tumors C7A.1 [facility] [address] [place] [phone] 03/11/2025 Nando Goode Adenocarcinoma of co alli C18.9 [facility] [address] [place] [phone] 10/15/2024 Nando Goode [facility] [address] [place] [phone] 10/15/2024 Nando Goode [facility] [address] [place] [phone] 03/11/2025 Nando Goode Assessments Encounter Date Diagnosis (ICD Code) Assessment Notes Treatment Notes Treatment Clinical Notes Section Notes 10/07/2024 Colon cancer screening (ICD-10 - Z12.11) 10/07/2024 Colon polyps (ICD-10 - K63.5) 10/15/2024 Malignant poorly differentiated neuroendocrine tumors (ICD-10 - C7A.1) I had a detailed discussion today with Crista and her [id number] regarding the recent findings on the colonoscopy [...] with in the interim. Crista and her [id number] were comfortable with this plan. Thank you [...] detailed discussion today with Crista and her afjnzw-[id number] regarding the recent findings on the colonoscopy [...] with in the interim. Crista and her [id number] were comfortable with this plan. Thank you again for allowing me to participate in Crista's care. I shall continue to keep you advised of her progress. 03/11/2025 Adenocarcinoma of colon (ICD-10 - C18.9) [...] in 2023. I do not think she needs a colonoscopy this year. If things otherwise [...] to keep you advised of her progress. 10/07/2024 Diverticulosis of large intestine without perforation [...] [facility] [address] Attn Claims [place] [address] [phone] [id number] KRYSTAL CRISTA Arenas Self - patient is the insured MEDICAID OF [facility] [address] [place] [address] [phone] [id number] ELOCRISTA Hernandez Self - patient is the insured MEDICARE OF [place] [address] [place] [address] [phone] [id number] ZOFIAJeffyCRISTA Hernandez Self - patient is the insured Medical (General) History Medical History History ICD Code IDDM two stents placed Denies CVA,Lung disease,renal disease Colonoscopy before 2013 at [facility] with removal of a polyp GERD Bladder cancer with surgery as below--she is followed by her local urologist, Dr. Jarrett [place], in [place]. She did have some chemotherapy through a [place] oncologist after her surgery for the bladder [...] SALIVARY GLAN D DUE TO INFECTION AT [facility]_ __ _ BLADDER REMOVED FOR CANCER WITH AN ILEAL CONDUIT AND PERMANENT UROSTOMY IN 2019
--- OUTSIDE RECORDS SUMMARY | 2025-08-11 12:02 | XMS_ITS | Encounter Summary ---
Author Organization [facility] Address [address] [place] [address] Phone Care Team Providers Care Checkout Operator Name Role Phone Breanne Andrew MD Primary Care Provider Juana Snyder MD Unavailable [phone] Jarrett Florence MD Unavailable [phone] Encounter Details Date Type Department Care Team (Late st Contact Info) Description 03/07/2022 Procedure Pass [facility] Periop [address] [place] [address] Social History Tobacco Use Types Packs/Day Years [...] documented as of this encounter Functional Status * Calculated C-SSRS Risk Score (Lifetime/Recent) Answer Date of Assessment Author No Risk Indicated 03/07/2022 11:00 PM EDT Bertha Govea RN * [place] Suicide Severity Rating Scale (Screener/Recent Self-Report) Question Answer Date of Assessment Author 1. Wish to be (Past 1 Month) No 022 11:00 PM EDT Bertha Govea RN 2. Non-Specific Active Suici julio Thoughts (Past 1 Month) No 03/07/2022 11:00 PM EDT Neto Govea RN 6. Suicidal Behavior (Lifetime) No 11:00 PM EDT Bertha Govea RN documented as of this encounter Plan of Treatment Not on file documented as of this encounter Visit Diagnoses Not on filedocumented in this encounter Care Teams Checkout Operator Relationship Specialty Start Date End Date Breanne Andrew MD [address] [place] [address] PCP - General Internal Medicine 02/27/19 Juana Snyder MD [address] [place] [address] [email or web address] Occupational Therapist Per Diem Cardiology 03/02/22 Jarrett Florence MD [address] [address] Urology 03/02/22 documented as of this encounter Additional Source Comments The information contained in this document represents components of the legal health record. It is not the complete legal health record.[facility]
== END 2025-08-11 09:48 | disposition home or self-care (01) ==
LOC: HO.LAB 09:47
PROVIDERS: PCP Internal Medicine; Visit Provider Internal Medicine
DX: F32.5 Major depressive disorder, single episode, in full remission (principal); I10 Essential (primary) hypertension; Z85.038 Personal history of other malignant neoplasm of large intestine; Z13.1 Encounter for screening for diabetes mellitus
CPT/HCPCS: 36415; 80053; 83036

== ENCOUNTER 2025-11-11 12:27 | Outpatient (REF) | payer OTHER, SELFPAY ==
--- OUTSIDE RECORDS SUMMARY | 2024-05-22 03:30 | XMS_ITS ---
Author Organization [facility] Address [address] [place] [address] Care Team Providers Care Transverse Abdominal Muscle Nurse Name Role Phone Breanne Andrew Primary Care Provider Unavailab Nando Leon Unavailable [phone] REASON FOR VISIT positive screening colon ca using cologuard Problems Problem Type SNOMED Code ICD Code Onset Dates Problem Status W/U Status Risk Notes Problem Diverticular disease of colon (787861115) Diverticulosis of large intestine without perforation or abscess without bleeding (K57.30) Active confirmed Encounters Encounter Location Date Provider Diagnosis [facility] [place] [address] [place], [place] [id number] 05/22/2024 Nando Goode Colon polyps K63.5 ; Heme + stool R19.5 ; Diverticulosis of large intestine without perforation or abscess without bleeding K57.30 and Other hemorrhoids K64.8 Assessments Encounter Date Diagnosis (ICD Code) Assessment Notes Treatment Notes Treatment Clinical Notes Section Notes 05/22/2024 Colon polyps (ICD-10 - K63.5) 05/22/2024 Heme + stool (ICD-10 - R19.5) 05/22/2024 Diverticulosis of large intestine without perforation or abscess without bleeding (ICD-10 - K57.30) 05/22/2024 Other hemorrhoids (ICD-10 - K64.8) Plan Of Treatment No Information Progress Notes * MONTSERRAT GANDOB:[birth year] (75 yo F)Acc No.[id number]:05/22/2024 COLON WITH MAC Patient: Fozia MONTSERRAT CHRIS Provider: Carmita Goode MD :1950 A ge:74 Y S ex:Female Date:05/22/2024 Address:[address] [place] [address], [facility] Pcp:Breanne Andrew Subjective: * Chief Complaints: * P ositive screening colon ca using cologuard Assessment: * Assessment: 1. C olon polyps - K63.5 (Primary) 2 . H lily + stool - R19.5 ?3. D iverticulosis of large intestine without perforation or abscess without bleeding - K57.30 4 . O ther hemorrhoids - K64.8 Plan: * Procedure Codes: 4 5380 COLONOSCOPY AND BIOPSY Billing Information: * Procedure Codes: 32056 COLONOSCOPY AND BIOPSY. * The named appointment provid er may or may not be the originator of this progress note, and it is not deemed complete until electronically signed by the appointment provider. Sign off status: Pending * Provider: Carmita Goode MD Date: 0 05/22/2024 Generated for Rich waite/Simin/Kareemsmitting on: 1 01/12/2025 04:16 PM EST
--- OUTSIDE RECORDS SUMMARY | 2024-10-07 07:30 | XMS_ITS ---
Author Organization [facility] Address [address] [place] [address] Care Team Providers Care Weight Loss Centre Manager Name Role Phone Breanne Andrew Primary Care Provider Unavailab Nando Leon [phone] REASON FOR VISIT sessile serrated polyp colon Encounters Encounter Location Date Provider Diagnosis [facility] Outpatient [address] [place], [place] [phone] 10/07/2024 Nando Goode Colon cancer scree monica Z12.11 ; Colon polyps K63.5 ; Diverticulosis of large intestine without perforation or abscess without bleeding K57.30 and Other hemorrhoids K64.8 Assessments Encounter Date Diagnosis (ICD Code) Assessment Notes Treatment Notes Treatment Clinical Notes Section Notes 10/07/2024 Colon cancer screening (ICD-10 - Z12.11) 10/07/2024 Colon polyps (ICD-10 - K63.5) 10/07/2024 Diverticulosis of large intestine without perforation or abscess without bleeding (ICD-10 - K57.30) 10/07/2024 Other hemorrhoids (ICD-10 - K64.8) Plan Of Treatment No Information Progress Notes * MONTSERRAT GANDOB:[birth year] (75 yo F)Acc No.[id number]:10/07/2024 COLON WITH MAC Patient: MONTSERRAT DAVALOS Provider: Carmita Goode MD :1950 A ge:74 Y S ex:Female Date:10/07/2024 Address:[address] [place] [address] Pcp:Breanne Andrew Subjective: * Chief Complaints: * S essile serrated polyp colon Assessment: * Assessment: 1. C olon cancer screening - Z12.11 (Primary) 2 . C olon polyps - K63.5? 3. D iverticulosis of large intestine without perforation or abscess without bleeding - K57.30 4 . O ther hemorrhoids - K64.8 Plan: * Procedure Codes: 4 5385 LESION REMOVAL COLONOSCOPY, Modifiers: 33 18046 COLONOSCOPE, SUBMUCOUS INJ, Modifiers: 33 86713 COLONOSCOPY AND BIOPSY, Modifiers: 59 , 33 Billing Information: * Procedure Codes: 55484 LESION REMOVAL COLONOSCOPY. Modifiers: 33 42873 COLONOSCOPE, SUBMUCOUS INJ. Modifiers: 33 63774 COLONOSCOPY AND BIOPSY. Modifiers: 59, 33 * The named appointment provid er may or may not be the originator of this progress note, and it is not deemed complete until electronically signed by the appointment provider. Sign off status: Pending * Provider: Carmita Goode MD Date: 12/07/2023 Generated for Rich waite/Simin/Yvroseitting on: 01/12/2025 04:16 PM EST
[2025-11-11 12:49] LABS: MANUAL DIFF FLAG NO
[2025-11-11 13:47] LABS: Hematocrit 40.0 % (37.0-47.0); Hemoglobin 12.2 g/dl (12.0-16.0); Imm Gran Abs Auto 0.03 X10*3/uL (0.00-0.03); Imm Gran Pct Auto 0.4 % (0.0-0.4); Lymphocytes Absolute Auto 2.9 X10*3/uL (1.2-4.9); Mean Corpuscular HGB Conc 30.5 g/dl (31.0-35.0); Mean Corpuscular Hemoglobin 24.7 pg (27.0-33.0); Mean Corpuscular Volume 81.1 fL (80.0-98.0); NRBC Abs Auto 0.000 X10*3/uL (0.0-0.012); NRBC Pct Auto 0.0 /100WBC (0.0-0.2); Platelet Count 210 X10*3/uL (160-400); Red Blood Count 4.93 X10*6/uL (4.20-5.50); White Blood Count 7.8 X10*3/uL (4.8-10.8)
[2025-11-11 14:06] LABS: Alanine Aminotransferase 20 U/L (0-31); Albumin Level 4.1 g/dL (3.5-5.0); Alkaline Phosphatase 78 U/L (39-117); Anion Gap 10 (12-20); Aspartate Amino Transferase 26 U/L (5-31); Blood Urea Nitrogen 25 mg/dL (9-16); Calcium 9.5 mg/dL (8.4-10.2); Carbon Dioxide 26 mmol/L (22-29); Chloride 104 mmol/L (96-108); Cholesterol 147 mg/dL (<200); Estimated Glomerular Filt Rate 35; HDL Cholesterol 37 mg/dL (>40); Potassium 4.8 mmol/L (3.3-5.1); Sodium 135 mmol/L (135-145); Total Protein 7.8 g/dL (6.5-8.0); Triglycerides 177 mg/dL (<150)
[2025-11-11 14:17] LABS: Microalbum/Creatinine Ratio Ur 101.4 ug/mg cr (<30)
--- OUTSIDE RECORDS SUMMARY | 2025-11-11 16:16 | XMS_ITS | Encounter Summary ---
Author Organization [facility] Address [address] [place] [address] Phone Care Team Providers Care Civil Engineering Specialist Name Role Phone Breanne Andrew MD Primary Care Provider Juana Snyder MD Unavailable [phone] Jarrett Florence MD Unavailable [phone] Encounter Details Date Type Department Care Team (Late st Contact Info) Description 07/15/2019 Procedure Pass [facility] Periop [address] [place] [address] Social History Tobacco Use Types Packs/Day Years [...] on filedocumented in this encounter Care Teams Civil Engineering Specialist Relationship Specialty Start Date End Date Breanne Andrew MD [address] [place] [address] [place] [address] PCP - General Internal Medicine 02/27/19 Juana Snyder MD [address] [place] [address] [email or web address] Utility Assembler Cardiology 03/02/22 Jarrett Florence MD 100 [address] [facility] [address] [place] [address] Urology 03/02/22 documented as of this encounter Additional Source Comments The information contained in this document represents components of the legal health record. It is not the complete legal health record.[facility]
--- OUTSIDE RECORDS SUMMARY | 2025-11-11 16:16 | XMS_ITS | Encounter Summary ---
Author Organization [facility] Address [address] [place] [address] Phone Care Team Providers Care Blasting Cap Assembler Name Role Phone Breanne Andrew MD Primary Care Provider Juana Snyder MD Unavailable [phone] Jarrett Florence MD Unavailable [phone] Encounter Details Date Type Department Care Team (Late st Contact Info) Description 02/28/2022 Procedure Pass [facility] Ct Scan - [address] [address] Social History Tobacco Use Types Packs/Day Years [...] on filedocumented in this encounter Care Teams Blasting Cap Assembler Relationship Specialty Start Date End Date Breanne Andrew MD [address] [place] [address] [place] [address] PCP - General Internal Medicine 02/27/19 Juana Snyder MD [address] [place] [address] [email or web address] Ship Rigger Cardiology 03/02/22 Jarrett Florence MD 100 [address] [facility] 120 [place] [address] Urology 03/02/22 documented as of this encounter Additional Source Comments The information contained in this document represents components of the legal health record. It is not the complete legal health record.[facility]
--- OUTSIDE RECORDS SUMMARY | 2025-11-11 16:16 | XMS_ITS | Encounter Summary ---
Author Organization [facility] Address [address] [place] [address] Phone Care Team Providers Care Translator Interpreter Name Role Phone Breanne Andrew MD Primary Care Provider Juana Snyder MD Unavailable [phone] Jarrett Florence MD Unavailable [phone] Reason for Referral * MRI/CAT Scan - Closed Specialty Diagnoses / Procedures Referred By Contac t Referred To Contact Procedures CT Abdomen/Pelvis Outside (No Interpretation) Benny Rubio MD Phone: tel: fax: [email or web address] Referral ID Status Reason Start Date Expiration Date Visits Re quested Visits Authorized [id number] Closed 08/16/2019 08/15/2020 1 1 Encounter Details Date Type Department Care Team (Late st Contact Info) Description 08/16/2019 Transcribe Orders [facility] [address] [address] Viktor Trejo [address] [place] [address] [email or web address] Social History Tobacco Use Types Packs/Day Years [...] on filedocumented in this encounter Care Teams Translator Interpreter Relationship Specialty Start Date End Date Breanne Andrew MD [address] [place] [address] [facility] [address] [place] [address] PCP - General Internal Medicine 02/27/19 Juana Snyder MD [address] [place] [address] Trauma Doctor Cardiology 03/02/22 Jarrett Florence MD 100 [facility] 120 [place] [address] Urology 03/02/22 documented as of this encounter Additional Source Comments The information contained in this document represents components of the legal health record. It is not the complete legal health record.[facility]
--- OUTSIDE RECORDS SUMMARY | 2025-11-11 16:16 | XMS_ITS | Encounter Summary ---
Author Organization [facility] Address [address] [place] [address] Phone Care Team Providers Care Brick Maker Name Role Phone Breanne Andrew MD Primary Care Provider Juana Snyder MD Unavailable [phone] Jarrett Florence MD Unavailable [phone] Encounter Details Date Type Department Care Team (Late st Contact Info) Description 06/19/2019 Transcribe Orders [facility] EKG 70 [place] [address] Benny Rubio MD [address] [place] [address] 113 [place] [address] [email or web address] Pre-op exam Social History Tobacco Use Types [...] BPM [facility] Atrial Rate 66 BPM [facility] FL Interval 146 ms [facility] QRS Duration 80 ms [facility] QT Interval 426 ms [facility] QTC Interval 446 ms [facility] P [place] 53 degrees [facility] R Wave [place] 38 degrees [facility] T Wave [place] 46 degrees [facility] 06/19/2019 1:17 PM EDT Narrative [facility] - 10/09/2019 9:17 PM EST Normal sinus rhythm Septal infarct , age undetermined Abnormal ECG No previous ECGs available Benny Rubio MD ECG ORDERABLES Final Result [facility] documented in this encounter Visit Diagnoses Diagnosis Pre-op exam documented in this encounter Care Teams Brick Maker Relationship Specialty Start Date End Date Breanne Andrew MD [address] [place] [address] Dr Andino [address] [place] [address] PCP - General Internal Medicine 02/27/19 Juana Snyder MD [address] [place] [address] Procurement Coordinator Cardiology 03/02/22 Jarrett Florence MD 100 [facility] 120 [place] [address] Urology 03/02/22 documented as of this encounter Additional Source Comments The information contained in this document represents components of the legal health record. It is not the complete legal health record.[facility]
--- OUTSIDE RECORDS SUMMARY | 2025-11-11 16:16 | XMS_ITS | Encounter Summary ---
Author Organization [facility] Address [address] [place] [address] Phone Care Team Providers Care Paper Sheeter Name Role Phone Breanne Andrew MD Primary Care Provider Juana Snyder MD Unavailable [phone] Jarrett Florence MD Unavailable [phone] Encounter Details Date Type Department Care Team (Late st Contact Info) Description 03/07/2022 Procedure Pass [facility] Periop [address] [place] [address] Social History Tobacco Use Types Packs/Day Years [...] 11:00 PM EDT Bertha Govea RN * [place] Suicide Severity Rating Scale (Screener/Recent Self-Report) Question [...] on filedocumented in this encounter Care Teams Paper Sheeter Relationship Specialty Start Date End Date Breanne Andrew MD [address] [place] [phone] PCP - General Internal Medicine 02/27/19 Juana Snyder MD [address] [place] [address] [email or web address] Rug Dyer Helper Cardiology 03/02/22 Jarrett Florence MD [address] [address] Urology 03/02/22 documented as of this encounter Additional Source Comments The information contained in this document represents components of the legal health record. It is not the complete legal health record.[facility]
--- OUTSIDE RECORDS SUMMARY | 2025-11-11 16:16 | XMS_ITS | Clinical Summary ---
Author Organization [facility] Address [address] [place] [address] Phone Care Team Providers Care Roll Examiner Name Role Phone Breanne Andrew MD Primary Care Provider Juana Snyder MD Unavailable [phone] Jarrett Florence MD Unavailable [phone] Allergies No known active allergies Medications rosuvastatin [...] 03/02/2022 Overview (03/02/2022): quit [place] time of [place] 09/2018 Carcinoma of bladder 03/06/2019 STEMI (ST elevation myocardial infarction) 09/27 Overview (06/19/2019): 09/2018 with stent x 2 to RCA, occured while inpatient post TURBT Anxiety Bladder cancer Overview (06/19/2019): planned for cystectomy had chemo, ended 05/28/2019 GERD (gastroesophageal reflux disease) Overview (06/19/2019): on meds History of heart artery stent Overview (06/19/2019): to RCA 09/2018 at time of STEMI [place] (hard of hearing) HTN (hypertension) Overview (06/19/2019): [...] this topic Medical Devices Implanted Type Area Production Mechanic Device Identifier Shelf Expiration Date Model / Serial / Lot Port Port Right: Chest Mesh Synthetic 6.0 Marie Abdominal Non Absorbable Square Polypropylene Bx/6ea - [id number] Implanted:Qty: 1 on 03/07/2022 by Benny Rubio MD at [facility] STANDARD JNJ ETHICON / DIVISION OF J [id number] 10/26/2026 [id number] / / [id number] Stent Diversion 7fr 90cm X2 Ureteral Single J Guidewire Ptfe .028 120cm Silicone - [id number] Implanted:Qty: 1 on 07/15/2019 by Benny Rubio MD at [facility] Ureteral Stent OLYMPUS CARROLL 11/28/2023 [id number] / / [id number] Procedures Procedure Name Priority Date/Time Associated Diagnosis Comments BASIC METABOLIC PANEL (BMP) Routine 03/10/2022 6:39 AM EDT from Last 3 Months or Most Recently Relevant to Health Maintenance Results * (ABNORMAL) Basic metabolic panel (03/10/2022 6:39 AM EDT) SODIUM 138 136 - 145 mmol/L [facility] POTASSIUM 3.8 3.4 - 5.1 mmol/L [facility] CHLORIDE 104 98 - 107 mmol/L [facility] CO2 22 22 - 31 mmol/L [facility] BUN 15 6 - 23 mg/dL [facility] CREATININE 1.05 0.50 - 1.20 mg/dL [facility] GLUCOSE 126(H) 70 - 100 mg/dL [facility] CALCIUM 8.6(L) 8.8 - 10.7 mg/dL [facility] EGFR 56(L) >59 mL/min/1.7 3m2 [facility] Comment:Estimated glomerular filtration rate calculated using the CKD-EPI refit equation. ANION GAP 12 7 - 17 mmol/L [facility] Blood 03/10/2022 6:39 AM EDT 03/10/2022 8:49 AM EDT Jocelin Drummond PA-C LAB BLOOD BKR ORDERABLES Final Result [facility] [address] [place] [address] from Last 3 Months or Most Recently Relevant to Health Maintenance Insurance MEDICARE PART A & B Member Subscriber Plan / Payer (Ef fective 2017-Present) Name:Crista Boyd Member ID:[id number] Relation to Subscriber:Self Name:Crista Boyd Subscriber ID:[id number] Payer ID:[id number] Group ID:Not on file Type:Medicare Address: [facility] [facility] [address] [facility] [place] [address] [facility] MEDICARE REPLACEMENT [place] [address] MEDICARE PART A & B Member Subscriber Plan / Payer (Ef fective 2017-Present) Name:Crista Boyd Member ID:[id number] Relation to Subscriber:Self Name:LeilafordCrista busch Subscriber ID:[id number] Payer ID:[id number] Group ID:Not on file Type:Medicare Address: [employer] [address] MEDICARE REPLACEMENT [place] [address] MEDICARE PART A & B Member Subscriber Plan / Payer ( fective 2017-Present) Name:Oliver Crista Member ID:[id number] Relation to Subscriber:Self Name:Crista Boyd Subscriber ID:[id number] Payer ID:[id number] Group ID:Not on file Type:Medicare Address: [employer] [address] MEDICARE REPLACEMENT MEDICARE PART A & B [employer] [facility] MEDICARE PART A & B freee [facility] RE[facility] MEDICARE PART A & B [facility] MEDICARE REPLACEMENT MEDICARE PART A & B [facility] MEDICARE REPLACEMENT MEDICARE PART A & B [facility] MEDICARE REPLACEMENT [place] [address] MEDICARE PART A & B [facility] Member Subscriber Plan / Payer (Ef fective 2021-Present) Name:Crista Boyd Relation to Subscriber:Self Name:Crista Boyd Payer ID:[id number] (NAIC) Group ID:[id number] Type:Medicare Address: [facility] [address] [place] [facility] Advance Directives For more information, please contact: [phone] (9AM - 5PM [facility], Monday-Monday) * Full Code (Presumed) (Latest Code Status on File) Date Activated Date Inactivated Comments 07/15/2019 10:43 PM 07/24/2019 3:37 PM * Full Code (Presumed) Date Activated Date Inactivated Comments 07/15/2019 1:19 PM 07/15/2019 10:43 PM Healthcare Agents on File Name Relationship Healthcare Agent [facility] Communication Jailene Trinh Relative .Primary Health Care Agent (Proxy form on file) Care Teams Roll Examiner Relationship Specialty Start Date End Date Breanne Andrew MD [address] [place] [address] [place] [address] PCP - General Internal Medicine 02/27/19 Juana Snyder MD [address] [place] [address] [email or web address] Accounts Administrator Cardiology 03/02/22 Jarrett Florence MD 100 [place] [address] Urology 03/02/22 Additional Source Comments The information contained in this document represents components of the legal health record. It is not the complete legal health record.[facility]
--- OUTSIDE RECORDS SUMMARY | 2025-11-11 16:17 | XMS_ITS ---
Author Organization [facility] Address [address] [address] Phone Care Team Providers Care Fire Supervisor Name Role Phone Breanne Andrew MD Primary Care Provider Juana Snyder MD Unavailable [phone] Jarrett Florence MD Unavailable [phone] Active Problems Problem Noted Date Diagnosed Date Parastomal hernia of ileal conduit 03/07/2022 Former smoker 03/02/2022 Overview (03/02/2022): quit at time of [place] 09/2018 Carcinoma of bladder 03/06/2019 STEMI (ST elevation myocardial infarction) 09/27 Overview (06/19/2019): 09/2018 with stent x 2 to RCA, occured while inpatient post TURBT Anxiety Bladder cancer Overview (06/19/2019): planned for cystectomy had chemo, ended 05/28/2019 GERD (gastroesophageal reflux disease) Overview (06/19/2019): on meds History of heart artery stent Overview (06/19/2019): to RCA 09/2018 at time of STEMI [place] (hard of hearing) HTN (hypertension) Overview (06/19/2019): [...]
--- OUTSIDE RECORDS SUMMARY | 2025-11-11 16:17 | XMS_ITS | Patient Health Record ---
Author Organization [facility] Address [address] [place] [address] Care Team Providers Care Hotel And Dining Room Cashier Name Role Phone Tikidwayne Breanne Primary Care Provider UnavailNando Pina Unavailable [phone] Allergies No Known Allergies Reason For Referral No Information Medications Medication SIG (Take, Route, Frequency, Duration) Notes Start Date End Date Status Aspirin Low Dose 81 MG Tablet Delayed Release Oral; Duration: 90 Active metFORMIN HCl ER 750 MG Tablet Extended Release 24 Hour TAKE 1 TABLET BY MOUTH TWICE DAILY Oral; Duration: 90 Starting on 02/26/24 02/26/2024 Not-Taking/P RN Rosuvastatin Calcium 20 MG Tablet Oral; Duration: 90 Active Omeprazole 40 MG Capsule Delayed Release TAKE 1 CAPSULE BY MOUTH EVERY DAY Oral; Duration: 90 Active Escitalopram Oxalate 5 MG Tablet TAKE 1 TABLET BY MOUTH EVERY DAY Oral; Duration: 90 Active Metoprolol Tartrate 25 MG Tablet Oral; Duration: 90 Active Lantus 100 UNIT/ML Solution as directed Subcutaneous Active Januvia 100 MG Tablet 1 tablet Orally Once a day; Duration: 30 day(s) Active glipiZIDE ER 10 MG Tablet Extended Release 24 Hour Oral; Duration: 90 Active Social History Tobacco Use: Social History Observation Description Date Details (start date - stop date) Former Smoker NA - NA Social History Drug/Alcohol: Social Info Question Answer Notes AUDIT-C (Standard) Did you have a drink containing alcohol in the past year? No Points 0 Interpretation Negative Tobacco Use: Social Info Question Answer Notes Tobacco Use/Smoking Patient is a former smoker How long has it been since you last smoked? 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 Problem Diverticular disease of colon (661288624) Diverticulosis of large intestine without perforation or abscess without bleeding (K57.30) Active confirmed Problem Malignant neoplasm of colon (777446035) 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 confirmed Problem Abnormal feces (110811603) Positive colorectal cancer screening using Cologuard test (R19.5) Active confirmed Problem Sessile serrated polyp of colon (3365730727) 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 confirmed Vital Signs Blood pressure diastolic 11 mm Hg 03/11/2025 Height 5 ft 1 in in 03/11/2025 Blood pressure systolic 111 mm Hg 03/11/2025 Weight 131 lbs 03/11/2025 BMI 24.75 kg/m2 03/11/2025 Encounters Encounter Location Date Provider Diagnosis [facility] [address] [place] [phone] 03/11/2025 Nando Goode Adenocarcinoma of co alli C18.9 [facility] [address] [place] [phone] 03/11/2025 Nando Goode Assessments Encounter Date Diagnosis [...] advised of her progress. Plan Of Treatment Pending Test Test Name [...] Insured Coverage Start Date Coverage End Date [facility] [address] Attn Claims [place] [id number] KRYSTAL Arenas CRISTA Self - patient is the insured MEDICAID OF [facility] [address] [place] [address] [id number] KRYSTAL Arenas CRISTA Self - patient is the insured MED[place] OF [place] [address] [facility] [place] [address] [id number] DONNAARNOLDOCRISTA Hernandez Self - patient is the insured Medical (General) History Medical History History ICD Code IDDM -2017 two stents placed Denies CVA,Lung disease,renal disease Colonoscopy before 2013 at [facility] with removal of a polyp GERD Bladder cancer with surgery as below--she is followed by her local urologist, Dr. Jarrett Florence, in [place]. She did have some chemotherapy through a [place] oncologist after her surgery for the bladder [...] Estevez as below.. Surgical History Surgery Date(Month/Year) AT [facility]_ __ _ BLADDER REMOVED FOR CANCER WITH AN ILEAL CONDUIT AND PERMANENT UROSTOMY IN 2019 REMOVED LEFT SUBMANDIBULAR SALIVARY GLAN D DUE TO INFECTION BTL Resection of the adenocarcin marbella of the colon-resection of the hepatic flexure and transverse colon by Dr. Estevez. This was a very small and early cancer, T1N0. Seen by Dr. Bruno and she did not think Crista required any other treatments at this time 01/02/2025
== END 2025-11-11 12:28 | disposition home or self-care (01) ==
LOC: HO.LAB 12:27
PROVIDERS: PCP Internal Medicine; Visit Provider Internal Medicine
DX: E11.22 Type 2 diabetes mellitus with diabetic chronic kidney disease (principal); I12.9 Hypertensive chronic kidney disease with stage 1 through stage 4 chronic kidney disease, or unspecified chronic kidney disease; N18.9 Chronic kidney disease, unspecified; E78.00 Pure hypercholesterolemia, unspecified
CPT/HCPCS: 36415; 80053; 80061; 82043; 82570; 83036; 85025